=== PATIENT | female | born 1950 | race Caucasian/White ===

== ENCOUNTER 2017-10-18 01:27 | Emergency (ER) | payer OTHER, MEDICARE ==
--- OUTSIDE RECORDS SUMMARY | 2017-10-18 01:30 | XMS REPORT | Clinical Summary ---
:1950 Author Organization [facility] Address [address] [place] [address] Phone Care Team Providers Name Role Phone Unavailable Primary Care Provider Unavailable Allergies Active Allergy Reactions Severity Noted Date Comments Penicillins Rash Low 05/09/2017 Current Medications Prescription Sig. Disp. Refills Start Date End Date Status aspirin 81 MG EC tablet Take 81 mg by Active mouth daily. calcium carbonate Take 1 tablet Active (CALCIUM CARBONATE) 300 by mouth 3 mg ChewIndications: (three) times Hypocalcemia Prevention daily. metoprolol (LOPRESSOR) Take 25 mg by Active 25 MG mouth 2 (two) tabletIndications: times daily. Paroxysmal Supraventricular Tachycardia acetaminophen (TYLENOL) Take 2 tablets 30 tablet 0 05/12/2017 05/07/2018 Active 325 MG tablet (650 mg total) by mouth every 6 (six) hours as needed for up to 360 days. predniSONE (DELTASONE) Take 3 tablets 42 tablet 0 05/12/2017 05/26/2017 20 MG tablet (60 mg total) by mouth daily for 14 days. omeprazole (PRILOSEC) Take 1 capsule 14 capsule 0 05/12/2017 05/26/2017 40 MG capsule (40 mg total) by mouth daily for 14 days. 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 Encounters Date Type Specialty Care Team Description 05/11/2017 Anesthesia Event Dejon Edwards, SPOT WELDER LINE 05/11/2017 Procedure Pass 05/11/2017 Surgery Oziel De Los Santos CATH & PCI P., MD 05/11/2017 Procedure Pass 05/11/2017 Surgery Iban Rawls BIOPSY,TEMPORAL MD Dov ARTERY 05/09/2017 - Hospital Encounter General Internal Imtiaz Roman Cavernous sinus 05/12/2017 Medicine MD Asa thrombosis;Abnormal Winston Arellano stress MD test;Vitreous floaters of right eye;Sinus bradycardia 05/09/2017 Orders Only General Internal Medicine after 10/17/2016 Social History Tobacco Use Types Packs/Day Years Used Date Never Smoker Smokeless Tobacco: Never Used Alcohol Use Drinks/Week oz/Week Comments Yes 2 cans of beer a month Sex Assigned at Date Recorded Not on file Last Filed Vital Signs Vital Sign Reading Time Taken Blood Pressure 111/53 05/12/2017 11:00 AM [employer] Pulse 56 05/12/2017 11:00 AM [employer] Temperature 36 C (96.8 F) 05/12/2017 7:30 AM [employer] Respiratory Rate 16 05/12/2017 11:00 AM [employer] Oxygen Saturation 96% 05/12/2017 11:00 AM [employer] Inhaled Oxygen Concentration - - Weight 89 kg (196 lb 3.4 oz) 05/10/2017 6:00 AM [employer] Height 153.9 cm (5' 0.6") 05/09/2017 1:00 AM [employer] Body Mass Index 37.56 05/10/2017 6:00 AM [employer] Plan of Treatment Not on file Implants Implanted Type Area House Carpenter Device Expiration Model / Identifier Date Serial / Lot Device Clsr Angio-Seal Vip 6fr [id number] - [id number] Cardiovascular N/A: [id number] / Implanted: Qty: 1 on 05/11/2017 by Oziel De [facility] [id number] Procedures Procedure Name Priority Date/Time Associated Diagnosis Comments BIOPSY,TEMPORAL ARTERY 05/11/2017 6:35 PM SINUS HEADACHE AND [employer] VISUAL CHANGES Special Needs REQ: 1600 L CATH & PCI 05/11/2017 3:00 PM [employer] CP after 10/17/2016 Results VASCULAR DIAGRAM -SCAN (05/27/2017 10:50 AM)Only the most recent of2 resultswithin the time period is included.EKG-SCANNED (05/18/2017 8:10 AM) RHYTHM STRIP - SCAN (05/18/2017 8:10 AM)CARDIAC CATH REPORT - SCAN (05/12/2017 9:30 PM)Tissue Exam (05/11/2017 10:34 PM) Component Value Ref Range Case Report Surgical Pathology Report Case: [id number] Authorizing Provider:Iban Rawls MD Collected: 05/11/2017 2234 Ordering Location: [facility] Received: 05/12/2017 1004 SERVICES Pathologist: Radha Gonzalez MD Specimen:Artery, TEMPORAL ARTERY BIOPSY DIAGNOSIS TEMPORAL ARTERY, BIOPSY -TEMPORAL ARTERY WITHOUT SIGNIFICANT INFLAMMATION Signing Pathologist Direct Phone Line: [phone] COMMENT Multiple sections show temporal artery without significant inflammation. No granulomata or giant cells are detected. Luminal narrowing is not seen. Areas of hemorrhage that may be related to the procedure are also identified. The Movat stain shows a continuous internal elastic lamina. Findings are not sufficient for diagnosis of temporal arteritis. Clinical correlation is recommended. CPT Code(s) 25935, 04083 CLINICAL HISTORY Sinus headache and visual changes SPECIMEN SOURCE Temporal artery biopsy GROSS DESCRIPTION The specimen is received in a formalin-filled container labeled with the patient's information and labeled "temporal artery biopsy" and consists of a wilson-red tubular shaped segment of tissue measuring 2.4 cm in length x 0.1 cm in diameter, submitted in A1. CG/ew MICROSCOPIC DESCRIPTION Performed. Specimen Performing Laboratory Tissue - Artery [address] [address] TSH/Free T4 If Indicated (05/11/2017 11:23 AM) Component Value Ref Range TSH 2.27 0.35 - 4.94 uIU/mL Specimen Performing Laboratory Blood - Arm, [address] [address] Troponin I (05/11/2017 11:23 AM)Only the most recent of3 resultswithin the time period is included. Component Value Ref Range Troponin I <0.01 0.00 - 0.03 ng/mL Specimen Performing Laboratory Blood - Arm, [address] [address] Narrative Troponin I (TnI) levels must be interpreted in the context of the presenting symptoms and the clinical findings. Elevated TnI levels indicate myocardial damage, but are not specific for ischemic heart disease. Elevated TnI levels are seen in patients with other cardiac conditions (including myocarditis and congestive heart failure), and slight TnI elevations occur in patients with other conditions, including sepsis, renal failure, acidosis, acute neurological disease, and persistent tachyarrhythmia. ECG 12 lead (05/11/2017 11:06 AM)Only the most recent of2 resultswithin the time period is included. Specimen Performing Laboratory GE MUSE Narrative Ventricular Rate 56 BPM Atrial Rate 56 BPM P-R Interval 206 ms QRS Duration 96 ms Q-T Interval 434 ms QTC Calculation(Bazett) 418 ms P Ewing 30 degrees R Ewing 0 degrees T Ewing 23 degrees Sinus bradycardia Otherwise normal ECG When compared with ECG of 09-MAY-2017 02:31, No significant change was found Confirmed by MD Jaquez Roberto ([id number]) on 05/11/2017 1:22:40 PM Procedure Note Interface, External Ris In - 05/11/2017 1:22 PM [employer] Ventricular Rate 56 BPM Atrial Rate 56 BPM P-R Interval 206 ms QRS Duration 96 ms Q-T Interval 434 ms QTC Calculation(Bazett) 418 ms P Ewing 30 degrees R Ewing 0 degrees T Ewing 23 degrees Sinus bradycardia Otherwise normal ECG When compared with ECG of 09-MAY-2017 02:31, No significant change was found Confirmed by MD Jaquez Roberto ([id number]) on 05/11/2017 1:22:40 PM CBC with platelet count + automated diff (05/11/2017 4:59 AM)Only the most recent of3 resultswithin the time period is included. Component Value Ref Range WBC 7.5 3.5 - 10.5 K/L RBC 4.47 3.93 - 5.22 M/L Hemoglobin 12.7 11.2 - 15.7 GM/DL Hematocrit 39.4 34.1 - 44.9 % MCV 88.1 79.4 - 94.8 fL MCH 28.4 25.6 - 32.2 pg MCHC 32.2 32.2 - 35.5 GM/DL RDW 14.6 (H) 11.7 - 14.4 % Platelets 266 150 - 450 K/CU MM MPV 10.1 9.4 - 12.3 fL nRBC 0 0 - 0 /100 WBC % Neutros 61 % % Lymphs 25 % % Monos 11 % % Eos 2 % % Baso 0 % # Neutros 4.59 1.56 - 6.13 K/L # Lymphs 1.87 1.18 - 3.74 K/L # Monos 0.83 (H) 0.24 - 0.36 K/L # Eos 0.17 0.04 - 0.36 K/L # Baso 0.03 0.01 - 0.08 K/L Immature Granulocytes-Relative 0 0 - 1 % Specimen Performing Laboratory Blood - Arm, Right [address] [address] CBC with platelet count + automated diff (05/11/2017 4:59 AM)Only the most recent of3 resultswithin the time period is included. Specimen Performing Laboratory Blood Narrative The following orders were created for panel order CBC with platelet count + automated diff. Procedure Abnormality Status --------- ------ CBC with platelet count ...[[id number]]AbnormalFinal result Please view results for these tests on the individual orders. Basic Metabolic Panel (05/11/2017 4:59 AM)Only the most recent of3 resultswithin the time period is included. Component Value Ref Range Sodium 140 136 - 145 meq/L Potassium 4.3 3.5 - 5.1 meq/L Chloride 109 (H) 98 - 107 meq/L CO2 26 22 - 29 meq/L BUN 13 7 - 21 mg/dL Creatinine 0.82 0.57 - 1.25 mg/dL Glucose 85 70 - 105 mg/dL Calcium 9.0 8.4 - 10.2 mg/dL EGFR 70Comment: ESTIMATED GFR IS NOT ACCURATE mL/min/1.73 sq m CREATININE CLEARANCE IN PREDICTING GLOMERULAR FILTRATION RATE. ESTIMATED GFR IS NOT APPLICABLE FOR DIALYSIS PATIENTS. Specimen Performing Laboratory Blood - Arm, Right [address] [address] CTA brain (05/10/2017 10:08 AM) Specimen Performing Laboratory GE RIS Narrative FINAL REPORT CTV head with contrast INDICATION: Acute headache, cavernous sinus thrombosis. TECHNIQUE: Axial noncontrast CT images of the head were obtained. Subsequently, axial intravenous contrast enhanced CTV images of the head were obtained. Multiplanar and 3-D volume rendered reconstruction images were generated on a separate workstation for better delineation of the vascular anatomy. This exam was performed according to our departmental dose optimization program which includes automated exposure control, adjustment of the mA and/or kV according to patient size and/or use of iterative reconstruction technique. COMPARISON: MRI brain and MRV head 05/09/2017 FINDINGS: CTV head: Suboptimal contrast bolus timing limits evaluation. With this in mind, no significant cavernous sinus size asymmetry, suspicious filling defect, or secondary findings such as superior ophthalmic vein distention is seen to indicate cavernous sinus thrombosis. The major dural venous sinuses are otherwise patent, without evident thrombosis. There is mild carotid siphon atherosclerosis. The imaged proximal [place] vessels demonstrate no high grade stenosis or major branch occlusion. CT head: Microvascular changes are similar to the prior study and chronic appearing. No hematoma, extra axial collection, or mass effect is evident. Please note that CT is insensitive for early or small infarcts. Generalized volume loss and vascular consultations are noted. There is no hydrocephalus or midline shift. The visualized sinuses, mastoid air cells, and orbits are unremarkable. The calvarium is intact. IMPRESSION: 1. Suboptimal contrast bolus timing limits evaluation. 2. No specific CTV findings of cavernous sinus thrombosis. 3. Unremarkable appearance of the major dural venous sinuses. Signed: Camila Thomas MD Report Verified Date/Time:05/10/2017 11:23:39 Reading Location: [address] Neuro Reading Room Procedure Note Interface, External Ris In - 05/10/2017 10:28 PM [employer] FINAL REPORT CTV head with contrast INDICATION: Acute headache, cavernous sinus thrombosis. TECHNIQUE: Axial noncontrast CT images of the head were obtained. Subsequently, axial intravenous contrast enhanced CTV images of the head were obtained. Multiplanar and 3-D volume rendered reconstruction images were generated on a separate workstation for better delineation of the vascular anatomy. This exam was performed according to our departmental dose optimization program which includes automated exposure control, adjustment of the mA and/or kV according to patient size and/or use of iterative reconstruction technique. COMPARISON: MRI brain and MRV head 05/09/2017 FINDINGS: CTV head: Suboptimal contrast bolus timing limits evaluation. With this in mind, no significant cavernous sinus size asymmetry, suspicious filling defect, or secondary findings such as superior ophthalmic vein distention is seen to indicate cavernous sinus thrombosis. The major dural venous sinuses are otherwise patent, without evident thrombosis. There is mild carotid siphon atherosclerosis. The imaged proximal [place] vessels demonstrate no high grade stenosis or major branch occlusion. CT head: Microvascular changes are similar to the prior study and chronic appearing. No hematoma, extra axial collection, or mass effect is evident. Please note that CT is insensitive for early or small infarcts. Generalized volume loss and vascular consultations are noted. There is no hydrocephalus or midline shift. The visualized sinuses, mastoid air cells, and orbits are unremarkable. The calvarium is intact. IMPRESSION: 1. Suboptimal contrast bolus timing limits evaluation. 2. No specific CTV findings of cavernous sinus thrombosis. 3. Unremarkable appearance of the major dural venous sinuses. Signed: Camila Thomas MD Report Verified Date/Time: 05/10/2017 11:23:39 Reading Location: [address] Neuro Reading Room C-Reactive Protein (05/10/2017 9:12 AM) Component Value Ref Range CRP 0.80 (H) 0.00 - 0.50 mg/dL Specimen Performing Laboratory [address] [address] aPTT (05/10/2017 9:12 AM)Only the most recent of4 resultswithin the time period is included. Component Value Ref Range PTT 98.5 (H) 22.5 - 36.0 seconds Specimen Performing Laboratory Blood [address] [address] Sedimentation rate (05/10/2017 9:12 AM) Component Value Ref Range Sed Rate 19 0 - 40 mm/HR Specimen Performing Laboratory [address] [address] PT/aPTT (05/10/2017 3:15 AM)Only the most recent of2 resultswithin the time period is included. Component Value Ref Range Protime 14.6 11.7 - 14.7 seconds INR 1.2 <=5.9 PTT 83.0 (H) 22.5 - 36.0 seconds Specimen Performing Laboratory Blood [facility] [address] [place] [address] Narrative RECOMMENDED COUMADIN/WARFARIN INR THERAPY RANGES STANDARD DOSE: 2.0 - 3.0 Includes: PROPHYLAXIS for venous thrombosis, systemic embolization; TREATMENT for venous thrombosis and/or pulmonary embolus. HIGH RISK: Target INR is 2.5-3.5 for patients with mechanical heart valves. MR brain without & with IV contrast (05/10/2017 12:35 AM) Specimen Performing Laboratory [facility] Narrative FINAL REPORT MR, MRA, BRAIN, WITHOUT CONTRAST, MR, BRAIN, WITH \\T\\ WITHOUT CONTRAST INDICATION: MRV for suspected cavernous sinus thrombosis TECHNIQUE: Multiplanar, multisequence pre and postcontrast MR images of the brain.Two-dimensional [id number] MR venogram of the brain in the coronal and axial plane was obtained, with three-dimensional reconstructed images. COMPARISON: None FINDINGS: MRI BRAIN: Cerebral parenchyma: No infarct or hemorrhage. Scattered small foci of deep white matter T2 hyperintensity suggesting sequela of chronic microvascular disease. Midline structures: Normally positioned. Cerebellum and brainstem: Small developmental venous anomaly in the right cerebellar hemisphere. Ventricles: Normal volume. Extra-axial spaces: Unremarkable. Calvarium and skull base: Normal signal. Paranasal sinuses and mastoid air cells: Visible chambers are clear. Orbital contents: No acute abnormality. Additional findings: No abnormal postcontrast enhancement. MRV: Major venous sinuses: Patent Internal cerebral veins: Patent Basal veins: Patent Additional Findings: None IMPRESSION: Mild chronic ischemic changes without acute infarct or parenchymal hemorrhage. Unremarkable MR venogram of the brain. Signed: JR Chloe, Belle MONSON Report Verified Date/Time:05/10/2017 00:52:12 Reading Location: [address] Reading Room Procedure Note Interface, External Ris In - 05/10/2017 12:54 AM [employer] FINAL REPORT MR, MRA, BRAIN, WITHOUT CONTRAST, MR, BRAIN, WITH \\T\\ WITHOUT CONTRAST INDICATION: MRV for suspected cavernous sinus thrombosis TECHNIQUE: Multiplanar, multisequence pre and postcontrast MR images of the brain. Two-dimensional [id number] MR venogram of the brain in the coronal and axial plane was obtained, with three-dimensional reconstructed images. COMPARISON: None FINDINGS: MRI BRAIN: Cerebral parenchyma: No infarct or hemorrhage. Scattered small foci of deep white matter T2 hyperintensity suggesting sequela of chronic microvascular disease. Midline structures: Normally positioned. Cerebellum and brainstem: Small developmental venous anomaly in the right cerebellar hemisphere. Ventricles: Normal volume. Extra-axial spaces: Unremarkable. Calvarium and skull base: Normal signal. Paranasal sinuses and mastoid air cells: Visible chambers are clear. Orbital contents: No acute abnormality. Additional findings: No abnormal postcontrast enhancement. MRV: Major venous sinuses: Patent Internal cerebral veins: Patent Basal veins: Patent Additional Findings: None IMPRESSION: Mild chronic ischemic changes without acute infarct or parenchymal hemorrhage. Unremarkable MR venogram of the brain. Signed: JR Corona Robert MD Report Verified Date/Time: 05/10/2017 00:52:12 Reading Location: [address] Reading Room head without IV contrast (05/10/2017 12:35 AM) Specimen Performing Laboratory [facility] Narrative FINAL REPORT MR, MRA, BRAIN, WITHOUT CONTRAST, MR, BRAIN, WITH \\T\\ WITHOUT CONTRAST INDICATION: MRV for suspected cavernous sinus thrombosis TECHNIQUE: Multiplanar, multisequence pre and postcontrast MR images of the brain.Two-dimensional [id number] MR venogram of the brain in the coronal and axial plane was obtained, with three-dimensional reconstructed images. COMPARISON: None FINDINGS: MRI BRAIN: Cerebral parenchyma: No infarct or hemorrhage. Scattered small foci of deep white matter T2 hyperintensity suggesting sequela of chronic microvascular disease. Midline structures: Normally positioned. Cerebellum and brainstem: Small developmental venous anomaly in the right cerebellar hemisphere. Ventricles: Normal volume. Extra-axial spaces: Unremarkable. Calvarium and skull base: Normal signal. Paranasal sinuses and mastoid air cells: Visible chambers are clear. Orbital contents: No acute abnormality. Additional findings: No abnormal postcontrast enhancement. MRV: Major venous sinuses: Patent Internal cerebral veins: Patent Basal veins: Patent Additional Findings: None IMPRESSION: Mild chronic ischemic changes without acute infarct or parenchymal hemorrhage. Unremarkable MR venogram of the brain. Signed: JR Corona Robert MD Report Verified Date/Time:05/10/2017 00:52:12 Reading Location: [address] Reading Room Procedure Note Interface, External Ris In - 05/10/2017 12:54 AM [employer] FINAL REPORT MR, MRA, BRAIN, WITHOUT CONTRAST, MR, BRAIN, WITH \\T\\ WITHOUT CONTRAST INDICATION: MRV for suspected cavernous sinus thrombosis TECHNIQUE: Multiplanar, multisequence pre and postcontrast MR images of the brain. Two-dimensional [id number] MR venogram of the brain in the coronal and axial plane was obtained, with three-dimensional reconstructed images. COMPARISON: None FINDINGS: MRI BRAIN: Cerebral parenchyma: No infarct or hemorrhage. Scattered small foci of deep white matter T2 hyperintensity suggesting sequela of chronic microvascular disease. Midline structures: Normally positioned. Cerebellum and brainstem: Small developmental venous anomaly in the right cerebellar hemisphere. Ventricles: Normal volume. Extra-axial spaces: Unremarkable. Calvarium and skull base: Normal signal. Paranasal sinuses and mastoid air cells: Visible chambers are clear. Orbital contents: No acute abnormality. Additional findings: No abnormal postcontrast enhancement. MRV: Major venous sinuses: Patent Internal cerebral veins: Patent Basal veins: Patent Additional Findings: None IMPRESSION: Mild chronic ischemic changes without acute infarct or parenchymal hemorrhage. Unremarkable MR venogram of the brain. Signed: JR Corona Robert MD Report Verified Date/Time: 05/10/2017 00:52:12 Reading Location: [address] Reading Room Prothrombin time/INR (05/09/2017 1:50 AM) Component Value Ref Range Protime 14.2 11.7 - 14.7 seconds INR 1.1 <=5.9 Specimen Performing Laboratory Blood [facility] [address] [address] Narrative RECOMMENDED COUMADIN/WARFARIN INR THERAPY RANGES STANDARD DOSE: 2.0 - 3.0 Includes: PROPHYLAXIS for venous thrombosis, systemic embolization; TREATMENT for venous thrombosis and/or pulmonary embolus. HIGH RISK: Target INR is 2.5-3.5 for patients with mechanical heart valves. Prior to initiating heparin after 10/17/2016
--- OUTSIDE RECORDS SUMMARY | 2017-10-18 01:30 | XMS REPORT ---
:1950 [facility] Address [address] [place] [address] [address] [place] [address] Care Team Providers Name Role Phone CORBY SANTOYO Unavailable Unavailable Problems This patient has no known problems. Allergies, Adverse Reactions, Alerts This patient has no known allergies or adverse reactions. Medications This patient has no known medications. Results Test Description Test Time Test Comments Text Results Atomic Results Result Comments TISSUE EXAM 2017-05-14 12:19:00 Surgical Pathology Report Case: [id number] Authorizing Provider: Iban Rawls MD Collected: 05/11/2017 2234 Ordering Location: [facility] Received: 05/12/2017 1004 SERVICES Pathologist: Radha Gonzalez MD Specimen: Artery, TEMPORAL ARTERY BIOPSY TEMPORAL ARTERY, BIOPSY- TEMPORAL ARTERY WITHOUT SIGNIFICANT INFLAMMATION Signing Pathologist Direct Phone Line: [phone] signed by Radha Gonzalez MD on 05/14/2017 at 12:19 PMMultiple sections show temporal artery without significant inflammation. No granulomata or giant cells are detected. Luminal narrowing is not seen. Areas of hemorrhage that may be related to the procedure are also identified. The Movat stain shows a continuous internal elastic lamina. Findings are not sufficient for diagnosis of temporal arteritis. Clinical correlation is recommended.[id number], [id number] headache and visual changesTemporal artery biopsyThe specimen is received in a formalin-filled container labeled with the patient's information and labeled "temporal artery biopsy" and consists of a wilson-red tubular shaped segment of tissue measuring 2.4 cm in length x 0.1 cm in diameter, submitted in A1. CG/ewPerformed. TSH/FREE T4 IF INDICATED 2017-05-11 14:41:00 Test Item Value Reference Range Comments THYROID STIMULATING HORMONE (BEAKER) (test fyva=091) 2.27 uIU/mL 0.35-4.94 TROPONIN [id number] 12:21:00 Test Item Value Reference Range Comments TROPONIN I (BEAKER) (test yizd=602) < ng/mL 0.00-0.03 Troponin I (TnI) levels must be interpreted [...] failure, acidosis, acute neurological disease, and persistent tachyarrhythmia.BASIC METABOLIC [id number] 06:27:00 Test Item Value Reference Range Comments SODIUM (BEAKER) (test 140 meq/L 136-145 lejq=390) POTASSIUM (BEAKER) (test 4.3 meq/L 3.5-5.1 rzmf=757) CHLORIDE (BEAKER) (test 109 meq/L 98-107 dbvi=756) CO2 (BEAKER) (test 26 meq/L 22-29 yjii=244) BLOOD UREA NITROGEN 13 mg/dL 7-21 (BEAKER) (test onqb=383) CREATININE (BEAKER) (test 0.82 mg/dL 0.57-1.25 thpg=560) GLUCOSE RANDOM (BEAKER) 85 mg/dL 70-105 (test yltv=175) CALCIUM (BEAKER) (test 9.0 mg/dL 8.4-10.2 vhww=156) EGFR (BEAKER) (test 70 mL/min/1.73 sq m ESTIMATED GFR IS NOT zeou=0902) ACCURATE CREATININE CLEARANCE IN PREDICTING GLOMERULAR FILTRATION RATE. ESTIMATED GFR IS NOT APPLICABLE FOR DIALYSIS PATIENTS. CBC W/PLT COUNT & AUTO [id number] 05:56:00 Test Item Value Reference Range Comments WHITE BLOOD CELL COUNT (BEAKER) (test qlbi=199) 7.5 K/ L 3.5-10.5 RED BLOOD CELL COUNT (BEAKER) (test nxha=206) 4.47 M/ L 3.93-5.22 HEMOGLOBIN (BEAKER) (test ydvg=783) 12.7 GM/DL 11.2-15.7 HEMATOCRIT (BEAKER) (test yewo=741) 39.4 % 34.1-44.9 MEAN CORPUSCULAR VOLUME (BEAKER) (test wsav=700) 88.1 fL 79.4-94.8 MEAN CORPUSCULAR HEMOGLOBIN (BEAKER) (test 28.4 pg 25.6-32.2 luea=759) MEAN CORPUSCULAR HEMOGLOBIN CONC (BEAKER) (test 32.2 GM/DL 32.2-35.5 uvct=822) RED CELL DISTRIBUTION WIDTH (BEAKER) (test 14.6 % 11.7-14.4 yqke=773) PLATELET COUNT (BEAKER) (test pylq=202) 266 K/CU MM 150-450 MEAN PLATELET VOLUME (BEAKER) (test izij=910) 10.1 fL 9.4-12.3 NUCLEATED RED BLOOD CELLS (BEAKER) (test 0 /100 WBC 0-0 lyuc=872) NEUTROPHILS RELATIVE PERCENT (BEAKER) (test 61 % acix=834) LYMPHOCYTES RELATIVE PERCENT (BEAKER) (test 25 % atif=936) MONOCYTES RELATIVE PERCENT (BEAKER) (test 11 % jmnw=257) EOSINOPHILS RELATIVE PERCENT (BEAKER) (test 2 % suwy=858) BASOPHILS RELATIVE PERCENT (BEAKER) (test 0 % wrrm=522) NEUTROPHILS ABSOLUTE COUNT (BEAKER) (test 4.59 K/ L 1.56-6.13 iikk=046) LYMPHOCYTES ABSOLUTE COUNT (BEAKER) (test 1.87 K/ L 1.18-3.74 bgee=380) MONOCYTES ABSOLUTE COUNT (BEAKER) (test 0.83 K/ L 0.24-0.36 rmld=979) EOSINOPHILS ABSOLUTE COUNT (BEAKER) (test 0.17 K/ L 0.04-0.36 rvbh=818) BASOPHILS ABSOLUTE COUNT (BEAKER) (test 0.03 K/ L 0.01-0.08 aogz=376) IMMATURE GRANULOCYTES-RELATIVE PERCENT (BEAKER) 0 % 0-1 (test isre=4121) SEDIMENTATION [id number] 11:51:00 Test Item Value Reference Range Comments SEDIMENTATION RATE, ERYTHROCYTE (BEAKER) (test 19 mm/HR 0-40 wlyy=305) CT, CTANGIO [id number] 11:23:00FINAL REPORT CTV head with contrast INDICATION: Acute [...] brain and MRV head 05/09/2017 FINDINGS: CTV head:Suboptimal contrast bolus timing limits evaluation. With this in mind, no significant cavernoussinus size asymmetry, suspicious filling defect, or secondary findings such as superior ophthalmic vein distention is seen to indicate cavernous sinus thrombosis. The major dural venous sinuses are otherwise patent, without evident thrombosis. There is mild carotid siphon atherosclerosis. The imaged proximal pilot point of Sarah vessels demonstrate no high grade stenosis or major branch occlusion. CT head:Microvascular changes are similar to the prior study [...] major dural venous sinuses. Signed: Camila Thomas MDReport Verified Date/Time: 05/10 11:23:39 Reading Location: [address] Neuro Reading Room C- REACTIVE [id number] 10:01:00 Test Item Value Reference Range Comments C-REACTIVE PROTEIN (BEAKER) (test zbea=478) 0.80 mg/dL 0.00-0.50 [id number] 09:44:00 Test Item Value Reference Range Comments PARTIAL THROMBOPLASTIN TIME (BEAKER) (test 98.5 seconds 22.5-36.0 whgm=497) TROPONIN [id number] 08:37:00 Test Item Value Reference Range Comments TROPONIN I (BEAKER) (test upan=866) < ng/mL 0.00-0.03 Troponin I (TnI) levels must be interpreted [...] failure, acidosis, acute neurological disease, and persistent tachyarrhythmia.BASIC METABOLIC [id number] 04:17:00 Test Item Value Reference Range Comments SODIUM (BEAKER) (test 138 meq/L 136-145 fznm=631) POTASSIUM (BEAKER) (test 4.2 meq/L 3.5-5.1 hqom=045) CHLORIDE (BEAKER) (test 107 meq/L 98-107 jefn=799) CO2 (BEAKER) (test 24 meq/L 22-29 bcgf=555) BLOOD UREA NITROGEN 15 mg/dL 7-21 (BEAKER) (test oxxa=204) CREATININE (BEAKER) (test 0.88 mg/dL 0.57-1.25 xpug=504) GLUCOSE RANDOM (BEAKER) 98 mg/dL 70-105 (test hqex=995) CALCIUM (BEAKER) (test 8.8 mg/dL 8.4-10.2 fwnm=413) EGFR (BEAKER) (test 64 mL/min/1.73 sq m ESTIMATED GFR IS NOT ikra=6726) ACCURATE CREATININE CLEARANCE IN PREDICTING GLOMERULAR FILTRATION RATE. ESTIMATED GFR IS NOT APPLICABLE FOR DIALYSIS PATIENTS. [id number] 03:43:00 Test Item Value Reference Range Comments PROTIME (BEAKER) (test qgjk=273) 14.6 seconds 11.7-14.7 INR (BEAKER) (test fixl=540) 1.2 <=5.9 PARTIAL THROMBOPLASTIN TIME (BEAKER) (test 83.0 seconds 22.5-36.0 nyii=076) RECOMMENDED COUMADIN/WARFARIN INR THERAPY RANGESSTANDARD DOSE: 2.0 - 3.0 Includes: PROPHYLAXIS forvenous thrombosis, systemic embolization; TREATMENT for venous thrombosis and/or pulmonary embolus.HIGH RISK: Target INR is 2.5-3.5 for patients with mechanical heart valves.CBC W/PLT COUNT & AUTO [id number] 03:34:00 Test Item Value Reference Range Comments WHITE BLOOD CELL COUNT (BEAKER) (test nmom=328) 7.9 K/ L 3.5-10.5 RED BLOOD CELL COUNT (BEAKER) (test qzfs=099) 4.29 M/ L 3.93-5.22 HEMOGLOBIN (BEAKER) (test baui=675) 12.3 GM/DL 11.2-15.7 HEMATOCRIT (BEAKER) (test zguv=847) 38.5 % 34.1-44.9 MEAN CORPUSCULAR VOLUME (BEAKER) (test cekh=145) 89.7 fL 79.4-94.8 MEAN CORPUSCULAR HEMOGLOBIN (BEAKER) (test 28.7 pg 25.6-32.2 eovg=510) MEAN CORPUSCULAR HEMOGLOBIN CONC (BEAKER) (test 31.9 GM/DL 32.2-35.5 oxih=540) RED CELL DISTRIBUTION WIDTH (BEAKER) (test 14.6 % 11.7-14.4 euaq=019) PLATELET COUNT (BEAKER) (test bujy=478) 240 K/CU MM 150-450 MEAN PLATELET VOLUME (BEAKER) (test qolr=062) 9.8 fL 9.4-12.3 NUCLEATED RED BLOOD CELLS (BEAKER) (test 0 /100 WBC 0-0 ommd=091) NEUTROPHILS RELATIVE PERCENT (BEAKER) (test 55 % miml=624) LYMPHOCYTES RELATIVE PERCENT (BEAKER) (test 32 % dkxm=470) MONOCYTES RELATIVE PERCENT (BEAKER) (test 10 % gfyw=516) EOSINOPHILS RELATIVE PERCENT (BEAKER) (test 2 % lowa=081) BASOPHILS RELATIVE PERCENT (BEAKER) (test 0 % ijut=899) NEUTROPHILS ABSOLUTE COUNT (BEAKER) (test 4.30 K/ L 1.56-6.13 ihiw=531) LYMPHOCYTES ABSOLUTE COUNT (BEAKER) (test 2.54 K/ L 1.18-3.74 kkkw=945) MONOCYTES ABSOLUTE COUNT (BEAKER) (test 0.79 K/ L 0.24-0.36 omyk=107) EOSINOPHILS ABSOLUTE COUNT (BEAKER) (test 0.17 K/ L 0.04-0.36 vdlb=039) BASOPHILS ABSOLUTE COUNT (BEAKER) (test 0.02 K/ L 0.01-0.08 dvox=260) IMMATURE GRANULOCYTES-RELATIVE PERCENT (BEAKER) 1 % 0-1 (test owss=7647) MR, MRA, BRAIN, WITHOUT [id number] 00:52:00FINAL REPORT MR, MRA, BRAIN, WITHOUT CONTRAST, MR, BRAIN, WITH \\T\\ WITHOUT CONTRAST INDICATION: MRV for suspected cavernous sinus thrombosis TECHNIQUE: Multiplanar , multisequencepre and postcontrast MR images of the brain. Two-dimensional [id number]-og-[id number] MR venogram of the brain in the coronal and axial plane was obtained, with three-dimensional reconstructed images. COMPARISON: None FINDINGS : MRI BRAIN: Cerebral parenchyma: No infarct or hemorrhage. Scattered small foci of deep white matter T2 hyperintensity suggesting sequela of chronic microvascular disease. Midline structures: Normally positioned.Cerebellum and brainstem: Small developmental venous anomaly in the rightcerebellar hemisphere.Ventricles: Normal volume.Extra-axial spaces: Unremarkable. Calvarium and skull base: Normal signal.Paranasal sinuses and mastoid air cells : Visible chambers are clear.Orbital contents: No acute abnormality. Additional findings: No abnormal postcontrast enhancement. MRV:Major venous sinuses: PatentInternal cerebral veins: PatentBasal veins: Patent Additional Findings: None IMPRESSION: Mild chronic ischemic changes without acute infarct or parenchymal hemorrhage. Unremarkable MR venogram of the brain. Signed: JR Corona Robert MDReport Verified Date/Time: 05/10/2017 00:52:12 Reading Location: [address] Reading Room MR, BRAIN, [id number] 00:52 :00FINAL REPORT MR, MRA, BRAIN, WITHOUT CONTRAST, MR, BRAIN, WITH \\T\\ WITHOUT CONTRAST INDICATION: MRV for suspected cavernous sinus thrombosis TECHNIQUE: Multiplanar, multisequencepre and postcontrast MR images of the brain. Two-dimensional swxj-pf-nekfmf MR venogram of the brain in the coronal and axial plane was obtained, with three-dimensional reconstructed images. COMPARISON: None FINDINGS: MRI BRAIN: Cerebral parenchyma: No infarct or hemorrhage. Scattered small foci of deep white matter T2 hyperintensity suggesting sequela of chronic microvascular disease. Midline structures: Normally positioned.Cerebellum and brainstem: Small developmental venous anomaly in the rightcerebellar hemisphere.Ventricles: Normal volume.Extra-axial spaces: Unremarkable. Calvarium and skull base: Normal signal.Paranasal sinuses and mastoid air cells: Visible chambers are clear.Orbital contents: No acute abnormality. Additional findings: No abnormal postcontrast enhancement. MRV: Major venous sinuses: PatentInternal cerebral veins: PatentBasal veins: Patent Additional Findings: None IMPRESSION: Mild chronic ischemic changes without acute infarct or parenchymal hemorrhage. Unremarkable MR venogram of the brain. Signed: JR Corona Robert MDReport Verified Date/Time: 05/10/2017 00:52: 12 Reading Location: [address] Reading Room [id number] 22:46: 00 Test Item Value Reference Range Comments PROTIME (BEAKER) (test hlpp=811) 14.5 seconds 11.7-14.7 INR (BEAKER) (test flwo=348) 1.1 <=5.9 PARTIAL THROMBOPLASTIN TIME (BEAKER) (test 43.9 seconds 22.5-36.0 qpzl=602) RECOMMENDED COUMADIN/WARFARIN INR THERAPY RANGESSTANDARD DOSE: 2.0 - 3.0 Includes: PROPHYLAXIS forvenous thrombosis, systemic embolization; TREATMENT for venous thrombosis and/or pulmonary embolus.HIGH RISK: Target INR is 2.5-3.5 for patients with mechanical heart valves.[id number] 14:41:00 Test Item Value Reference Range Comments PARTIAL THROMBOPLASTIN TIME (BEAKER) (test 29.6 seconds 22.5-36.0 rywj=981) [id number] 08:26:00 Test Item Value Reference Range Comments PARTIAL THROMBOPLASTIN TIME (BEAKER) (test 56.2 seconds 22.5-36.0 recz=749) BASIC METABOLIC [id number] 05:02:00 Test Item Value Reference Range Comments SODIUM (BEAKER) (test 141 meq/L 136-145 xhwl=759) POTASSIUM (BEAKER) (test 4.3 meq/L 3.5-5.1 wluy=223) CHLORIDE (BEAKER) (test 110 meq/L 98-107 gavr=171) CO2 (BEAKER) (test 24 meq/L 22-29 ofde=137) BLOOD UREA NITROGEN 12 mg/dL 7-21 (BEAKER) (test tzex=269) CREATININE (BEAKER) (test 0.84 mg/dL 0.57-1.25 uqig=390) GLUCOSE RANDOM (BEAKER) 89 mg/dL 70-105 (test tiby=240) CALCIUM (BEAKER) (test 8.7 mg/dL 8.4-10.2 ifdt=076) EGFR (BEAKER) (test 68 mL/min/1.73 sq m ESTIMATED GFR IS NOT kaps=3014) ACCURATE CREATININE CLEARANCE IN PREDICTING GLOMERULAR FILTRATION RATE. ESTIMATED GFR IS NOT APPLICABLE FOR DIALYSIS PATIENTS. CBC W/PLT COUNT & AUTO [id number] 04:24:00 Test Item Value Reference Range Comments WHITE BLOOD CELL COUNT (BEAKER) (test jjlm=991) 9.0 K/ L 3.5-10.5 RED BLOOD CELL COUNT (BEAKER) (test vbhs=585) 4.24 M/ L 3.93-5.22 HEMOGLOBIN (BEAKER) (test priw=335) 12.1 GM/DL 11.2-15.7 HEMATOCRIT (BEAKER) (test nfno=447) 38.2 % 34.1-44.9 MEAN CORPUSCULAR VOLUME (BEAKER) (test pxmz=557) 90.1 fL 79.4-94.8 MEAN CORPUSCULAR HEMOGLOBIN (BEAKER) (test 28.5 pg 25.6-32.2 cdpf=933) MEAN CORPUSCULAR HEMOGLOBIN CONC (BEAKER) (test 31.7 GM/DL 32.2-35.5 xcce=181) RED CELL DISTRIBUTION WIDTH (BEAKER) (test 14.6 % 11.7-14.4 pprr=912) PLATELET COUNT (BEAKER) (test wcyl=440) 267 K/CU MM 150-450 MEAN PLATELET VOLUME (BEAKER) (test owyg=307) 9.6 fL 9.4-12.3 NUCLEATED RED BLOOD CELLS (BEAKER) (test 0 /100 WBC 0-0 deqj=070) NEUTROPHILS RELATIVE PERCENT (BEAKER) (test 57 % adby=134) LYMPHOCYTES RELATIVE PERCENT (BEAKER) (test 32 % mcyp=176) MONOCYTES RELATIVE PERCENT (BEAKER) (test 9 % qwxd=231) EOSINOPHILS RELATIVE PERCENT (BEAKER) (test 2 % vcqj=015) BASOPHILS RELATIVE PERCENT (BEAKER) (test 0 % vrfi=682) NEUTROPHILS ABSOLUTE COUNT (BEAKER) (test 5.13 K/ L 1.56-6.13 gccz=550) LYMPHOCYTES ABSOLUTE COUNT (BEAKER) (test 2.86 K/ L 1.18-3.74 rgsl=685) MONOCYTES ABSOLUTE COUNT (BEAKER) (test 0.81 K/ L 0.24-0.36 htxb=326) EOSINOPHILS ABSOLUTE COUNT (BEAKER) (test 0.16 K/ L 0.04-0.36 kdmy=425) BASOPHILS ABSOLUTE COUNT (BEAKER) (test 0.04 K/ L 0.01-0.08 qwqj=155) IMMATURE GRANULOCYTES-RELATIVE PERCENT (BEAKER) 0 % 0-1 (test lgrq=2799) TROPONIN [id number] 03:02:00 Test Item Value Reference Range Comments TROPONIN I (BEAKER) (test mxhh=933) < ng/mL 0.00-0.03 Troponin I (TnI) levels must be interpreted [...] failure, acidosis, acute neurological disease, and persistent tachyarrhythmia.[id number] 02:06:00 Test Item Value Reference Range Comments PARTIAL THROMBOPLASTIN TIME (BEAKER) (test 72.6 seconds 22.5-36.0 dgzy=271) Prior to initiating heparinPROTHROMBIN [id number] 02:04:00 Test Item Value Reference Range Comments PROTIME (BEAKER) (test kriy=383) 14.2 seconds 11.7-14.7 INR (BEAKER) (test azwn=474) 1.1 <=5.9 RECOMMENDED COUMADIN/WARFARIN INR THERAPY RANGESSTANDARD DOSE: 2.0 - 3.0 Includes: PROPHYLAXIS forvenous thrombosis, systemic embolization; TREATMENT for venous thrombosis and/or pulmonary embolus.HIGH RISK: Target INR is 2.5-3.5 for patients with mechanical heart valves.Prior to initiating heparin
[2017-10-18] MEDS ORDERED: ONDANSETRON 4 MG/2 ML VIAL ONE (02:05)
[2017-10-18] MEDS ORDERED: NA CHLORIDE 0.9% 1,000 ML ONE (02:05)
[2017-10-18 03:24] LABS: Absolute Lymphocytes (CBC) 1.9 K/uL (0.7-4.9); Absolute Neutrophil 4.8 K/uL (1.8-8.0); Basophils % 0.5 % (0-1.3); Eosinophils % 1.2 % (0-4.4); Hematocrit 43.1 % (36.0-45.0); Lymphocytes % 24.4 % (15.3-44.8); MCH 28.5 pg (27.0-35.0); MCV 87.6 fL (80-100); MPV 8.6 fL (7.6-11.3); Monocytes % 12.5 % (3.3-12.3); RBC Red Blood Cell Count 4.92 M/uL (3.86-4.86)
--- NOTE | 2017-10-18 05:10 | EDPHYS ---
Physician Documentation [facility] Name: Meryl Murray Age: 67 yrs Sex: Female : 1950 Arrival Date: 10/18/2017 Time: 01:29 Bed 16 Private MD: Darrell Piedra T ED Physician Pedro Magallon HPI: 10/18 02:02 This 67 yrs old Female presents to ER via Ambulatory with complaints of Nose snw Pain, Nausea. 02:02 The patient presents with pain, edema, and erythema. Onset: The symptoms/episode snw began/occurred gradually, 6 day(s) ago, and became worse and became persistent. Associated signs and symptoms: Loss of consciousness: the patient experienced no loss of consciousness, Pertinent positives: nausea. Severity of symptoms: At their worst the symptoms were moderate severe. The patient has not experienced similar symptoms in the past. The patient has been recently seen by a physician: the patient's primary care provider, with similar presenting complaints, and apparently given a diagnosis of nasal abscess, was given a prescription for antibiotics, rifampin and doxycycline, but the patient's symptoms have worsened, but the patient's symptoms have persisted. Historical: - Allergies: 01:42 PENICILLINS; ak1 - Home Meds: 01:42 metoprolol tartrate 25 mg Oral tab 1 tab 2 times per day [Active]; flecainide 100 mg ak1 oral tab 2 tabs every 12 hours [Active]; - PMHx: 01:42 SVT; Hypertension; ak1 - PSHx: 01:42 breast implants; ak1 - Immunization history:: Adult Immunizations unknown. - Social history:: Smoking status: Patient/guardian denies using tobacco. ROS: 02:01 Eyes: Negative for injury, pain, redness, and discharge, Neck: Negative for injury, snw pain, and swelling, Cardiovascular: Negative for chest pain, palpitations, and edema, Respiratory: Negative for shortness of breath, cough, wheezing, and pleuritic chest pain, Abdomen/GI: Negative for abdominal pain, nausea, vomiting, diarrhea, and constipation, Back: Negative for injury and pain, : Negative for injury, bleeding, discharge, and swelling, MS/Extremity: Negative for injury and deformity, Skin: Negative for injury, rash, and discoloration, Neuro: Negative for headache, weakness, numbness, tingling, and seizure. 02:01 Constitutional: Positive for fatigue. 02:01 ENT: Positive for sinus congestion, sinus pain, abscess to each side of bridge of nose. Exam: 01:59 Constitutional: This is a well developed, well nourished patient who is awake, alert, snw and in no acute distress. Eyes: Pupils equal round and reactive to light, extra-ocular motions intact. Lids and lashes normal. Conjunctiva and sclera are non-icteric and not injected. Cornea within normal limits. Periorbital areas with no swelling, redness, or edema. ENT: Nares patent. No nasal discharge, no septal abnormalities noted. Tympanic membranes are normal and external auditory canals are clear. Oropharynx with no redness, swelling, or masses, exudates, or evidence of obstruction, uvula midline. Mucous membranes moist. Neck: Trachea midline, no thyromegaly or masses palpated, and no cervical lymphadenopathy. Supple, full range of motion without nuchal rigidity, or vertebral point tenderness. No Meningismus. Chest/axilla: Normal chest wall appearance and motion. Nontender with no deformity. No lesions are appreciated. Cardiovascular: Regular rate and rhythm with a normal S1 and S2. No gallops, murmurs, or rubs. Normal PMI, no JVD. No pulse deficits. Respiratory: Lungs have equal breath sounds bilaterally, clear to auscultation and percussion. No rales, rhonchi or wheezes noted. No increased work of breathing, no retractions or nasal flaring. Abdomen/GI: Soft, non-tender, with normal bowel sounds. No distension or tympany. No guarding or rebound. No evidence of tenderness throughout. Back: No spinal tenderness. No costovertebral tenderness. Full range of motion. Skin: Warm, dry with normal turgor. Normal color with no rashes, no lesions, and no evidence of cellulitis. MS/ Extremity: Pulses equal, no cyanosis. Neurovascular intact. Full, normal range of motion. Neuro: Awake and alert, GCS 15, oriented to person, place, time, and situation. Cranial nerves II-XII grossly intact. Motor strength 5/5 in all extremities. Sensory grossly intact. Cerebellar exam normal. Normal gait. Psych: Awake, alert, with orientation to person, place and time. Behavior, mood, and affect are within normal limits. 01:59 Head/face: Noted is erythema, that is moderate, that is severe, of the nose, swelling, that is mild, of the medial canthus of bilateral eyes, Sinus tenderness, that is moderate. Vital Signs: 01:42 BP 132 / 83; Pulse 55; Resp 18; Temp 97.6(TE); Pulse Ox 97% on R/A; Weight 79.38 kg ak1 (R); Height 5 ft. 6 in. (167.64 cm) (R); Pain 5/10; 03:31 BP 137 / 58; Pulse 58; Resp 16; Temp 98; Pulse Ox 99% on R/A; Pain 4/10; ak1 01:42 Body Mass Index 28.25 (79.38 kg, 167.64 cm) ak1 MDM: 02:04 Patient medically screened. snw 03:11 Data reviewed: vital signs, nurses notes. Data interpreted: Pulse oximetry: on room air snw is 97 %. Interpretation: normal. Counseling: I had a detailed discussion with the patient and/or guardian regarding: the historical points, exam findings, and any diagnostic results supporting the discharge/admit diagnosis, the presence of at least one elevated blood pressure reading (>120/80) during this emergency department visit, lab results, radiology results. Transition of care: After a detail discussion of the patient's case, care is transferred to Pedro Magallon MD. 05:09 ED course: CT show subcutaneous thickening around nose, no abscess, will dc with rn continuation of abx and close pcp f/u. . 10/18 01:59 Order name: CBC with Diff; Complete Time: 03:48 snw 10/18 01:59 Order name: Blood Culture* snw 10/18 01:59 Order name: CT Facial Bones W/ Con \T\ Mpr snw 10/18 01:59 Order name: CT Head Brain w Cont snw 10/18 01:59 Order name: Chem 7; Complete Time: 03:28 snw Administered Medications: 02:25 Drug: NS 0.9% 1000 ml Route: IV; Rate: 75 ml/hr; Site: left antecubital; ak1 05:22 Follow up: IV Status: Completed infusion; Order to discontinue infusion ak1 02:25 Drug: Zofran 4 mg Route: IVP; Site: left antecubital; ak1 03:14 Follow up: Response: No adverse reaction; Nausea is decreased ak1 Disposition: 05:35 Co-signature as Attending Physician, Pedro Magallon MD. rn Disposition: 10/18/17 05:09 Discharged to Home. Impression: Cellulitis of face. - Condition is Stable. - Discharge Instructions: Cellulitis, Nausea, Adult. - Prescriptions for promethazine 25 mg Oral Tablet - take 1 tablet by ORAL route every 6 hours As needed; 20 tablet. - Medication Reconciliation Form, Thank You Letter, Antibiotic Education, Prescription Opioid Use form. - Follow up: Darrell Piedra; When: 1 - 2 days; Reason: Recheck today's complaints, Continuance of care, Re-evaluation by your physician. Follow up: Emergency Department; When: As needed; Reason: Worsening of condition. - Problem is an ongoing problem. - Symptoms are unchanged. - Notes: Please continue current medications. Increase fluid intake. Signatures: Dispatcher [employer] EDMS Pratibha Valera, LAY OUT HELPER-C LAY OUT HELPER-Csnw Pedro Magallon MD MD rn Krenek, Amber, RN RN ak1
--- NOTE | 2017-10-18 05:10 | ER ---
Nurse's Notes [facility] Name: Meryl Murray Age: 67 yrs Sex: Female : 1950 Arrival Date: 10/18/2017 Time: 01:29 Bed 16 Private MD: Darrell Piedra T Diagnosis: Cellulitis of face Presentation: 10/18 01:38 Presenting complaint: Patient states: pain to bilateral sides of the bridge of her nose ak1 since Wednesday. pt with redness and possible abscess to the nose. pt seen by PCP Dr. Piedra Wednesday given doxycycline 100mg and Rifampin 300mg. Transition of care: patient was not received from another setting of care. Onset of symptoms is unknown. Initial Sepsis Screen: Does the patient meet any 2 criteria? No. Patient's initial sepsis screen is negative. Does the patient have a suspected source of infection? No. Patient's initial sepsis screen is negative. Care prior to arrival: None. 01:38 Method Of Arrival: Ambulatory ak1 01:38 Acuity: HONG 4 ak1 Triage Assessment: 01:42 General: Appears in no apparent distress. Behavior is cooperative, crying. Pain: ak1 Complains of pain in nose. EENT: redness to nose. possible abscess to bridge of nose. pt c/o pain with wearing her glasses. Neuro: No deficits noted. Cardiovascular: No deficits noted. Respiratory: No deficits noted. GI: Reports nausea. : No signs and/or symptoms were reported regarding the genitourinary system. Derm: Skin is red, Abscess located on nose is dime sized. Musculoskeletal: No signs and/or symptoms reported regarding the musculoskeletal system. Historical: - Allergies: 01:42 PENICILLINS; ak1 - Home Meds: 01:42 metoprolol tartrate 25 mg Oral tab 1 tab 2 times per day [Active]; flecainide 100 mg ak1 oral tab 2 tabs every 12 hours [Active]; - PMHx: 01:42 SVT; Hypertension; ak1 - PSHx: 01:42 breast implants; ak1 - Immunization history:: Adult Immunizations unknown. - Social history:: Smoking status: Patient/guardian denies using tobacco. Screenin:47 Abuse screen: Denies threats or abuse. Denies injuries from another. Nutritional ak1 screening: No deficits noted. Tuberculosis screening: No symptoms or risk factors identified. Fall Risk None identified. Assessment: 02:25 Reassessment: Patient appears in no apparent distress at this time. No changes from ak1 previously documented assessment. Patient is alert, oriented x 3, equal unlabored respirations, skin warm/dry/pink. see triage assessment. Vital Signs: 01:42 BP 132 / 83; Pulse 55; Resp 18; Temp 97.6(TE); Pulse Ox 97% on R/A; Weight 79.38 kg ak1 (R); Height 5 ft. 6 in. (167.64 cm) (R); Pain 5/10; 03:31 BP 137 / 58; Pulse 58; Resp 16; Temp 98; Pulse Ox 99% on R/A; Pain 4/10; ak1 01:42 Body Mass Index 28.25 (79.38 kg, 167.64 cm) ak1 ED Course: 01:29 Patient arrived in ED. am2 01:29 Darrell Piedra MD is Private Physician. am2 01:38 Samreen Denney RN is Primary Nurse. ak1 01:40 Triage completed. ak1 01:42 Arm band placed on Patient placed in an exam room, on a stretcher, on pulse oximetry, ak1 Patient notified of wait time. 01:44 [facility]ib[facility]C [facility] snw 01:44 Pedro Magallon MD is Attending Physician. snw 01:47 Patient has correct armband on for positive identification. Bed in low position. Call ak1 light in reach. Side rails up X 1. Adult w/ patient. Pulse ox on. NIBP on. 02:18 Initial lab(s) drawn, by il, sent to lab. First set of blood cultures drawn by il, ak1 Second set of blood cultures drawn by il. 02:26 Inserted saline lock: 20 gauge in left antecubital area, using aseptic technique. Blood ak1 collected. 02:48 Radiology exam delayed due to lab results not completed at this time. (BUN/Creatinine). cw1 03:31 No provider procedures requiring assistance completed. ak1 04:04 CT Facial Bones W/ Con \T\ Mpr In Process Unspecified. EDMS 04:04 CT Head Brain w Cont In Process Unspecified. EDMS 05:09 Darrell Piedra MD is Referral Physician. rn 05:21 IV discontinued, intact, bleeding controlled, No redness/swelling at site. Pressure ak1 dressing applied. Administered Medications: 02:25 Drug: NS 0.9% 1000 ml Route: IV; Rate: 75 ml/hr; Site: left antecubital; ak1 05:22 Follow up: IV Status: Completed infusion; Order to discontinue infusion ak1 02:25 Drug: Zofran 4 mg Route: IVP; Site: left antecubital; ak1 03:14 Follow up: Response: No adverse reaction; Nausea is decreased ak1 Outcome: 05:09 Discharge ordered by MD. rn 05:21 Discharged to home ambulatory, with family. ak1 05:21 Condition: stable 05:21 Discharge instructions given to patient, Instructed on discharge instructions, follow up and referral plans. no drinking with medication, no driving heavy equipment, medication usage, Demonstrated understanding of instructions, follow-up care, medications, Prescriptions given X 1. 05:22 Patient left the ED. ak1 Signatures: Dispatcher [employer] EDMS Pratibha Valera, SHAFT SINKER-C SHAFT SINKER-Csnw Pedro Magallon MD MD rn Woodley, Crystal cw1 Samreen Denney RN RN ak1 Mayi Canales am2
--- NOTE | 2017-10-18 09:05 | RAD REPORT ---
EXAM DESCRIPTION: CT - Head Brain W Cont - 10/18/2017 7:03 am CLINICAL HISTORY: Facial swelling, possible abscess COMPARISON: None. TECHNIQUE: Axial 5 mm thick images of the head were obtained following nonionic IV contrast. All CT scans are performed using dose optimization technique as appropriate and may include automated exposure control or mA/KV adjustment according to patient size. FINDINGS: No intracranial hemorrhage, mass, edema or shift of mid-line structures. No acute infarcti on changes seen. No abnormal extra-axial fluid collections. Ventricles are normal. No abnormal brain parenchymal enhancement seen. Mastoid air cells are clear. Orbits, facial bones and sinuses are separately detailed. No acute bony findings. IMPRESSION: Negative non-contrast CT head examination.
--- NOTE | 2017-10-18 09:08 | RAD REPORT ---
EXAM DESCRIPTION: CT - Facial Bones W Con Mpr - 10/18/2017 7:03 am CLINICAL HISTORY: Facial pain, soft tissue swelling around the nose, possible abscess A preliminary written report was provided at the time of the study, and the report was reviewed prio r to final dictation. COMPARISON: CT head same date TECHNIQUE: During dynamic enhancement of nonionic IV contrast, axial 2 millimeter thick images were obtained. Sagittal and coronal reformatted images were generated and reviewed. FINDINGS: Intracranial portion of the examination is unremarkable. Mastoid air cells are clear. Cond yles of the mandible are normally positioned. No acute mandible finding. Paranasal sinuses are fully aerated except for a trace amount of mucosal thickening in the posterior wall left maxillary sinus. N o globe or orbital content abnormality. No congestion or edema of the postseptal orbital fat. No air or foreign body in the soft tissues overlying the frontal bone, nasal bone and orbits. Minimal edema in the soft tissues around the nose. Nasal septum is midline. No acute or destructive facial bone pro cess. IMPRESSION: Mild edema of the soft tissues around the nasal bone. No air, foreign body or abscess.
== END 2017-10-18 05:22 | disposition home or self-care (01) ==
LOC: ER 01:27
DX: L03.211 Cellulitis of face (principal); I10 Essential (primary) hypertension; Z88.0 Allergy status to penicillin; Z98.82 Breast implant status
CPT/HCPCS: 36415; 70460; 70487; 76377; 80048; 85025; 87040 ×2; 96361; 96374; 99284; J2405; J7030; Q9967

== ENCOUNTER 2020-03-03 11:31 | Emergency (ER) | payer OTHER, MEDICARE ==
--- OUTSIDE RECORDS SUMMARY | 2020-03-03 11:33 | XMS REPORT | Continuity of Care Document ---
:1950 Author Organization [facility] t Address [address] [place] [address] Care Team Providers Name Role Phone John Piedra MD Primary Care Physician CORBY SANTOYO Attending Clinician Unavailable CORBY SANTOYO Admitting Clinician Unavailable Problems Condition Condition Condition Status Onset Resolution Last Treating Co mments Source Name Details Category Date Date Treatment Clinician Date Palpitatio Palpitatio Disease Active 2016-[address] [facility] n 1-21 [facility] - 00:[facility]: [facility] 00 [place] Abnormal Abnormal Disease [facility] test test 00:[facility]: Medical 00 [place] Sinus Sinus Disease Active 2016-[address] [facility] bradycardi bradycardi 1-20 Jennifer kes - a a 00:00: Medical 00 [place] HTN HTN Disease Active 2016-[address] [facility] (hypertens (hypertens 1-20 Jennifer kes - ion) ion) 00:00: Medical 00 [place] Visual Visual Disease Active 2016-[address] [facility] changes changes 1-20 [facility]: [facility] 00 [place] Floaters Floaters Disease Active 2016[facility] 00 [place] Headache Headache Disease [facility] 2016[facility] 00 [place] Cavernous Cavernous Disease Active 2016-[address] [facility] [address] sinus sinus 1-19 [facility] thrombosis thrombosis 00:00: Me dical 00 Center Allergies, Adverse Reactions, Alerts Allergy Allergy Status Severity Reaction(s) Onset Inactive Treating Comm ents Source Name Type Date Date Clinician Penicill Propensi Active Rash 2016-06 [facility] - adverse 00:[facility]: [facility] reaction 00 Center s Social History Social Habit Start Date Stop Date Quantity Comments Source Sex Assigned At [facility] Alcohol Comment 2017-05-09 2017-05-09 2 cans of beer a MARKOS Rogers [place] - 00:00:00 00:00:00 month [facility] Smoking Status Start Date Stop Date Source Never smoker [facility] Medications Ordered Filled Start Stop Current Ordering Indication Dosage Frequency Signature Comments Components Source Medication Medication Date Date Medication? Clinician (SIG) Name Name aspirin 81 2016-06 Yes 81mg QD Take [address] MG EC 07-09 by mouth [facility] - tablet 02:15: daily. [address] calcium 2016-06 Yes prevention 1{tbl} [id number] Take [address] [facility] carbonate 07-09 of a low [id number] tablet by [facility] - (CALCIUM 02:15: amount of 3D mouth 3 M edical CARBONATE) 08 calcium in (three) Center 300 mg Chew the blood times daily. metoprolol 2016-06 Yes paroxysmal 25mg Q.5D Take [address] [facility] (LOPRESSOR) 07-09 supraventri by mouth 2 [facility] - 25 MG 02:15: cular (two) Medical tablet 08 tachycardia times Cente r daily. Procedures This patient has no known procedures. Results Test Description Test Time Test Comments Results Result [facility] e Comments TISSUE EXAM 2017-05-14 Surgical Pathology 12:19:00 Report Case: [id number] Authorizing Provider: Iban Rawls MD Collected: 05/11/2017 2234 Ordering Location: [facility] Received: 05/12/2017 1004 SERVICES Pathologist: Radha Gonzalez MD Specimen: Artery, TEMPORAL ARTERY BIOPSY TEMPORAL ARTERY, BIOPSY- TEMPORAL ARTERY WITHOUT SIGNIFICANT INFLAMMATION Signing Pathologist Direct Phone Line: [phone] [facility] signed by Radha Gonzalez MD on 05/14/2017 at 12:19 PMMultiple sections show temporal artery without significant inflammation. No granulomata or giant cells are detected. Luminal narrowing is not seen. Areas of hemorrhage that may be related to the procedure are also identified. The Movat stain shows a continuous internal elastic lamina. Findings are not sufficient for diagnosis of temporal arteritis. Clinical correlation is recommended.[id number], [id number] headache and visual changesTemporal artery biopsyThe specimen is received in a formalin-filled container labeled with the patient's information and labeled "temporal artery biopsy" and consists of a wilson-red tubular shaped segment of tissue measuring 2.4 cm in length x 0.1 cm in diameter, submitted in A1. CG/ewPerformed. TSH/FREE T4 IF INDICATED 2017-05-11 14:41:00 Test Item Value Reference Range Interpretation Comme nts THYROID STIMULATING HORMONE (BEAKER) (test code = 772) 2.27 uIU/mL 0.35-4.94 TROPONIN [id number] 12:21:00 Test Item Value Reference Range Interpretation Comments TROPONIN I (BEAKER) (test code = 397) < ng/mL 0.00-0.03 Troponin I (TnI) levels [...] acute neurological disease, and persistent tachyarrhythmia.BASIC METABOLIC [id number] 06:27:00 Test Item Value Reference Range Interpretation Comments SODIUM (BEAKER) 140 meq/L 136-145 (test code = 381) POTASSIUM (BEAKER) 4.3 meq/L 3.5-5.1 (test code = 379) CHLORIDE (BEAKER) 109 meq/L 98-107 H (test code = 382) CO2 (BEAKER) (test 26 meq/L 22-29 code = 355) BLOOD UREA NITROGEN 13 mg/dL 7-21 (BEAKER) (test code = 354) CREATININE (BEAKER) 0.82 mg/dL 0.57-1.25 (test code = 358) GLUCOSE RANDOM 85 mg/dL 70-105 (BEAKER) (test code = 652) CALCIUM (BEAKER) 9.0 mg/dL 8.4-10.2 (test code = 697) EGFR (BEAKER) (test 70 mL/min/1.73 ESTIMA LIZ GFR IS code = 1092) sq m NOT ACCURATE CREATININE CLEARANCE IN PREDICTING GLOMERULAR FILTRATION RATE . ESTIMATED GFR I S NOT APPLICABLE FOR DIALYSIS PATIEN TS. CBC W/PLT COUNT & AUTO [id number] 05:56:00 Test Item Value Reference Range Interpretation Comments WHITE BLOOD CELL COUNT (BEAKER) 7.5 K/ L 3.5-10.5 (test code = 775) RED BLOOD CELL COUNT (BEAKER) 4.47 M/ L 3.93-5.22 (test code = 761) HEMOGLOBIN (BEAKER) (test code = 12.7 GM/DL 11.2-15.7 410) HEMATOCRIT (BEAKER) (test code = 39.4 % 34.1-44.9 411) MEAN CORPUSCULAR VOLUME (BEAKER) 88.1 fL 79.4-94.8 (test code = 753) MEAN CORPUSCULAR HEMOGLOBIN 28.4 pg 25.6-32.2 (BEAKER) (test code = 751) MEAN CORPUSCULAR HEMOGLOBIN CONC 32.2 GM/DL 32.2-35.5 (BEAKER) (test code = 752) RED CELL DISTRIBUTION WIDTH 14.6 % 11.7-14.4 H (BEAKER) (test code = 412) PLATELET COUNT (BEAKER) (test 266 K/CU MM 150-450 code = 756) MEAN PLATELET VOLUME (BEAKER) 10.1 fL 9.4-12.3 (test code = 754) NUCLEATED RED BLOOD CELLS 0 /100 WBC 0-0 (BEAKER) (test code = 413) NEUTROPHILS RELATIVE PERCENT 61 % (BEAKER) (test code = 429) LYMPHOCYTES RELATIVE PERCENT 25 % (BEAKER) (test code = 430) MONOCYTES RELATIVE PERCENT 11 % (BEAKER) (test code = 431) EOSINOPHILS RELATIVE PERCENT 2 % (BEAKER) (test code = 432) BASOPHILS RELATIVE PERCENT 0 % (BEAKER) (test code = 437) NEUTROPHILS ABSOLUTE COUNT 4.59 K/ L 1.56-6.13 (BEAKER) (test code = 670) LYMPHOCYTES ABSOLUTE COUNT 1.87 K/ L 1.18-3.74 (BEAKER) (test code = 414) MONOCYTES ABSOLUTE COUNT (BEAKER) 0.83 K/ L 0.24-0.36 H (test code = 415) EOSINOPHILS ABSOLUTE COUNT 0.17 K/ L 0.04-0.36 (BEAKER) (test code = 416) BASOPHILS ABSOLUTE COUNT (BEAKER) 0.03 K/ L 0.01-0.08 (test code = 417) IMMATURE GRANULOCYTES-RELATIVE 0 % 0-1 PERCENT (BEAKER) (test code = 2801) SEDIMENTATION [id number] 11:51:00 Test Item Value Reference Range Interpretation Comments SEDIMENTATION RATE, ERYTHROCYTE 19 mm/HR 0-40 (BEAKER) (test code = 766) CT, CTANGIO [id number] 11:23:00FINAL REPORT CTV head with contrast INDICATION: [...] to our departmental dose optimization program which inc ludes automated exposure control, adjustment of the mA [...] mild carotid siphon atherosclerosis. The imaged proximal [place] of [place] vessels demonstrate no high grade [...] major dural venous sinuses. Signed: Camila Thomas Verified Date/Time: 05/10/2017 11:23:39 Reading Location: [address] Neuro Reading Room C-REACTIVE [id number] 10:01:00 Test Item Value Reference Range Interpretation Comments C-REACTIVE PROTEIN (BEAKER) (test 0.80 mg/dL 0.00-0.50 H code = 676) [id number] 09:44:00 Test Item Value Reference Range Interpretation Comments PARTIAL THROMBOPLASTIN TIME 98.5 seconds 22.5-36.0 H (BEAKER) (test code = 760) TROPONIN [id number] 08:37:00 Test Item Value Reference Range Interpretation Comments TROPONIN I (BEAKER) (test code = 397) < ng/mL 0.00-0.03 Troponin I (TnI) levels [...] acute neurological disease, and persistent tachyarrhythmia.BASIC METABOLIC [id number] 04:17:00 Test Item Value Reference Range Interpretation Comments SODIUM (BEAKER) 138 meq/L 136-145 (test code = 381) POTASSIUM (BEAKER) 4.2 meq/L 3.5-5.1 (test code = 379) CHLORIDE (BEAKER) 107 meq/L 98-107 (test code = 382) CO2 (BEAKER) (test 24 meq/L 22-29 code = 355) BLOOD UREA NITROGEN 15 mg/dL 7-21 (BEAKER) (test code = 354) CREATININE (BEAKER) 0.88 mg/dL 0.57-1.25 (test code = 358) GLUCOSE RANDOM 98 mg/dL 70-105 (BEAKER) (test code = 652) CALCIUM (BEAKER) 8.8 mg/dL 8.4-10.2 (test code = 697) EGFR (BEAKER) (test 64 mL/min/1.73 ESTIMA LIZ GFR IS code = 1092) sq m NOT ACCURATE CREATININE CLEARANCE IN PREDICTING GLOMERULAR FILTRATION RATE . ESTIMATED GFR I S NOT APPLICABLE FOR DIALYSIS PATIEN TS. [id number] 03:43:00 Test Item Value Reference Range Interpretation Comments PROTIME (BEAKER) (test code = 14.6 seconds 11.7-14.7 759) INR (BEAKER) (test code = 370) 1.2 <=5.9 PARTIAL THROMBOPLASTIN TIME 83.0 seconds 22.5-36.0 H (BEAKER) (test code = 760) RECOMMENDED COUMADIN/WARFARIN INR THERAPY RANGESSTANDARD DOSE: 2.0 - 3.0 Includes: PROPHYLAXIS forvenous thrombosis, systemic embolization; TREATMENT for venous thrombosis and/or pulmonary embolus.HIGH RISK: Target INR is 2.5-3.5 for patients with mechanical heart valves.CBC W/PLT COUNT & AUTO DIFFERENTIAL 2017-05-10 03:34:00 Test Item Value Reference Range Interpretation Comments WHITE BLOOD CELL COUNT (BEAKER) 7.9 K/ L 3.5-10.5 (test code = 775) RED BLOOD CELL COUNT (BEAKER) 4.29 M/ L 3.93-5.22 (test code = 761) HEMOGLOBIN (BEAKER) (test code = 12.3 GM/DL 11.2-15.7 410) HEMATOCRIT (BEAKER) (test code = 38.5 % 34.1-44.9 411) MEAN CORPUSCULAR VOLUME (BEAKER) 89.7 fL 79.4-94.8 (test code = 753) MEAN CORPUSCULAR HEMOGLOBIN 28.7 pg 25.6-32.2 (BEAKER) (test code = 751) MEAN CORPUSCULAR HEMOGLOBIN CONC 31.9 GM/DL 32.2-35.5 L (BEAKER) (test code = 752) RED CELL DISTRIBUTION WIDTH 14.6 % 11.7-14.4 H (BEAKER) (test code = 412) PLATELET COUNT (BEAKER) (test 240 K/CU MM 150-450 code = 756) MEAN PLATELET VOLUME (BEAKER) 9.8 fL 9.4-12.3 (test code = 754) NUCLEATED RED BLOOD CELLS 0 /100 WBC 0-0 (BEAKER) (test code = 413) NEUTROPHILS RELATIVE PERCENT 55 % (BEAKER) (test code = 429) LYMPHOCYTES RELATIVE PERCENT 32 % (BEAKER) (test code = 430) MONOCYTES RELATIVE PERCENT 10 % (BEAKER) (test code = 431) EOSINOPHILS RELATIVE PERCENT 2 % (BEAKER) (test code = 432) BASOPHILS RELATIVE PERCENT 0 % (BEAKER) (test code = 437) NEUTROPHILS ABSOLUTE COUNT 4.30 K/ L 1.56-6.13 (BEAKER) (test code = 670) LYMPHOCYTES ABSOLUTE COUNT 2.54 K/ L 1.18-3.74 (BEAKER) (test code = 414) MONOCYTES ABSOLUTE COUNT (BEAKER) 0.79 K/ L 0.24-0.36 H (test code = 415) EOSINOPHILS ABSOLUTE COUNT 0.17 K/ L 0.04-0.36 (BEAKER) (test code = 416) BASOPHILS ABSOLUTE COUNT (BEAKER) 0.02 K/ L 0.01-0.08 (test code = 417) IMMATURE GRANULOCYTES-RELATIVE 1 % 0-1 PERCENT (BEAKER) (test code = 2801) MR, MRA, BRAIN, WITHOUT [id number] 00:52:00FINAL REPORT MR, MRA, BRAIN, WITHOUT CONTRAST, MR, BRAIN, WITH \\T\\ WITHOUT CONTRAST INDICATION: MRV for suspected cavernous sinus thrombosis TECHNIQUE: Multiplanar, multisequencepre and postcontrast MR images of the brain. Two-dimensional ztps-ld-[id number] MR venogram of the brain in the [...] MDReport Verified Date/Time: 05/10/2017 00:52:12 Reading Location: [address] Reading Room MR, BRAIN, [id number] 00:52:00FINAL REPORT MR, MRA, BRAIN, WITHOUT CONTRAST, MR, BRAIN, WITH \\T\\ WITHOUT CONTRAST INDICATION: MRV for suspected cavernous sinus thrombosis TECHNIQUE: Multiplanar, multisequencepre and postcontrast MR images of the brain. Two-dimensional yrip-qh-rxhgjs MR venogram of the brain in the [...] MDReport Verified Date/Time: 05/10/2017 00:52:12 Reading Location: [address] Reading Room [id number] 22:46:00 Test Item Value Reference Range Interpretation Comments PROTIME (BEAKER) (test code = 14.5 seconds 11.7-14.7 759) INR (BEAKER) (test code = 370) 1.1 <=5.9 PARTIAL THROMBOPLASTIN TIME 43.9 seconds 22.5-36.0 H (BEAKER) (test code = 760) RECOMMENDED COUMADIN/WARFARIN INR THERAPY RANGESSTANDARD DOSE: 2.0 - 3.0 Includes: PROPHYLAXIS forvenous thrombosis, systemic embolization; TREATMENT for venous thrombosis and/or pulmonary embolus.HIGH RISK: Target INR is 2.5-3.5 for patients with mechanical heart valves.[id number] 14:41:00 Test Item Value Reference Range Interpretation Comments PARTIAL THROMBOPLASTIN TIME 29.6 seconds 22.5-36.0 (BEAKER) (test code = 760) [id number] 08:26:00 Test Item Value Reference Range Interpretation Comments PARTIAL THROMBOPLASTIN TIME 56.2 seconds 22.5-36.0 H (BEAKER) (test code = 760) BASIC METABOLIC [id number] 05:02:00 Test Item Value Reference Range Interpretation Comments SODIUM (BEAKER) 141 meq/L 136-145 (test code = 381) POTASSIUM (BEAKER) 4.3 meq/L 3.5-5.1 (test code = 379) CHLORIDE (BEAKER) 110 meq/L 98-107 H (test code = 382) CO2 (BEAKER) (test 24 meq/L 22-29 code = 355) BLOOD UREA NITROGEN 12 mg/dL 7-21 (BEAKER) (test code = 354) CREATININE (BEAKER) 0.84 mg/dL 0.57-1.25 (test code = 358) GLUCOSE RANDOM 89 mg/dL 70-105 (BEAKER) (test code = 652) CALCIUM (BEAKER) 8.7 mg/dL 8.4-10.2 (test code = 697) EGFR (BEAKER) (test 68 mL/min/1.73 ESTIMA LIZ GFR IS code = 1092) sq m NOT ACCURATE CREATININE CLEARANCE IN PREDICTING GLOMERULAR FILTRATION RATE . ESTIMATED GFR I S NOT APPLICABLE FOR DIALYSIS PATIEN TS. CBC W/PLT COUNT & AUTO [id number] 04:24:00 Test Item Value Reference Range Interpretation Comments WHITE BLOOD CELL COUNT (BEAKER) 9.0 K/ L 3.5-10.5 (test code = 775) RED BLOOD CELL COUNT (BEAKER) 4.24 M/ L 3.93-5.22 (test code = 761) HEMOGLOBIN (BEAKER) (test code = 12.1 GM/DL 11.2-15.7 410) HEMATOCRIT (BEAKER) (test code = 38.2 % 34.1-44.9 411) MEAN CORPUSCULAR VOLUME (BEAKER) 90.1 fL 79.4-94.8 (test code = 753) MEAN CORPUSCULAR HEMOGLOBIN 28.5 pg 25.6-32.2 (BEAKER) (test code = 751) MEAN CORPUSCULAR HEMOGLOBIN CONC 31.7 GM/DL 32.2-35.5 L (BEAKER) (test code = 752) RED CELL DISTRIBUTION WIDTH 14.6 % 11.7-14.4 H (BEAKER) (test code = 412) PLATELET COUNT (BEAKER) (test 267 K/CU MM 150-450 code = 756) MEAN PLATELET VOLUME (BEAKER) 9.6 fL 9.4-12.3 (test code = 754) NUCLEATED RED BLOOD CELLS 0 /100 WBC 0-0 (BEAKER) (test code = 413) NEUTROPHILS RELATIVE PERCENT 57 % (BEAKER) (test code = 429) LYMPHOCYTES RELATIVE PERCENT 32 % (BEAKER) (test code = 430) MONOCYTES RELATIVE PERCENT 9 % (BEAKER) (test code = 431) EOSINOPHILS RELATIVE PERCENT 2 % (BEAKER) (test code = 432) BASOPHILS RELATIVE PERCENT 0 % (BEAKER) (test code = 437) NEUTROPHILS ABSOLUTE COUNT 5.13 K/ L 1.56-6.13 (BEAKER) (test code = 670) LYMPHOCYTES ABSOLUTE COUNT 2.86 K/ L 1.18-3.74 (BEAKER) (test code = 414) MONOCYTES ABSOLUTE COUNT (BEAKER) 0.81 K/ L 0.24-0.36 H (test code = 415) EOSINOPHILS ABSOLUTE COUNT 0.16 K/ L 0.04-0.36 (BEAKER) (test code = 416) BASOPHILS ABSOLUTE COUNT (BEAKER) 0.04 K/ L 0.01-0.08 (test code = 417) IMMATURE GRANULOCYTES-RELATIVE 0 % 0-1 PERCENT (BEAKER) (test code = 2801) TROPONIN [id number] 03:02:00 Test Item Value Reference Range Interpretation Comments TROPONIN I (BEAKER) (test code = 397) < ng/mL 0.00-0.03 Troponin I (TnI) levels [...] failure, acidosis, acute neurological disease, and persistent tachyarrhythmia.[id number] 02:06:00 Test Item Value Reference Range Interpretation Comments PARTIAL THROMBOPLASTIN TIME 72.6 seconds 22.5-36.0 H (BEAKER) (test code = 760) Prior to initiating heparinPROTHROMBIN TIME/[id number] 02:04:00 Test Item Value Reference Range Interpretation Comments PROTIME (BEAKER) (test code = 14.2 seconds 11.7-14.7 759) INR (BEAKER) (test code = 370) 1.1 <=5.9 RECOMMENDED COUMADIN/WARFARIN INR THERAPY RANGESSTANDARD DOSE: 2.0 - 3.0 Includes: PROPHYLAXIS forvenous thrombosis, systemic embolization; TREATMENT for venous thrombosis and/or pulmonary embolus.HIGH RISK: Target INR is 2.5-3.5 for patients with mechanical heart valves.Prior to initiating heparin
--- OUTSIDE RECORDS SUMMARY | 2020-03-03 11:33 | XMS REPORT | Clinical Summary ---
:1950 Author Organization [facility] Address [address] [place] [id number] Care Team Providers Name Role Phone John Piedra MD Primary Care Provider Allergies Active Allergy Reactions Severity Noted Date Comments Penicillins Rash Low 05/09/2017 Medications Medication Sig Dispensed Refills Start Date End Date Status aspirin 81 MG EC tablet Take 81 mg by 0 Active mouth daily. calcium carbonate Take 1 tablet 0 Active (CALCIUM CARBONATE) 300 by mouth 3 mg ChewIndications: (three) times prevention of a low daily. amount of calcium in the blood metoprolol (LOPRESSOR) 25 Take 25 mg by 0 Active MG tabletIndications: mouth 2 (two) paroxysmal times daily. 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 Last Filed Vital Signs Not on file Plan of Treatment Not on file Implants Implanted Type Area Hat Block Bench Hand Device Shelf Model / Identifier Expiration Serial / Date Lot Device Clsr Angio-Seal Vip 6fr [id number] - [id number] Cardiovascular N/A: ST PEGGY [id number] / Implanted: Qty: 1 on 05/11/2017 by Oziel De Los Santos MD [facility] MED:CARDIAC / SURG [id number] Results Not on fileafter 03/03/2019 Insurance Payer Benefit Plan / Group Subscriber ID Type Phone A ddress MEDICARE MEDICARE A B xxxxxxxxxx Medicare MCR SUPPLEMENT/INDIVIDUAL AARP/[facility] xxxxxxxxxxx [facility] Advance Directives For more information, please contact:[address] [phone] Code Status Date Activated Date Inactivated Comments Full Code 05/09/2017 1:25 AM 05/12/2017 5:40 PM This code status was determined by: Patient
[2020-03-03 12:05] LABS: Absolute Lymphocytes (CBC) 2.2 K/uL (0.7-4.9); Basophils % 0.5 % (0-1.3); Hematocrit 42.4 % (36.0-45.0); Lymphocytes % 23.2 % (15.3-44.8); MPV 7.7 fL (7.6-11.3); RBC Red Blood Cell Count 4.84 M/uL (3.86-4.86)
--- NOTE | 2020-03-03 12:10 | RAD REPORT ---
EXAM DESCRIPTION: RAD - Chest Single View - 03/03/2020 12:05 pm CLINICAL HISTORY: COUGH Chest pain. COMPARISON: Chest Single View dated 05/08/2017; Chest Single View dated 08/06/2016; CHEST PA AND LAT 2 VIEW dated 09/29/2008; CHEST SINGLE VIEW dated 03/15/2003 FINDINGS: Portable technique limits examination quality. The lungs are grossly clear. The heart is upper limit of normal in size. No displaced fractures. IMPRESSION: No acute intrathoracic process suspected.
[2020-03-03 12:27] LABS: ALT/SGPT 17 U/L (12-78); AST/SGOT 18 U/L (15-37); Albumin 3.8 g/dL (3.4-5.0); Alkaline Phosphatase 96 U/L (45-117); BUN Blood Urea Nitrogen 20 mg/dL (7-18); Bicarbonate 26 mmol/L (21-32); Bilirubin Direct 0.1 mg/dL (0-0.2); Bilirubin Total 0.4 mg/dL (0.2-1.0); Glucose Level 92 mg/dL (74-106); Magnesium 2.4 mg/dL (1.8-2.4); NT PRO-BNP 139 pg/mL (<125); Potassium 4.3 mmol/L (3.5-5.1); Protein, Total 7.9 g/dL (6.4-8.2); Sodium Level 140 mmol/L (136-145); Troponin (Emerg Dept Use Only) < 0.02 ng/mL (0.0-0.045)
[2020-03-03 13:21] LABS: Urine Blood NEGATIVE (NEG); Urine Glucose NEGATIVE (NEG); Urine Protein NEGATIVE (NEG); Urine Specific Gravity 1.015 (1.005-1.030); Urine pH 5.5 (5.0-7.0)
--- NOTE | 2020-03-03 13:21 | EDPHYS ---
Physician Documentation [facility] Name: Meryl Murray Age: 69 yrs Sex: Female : 1950 Arrival Date: 03/03/2020 Time: 11:34 Bed 20 Private MD: Darrell Piedra T ED Physician Jose Bello HPI: 03/03 12:18 This 69 yrs old Female presents to ER via Ambulatory with complaints of High dario Blood Pressure. 12:18 The patient has elevated blood pressure and discovered this at home. Onset: The dario symptoms/episode began/occurred 3 day(s) ago. Modifying factors: The symptoms are aggravated by activity, The symptoms are alleviated by remaining still. Associated signs and symptoms: The patient has no apparent associated signs or symptoms. Severity of symptoms: At its worst the blood pressure was mild, moderate, in the emergency department the blood pressure is improved, mildly. The patient has not experienced similar symptoms in the past. Historical: - Allergies: 11:41 PENICILLINS; ss - Home Meds: 11:42 flecainide 50 mg oral tab 1 tab every 12 hours [Active]; metoprolol tartrate 25 mg Oral ss tab 1 tab once daily [Active]; - PMHx: 11:41 SVT; Atrial Fib; ss - PSHx: 11:41 breast implants; ss - Immunization history:: Adult Immunizations up to date. - Social history:: Smoking status: Patient denies any tobacco usage or history of. ROS: 12:18 Constitutional: Negative for fever, chills, and weight loss, Eyes: Negative for injury, dario pain, redness, and discharge, ENT: Negative for injury, pain, and discharge, Neck: Negative for injury, pain, and swelling, Cardiovascular: Negative for chest pain, palpitations, and edema, Respiratory: Negative for shortness of breath, cough, wheezing, and pleuritic chest pain, Abdomen/GI: Negative for abdominal pain, nausea, vomiting, diarrhea, and constipation, Back: Negative for injury and pain, : Negative for injury, bleeding, discharge, and swelling, MS/Extremity: Negative for injury and deformity, Skin: Negative for injury, rash, and discoloration, Psych: Negative for depression, anxiety, suicide ideation, homicidal ideation, and hallucinations, Allergy/Immunology: Negative for hives, rash, and allergies, Endocrine: Negative for neck swelling, polydipsia, polyuria, polyphagia, and marked weight changes, Hematologic/Lymphatic: Negative for swollen nodes, abnormal bleeding, and unusual bruising. 12:18 Neuro: Positive for headache. Exam: 12:18 Constitutional: This is a well developed, well nourished patient who is awake, alert, dario and in no acute distress. Head/Face: Normocephalic, atraumatic. Eyes: Pupils equal round and reactive to light, extra-ocular motions intact. Lids and lashes normal. Conjunctiva and sclera are non-icteric and not injected. Cornea within normal limits. Periorbital areas with no swelling, redness, or edema. ENT: Nares patent. No nasal discharge, no septal abnormalities noted. Tympanic membranes are normal and external auditory canals are clear. Oropharynx with no redness, swelling, or masses, exudates, or evidence of obstruction, uvula midline. Mucous membranes moist. Neck: Trachea midline, no thyromegaly or masses palpated, and no cervical lymphadenopathy. Supple, full range of motion without nuchal rigidity, or vertebral point tenderness. No Meningismus. Chest/axilla: Normal chest wall appearance and motion. Nontender with no deformity. No lesions are appreciated. Cardiovascular: Regular rate and rhythm with a normal S1 and S2. No gallops, murmurs, or rubs. Normal PMI, no JVD. No pulse deficits. Respiratory: Lungs have equal breath sounds bilaterally, clear to auscultation and percussion. No rales, rhonchi or wheezes noted. No increased work of breathing, no retractions or nasal flaring. Abdomen/GI: Soft, non-tender, with normal bowel sounds. No distension or tympany. No guarding or rebound. No evidence of tenderness throughout. Back: No spinal tenderness. No costovertebral tenderness. Full range of motion. Skin: Warm, dry with normal turgor. Normal color with no rashes, no lesions, and no evidence of cellulitis. MS/ Extremity: Pulses equal, no cyanosis. Neurovascular intact. Full, normal range of motion. Neuro: Awake and alert, GCS 15, oriented to person, place, time, and situation. Cranial nerves II-XII grossly intact. Motor strength 5/5 in all extremities. Sensory grossly intact. Cerebellar exam normal. Normal gait. Psych: Awake, alert, with orientation to person, place and time. Behavior, mood, and affect are within normal limits. 12:30 ECG was reviewed by the Attending Physician. [facility] Vital Signs: 11:42 BP 159 / 75; Pulse 53; Resp 16; Temp 97.7(TE); Pulse Ox 97% on R/A; Weight 86.18 kg; ss Height 5 ft. 6 in. (167.64 cm); Pain 0/10; 13:44 BP 147 / 74; Pulse 51; Resp 16; Pulse Ox 99% on R/A; Weight 44.36 kg; Pain 0/10; ls4 13:44 Body Mass Index 15.78 (44.36 kg, 167.64 cm) ls4 [facility] Coma Score: 12:24 Eye Response: spontaneous(4). Verbal Response: oriented(5). Motor Response: obeys [facility] commands(6). Total: 15. MDM: 11:47 Patient medically screened. [facility] 12:20 Data reviewed: vital signs, nurses notes, lab test result(s), EKG, radiologic studies, [facility] plain films. 12:24 Differential diagnosis: cluster headache, glaucoma, Malignant HTN, hypertensive dario headache, hypoglycemia. Data interpreted: monitor tech: rate is 53 beats/min, rhythm is regular. Test interpretation: by ED physician or midlevel provider: ECG, plain radiologic studies. Counseling: I had a detailed discussion with the patient and/or guardian regarding: the historical points, exam findings, and any diagnostic results supporting the discharge/admit diagnosis, the presence of at least one elevated blood pressure reading (>120/80) during this emergency department visit, lab results, radiology results, the need for outpatient follow up, for definitive care, a family practitioner. 03/03 11:37 Order name: Basic Metabolic Panel; Complete Time: 12:46 [facility] 03/03 11:37 Order name: CBC with Diff; Complete Time: 12:46 [facility] 03/03 11:37 Order name: LFT's; Complete Time: 12:46 [facility] 03/03 11:37 Order name: Magnesium; Complete Time: 12:46 [facility] 03/03 11:37 Order name: NT PRO-BNP; Complete Time: 12:46 [facility] 03/03 11:37 Order name: Troponin (emerg Dept Use Only); Complete Time: 12:46 [facility] 03/03 11:37 Order name: XRAY Chest (1 view); Complete Time: 12:46 [facility] 03/03 11:37 Order name: EKG; Complete Time: 11:38 [facility] 03/03 11:37 Order name: Cardiac monitoring; Complete Time: 12:28 [facility] 03/03 11:37 Order name: EKG - Nurse/Tech; Complete Time: 12:28 [facility] 03/03 11:37 Order name: IV Saline Lock; Complete Time: 12:28 [facility] 03/03 11:37 Order name: Labs collected and sent; Complete Time: 12:28 [facility] 03/03 11:37 Order name: O2 Per Protocol; Complete Time: 12:28 [facility] 03/03 13:11 Order name: Urine Dipstick--Ancillary (enter results) 03/03 11:37 Order name: O2 Sat Monitoring; Complete Time: 12:28 [facility] 03/03 11:37 Order name: Urine Dipstick-Ancillary (obtain specimen); Complete Time: 13:06 [facility] EC:30 Rate is 46 beats/min. Rhythm is regular. QRS [place] is Normal. ND interval is normal. QRS dario interval is normal. QT interval is normal. No Q waves. T waves are Normal. No ST changes noted. Clinical impression: Sinus bradycardia. Interpreted by me. Reviewed by me. Administered Medications: No medications were administered Disposition: 03/03/20 13:21 Discharged to Home. Impression: Essential (primary) hypertension, Headache. - Condition is Stable. - Discharge Instructions: General Headache Without Cause, Hypertension, Hypertension, Ebei-ej-Aipd, How to Take Your Blood Pressure, Zdwu-[id number]-Jwcn, General Headache Without Cause, Vedj-bh-Rsty, Managing Your Hypertension. - Medication Reconciliation Form, Thank You Letter, Antibiotic Education, Prescription Opioid Use form. - Follow up: Darrell Piedra; When: 2 - 3 days; Reason: Recheck today's complaints, Continuance of care, Re-evaluation by your physician. Follow up: Kevin Tovar; When: 2 - 3 days; Reason: Recheck today's complaints, Continuance of care, Re-evaluation by your physician. - Problem is new. - Symptoms have improved. Signatures: Dispatcher [employer] EDJose Joshi MD MD cha Smirch, Shelby RN RN ss Priyanka Cardona RN RN ls4 Corrections: (The following items were deleted from the chart) 14:07 13:21 03/03/2020 13:21 Discharged to Home. Impression: Essential (primary) ls4 hypertension; Headache. Condition is Stable. Discharge Instructions: General Headache Without Cause, Hypertension, Hypertension, [id number]-[id number], How to Take Your Blood Pressure, Gfgz-vj-Pzth, General Headache Without Cause, Tlbc-qt-Aoye, Managing Your Hypertension. Forms are Medication Reconciliation Form, Thank You Letter, Antibiotic Education, Prescription Opioid Use. Follow up: Darrell Piedra; When: 2 - 3 days; Reason: Recheck today's complaints, Continuance of care, Re-evaluation by your physician. Follow up: Kevin Tovar; When: 2 - 3 days; Reason: Recheck today's complaints, Continuance of care, Re-evaluation by your physician. Problem is new. Symptoms have improved. dario
--- NOTE | 2020-03-03 13:21 | ER ---
Nurse's Notes [facility] Name: Meryl Murray Age: 69 yrs Sex: Female : 1950 Arrival Date: 03/03/2020 Time: 11:34 Bed 20 Private MD: Darrell Piedra T Diagnosis: Essential (primary) hypertension;Headache Presentation: 03/03 11:43 Chief complaint: Patient states: Here for high blood pressure. Pt reports she does not ss have a hx of HTN, but she checked her blood pressure yesterday which it was 149/70 and today's readings were 170/74 and 180/84. Pt reports that her cheeks felt a little flushed, burning so she believed it may have been because of her BP. Coronavirus screen: Client denies travel out of the [place] in the last 14 days. Ebola Screen: Patient denies exposure to infectious person. Patient denies travel to an Ebola-affected area in the 21 days before illness onset. Initial Sepsis Screen: Does the patient meet any 2 criteria? No. Patient's initial sepsis screen is negative. Does the patient have a suspected source of infection? No. Patient's initial sepsis screen is negative. Risk Assessment: Do you want to hurt yourself or someone else? Patient reports no desire to harm self or others. Onset of symptoms was March 03, 2020. 11:43 Method Of Arrival: Ambulatory ss 11:43 Acuity: HONG 4 ss Triage Assessment: 12:15 General: Appears in no apparent distress. comfortable, Behavior is calm, cooperative. ls4 Historical: - Allergies: 11:41 PENICILLINS; ss - Home Meds: 11:42 flecainide 50 mg oral tab 1 tab every 12 hours [Active]; metoprolol tartrate 25 mg Oral ss tab 1 tab once daily [Active]; - PMHx: 11:41 SVT; Atrial Fib; ss - PSHx: 11:41 breast implants; ss - Immunization history:: Adult Immunizations up to date. - Social history:: Smoking status: Patient denies any tobacco usage or history of. Screenin:05 Abuse screen: Denies threats or abuse. Denies injuries from another. Nutritional ls4 screening: No deficits noted. Tuberculosis screening: No symptoms or risk factors identified. Fall Risk None identified. Assessment: 14:06 General: Appears in no apparent distress. comfortable. Pain: Denies pain. Neuro: No ls4 deficits noted. Cardiovascular: Reports None Capillary refill < 3 seconds JVD is absent Patient's skin is warm and dry. Rhythm is sinus bradycardia. Vital Signs: 11:42 BP 159 / 75; Pulse 53; Resp 16; Temp 97.7(TE); Pulse Ox 97% on R/A; Weight 86.18 kg; ss Height 5 ft. 6 in. (167.64 cm); Pain 0/10; 13:44 BP 147 / 74; Pulse 51; Resp 16; Pulse Ox 99% on R/A; Weight 44.36 kg; Pain 0/10; ls4 13:44 Body Mass Index 15.78 (44.36 kg, 167.64 cm) ls4 [facility] Coma Score: 12:24 Eye Response: spontaneous(4). Verbal Response: oriented(5). Motor Response: obeys dario commands(6). Total: 15. ED Course: 11:34 Patient arrived in ED. mr 11:35 Darrell Piedra MD is Private Physician. mr 11:37 Jose Bello MD is Attending Physician. dario 11:42 Arm band placed on right wrist. ss 11:45 Triage completed. ss 11:55 Initial lab(s) drawn, by ok, sent to lab. EKG done, by ED staff, reviewed by Jose Bello MD. Inserted saline lock: 20 gauge in right antecubital area, using aseptic technique. Blood collected. 12:05 XRAY Chest (1 view) In Process Unspecified. EDMS 12:15 Patient has correct armband on for positive identification. Bed in low position. Call ls4 light in reach. Side rails up X 1. 12:15 desk monitor on. Pulse ox on. NIBP on. Verbal reassurance given. ls4 13:06 Urine collected: clean catch specimen, clear, darin colored. jp3 13:21 Darrell Piedra MD is Referral Physician. dario 13:21 Kevin Tovar MD is Referral Physician. dario 13:44 Priyanka Cardona, RN is Primary Nurse. ls4 13:53 No provider procedures requiring assistance completed. IV discontinued, intact, ls4 bleeding controlled, No redness/swelling at site. Pressure dressing applied. Administered Medications: No medications were administered Outcome: 13:21 Discharge ordered by . dario 13:53 Discharged to home ambulatory. ls4 13:53 Condition: good 13:53 Discharge instructions given to patient, Instructed on discharge instructions, follow up and referral plans. Demonstrated understanding of instructions, follow-up care. 14:07 Patient left the ED. ls4 Signatures: Dispatcher [employer] EDSD Jose Bello MD MD cha Rivera, Kusum mr Nichole Barraza, GABRIELE RN ss Daryn Tripathi jp3 Priyanka Cardona RN RN ls4 Ciara Holley kj1
[2020-03-03 14:13] VITALS: TEMP 97.7
[2020-03-03 14:14] VITALS: BP 147/74; O2SAT 99
== END 2020-03-03 14:07 | disposition home or self-care (01) ==
LOC: ER 11:31
DX: I10 Essential (primary) hypertension (principal); I48.91 Unspecified atrial fibrillation; I47.1 Supraventricular tachycardia; Z98.82 Breast implant status; Z88.0 Allergy status to penicillin
CPT/HCPCS: 36415; 71045; 80048; 80076; 81003; 83735; 83880; 84484; 85025; 93005; 99284

== ENCOUNTER 2020-09-22 20:16 | Inpatient (IN) | payer OTHER, MEDICARE ==
--- OUTSIDE RECORDS SUMMARY | 2020-09-22 20:19 | XMS REPORT | Continuity of Care Document ---
:1950 Author Organization [facility] t Address [address] [place] [address] Care Team Providers Name Role Phone John Piedra MD Primary Care Physician April Attending Clinician CORBY SANTOYO Attending Clinician Unavailable CORBY SANTOYO Admitting Clinician Unavailable Problems Condition Condition Condition Status Onset Resolution Last Treating Co mments Source Name Details Category Date Date Treatment Clinician Date Palpitatio Palpitatio Disease Active 2016-[address] [facility] n 1-21 [facility] 00:[facility]: [facility] 00 [facility] Abnormal Abnormal Disease [facility] test test 00:00: Medical 00 [facility] Sinus Sinus Disease Active 2016-[address] [facility] bradycardi bradycardi 1-20 Jennifer kes - a a 00:00: Medical 00 [facility] HTN HTN Disease Active 2016-[address] [facility] (hypertens (hypertens 1-20 Jennifer kes - ion) ion) 00:00: Medical 00 Center Visual Visual Disease Active 2016-[address] [facility] changes changes 1-20 [facility] 00 [facility] Floaters Floaters Disease Active 2016[facility]: [facility] 00 [facility] Headache Headache Disease [facility] 2016[facility] 00 [facility] Cavernous Cavernous Disease Active 2016-[address] [facility] [address] sinus sinus 1-19 [facility] - thrombosis thrombosis 00:00: [place] dical 00 [facility] Z12.31 - Diagnosis Active 2015-1 2015-06-06 M emoria ENCNTR 07-10 12:41:00 l SCREEN Z12.31 - 00:01: Roberto n MAMMOGRAM ENCNTR 00 FOR MA SCREEN MAMMOGRAM FOR MA Active 05/10/2015 [facility] Rochelle Encounter Problem 2020-03-29 Me anirudha for 23:08:50 l screening [place] mammogram Encounter for for malignant screening neoplasm mammogram of breast for malignant neoplasm of breast 03/29/2020 GONZALEZ Byrd, GONZALEZ Pritchett Allergies, Adverse Reactions, Alerts Allergy Allergy Status Severity Reaction(s) Onset Inactive Treating Comm ents Source Name Type Date Date Clinician Penicill Propensi Active Rash 2016-[address] [facility] [address] ins ty to 07-09 [facility] - adverse 00:00: Medical reaction 00 Center s Social History Social Habit Start Date Stop Date Quantity Comments Source Sex Assigned At [facility] Social History 2018-10-26 2018-10-26 [facility] 04:59:00 04:59:00 Tobacco use and 2017-05-17 2017-05-17 Never used [facility] - exposure 00:00:00 00:00:00 [facility] Alcohol intake 2017-05-17 2017-05-17 Current drinker MARKOS S t [facility] - 00:00:00 00:00:00 of alcohol [facility] (finding) Alcohol Comment 2017-05-09 2017-05-09 2 cans of beer a MARKOS [facility] 00:00:00 00:00:00 [facility] [place] [facility] Smoking Status Start Date Stop Date Source Never smoker [facility] Medications Ordered Filled Start Stop Current Ordering Indication Dosage Frequency Signature Comments Components Source Medication Medication Date Date Medication? Clinician (SIG) Name Name aspirin 81 2016-06 Yes 81mg QD Take [address] MG EC 07-12 by mouth [facility] - tablet 15:40: daily. Medical 02 Center calcium 2016-06 Yes hypocalcemi 1{tbl} Q.[id number] Take [address] [facility] carbonate 1-22 a [id number] tablet by [facility] - (CALCIUM 15:40: prevention 3D mouth 3 Medical CARBONATE) 02 (three) Center 300 mg Chew times daily. metoprolol 2016-06 Yes paroxysmal 25mg Q.5D Take [address] [facility] (LOPRESSOR) 07-12 supraventri by mouth 2 [facility] - 25 MG 15:40: cular (two) Medical tablet 02 tachycardia times Cente r daily. Procedures This patient has no known procedures. Encounters Start End Encounter Admission Attending Care Care Encounter Source Date/Time Date/Time Type Type Clinicians Facility Department ID 2020-03-27 2020-03-27 [id number] 12:43:00 23:59:00 10 2018-10-25 2018-10-25 Outpatient Delmy Chen [facility] [id number] 10:05:00 23:59:00 09 2017-07-28 2017-07-28 Outpatient Delmy Chen [facility] [id number] 08:14:00 23:59:00 08 2017-07-20 2017[facility]07-[id number] 11:01:00 23:59:00 07 2017-06-17 2017-06-17 Outpatient Delmy Chen [facility] [id number] 09:53:00 23:59:00 06 2016-07-15 2016-07-15 Outpatient Delmy Chen [facility] [id number] 13:26:00 23:59:00 05 2015-06-06 2015-06-06 Outpatient Delmy Chen Windy [facility] [id number] 12:30:00 23:59:00 04 2014-05-14 2014-05-14 [id number] 14:18:00 23:59:00 03 Results Test Description Test Time Test Comments Results Result Sourc e Comments TISSUE EXAM 2017-05-14 Surgical Pathology 12:19:00 Report Case: [id number] Authorizing Provider: Iban Rawls MD Collected: 05/11/2017 2234 Ordering Location: [facility] Received: 05/12/2017 1004 SERVICES Pathologist: Radha Gonzalez MD Specimen: Artery, TEMPORAL ARTERY BIOPSY TEMPORAL ARTERY, BIOPSY- TEMPORAL ARTERY WITHOUT SIGNIFICANT INFLAMMATION Signing Pathologist Direct Phone Line: [phone] ally signed by Radha Gonzalez MD on 05/14/2017 at 12:19 PMMultiple sections show temporal artery without significant inflammation. No granulomata or giant cells are detected. Luminal narrowing is not seen. Areas of hemorrhage that may be related to the procedure are also identified. The Movat stain shows a continuous internal elastic lamina. Findings are not sufficient for diagnosis of temporal arteritis. Clinical correlation is recommended.07140, 70131Aikic headache and visual changesTemporal artery biopsyThe specimen [...] code = 772) 2.27 uIU/mL 0.35-4.94 TROPONIN [id number] 12:21:00 Test Item Value Reference Range Interpretation [...] acute neurological disease, and persistent tachyarrhythmia.BASIC METABOLIC [id number] 06:27:00 Test Item Value Reference Range Interpretation [...] PATIEN TS. CBC W/PLT COUNT & AUTO [id number] 05:56:00 Test Item Value Reference Range Interpretation [...] PERCENT (BEAKER) (test code = 2801) SEDIMENTATION [id number] 11:51:00 Test Item Value Reference Range Interpretation Comments SEDIMENTATION RATE, ERYTHROCYTE 19 mm/HR 0-40 (BEAKER) (test code = 766) CT, CTANGIO [id number] 11:23:00FINAL REPORT CTV head with contrast INDICATION: [...] mild carotid siphon atherosclerosis. The imaged proximal [place] band of Sarah vessels demonstrate no high grade [...] sinuses. Signed: Camila Thomas MDReport Verified Date/Time: 05/10/2017 11:23:39 Reading Location: [facility] C0[facility] Neuro Reading Room C-REACTIVE [id number] 10:01:00 Test Item Value Reference Range Interpretation Comments C-REACTIVE PROTEIN (BEAKER) (test 0.80 mg/dL 0.00-0.50 H code = 676) [id number] 09:44:00 Test Item Value Reference Range Interpretation Comments PARTIAL THROMBOPLASTIN TIME 98.5 seconds 22.5-36.0 H (BEAKER) (test code = 760) TROPONIN [id number] 08:37:00 Test Item Value Reference Range Interpretation [...] acute neurological disease, and persistent tachyarrhythmia.BASIC METABOLIC [id number] 04:17:00 Test Item Value Reference Range Interpretation [...] S NOT APPLICABLE FOR DIALYSIS PATIEN TS. [id number] 03:43:00 Test Item Value Reference Range Interpretation [...] code = 2801) MR, MRA, BRAIN, WITHOUT [id number] 00:52:00FINAL REPORT MR, MRA, BRAIN, WITHOUT CONTRAST, MR, BRAIN, WITH \\T\\ WITHOUT CONTRAST INDICATION: MRV for suspected cavernous sinus thrombosis TECHNIQUE: Multiplanar, multisequencepre and postcontrast MR images of the brain. Two-dimensional [id number] MR venogram of the brain in the [...] MDReport Verified Date/Time: 05/10/2017 00:52:12 Reading Location: [address] Reading Room MR, BRAIN, [id number] 00:52:00FINAL REPORT MR, MRA, BRAIN, WITHOUT CONTRAST, MR, BRAIN, WITH \\T\\ WITHOUT CONTRAST INDICATION: MRV for suspected cavernous sinus thrombosis TECHNIQUE: Multiplanar, multisequencepre and postcontrast MR images of the brain. Two-dimensional [id number]-tg-[id number] MR venogram of the brain in the [...] MDReport Verified Date/Time: 05/10/2017 00:52:12 Reading Location: [address] Reading Room [id number] 22:46:00 Test Item Value Reference Range Interpretation [...] is 2.5-3.5 for patients with mechanical heart valves.[id number] 14:41:00 Test Item Value Reference Range Interpretation Comments PARTIAL THROMBOPLASTIN TIME 29.6 seconds 22.5-36.0 (BEAKER) (test code = 760) [id number] 08:26:00 Test Item Value Reference Range Interpretation Comments PARTIAL THROMBOPLASTIN TIME 56.2 seconds 22.5-36.0 H (BEAKER) (test code = 760) BASIC METABOLIC [id number] 05:02:00 Test Item Value Reference Range Interpretation [...] PATIEN TS. CBC W/PLT COUNT & AUTO [id number] 04:24:00 Test Item Value Reference Range Interpretation [...] PERCENT (BEAKER) (test code = 2801) TROPONIN [id number] 03:02:00 Test Item Value Reference Range Interpretation [...] failure, acidosis, acute neurological disease, and persistent tachyarrhythmia.[id number] 02:06:00 Test Item Value Reference Range Interpretation Comments PARTIAL THROMBOPLASTIN TIME 72.6 seconds 22.5-36.0 H (BEAKER) (test code = 760) Prior to initiating heparinPROTHROMBIN TIME/[id number] 02:04:00 Test Item Value Reference Range Interpretation [...]
[2020-09-22 21:11] LABS: Absolute Lymphocytes (CBC) 3.2 K/uL (0.7-4.9); Basophils % 0.4 % (0-1.3); Hematocrit 40.2 % (36.0-45.0); Lymphocytes % 29.6 % (15.3-44.8); MPV 7.7 fL (7.6-11.3); RBC Red Blood Cell Count 4.54 M/uL (3.86-4.86)
[2020-09-22 21:21] LABS: Protime INR 0.9
--- NOTE | 2020-09-22 21:26 | RAD REPORT ---
EXAM DESCRIPTION: RAD - Chest Single View - 09/22/2020 9:07 pm CLINICAL HISTORY: CHEST PAIN Chest pain. COMPARISON: <Comparisons> FINDINGS: Portable technique limits examination quality. The lungs are grossly clear. The heart is normal in size. No displaced fractures. IMPRESSION: No acute intrathoracic process suspected.
[2020-09-22 21:35] LABS: ALT/SGPT 20 U/L (12-78); AST/SGOT 19 U/L (15-37); Albumin 3.5 g/dL (3.4-5.0); Alkaline Phosphatase 101 U/L (45-117); BUN Blood Urea Nitrogen 35 mg/dL (7-18); Bicarbonate 28 mmol/L (21-32); Bilirubin Direct < 0.1 mg/dL (0-0.2); Bilirubin Total 0.2 mg/dL (0.2-1.0); Glucose Level 89 mg/dL (74-106); Magnesium 2.3 mg/dL (1.8-2.4); NT PRO-BNP 101 pg/mL (<125); Potassium 3.9 mmol/L (3.5-5.1); Protein, Total 7.1 g/dL (6.4-8.2); Sodium Level 141 mmol/L (136-145); Troponin (Emerg Dept Use Only) < 0.02 ng/mL (0.0-0.045)
--- NOTE | 2020-09-22 21:55 | EDPHYS ---
Physician Documentation [facility] Name: Meryl Murray Age: 70 yrs Sex: Female : 1950 Arrival Date: 09/22/2020 Time: 20:19 Bed 13 Private MD: Darrell Piedra T ED Physician Scott Nunn HPI: 09/22 20:56 This 70 yrs old Female presents to ER via Ambulatory with complaints of HEART tw4 PROBLEM. 20:56 The patient or guardian reports chest pain that is located primarily in the anterior tw4 chest wall, left. Onset: today. The pain does not radiate. Associated signs and symptoms: The patient has no apparent associated signs or symptoms. The chest pain is described as dull. Duration: The patient or guardian reports a single episode. Modifying factors: The symptoms are alleviated by nothing. the symptoms are aggravated by nothing. Severity of pain: At its worst the pain was moderate in the emergency department the pain is unchanged. Historical: - Allergies: 20:28 PENICILLINS; rr5 - Home Meds: 20:28 metoprolol tartrate 25 mg Oral tab 1 tab once daily [Active]; flecainide 50 mg Oral tab rr5 1 tab every 12 hours [Active]; - PMHx: 20:28 Atrial Fib; Hypertension; SVT; rr5 - PSHx: 20:28 breast implant; rr5 - Immunization history:: Adult Immunizations up to date, Client reports receiving the 2nd dose of the Covid vaccine, Date received: July 2020. - Social history:: Smoking status: unknown Patient uses alcohol, occasionally. Patient/guardian denies using street drugs. ROS: 20:56 Constitutional: Negative for fever, chills, and weight loss, Eyes: Negative for injury, tw4 pain, redness, and discharge, Neck: Negative for injury, pain, and swelling, Respiratory: Negative for shortness of breath, cough, wheezing, and pleuritic chest pain, Abdomen/GI: Negative for abdominal pain, nausea, vomiting, diarrhea, and constipation, Back: Negative for injury and pain, MS/Extremity: Negative for injury and deformity, Skin: Negative for injury, rash, and discoloration, Neuro: Negative for headache, weakness, numbness, tingling, and seizure. 20:56 Cardiovascular: Positive for chest pain, Negative for edema, orthopnea, palpitations, paroxysmal nocturnal dyspnea. Exam: 20:56 Constitutional: This is a well developed, well nourished patient who is awake, alert, tw4 and in no acute distress. Head/Face: Normocephalic, atraumatic. Chest/axilla: Normal chest wall appearance and motion. Nontender with no deformity. No lesions are appreciated. Cardiovascular: Regular rate and rhythm with a normal S1 and S2. No gallops, murmurs, or rubs. Normal PMI, no JVD. No pulse deficits. Respiratory: Lungs have equal breath sounds bilaterally, clear to auscultation and percussion. No rales, rhonchi or wheezes noted. No increased work of breathing, no retractions or nasal flaring. Abdomen/GI: Soft, non-tender, with normal bowel sounds. No distension or tympany. No guarding or rebound. No evidence of tenderness throughout. Back: No spinal tenderness. No costovertebral tenderness. Full range of motion. MS/ Extremity: Pulses equal, no cyanosis. Neurovascular intact. Full, normal range of motion. Neuro: Awake and alert, GCS 15, oriented to person, place, time, and situation. Cranial nerves II-XII grossly intact. Motor strength 5/5 in all extremities. Sensory grossly intact. Cerebellar exam normal. Normal gait. Vital Signs: 20:23 BP 133 / 64; Pulse 54; Resp 18; Temp 97.8; Pulse Ox 99% ; Weight 71.67 kg; Height 5 ft. rr5 6 in. (167.64 cm); Pain 2/10; 21:46 BP 109 / 88; Pulse 52; Resp 18; Pulse Ox 99% ; ca1 22:30 BP 111 / 70; Pulse 50; Resp 16; Pulse Ox 98% ; rr5 23:31 BP 116 / 57; Pulse 51; Resp 19; Pulse Ox 98% ; rr5 20:23 Body Mass Index 25.50 (71.67 kg, 167.64 cm) rr5 MDM: 20:58 Patient medically screened. tw4 23:22 HEART Score: History: Moderately Suspicious (1), ECG: Non specific repolarization tw4 disturbance / LBTB / PM (1), Age: > or = 65 years (2), Risk Factors: 1 or 2 risk factors (1), Troponin: < or = 1 x Normal Limit (0), Total Score = 4. Data reviewed: vital signs, nurses notes. Data interpreted: Pulse oximetry: Interpretation: normal. Counseling: I had a detailed discussion with the patient and/or guardian regarding: the historical points, exam findings, and any diagnostic results supporting the discharge/admit diagnosis. Special discussion: I discussed with the patient/guardian in detail that at this point there is no indication for admission to the hospital. It is understood, however, that if the symptoms persist or worsen the patient needs to return immediately for re-evaluation. 09/22 20:37 Order name: Basic Metabolic Panel; Complete Time: 21:36 09/22 21:36 Interpretation: Normal except: CL 108; BUN 35; GFR 44. 09/22 20:37 Order name: CBC with Diff; Complete Time: 21:23 09/22 20:37 Order name: LFT's; Complete Time: 21:36 09/22 21:36 Interpretation: Normal except: GLOB 3.6; A/G 1.0. 09/22 20:37 Order name: Magnesium; Complete Time: 21:36 09/22 21:36 Interpretation: Within normal limits: MG 2.3. 09/22 20:37 Order name: NT PRO-BNP; Complete Time: 21:36 09/22 21:36 Interpretation: Within normal limits: NT PRO-BNP 101. 09/22 20:37 Order name: PT-INR; Complete Time: 21:36 09/22 21:36 Interpretation: Within normal limits: PT 10.3. 09/22 20:30 Order name: EKG - Nurse/Tech; Complete Time: 20:38 rr5 09/22 20:37 Order name: Troponin (emerg Dept Use Only); Complete Time: 21:36 09/22 21:36 Interpretation: Within normal limits: TROPED < 0.02. 09/22 20:37 Order name: XRAY Chest (1 view); Complete Time: 21:28 09/22 21:28 Interpretation: No acute disease. 09/22 20:37 Order name: EKG; Complete Time: 20:38 09/22 21:46 Order name: COVID-19 : Document "Date of Symptom Onset" if Symptomatic. 09/22 22:59 Order name: SARS-COV-2 RT PCR EDVA 09/22 20:37 Order name: Cardiac monitoring; Complete Time: 20:50 tw4 09/22 20:37 Order name: IV Saline Lock; Complete Time: 20:50 tw4 09/22 20:37 Order name: Labs collected and sent; Complete Time: 20:50 tw4 09/22 20:37 Order name: O2 Per Protocol; Complete Time: 20:50 tw4 09/22 20:37 Order name: O2 Sat Monitoring; Complete Time: 20:50 tw4 Administered Medications: 22:05 Drug: Aspirin Chewable Tablet 324 mg Route: PO; rr5 23:05 Follow up: Response: No adverse reaction rr5 Disposition: 09/22/20 21:55 Hospitalization ordered by Soledad Clark for Observation. Preliminary diagnosis is Angina pectoris, unspecified. - Bed requested for Telemetry/MedSurg (observation). - Status is Observation. rr5 - Condition is Stable. - Problem is new. - Symptoms have improved. Signatures: Dispatcher [employer] EDVA Jimmy Stiles, RN RN em Ricki Scruggs, ASPHALT SPREADER OPERATOR-C ASPHALT SPREADER OPERATOR-Cla1 Savana Corley RN RN Scott Nunn MD MD tw4 Melvin Reddy, RN RN rr5 Corrections: (The following items were deleted from the chart) 22:14 21:47 CORONAVIRUS ordered. [facility] 23:27 21:55 Hospitalization Ordered by Soledad Clark MD for Observation. Preliminary cg diagnosis is Angina pectoris, unspecified. Bed requested for Telemetry/MedSurg (observation). Status is Observation. Condition is Stable. Problem is new. Symptoms have improved. tw4 23:57 23:27 09/22/2020 21:55 Hospitalization Ordered by Soledad Clark MD for Observation. rr5 Preliminary diagnosis is Angina pectoris, unspecified. Bed requested for Telemetry/MedSurg (observation). Status is Observation. Condition is Stable. Problem is new. Symptoms have improved. cg
--- NOTE | 2020-09-22 21:55 | ER ---
Nurse's Notes [facility] Name: Meryl Murray Age: 70 yrs Sex: Female : 1950 Arrival Date: 09/22/2020 Time: 20:19 Bed 13 Private MD: Darrell Piedra T Diagnosis: Angina pectoris, unspecified Presentation: 09/22 20:23 Chief complaint: Patient states: left side chest tightness started last night on and rr5 off, 40 minutes ago i felt it again and going to my neck and face. I am having headache too. Coronavirus screen: Client denies travel out of the [place] in the last 14 days. At this time, the client does not indicate any symptoms associated with coronavirus-19. Ebola Screen: Patient negative for fever greater than or equal to 101.5 degrees Fahrenheit, and additional compatible Ebola Virus Disease symptoms Patient denies exposure to infectious person. Patient denies travel to an Ebola-affected area in the 21 days before illness onset. Initial Sepsis Screen: Does the patient meet any 2 criteria? No. Patient's initial sepsis screen is negative. Does the patient have a suspected source of infection? No. Patient's initial sepsis screen is negative. Risk Assessment: Do you want to hurt yourself or someone else? Patient reports no desire to harm self or others. Onset of symptoms was September 21, 2020. 20:23 Method Of Arrival: Ambulatory rr5 20:23 Acuity: HONG 3 rr5 Historical: - Allergies: 20:28 PENICILLINS; rr5 - Home Meds: 20:28 metoprolol tartrate 25 mg Oral tab 1 tab once daily [Active]; flecainide 50 mg Oral tab rr5 1 tab every 12 hours [Active]; - PMHx: 20:28 Atrial Fib; Hypertension; SVT; rr5 - PSHx: 20:28 breast implant; rr5 - Immunization history:: Adult Immunizations up to date, Client reports receiving the 2nd dose of the Covid vaccine, Date received: July 2020. - Social history:: Smoking status: unknown Patient uses alcohol, occasionally. Patient/guardian denies using street drugs. Screenin:40 Abuse screen: Denies threats or abuse. Denies injuries from another. Nutritional ca1 screening: No deficits noted. Tuberculosis screening: No symptoms or risk factors identified. Fall Risk IV access (20 points). Assessment: 20:40 General: Appears in no apparent distress. comfortable, Behavior is calm, cooperative, ca1 appropriate for age. Pain: Complains of pain in chest Pain does not radiate. Pain currently is 2 out of 10 on a pain scale. Quality of pain is described as tightness Pain began 1 day ago. Is intermittent. Neuro: Level of Consciousness is awake, alert, obeys commands, Oriented to person, place, time, situation. Neuro: Reports dizziness, numbness in face. Cardiovascular: Heart tones S1 S2 present Capillary refill < 3 seconds Patient's skin is warm and dry. Rhythm is sinus bradycardia. Cardiovascular: Reports lightheadedness. Respiratory: Airway is patent Respiratory effort is even, unlabored, Respiratory pattern is regular, symmetrical, Breath sounds are clear bilaterally. GI: Abdomen is flat, non-distended, Bowel sounds present X 4 quads. Abd is soft and non tender X 4 quads. : No signs and/or symptoms were reported regarding the genitourinary system. EENT: No signs and/or symptoms were reported regarding the EENT system. Derm: Skin is intact, is healthy with good turgor, Skin is pink, warm \T\ dry. Musculoskeletal: Circulation, motion, and sensation intact. Capillary refill < 3 seconds. 21:45 Reassessment: Patient appears in no apparent distress at this time. Patient and/or ca1 family updated on plan of care and expected duration. Pain level reassessed. Patient is alert, oriented x 3, equal unlabored respirations, skin warm/dry/pink. 22:30 Reassessment: Patient appears in no apparent distress at this time. Patient is alert, rr5 oriented x 3, equal unlabored respirations, skin warm/dry/pink. awaiting for result and for admission. 23:30 Reassessment: Patient appears in no apparent distress at this time. resting eyes closed rr5 breathing spontaneously at room air. Vital Signs: 20:23 BP 133 / 64; Pulse 54; Resp 18; Temp 97.8; Pulse Ox 99% ; Weight 71.67 kg; Height 5 ft. rr5 6 in. (167.64 cm); Pain 2/10; 21:46 BP 109 / 88; Pulse 52; Resp 18; Pulse Ox 99% ; ca1 22:30 BP 111 / 70; Pulse 50; Resp 16; Pulse Ox 98% ; rr5 23:31 BP 116 / 57; Pulse 51; Resp 19; Pulse Ox 98% ; rr5 20:23 Body Mass Index 25.50 (71.67 kg, 167.64 cm) rr5 ED Course: 20:19 Patient arrived in ED. am4 20:20 Darrell Piedra MD is Private Physician. am4 20:27 Triage completed. rr5 20:29 Arm band placed on right wrist. rr5 20:33 Scott Nunn MD is Attending Physician. tw4 20:37 Belén Marx, GABRIELE is Primary Nurse. ca1 20:40 Patient has correct armband on for positive identification. Bed in low position. Call ca1 light in reach. Side rails up X2. hall monitor on. Pulse ox on. NIBP on. Warm blanket given. 21:08 XRAY Chest (1 view) In Process Unspecified. EDMS 21:55 Soledad Clark MD is Hospitalizing Provider. tw4 22:00 Inserted saline lock: 20 gauge in right antecubital area, using aseptic technique. rr5 ,using aseptic technique. inserted by belén. 23:31 No provider procedures requiring assistance completed. Patient admitted, IV remains in rr5 place. intact, No redness/swelling at site. Administered Medications: 22:05 Drug: Aspirin Chewable Tablet 324 mg Route: PO; rr5 23:05 Follow up: Response: No adverse reaction rr5 Outcome: 21:55 Decision to Hospitalize by Provider. tw4 23:36 Condition: stable rr5 23:41 Admitted to Med/surg accompanied by nurse, via stretcher, room 206, with chart, Report rr5 called to jl 23:41 Instructed on the need for admit. 23:57 Patient left the ED. rr5 Signatures: Dispatcher [employer] EDWI Scott Nunn MD MD tw4 Melvin Reddy RN RN rr5 Belén Marx, GABRIELE RN ca1 Jennifer Ornelas am4
--- NOTE | 2020-09-22 22:00 | P.HP ---
Certification for Inpatient Patient admitted to: Observation With expected LOS: <2 Midnights Patient will require the following post-hospital care: None Practitioner: I am a practitioner with admitting privileges, knowledge of patient current condition, hospital course, and medical plan of care. Services: Services provided to patient in accordance with Admission requirements found in Title 42 Section 412.3 of the Code of Federal Regulations <Ricki Scruggs - Last Filed: 09/22/20 21:56> Patient History Date of Service: 09/22/20 Primary Care Provider: Dr. Contreras Reason for admission: Chest pain History of Present Illness: 70-year-old female with history of atrial fibrillation, SVT presents emergency department for chest pain. Patient reports that she has had intermittent chest pain since last night, pain is described as tightness radiating to left shoulder with some associated shortness of breath. 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 Claire told her that there is a small portion heart this unit it was not getting great blood flow but as she is not experiencing any symptoms at this time you could be monitored, patient not having chest pain. Patient reports heart catheterization 4 years ago with Clean coronary arteries. EKG shows sinus bradycardia, patient reports that her is been running in the 40s to 50s for the last 2-3 years. 1st degree block noted. Chest x-ray without acute findings, labs unremarkable. ED provider wishes to admit patient for chest pain rule out. 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 - Family History Father -: Other (see notes) Notes: colon polyps, cirrhosis, hepatitis Mother -: Heart disease, Diabetes, Stroke, Other (see notes) Notes: asthma, myocardial infarction - Social History Smoking Status: Never smoker Alcohol use: Yes CD- Drugs: No Caffeine use: Yes Place of Residence: Home <KaelRicki - Last Filed: 09/22/20 21:56> Date of Service: 09/22/20 <Soledad Clark - Last Filed: 09/24/20 11:02> Allergies Penicillins Allergy (Severe, Verified 09/24/20 01:23) Unknown PCN Allergy (Severe, Uncoded 09/24/20 01:23) Hives/Rash Home Medications: Aspirin Chewable [Aspirin Chewable*] 81 mg PO DAILY #30 tab.chew 08/07/16 Flecainide [Tambocor*] 50 mg PO BID 09/23/20 Metoprolol Succinate 25 mg PO DAILY 09/23/20 Aspirin [Aspirin EC 81 MG] 81 mg PO DAILY #30 tablet. 09/24/20 Atorvastatin Calcium [Lipitor] 40 mg PO BEDTIME #30 tab 09/24/20 Clopidogrel Bisulfate [Plavix] 75 mg PO DAILY #30 tablet 09/24/20 Review of Systems 10-point ROS is otherwise unremarkable Respiratory: Shortness of Breath Cardiovascular: Chest Pain, Light Headedness, As per HPI <Ricki Scruggs - Last Filed: 09/22/20 21:56> Physical Examination - Physical Exam General: Alert, In no apparent distress HEENT: Atraumatic, PERRLA, Mucous membr. moist/pink Neck: Supple, 2+ carotid pulse no bruit, No LAD Respiratory: Clear to auscultation bilaterally, Normal air movement Cardiovascular: Regular rate/rhythm, Normal S1 S2 Gastrointestinal: Normal bowel sounds, No tenderness Musculoskeletal: No tenderness Integumentary: No rashes Neurological: Normal speech, Normal strength at 5/5 x4 extr, Normal tone, Normal affect Lymphatics: No axilla or inguinal lymphadenopathy - Studies Laboratory Data (last 24 hrs) 09/22/20 20:48: PT 10.3, INR 0.90 09/22/20 20:48: WBC 10.80, Hgb 13.6, Hct 40.2, Plt Count 307 09/22/20 20:48: Sodium 141, Potassium 3.9, BUN 35 H, Creatinine 1.21, Glucose 89, Magnesium 2.3, Total Bilirubin 0.2, AST 19, ALT 20, Alkaline Phosphatase 101 <Ricki Scruggs - Last Filed: 09/22/20 21:56> - Studies Laboratory Data (last 24 hrs) 09/23/20 12:30: Troponin I < 0.02 <Soledad Clark - Last Filed: 09/24/20 11:02> Assessment and Plan - Plan Assessment Chest pain rule out ACS Atrial fibrillation Plan Chest pain rule out ACS: Monitor on telemetry, cardiology consult in place. Continue daily aspirin, patient noted to have sinus bradycardia with rate between 45 and 55, patient reports that she has had a heart rate is low for the last couple of years, patient reports she is on metoprolol and flecainide, patient may need her medications adjusted, will place hold parameters on medications when they restarted. Patient reports that she takes daily aspirin for her atrial fibrillation, will have NPO after midnight in case of intervention. DVT prophylaxis Lovenox 40 mg subcutaneous once daily. Sinus bradycardia with first-degree AV block: Continue as above. Paroxysmal Atrial fibrillation: Continue aspirin, monitor on telemetry. Continue other home medications with hold parameters. Discharge Plan: Home Plan to discharge in: 24 Hours - Advance Directives Does patient have a Living Will: No Does patient have a Durable POA for Healthcare: No - Code Status/Comfort Care Code Status Assessed: Yes (Full code) Critical Care: No Time Spent Managing Pts Care (In Minutes): 55 <Ricki Scruggs - Last Filed: 09/22/20 21:56> - Problems (Diagnosis) (1) Chest pain due to coronary artery disease Current Visit: Yes Status: Acute (2) Paresthesia Onset Date: 08/07/16 Current Visit: No Status: Acute (3) Weakness of left upper extremity Onset Date: 08/07/16 Current Visit: No Status: Acute <Soledad Clark - Last Filed: 09/24/20 11:02> Date of Service: 09/22/20 Agree with plan of care as mentioned above. Patient scheduled for heart catheterization. <Soledad Clark - Last Filed: 09/24/20 11:02>
[2020-09-22] MEDS ORDERED: ASPIRIN 81 MG CHEWABLE TABLET ONE ×2 (22:17→22:20)
[2020-09-23] MEDS ORDERED: ONDANSETRON 4 MG/2 ML VIAL IV PRN (00:20)
[2020-09-23 01:01] VITALS: BMI 26.4
[2020-09-23] MEDS: NA CHLORIDE 0.9% 1,000 ML IV SCH ×3 (02:39→21:31)
[2020-09-23 07:00] LABS: Absolute Lymphocytes (CBC) 2.1 K/uL (0.7-4.9); Basophils % 0.4 % (0-1.3); Hematocrit 38.5 % (36.0-45.0); Lymphocytes % 28.5 % (15.3-44.8); MPV 7.9 fL (7.6-11.3); RBC Red Blood Cell Count 4.37 M/uL (3.86-4.86)
[2020-09-23 07:20] LABS: ALT/SGPT 18 U/L (12-78); AST/SGOT 18 U/L (15-37); Albumin 3.2 g/dL (3.4-5.0); Alkaline Phosphatase 79 U/L (45-117); BUN Blood Urea Nitrogen 29 mg/dL (7-18); Bicarbonate 29 mmol/L (21-32); Bilirubin Total 0.4 mg/dL (0.2-1.0); Glucose Level 85 mg/dL (74-106); HDL Cholesterol 59 mg/dL (40-60); LDL Cholesterol, Calculated 122 (<130); Magnesium 2.4 mg/dL (1.8-2.4); Protein, Total 6.5 g/dL (6.4-8.2); Sodium Level 142 mmol/L (136-145); Troponin I < 0.02 ng/mL (0.0-0.045)
[2020-09-23 07:23] LABS: Urine Appearance CLEAR (Clear); Urine Bilirubin NEGATIVE (Negataive); Urine Blood NEGATIVE (Negative); Urine Color YELLOW (Yellow); Urine Glucose NEGATIVE (Negative); Urine Microscopic Reflex NO UMIC; Urine Protein NEGATIVE (Negative); Urine Specific Gravity 1.025 (1.005-1.030); Urine Urobilinogen 0.2 mg/dL (0.2-1.0); Urine pH 5.5 (5.0-7.0)
--- NOTE | 2020-09-23 08:56 | EKG ---
Test Date: 2020-09-22 Test Time: 20:34:25 [place]: RR MEASUREMENT RESULTS: Intervals: Rate: 52 SC: 214 QRSD: 120 QT: 460 QTc: 427 [place]: P: 52 SC: 214 QRS: -14 T: 62 INTERPRETIVE STATEMENTS: Sinus bradycardia with 1st degree AV block RSR' or QR pattern in V1 suggests right ventricular conduction delay Borderline ECG Compared to ECG 03/03/2020 11:55:09 RSR' in V1 or V2 now present Left-axis deviation no longer present Incomplete right bundle-branch block no longer present Electronically Signed On 09-23-20 08:55:12 CDT by Kevin Tovar
[2020-09-23] MEDS: ASPIRIN EC 81 MG TAB PO SCH (09:00)
[2020-09-23] MEDS: ENOXAPARIN 40 MG/0.4 ML SQ SCH (09:00)
[2020-09-23] MEDS ORDERED: NA CHLORIDE 0.9% 500 ML ONE (13:54)
--- NOTE | 2020-09-23 13:54 | CON ---
Date of Consultation: 09/23/2020 Reason For Admission: Admitted to Dr. Clark on 09/22/2020 with chest pain. Reason For Consultation: Unstable angina and recent positive stress test. History Of Present Illness: Ms. Murray is a 70-year-old. She sees Dr. 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 She denied any PND, orthopnea. Denied any palpitation. Denied any syncope. By the time she came to the emergency room, her troponin was negative, but her symptoms were very co nsistent with unstable angina, recent positive stress test, and the decision was made to do a heart c atheterization on her. Allergies: PENICILLIN. Review of Systems: Negative. Social History: Negative. Family History: Noncontributory. Medications: At home include aspirin, flecainide, and metoprolol. Past Medical History: Atrial fibrillation, hypertension. Physical Examination: Vital Signs: Stable, afebrile. HEENT: Negative. Neck: Supple without any bruit, lymphadenopathy, JVD, or thyromegaly. Chest: Clear to auscultation and percussion. Cardiac: Revealed a regular rhythm and rate. No murmurs, gallops, or rubs. Abdomen: Benign. Extremities: Revealed no clubbing, cyanosis, or edema. Diagnostic Data: EKG shows sinus bradycardia. Chest x-ray is negative. Troponin was negative. Impression And Plan: The patient with history of hypertension, atrial fibrillation, both of those ar e stable. She comes in with classic symptoms for unstable angina. A recent positive stress test. I think I would hold her Lovenox for now. I think she should have a left heart catheterization to def ine her coronary anatomy. The risk and the benefits of the procedure were discussed with the patient and she agreed to proceed. KRYSTYNA/MILTON Voice ID: [id number] Report ID: [id number]
[2020-09-23] MEDS ORDERED: MIDAZOLAM HCL 2 MG/2 ML INJ ONE (14:32)
[2020-09-23] MEDS ORDERED: HEPARIN 5000 UNIT/ML 1 ML VIAL ONE (14:32)
[2020-09-23] MEDS ORDERED: VERAPAMIL HCL 10 MG/4 ML VIAL IV ONE (14:33)
[2020-09-23] MEDS ORDERED: FENTANYL CITR 100 MCG/2 ML ONE (14:33)
[2020-09-23] MEDS ORDERED: ATROPINE SULF 1 MG/10 ML SYR IV ONE (14:33)
[2020-09-23] MEDS ORDERED: ATORVASTATIN 40 MG TAB PO SCH (21:00)
--- NOTE | 2020-09-23 22:16 | OP ---
Date of Procedure: 09/23/2020 Surgeon: CORI BROWN Procedure Performed: Selective coronary angiogram. Indication: Unstable angina. Access: Right radial artery 6-Nigerien closed with TR band. Complications: None. Bleedin mL. Description Of Procedure: After risks, benefits, and alternatives were explained, the patient agreed to procedure and signed informed consent. The patient was brought into the cardiac catheterization laboratory, prepped and draped in usual sterile fashion. We accessed the right radial artery using p BitWine micropuncture kit and placed a 6-Nigerien slender sheath and took a 5-Nigerien [place] 4.0 cathete r into the aortic root, engaged left main, right coronary artery, took standard views, then removed t he catheter and the sheath and placed TR band. Findings: 1.Left main is large and normal. 2.LAD, moderate sized, normal. Diagonal 1 has ostial 30%, otherwise no other disease. 3.Left circumflex is normal. 4.RCA large dominant and normal findings. No significant coronary artery disease. Recommendations: Medical management and risk factor modification. SR/MODL Voice ID: [id number] Report ID: [id number]
[2020-09-24] MEDS ORDERED: ACETAMINOPHEN 500 MG TAB PO PRN (01:19)
[2020-09-24] MEDS: NA CHLORIDE 0.9% 1,000 ML IV SCH (05:13)
[2020-09-24] MEDS: ENOXAPARIN 40 MG/0.4 ML SQ SCH (08:09)
[2020-09-24] MEDS: ASPIRIN EC 81 MG TAB PO SCH (08:09)
--- NOTE | 2020-09-24 08:35 | ECHO ---
HEIGHT: 5 ft 6 in WEIGHT: 163 lb 14.4 oz DATE OF STUDY: 09/23/[address]: Kevin Tovar MD 2-DIMENSIONAL: YES M.MODE: YES DOPPLER: YES COLOR FLOW: YES TDS: PORTABLE: DEFINITY: BUBBLE STUDY: DIAGNOSIS: CHEST PAIN CARDIAC HISTORY: CATHERIZATION: YES SURGERY: NO PROSTHETIC VALVE: NO PACEMAKER: NO MEASUREMENTS (cm) DIASTOLIC (NORMALS) SYSTOLIC (NORMALS) IVSd 1.1 (0.6-1.2) LA Diam 2.2 (1.9-4.0) LVEF 55-60% LVIDd 4.3 (3.5-5.7) LVIDs 2.6 (2.0-3.5) %FS 39% LVPWd 1.1 (0.6-1.2) Ao Diam 2.7 (2.0-3.7) 2 DIMENSIONAL ASSESSMENT: RIGHT ATRIUM: NORMAL LEFT ATRIUM: NORMAL RIGHT VENTRICLE: NORMAL LEFT VENTRICLE: NORMAL TRICUSPID VALVE: NORMAL MITRAL VALVE: MILD MITRAL ANNULAR CALCIFICATION PULMONIC VALVE: NORMAL AORTIC VALVE: NORMAL PERICARDIAL EFFUSION: NONE AORTIC ROOT: NORMAL LEFT VENTRICULAR WALL MOTION: NORMAL DOPPLER/COLOR FLOW: SEE BELOW COMMENTS: NORMAL LEFT VENTRICULAR EJECTION FRACTION 55-60% WITH NORMAL WALL MOTION. MILD DIASTOLIC DYSFUNCTION. TECHNOLOGIST: ABY IRELAND
--- NOTE | 2020-09-24 11:01 | P.PN ---
Subjective Date of Service: 09/23/20 Subjective: No new changes, No C/O voiced, Improving Review of Systems 10-point ROS is otherwise unremarkable Physical Examination - Vital Signs Temperature: 97.6 F Blood Pressure: 135/60 Pulse: 55 Respirations: 16 Pulse Ox (%): 97 - Physical Exam General: Alert, In no apparent distress, Oriented x3 Respiratory: Clear to auscultation bilaterally, Normal air movement Cardiovascular: Regular rate/rhythm, Normal S1 S2, No murmurs Gastrointestinal: Normal bowel sounds, Soft and benign, Non-distended, No tenderness Musculoskeletal: No clubbing, No swelling Neurological: Sensation intact, Cranial nerves 3-12 intact - Studies Laboratory Data (last 24 hrs) 09/23/20 12:30: Troponin I < 0.02 Assessment & Plan - Problems (Diagnosis) (1) Chest pain due to coronary artery disease Current Visit: Yes Status: Acute (2) Paresthesia Onset Date: 08/07/16 Current Visit: No Status: Acute (3) Weakness of left upper extremity Onset Date: 08/07/16 Current Visit: No Status: Acute - Plan 1. Serial troponins and EKG 2. Appreciate Cardiology consultation 3. Cardiac catheterization scheduled for today 4. Anti-platelet therapy, anti coagulation, beta-ivette, statin, and O2 as needed 5. IV morphine for pain 6. Nitro p.r.n. Discharge Plan: Home Plan to discharge in: 48 Hours - Advance Directives Does patient have a Living Will: No Does patient have a Durable POA for Healthcare: No - Code Status/Comfort Care Code Status Assessed: Yes Code Status: Full Code Critical Care: No Time Spent Managing PTS Care (In Minutes): 45
--- NOTE | 2020-09-24 11:04 | P.DS ---
Discharge Date: 09/24/20 Primary Care Provider: Dr. Contreras Disposition: ROUTINE DISCHARGE Discharge Condition: GOOD Reason for Admission: Chest pain - Problems (1) Chest pain due to coronary artery disease Current Visit: Yes Status: Acute (2) Paresthesia Onset Date: 08/07/16 Current Visit: No Status: Acute (3) Weakness of left upper extremity Onset Date: 08/07/16 Current Visit: No Status: Acute Brief History of Present Illness: 70-year-old female with history of atrial fibrillation, SVT presents emergency department for chest pain. Patient reports that she has had intermittent chest pain since last night, pain is described as tightness radiating to left shoulder with some associated shortness of breath. 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 Patient reports heart catheterization 4 years ago with Clean coronary arteries. EKG shows sinus bradycardia, patient reports that her is been running in the 40s to 50s for the last 2-3 years. 1st degree block noted. Chest x-ray without acute findings, labs unremarkable. ED provider wishes to admit patient for chest pain rule out. Hospital Course: Patient has done well during hospital stay. Patient is clinically doing well at this time. Cardiac catheterization showed 20 30% lesion in Coronary artery. Patient will be on medical management. Outpatient follow with Cardiology in 1-2 weeks. Patient follows up with Dr. Claire as well. Vital Signs/Physical Exam: Temp Pulse Resp BP Pulse Ox 97.6 F 55 16 135/60 97 09/24/20 11:01 09/24/20 11:01 09/24/20 11:01 09/24/20 11:01 09/24/20 11:01 General: Alert, In no apparent distress, Oriented x3 Laboratory Data at Discharge: WBC 7.50 K/uL (4.3-10.9) D 09/23/20 06:43 Hgb 13.1 g/dL (12.0-15.0) 09/23/20 06:43 Hct 38.5 % (36.0-45.0) 09/23/20 06:43 Plt Count 267 K/uL (152-406) 09/23/20 06:43 PT 10.3 SECONDS (9.5-12.5) 09/22/20 20:48 INR 0.90 09/22/20 20:48 Sodium 142 mmol/L (136-145) 09/23/20 06:43 Potassium 4.0 mmol/L (3.5-5.1) 09/23/20 06:43 BUN 29 mg/dL (7-18) H 09/23/20 06:43 Creatinine 0.93 mg/dL (0.55-1.3) 09/23/20 06:43 Glucose 85 mg/dL (74-106) 09/23/20 06:43 Magnesium 2.4 mg/dL (1.8-2.4) 09/23/20 06:43 Total Bilirubin 0.4 mg/dL (0.2-1.0) 09/23/20 06:43 AST 18 U/L (15-37) 09/23/20 06:43 ALT 18 U/L (12-78) 09/23/20 06:43 Alkaline Phosphatase 79 U/L (45-117) 09/23/20 06:43 Troponin I < 0.02 ng/mL (0.0-0.045) 09/23/20 12:30 Triglycerides 54 mg/dL (<150) 09/23/20 06:43 Cholesterol 192 mg/dL (<200) 09/23/20 06:43 HDL Cholesterol 59 mg/dL (40-60) 09/23/20 06:43 Cholesterol/HDL Ratio 3.25 09/23/20 06:43 Home Medications: Aspirin Chewable [Aspirin Chewable*] 81 mg PO DAILY #30 tab.chew 08/07/16 Flecainide [Tambocor*] 50 mg PO BID 09/23/20 Metoprolol Succinate 25 mg PO DAILY 09/23/20 Aspirin [Aspirin EC 81 MG] 81 mg PO DAILY #30 tablet. 09/24/20 Atorvastatin Calcium [Lipitor] 40 mg PO BEDTIME #30 tab 09/24/20 Clopidogrel Bisulfate [Plavix] 75 mg PO DAILY #30 tablet 09/24/20 New Medications: Aspirin [Aspirin EC 81 MG] 81 mg PO DAILY #30 tablet. Atorvastatin Calcium [Lipitor] 40 mg PO BEDTIME #30 tab Clopidogrel Bisulfate [Plavix] 75 mg PO DAILY #30 tablet Physician Discharge Instructions: OK TO DC IV AND DC HOME FOLLOW-UP WITH PRIMARY CARE PROVIDER IN 1-2 WEEKS FOLLOW-UP WITH CARDIOLOGY IN 1-2 WEEKS RETURN TO THE ER IF symptoms worsens CALL or TEXT DR. MARTE AT [phone] IF ANY QUESTIONS REGARDING HOSPITAL STAY. PLEASE CALL THE FLOOR AT [phone] IF ANY MEDICATION OR NURSING QUESTIONS. Diet: AHA Activity: Fall precautions Followup: Darrell Piedra MD [Primary Care Provider] - Time spent managing pt's care (in minutes): 55
[2020-09-24 11:29] VITALS: O2SAT 98
[2020-09-24 12:45] VITALS: BP 140/57; TEMP 97.4
== END 2020-09-24 12:56 | disposition home or self-care (01) | DRG 287 ==
LOC: ER 20:16 → ERHOLD 22:00 → 2ND 23:48 → OBSVTOIN 09-24 07:35
PROVIDERS: ADMIT Hospitalist; ATTEND Hospitalist
PROC: 4A023N7 Measurement of Cardiac Sampling and Pressure, Left Heart, Percutaneous Approach (ICD-10-PCS; principal; 2020-09-23)
PROC: B2111ZZ Fluoroscopy of Multiple Coronary Arteries using Low Osmolar Contrast (ICD-10-PCS; 2020-09-23)
DX: I25.110 Atherosclerotic heart disease of native coronary artery with unstable angina pectoris (principal); I10 Essential (primary) hypertension; I48.0 Paroxysmal atrial fibrillation; I44.0 Atrioventricular block, first degree; R00.1 Bradycardia, unspecified; R53.1 Weakness; R20.2 Paresthesia of skin; Z88.0 Allergy status to penicillin; Z79.899 Other long term (current) drug therapy; Z41.1 Encounter for cosmetic surgery; Z79.82 Long term (current) use of aspirin; Z79.02 Long term (current) use of antithrombotics/antiplatelets; Z20.822 Contact with and (suspected) exposure to COVID-19
CPT/HCPCS: 36415; 71045; 80048; 80053; 80061; 80076; 81003; 83735; 83880; 84439; 84443; 84484; 85025; 85610; 93005; 93306; 93454; 99285; C1893; G0378; J1644; J1650; J2250; J3010; J7030; J7040; U0003

== ENCOUNTER 2020-09-25 14:24 | Emergency (ER) | payer OTHER, MEDICARE ==
--- OUTSIDE RECORDS SUMMARY | 2020-09-25 14:26 | XMS REPORT | Continuity of Care Document ---
:1950 Author Organization [facility] t Address [address] [place] [address] Care Team Providers Name Role Phone John Piedra MD Primary Care Physician April Attending Clinician CORBY SANTOYO Attending Clinician Unavailable CORBY SANTOYO Admitting Clinician Unavailable Problems Condition Condition Condition Status Onset Resolution Last Treating Co mments Source Name Details Category Date Date Treatment Clinician Date Palpitatio Palpitatio Disease Active 2016-[address] [facility] n 1-21 [facility]: [facility] 00 [place] Abnormal Abnormal Disease [facility] test test 00:00: Medical 00 [place] Sinus Sinus Disease Active 2016-[address] [facility] bradycardi bradycardi 1-20 Jennifer kes - a a 00:00: Medical 00 [place] HTN HTN Disease Active 2016-[address] [facility] (hypertens (hypertens 1-20 Jennifer kes - ion) ion) 00:00: Medical 00 Center Visual Visual Disease Active 2016-[address] [facility] changes changes 1-20 [facility] 00 [place] Floaters Floaters Disease [facility] 2016[facility] 00 [place] Headache Headache Disease [facility] 00 [place] Cavernous Cavernous Disease Active 2016-[address] [facility] [address] sinus sinus 1-19 [facility] - thrombosis thrombosis 00:00: La dical 00 [place] Z12.31 - Diagnosis Active 2015-1 2015-06-06 M emoria ENCNTR 07-10 12:41:00 l SCREEN Z12.31 - 00:01: Roberto n MAMMOGRAM ENCNTR 00 FOR MA SCREEN MAMMOGRAM FOR MA Active 05/10/2015 [facility] Encounter Problem 2020-03-29 Me anirudha for 23:08:50 l screening [place] mammogram Encounter for for malignant screening neoplasm [...] Date Quantity Comments Source Sex Assigned At [facility] Social History 2018-10-26 2018-10-26 [facility] 04:59:00 04:59:00 Tobacco use and 2017-05-17 2017-05-17 Never used [facility] - exposure 00:00:00 00:00:00 [facility] Alcohol intake 2017-05-17 2017-05-17 Current drinker [facility]OS S [facility] 00:[facility]:00 00:00:00 of alcohol [facility] (finding) Alcohol Comment 2017-05-09 2017-05-09 2 cans of beer a MARKOS [facility] - 00:00:00 00:00:00 [facility] Smoking Status Start Date Stop Date Source Never smoker [facility] Medications Ordered Filled Start Stop Current Ordering Indication Dosage Frequency Signature Comments Components Source Medication Medication Date Date Medication? Clinician (SIG) Name Name aspirin 81 2016-06 Yes 81mg QD Take [address] MG EC 07-12 by mouth [facility] - tablet 15:40: daily. [facility] calcium 2016-06 Yes hypocalcemi 1{tbl} [id number] Take [address] [facility] carbonate 1-22 a [id number] tablet by [facility] - (CALCIUM 15:40: prevention [...] Department ID 2020-03-27 2020-03-[address] [facility] [id number] 12:43:00 23:59:00 10 2018-10-25 2018-10-25 Outpatient Delmy Chen [facility] [id number] 10:05:00 23:59:00 09 2017-07-28 2017-07-28 Outpatient Delmy Chen Windy [facility] [id number] 08:14:00 23:59:00 08 2017-07-20 2017[facility]07[id number] 11:01:00 23:59:00 07 2017-06-17 2017-06-17 Outpatient Delmy Chen [facility] [id number] 09:53:00 23:59:00 06 2016-07-15 2016-07-15 Outpatient Delmy Chen [facility] [id number] 13:26:00 23:59:00 05 2015-06-06 2015-06-06 Outpatient Delmy Chen Windy [facility] [id number] 12:30:00 23:59:00 04 2014-05-14 2014[facility]05-14 [id number] 14:18:00 23:59:00 03 Results Test Description Test Time Test Comments Results Result Sourc e Comments TISSUE EXAM 2017-05-14 Surgical Pathology 12:19:00 Report Case: [id number] Authorizing Provider: Iban Rawls MD Collected: 05/11/2017 2234 Ordering Location: [facility] PERIOPER[facility]IVE Received: 05/12/2017 1004 SERVICES Pathologist: Radha Gonzalez MD Specimen: Artery, TEMPORAL ARTERY BIOPSY TEMPORAL ARTERY, BIOPSY- TEMPORAL ARTERY WITHOUT SIGNIFICANT INFLAMMATION Signing Pathologist Direct Phone Line: [phone] ally signed by Radha Gonzalez MD on [...] diagnosis of temporal arteritis. Clinical correlation is recommended.[id number], [id number] headache and visual changesTemporal artery biopsyThe specimen [...] code = 772) 2.27 uIU/mL 0.35-4.94 TROPONIN [id number] 12:21:00 Test Item Value Reference Range Interpretation [...] acute neurological disease, and persistent tachyarrhythmia.BASIC METABOLIC [id number] 06:27:00 Test Item Value Reference Range Interpretation [...] PATIEN TS. CBC W/PLT COUNT & AUTO [id number] 05:56:00 Test Item Value Reference Range Interpretation [...] PERCENT (BEAKER) (test code = 2801) SEDIMENTATION [id number] 11:51:00 Test Item Value Reference Range Interpretation Comments SEDIMENTATION RATE, ERYTHROCYTE 19 mm/HR 0-40 (BEAKER) (test code = 766) CT, CTANGIO [id number] 11:23:00FINAL REPORT CTV head with contrast INDICATION: [...] mild carotid siphon atherosclerosis. The imaged proximal sleetmute of Sarah vessels demonstrate no high grade [...] MDReport Verified Date/Time: 05/10/2017 11:23:39 Reading Location: [facility] Neuro Reading Room C-REACTIVE [id number] 10:01:00 Test Item Value Reference Range Interpretation Comments C-REACTIVE PROTEIN (BEAKER) (test 0.80 mg/dL 0.00-0.50 H code = 676) [id number] 09:44:00 Test Item Value Reference Range Interpretation Comments PARTIAL THROMBOPLASTIN TIME 98.5 seconds 22.5-36.0 H (BEAKER) (test code = 760) TROPONIN [id number] 08:37:00 Test Item Value Reference Range Interpretation [...] acute neurological disease, and persistent tachyarrhythmia.BASIC METABOLIC [id number] 04:17:00 Test Item Value Reference Range Interpretation [...] S NOT APPLICABLE FOR DIALYSIS PATIEN TS. [id number] 03:43:00 Test Item Value Reference Range Interpretation [...] code = 2801) MR, MRA, BRAIN, WITHOUT [id number] 00:52:00FINAL REPORT MR, MRA, BRAIN, WITHOUT CONTRAST, MR, BRAIN, WITH \\T\\ WITHOUT CONTRAST INDICATION: MRV for suspected cavernous sinus thrombosis TECHNIQUE: Multiplanar, multisequencepre and postcontrast MR images of the brain. Two-dimensional [id number]-mx-[id number] MR venogram of the brain in the [...] MDReport Verified Date/Time: 05/10/2017 00:52:12 Reading Location: [address] Reading Room MR, BRAIN, [id number] 00:52:00FINAL REPORT MR, MRA, BRAIN, WITHOUT CONTRAST, MR, BRAIN, WITH \\T\\ WITHOUT CONTRAST INDICATION: MRV for suspected cavernous sinus thrombosis TECHNIQUE: Multiplanar, multisequencepre and postcontrast MR images of the brain. Two-dimensional vbmo-rh-yxtlom MR venogram of the brain in the [...] MDReport Verified Date/Time: 05/10/2017 00:52:12 Reading Location: [address] Reading Room [id number] 22:46:00 Test Item Value Reference Range Interpretation [...] is 2.5-3.5 for patients with mechanical heart valves.[id number] 14:41:00 Test Item Value Reference Range Interpretation Comments PARTIAL THROMBOPLASTIN TIME 29.6 seconds 22.5-36.0 (BEAKER) (test code = 760) [id number] 08:26:00 Test Item Value Reference Range Interpretation Comments PARTIAL THROMBOPLASTIN TIME 56.2 seconds 22.5-36.0 H (BEAKER) (test code = 760) BASIC METABOLIC [id number] 05:02:00 Test Item Value Reference Range Interpretation [...] PATIEN TS. CBC W/PLT COUNT & AUTO [id number] 04:24:00 Test Item Value Reference Range Interpretation [...] PERCENT (BEAKER) (test code = 2801) TROPONIN [id number] 03:02:00 Test Item Value Reference Range Interpretation [...] failure, acidosis, acute neurological disease, and persistent tachyarrhythmia.[id number] 02:06:00 Test Item Value Reference Range Interpretation Comments PARTIAL THROMBOPLASTIN TIME 72.6 seconds 22.5-36.0 H (BEAKER) (test code = 760) Prior to initiating heparinPROTHROMBIN TIME/[id number] 02:04:00 Test Item Value Reference Range Interpretation [...]
--- NOTE | 2020-09-25 18:40 | ER ---
Nurse's Notes [facility] Name: Meryl Murray Age: 70 yrs Sex: Female : 1950 Arrival Date: 09/25/2020 Time: 14:24 Bed 27 Private MD: Diagnosis: Cardiac catheterization as the cause of abnormal reaction of the patient, or of later complication, without mention of misadventure at the time of the procedure Presentation: 09/25 14:29 Chief complaint: Patient states: Had a heart cath here Wednesday09/23/2020. Cath went ca1 through R wrist. 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 Dressing still on the R wrist from Heart Cath. Coronavirus screen: Client denies travel out of the [place] in the last 14 days. At this time, the client does not indicate any symptoms associated with coronavirus-19. Ebola Screen: Patient negative for fever greater than or equal to 101.5 degrees Fahrenheit, and additional compatible Ebola Virus Disease symptoms Patient denies exposure to infectious person. Patient denies travel to an Ebola-affected area in the 21 days before illness onset. No symptoms or risks identified at this time. Initial Sepsis Screen: Does the patient meet any 2 criteria? No. Patient's initial sepsis screen is negative. Does the patient have a suspected source of infection? No. Patient's initial sepsis screen is negative. Risk Assessment: Do you want to hurt yourself or someone else? Patient reports no desire to harm self or others. Onset of symptoms was September 25, 2020. 14:29 Method Of Arrival: Ambulatory ca1 14:29 Acuity: HONG 3 ca1 Historical: - Allergies: 14:33 PENICILLINS; ca1 - Home Meds: 14:33 flecainide 50 mg Oral tab 1 tab every 12 hours [Active]; metoprolol tartrate 25 mg Oral ca1 tab 1 tab once daily [Active]; - PMHx: 14:33 Atrial Fib; Hypertension; SVT; ca1 - PSHx: 14:33 breast implant; ca1 - Immunization history:: Client reports receiving the 2nd dose of the Covid vaccine, Client reports receiving the 1st dose of the Covid vaccine, Pneumococcal vaccine is up to date, Flu vaccine is up to date. - Social history:: Smoking status: Patient denies any tobacco usage or history of. - Family history:: not pertinent. - Hospitalizations: : The patient was recently seen at [facility]. Screenin:23 Abuse screen: Denies threats or abuse. Denies injuries from another. Nutritional iw screening: No deficits noted. Tuberculosis screening: No symptoms or risk factors identified. Fall Risk None identified. Assessment: 17:22 General: Appears in no apparent distress. Behavior is calm, cooperative. Pain: iw Complains of pain in right wrist. Neuro: Level of Consciousness is awake, alert, obeys commands, Oriented to person, place, time, situation, Moves all extremities. Cardiovascular: Patient's skin is warm and dry. Respiratory: Respiratory effort is even, unlabored, Respiratory pattern is regular. GI: No signs and/or symptoms were reported involving the gastrointestinal system. Derm: blue discoloration to right wrist, similar to bruising. Musculoskeletal: Range of motion: intact in all extremities. Vital Signs: 14:29 BP 148 / 72; Pulse 59; Resp 18 S; Temp 97.8(TE); Pulse Ox 100% on R/A; Weight 71.67 kg ca1 (R); Height 5 ft. 6 in. (167.64 cm) (R); 14:29 Body Mass Index 25.50 (71.67 kg, 167.64 cm) ca1 ED Course: 14:24 Patient arrived in ED. am2 14:33 Triage completed. ca1 14:33 Arm band placed on right wrist. ca1 16:50 Bijal Alvarez RN is Primary Nurse. iw 16:52 Pedro Magallon MD is Attending Physician. rn 17:20 Patient has correct armband on for positive identification. iw 18:38 Extremity Nonvascular Complete In Process Unspecified. EDMS 18:50 No provider procedures requiring assistance completed. Patient did not have IV access iw during this emergency room visit. Administered Medications: No medications were administered Outcome: 18:40 Discharge ordered by . rn 18:50 Discharged to home ambulatory. iw 18:50 Condition: good 18:50 Discharge instructions given to patient, Instructed on discharge instructions, follow up and referral plans. Demonstrated understanding of instructions, follow-up care. 18:51 Patient left the ED. iw Signatures: Dispatcher [employer] EDMS Bijal Alvarez RN RN iw Pedro Magallon MD MD rn Moreno, Amanda am2 Acob, Belén, RN RN ca1
--- NOTE | 2020-09-25 18:41 | EDPHYS ---
Physician Documentation [facility] Name: Meryl Murray Age: 70 yrs Sex: Female : 1950 Arrival Date: 09/25/2020 Time: 14:24 Bed 27 Private MD: ED Physician Pedro Magallon HPI: 09/25 16:59 This 70 yrs old Female presents to ER via Ambulatory with complaints of Wound rn Check. 16:59 Patient presents to ED for recheck of: puncture wound heart cath. The affected area is rn on the right wrist. The patient has not experienced similar symptoms in the past. The patient has been recently seen by a physician:. Reports right wrist heart cath 2 days ago, has been doing ok, today was doing something with hands, felt warm washburn to right hand, noticed bruising to right wrist, minimal soreness. Otherwise no acute changes. . Historical: - Allergies: 14:33 PENICILLINS; ca1 - Home Meds: 14:33 flecainide 50 mg Oral tab 1 tab every 12 hours [Active]; metoprolol tartrate 25 mg Oral ca1 tab 1 tab once daily [Active]; - PMHx: 14:33 Atrial Fib; Hypertension; SVT; ca1 - PSHx: 14:33 breast implant; ca1 - Immunization history:: Client reports receiving the 2nd dose of the Covid vaccine, Client reports receiving the 1st dose of the Covid vaccine, Pneumococcal vaccine is up to date, Flu vaccine is up to date. - Social history:: Smoking status: Patient denies any tobacco usage or history of. - Family history:: not pertinent. - Hospitalizations: : The patient was recently seen at [facility]. ROS: 16:59 Constitutional: Negative for fever, chills, and weight loss, Eyes: Negative for injury, rn pain, redness, and discharge, Cardiovascular: Negative for chest pain, palpitations, and edema, Respiratory: Negative for shortness of breath, cough, wheezing, and pleuritic chest pain, Abdomen/GI: Negative for abdominal pain, nausea, vomiting, diarrhea, and constipation, MS/Extremity: + bruising to right wrist Skin: bruise right wrist Neuro: Negative for headache, weakness, numbness, tingling, and seizure. Exam: 16:59 Constitutional: This is a well developed, well nourished patient who is awake, alert, rn and in no acute distress. Skin: Warm, dry, no cyanosis, single puncture wound right distal wrist, no swelling, 2+ radial pulse. MS/ Extremity: Pulses equal, no cyanosis. Neurovascular intact. Full, normal range of motion. Equal circumference. well perfused right hand. Vital Signs: 14:29 BP 148 / 72; Pulse 59; Resp 18 S; Temp 97.8(TE); Pulse Ox 100% on R/A; Weight 71.67 kg ca1 (R); Height 5 ft. 6 in. (167.64 cm) (R); 14:29 Body Mass Index 25.50 (71.67 kg, 167.64 cm) ca1 MDM: 16:52 Patient medically screened. rn 18:38 Differential diagnosis: hematoma, aneurysm, pseudoaneurysm, occlusion. Data reviewed: rn vital signs, nurses notes, radiologic studies, doppler, and as a result, I will discharge patient. Counseling: I had a detailed discussion with the patient and/or guardian regarding: the historical points, exam findings, and any diagnostic results supporting the discharge/admit diagnosis, radiology results, the need for outpatient follow up, to return to the emergency department if symptoms worsen or persist or if there are any questions or concerns that arise at home. Special discussion: I discussed with the patient/guardian in detail that at this point there is no indication for admission to the hospital. It is understood, however, that if the symptoms persist or worsen the patient needs to return immediately for re-evaluation. Based on the history and exam findings, there is no indication for further emergent testing or inpatient evaluation. I discussed with the patient/guardian the need to see the hand stripper for further evaluation of the symptoms. ED course: Pt without acute findings on ultrasound per verbal report. Good flow, no occlusion, no aneurysm. Has good flow to hand with 2+ radial pulse and normal cap refill of hand. Will dc home after re-dressing site, and recommend ice and elevation along with f/u as planned. Is not taking anticoagulation. . 09/25 17:34 Order name: Extremity Nonvascular Complete EDMS Administered Medications: No medications were administered Disposition: 09/25/20 18:40 Discharged to Home. Impression: Cardiac catheterization as the cause of abnormal reaction of the patient, or of later complication, without mention of misadventure at the time of the procedure. - Condition is Stable. - Discharge Instructions: Jorge Luis, PAMELA for Routine Care of Injuries. - Medication Reconciliation Form, Thank You Letter, Antibiotic Education, Prescription Opioid Use form. - Follow up: Private Physician; When: As needed; Reason: Recheck today's complaints, Re-evaluation by your physician. - Problem is new. - Symptoms have improved. Signatures: Dispatcher [employer] [facility] Bijal Alvarez RN RN iw Pedro Magallon MD MD rn Acob, GABRIELE Melissa RN ca1 Corrections: (The following items were deleted from the chart) 17:34 17:00 Rp Exam [employer]+US.RAD.BRZ ordered. [facility] 18:51 18:40 09/25/2020 18:40 Discharged to Home. Impression: Cardiac catheterization as the iw cause of abnormal reaction of the patient, or of later complication, without mention of misadventure at the time of the procedure. Condition is Stable. Discharge Instructions: RICE for Routine Care of Injuries. Forms are Medication Reconciliation Form, Thank You Letter, Antibiotic Education, Prescription Opioid Use. Follow up: Private Physician; When: As needed; Reason: Recheck today's complaints, Re-evaluation by your physician. Problem is new. Symptoms have improved. rn
--- NOTE | 2020-09-25 19:39 | RAD REPORT ---
EXAM DESCRIPTION: US - Extremity Nonvascular Complete - 09/25/2020 6:39 pm CLINICAL HISTORY: right radial heart cath 2 days ago, eval for hematoma/aneur COMPARISON: No comparisons FINDINGS: Sonographic evaluation of the right upper extremity wrist area performed. Patient had rece nt cardiac catheterization with access through the right upper extremity. No hematoma, mass or pseudoaneurysm identifiable. The radial and ulna veins are compressible with no thrombus identifiable. Radial and ulnar arteries show biphasic waveform pattern. No occlusion or foca l flow restricting lesions seen. IMPRESSION: No vascular abnormality seen in the right wrist region. No hematoma, mass or pseudoaneur ysm.
--- NOTE | 2020-09-25 21:57 | PN ---
Ms. Murray had a heart catheterization done by Dr. Marshall on 09/23/2020. Ms. Murray had come in with enrrique st pain that is consistent with unstable angina. Had had a recent positive stress test, but her hear t catheterization was normal. Her catheterization site is normal without any hematoma. She had good pulses in her right radial and her femoral artery area as well as the dorsalis pedis. She has no co mplaint. Her telemetry remains normal. Her vital signs are stable. Ms. Murray can go home whenever i t is okay with primary care admitting physician. She will go back and see Dr. Claire as an outpatien t in the near future. KRYSTYNA/MILTON Voice ID: [id number] Report ID: [id number]
== END 2020-09-25 18:51 | disposition home or self-care (01) ==
LOC: ER 14:24
DX: T82.897A Other specified complication of cardiac prosthetic devices, implants and grafts, initial encounter (principal); Y84.0 Cardiac catheterization as the cause of abnormal reaction of the patient, or of later complication, without mention of misadventure at the time of the procedure; I10 Essential (primary) hypertension; I47.1 Supraventricular tachycardia; I48.91 Unspecified atrial fibrillation; Z98.82 Breast implant status; Z88.0 Allergy status to penicillin
CPT/HCPCS: 76881; 99283

== ENCOUNTER 2021-01-09 04:14 | Emergency (ER) | payer OTHER, MEDICARE ==
--- OUTSIDE RECORDS SUMMARY | 2021-01-09 04:18 | XMS REPORT | Continuity of Care Document ---
:1950 Author Organization [facility] t Address [address] [place] [address] Care Team Providers Name Role Phone John Piedra MD Primary Care Physician April Attending Clinician CORBY SANTOYO Attending Clinician Unavailable CORBY SANTOYO Admitting Clinician Unavailable Problems Condition Condition Condition Status Onset Resolution Last Treating Co mments Source Name Details Category Date Date Treatment Clinician Date Palpitatio Palpitatio Disease Active 2016-[address] [facility] n 1-21 [facility] 00:[facility]: [facility] 00 [place] Abnormal Abnormal Disease [facility] test test 00:00: Medical 00 [place] Sinus Sinus Disease Active 2016-[address] [facility] [address] bradycardi bradycardi 1-20 Jennifer kes - a a 00:00: Medical 00 [place] HTN HTN Disease Active 2016-[address] [facility] [address] (hypertens (hypertens 1-20 Jennifer kes - ion) ion) 00:00: Medical 00 Center Visual Visual Disease Active 2016-[address] [facility] changes changes 1-20 [facility] 00 [place] Floaters Floaters Disease Active 2016[facility] 00 [place] Headache Headache Disease [facility] 2016[facility] 00 [place] Cavernous Cavernous Disease Active 2016-[address] [facility] [address] sinus sinus 1-19 [facility] - thrombosis thrombosis 00:00: Nd dical 00 [place] Z12.31 - Diagnosis Active 2015-1 2015-06-06 M emoria ENCNTR 07-10 12:41:00 l SCREEN Z12.31 - 00:01: Roberto n MAMMOGRAM ENCNTR 00 FOR MA SCREEN MAMMOGRAM FOR MA Active 05/10/2015 [facility] Encounter Problem 2020-03-29 Me anirudha for 23:08:50 l screening [place] mammogram Encounter for for malignant screening neoplasm [...] Date Quantity Comments Source Sex Assigned At [facility] Social History 2018-10-26 2018-10-26 [facility] 04:59:00 04:59:00 Tobacco use and 2017-05-17 2017-05-17 Never used [facility] - exposure 00:00:00 00:00:00 [facility] Alcohol intake 2017-05-17 2017-05-17 Current drinker MARKOS S t [facility] - 00:00:00 00:00:00 of alcohol [facility] (finding) Alcohol Comment 2017-05-09 2017-05-09 2 cans of beer a MARKOS [facility] - 00:00:00 00:00:00 [facility] Smoking Status Start Date Stop Date Source Never smoker [facility] Medications Ordered Filled Start Stop Current Ordering Indication Dosage Frequency Signature Comments Components Source Medication Medication Date Date Medication? Clinician (SIG) Name Name aspirin 81 2016-06 Yes 81mg QD Take [address] MG EC 07-12 by mouth [facility] - tablet 15:40: daily. [facility] calcium 2016-06 Yes hypocalcemi 1{tbl} [id number] Take [address] [facility] [address] carbonate 1-22 a [id number] tablet by [facility] - (CALCIUM 15:40: prevention [...] Department ID 2020-03-27 2020-03-27 Outpatient Delmy Chen [facility] [id number] 12:43:00 23:59:00 10 2018-10-25 2018-10-[address] [facility] [id number] 10:05:00 23:59:00 09 2017-07-28 2017-07-28 Outpatient Delmy Chen [facility] [id number] 08:14:00 23:59:00 08 2017-07-20 2017-07-20 [id number] 11:01:00 23:59:00 07 2017-06-17 2017-06-[address] [facility] [id number] 09:53:00 23:59:00 06 2016-07-15 2016-07-[address] [facility] [id number] 13:26:00 23:59:00 05 2015-06-06 2015-06-06 Out[address] [facility] [id number] 12:30:00 23:59:00 04 2014-05-14 2014-05-14 [id number] 14:18:00 23:59:00 03 Results Test Description Test Time Test Comments Results Result Sourc e Comments TISSUE EXAM 2017-05-14 Surgical Pathology 12:19:00 Report Case: [id number] Authorizing Provider: Iban Rawls MD Collected: 05/11/2017 2234 Ordering Location: [facility] Received: 05/12/2017 1004 SERVICES Pathologist: Radha Gonzalez MD Specimen: Artery, TEMPORAL ARTERY BIOPSY TEMPORAL ARTERY, BIOPSY- TEMPORAL ARTERY WITHOUT SIGNIFICANT INFLAMMATION Signing Pathologist Direct Phone Line: [phone] ally signed by Radha Gonzalez MD on [...] diagnosis of temporal arteritis. Clinical correlation is recommended.[id number], 65571Tiaeq headache and visual changesTemporal artery biopsyThe specimen [...] code = 772) 2.27 uIU/mL 0.35-4.94 TROPONIN [id number] 12:21:00 Test Item Value Reference Range Interpretation [...] acute neurological disease, and persistent tachyarrhythmia.BASIC METABOLIC [id number] 06:27:00 Test Item Value Reference Range Interpretation [...] PATIEN TS. CBC W/PLT COUNT & AUTO [id number] 05:56:00 Test Item Value Reference Range Interpretation [...] PERCENT (BEAKER) (test code = 2801) SEDIMENTATION [id number] 11:51:00 Test Item Value Reference Range Interpretation Comments SEDIMENTATION RATE, ERYTHROCYTE 19 mm/HR 0-40 (BEAKER) (test code = 766) CT, CTANGIO [id number] 11:23:00FINAL REPORT CTV head with contrast INDICATION: [...] mild carotid siphon atherosclerosis. The imaged proximal [place] vessels demonstrate no high grade [...] 05/10/2017 11:23:39 Reading Location: [facility] C0[facility] Neuro Reading Room C-REACTIVE [id number] 10:01:00 Test Item Value Reference Range Interpretation Comments C-REACTIVE PROTEIN (BEAKER) (test 0.80 mg/dL 0.00-0.50 H code = 676) [id number] 09:44:00 Test Item Value Reference Range Interpretation Comments PARTIAL THROMBOPLASTIN TIME 98.5 seconds 22.5-36.0 H (BEAKER) (test code = 760) TROPONIN [id number] 08:37:00 Test Item Value Reference Range Interpretation [...] acute neurological disease, and persistent tachyarrhythmia.BASIC METABOLIC [id number] 04:17:00 Test Item Value Reference Range Interpretation [...] S NOT APPLICABLE FOR DIALYSIS PATIEN TS. [id number] 03:43:00 Test Item Value Reference Range Interpretation [...] code = 2801) MR, MRA, BRAIN, WITHOUT [id number] 00:52:00FINAL REPORT MR, MRA, BRAIN, WITHOUT CONTRAST, MR, BRAIN, WITH \\T\\ WITHOUT CONTRAST INDICATION: MRV for suspected cavernous sinus thrombosis TECHNIQUE: Multiplanar, multisequencepre and postcontrast MR images of the brain. Two-dimensional urfy-im-qabgcy MR venogram of the brain in the [...] MDReport Verified Date/Time: 05/10/2017 00:52:12 Reading Location: [address] Reading Room MR, BRAIN, [id number] 00:52:00FINAL REPORT MR, MRA, BRAIN, WITHOUT CONTRAST, MR, BRAIN, WITH \\T\\ WITHOUT CONTRAST INDICATION: MRV for suspected cavernous sinus thrombosis TECHNIQUE: Multiplanar, multisequencepre and postcontrast MR images of the brain. Two-dimensional mwug-dk-ekdaqb MR venogram of the brain in the [...] MDReport Verified Date/Time: 05/10/2017 00:52:12 Reading Location: [address] Reading Room [id number] 22:46:00 Test Item Value Reference Range Interpretation [...] is 2.5-3.5 for patients with mechanical heart valves.[id number] 14:41:00 Test Item Value Reference Range Interpretation Comments PARTIAL THROMBOPLASTIN TIME 29.6 seconds 22.5-36.0 (BEAKER) (test code = 760) [id number] 08:26:00 Test Item Value Reference Range Interpretation Comments PARTIAL THROMBOPLASTIN TIME 56.2 seconds 22.5-36.0 H (BEAKER) (test code = 760) BASIC METABOLIC [id number] 05:02:00 Test Item Value Reference Range Interpretation [...] PATIEN TS. CBC W/PLT COUNT & AUTO [id number] 04:24:00 Test Item Value Reference Range Interpretation [...] PERCENT (BEAKER) (test code = 2801) TROPONIN [id number] 03:02:00 Test Item Value Reference Range Interpretation [...] failure, acidosis, acute neurological disease, and persistent tachyarrhythmia.[id number] 02:06:00 Test Item Value Reference Range Interpretation Comments PARTIAL THROMBOPLASTIN TIME 72.6 seconds 22.5-36.0 H (BEAKER) (test code = 760) Prior to initiating heparinPROTHROMBIN TIME/[id number] 02:04:00 Test Item Value Reference Range Interpretation [...]
--- NOTE | 2021-01-09 06:21 | ER ---
Nurse's Notes [facility] Name: Meryl Murray Age: 70 yrs Sex: Female : 1950 Arrival Date: 01/09/2021 Time: 04:18 Bed 20 Private MD: Darrell Piedra T Diagnosis: Acute, minimally displaced, C5 spinous process fracture Presentation: 01/09 04:29 Chief complaint: Patient states: had a bad dream and woke up and ran into wall, reports em neck pain, left elbow and right shoulder, hit head but denies LOC, takes 1 baby aspirin. Coronavirus screen: Client denies travel out of the [place] in the last 14 days. Ebola Screen: Patient negative for fever greater than or equal to 101.5 degrees Fahrenheit, and additional compatible Ebola Virus Disease symptoms Patient denies exposure to infectious person. Patient denies travel to an Ebola-affected area in the 21 days before illness onset. No symptoms or risks identified at this time. Initial Sepsis Screen: Does the patient meet any 2 criteria? No. Patient's initial sepsis screen is negative. Does the patient have a suspected source of infection? No. Patient's initial sepsis screen is negative. Risk Assessment: Do you want to hurt yourself or someone else? Patient reports no desire to harm self or others. Onset of symptoms was January 09, 2021. 04:29 Method Of Arrival: Ambulatory em 04:29 Acuity: HONG 4 em Historical: - Allergies: 04:31 PENICILLINS; em - Home Meds: 04:50 aspirin 81 mg oral tab daily [Active]; flecainide 50 mg Oral tab 1 tab every 12 hours bs2 [Active]; metoprolol tartrate 25 mg Oral tab 1 tab once daily [Active]; - PMHx: 04:31 Atrial Fib; Hypertension; SVT; em - Immunization history:: Adult Immunizations up to date. - Social history:: Smoking status: Patient denies any tobacco usage or history of. - Family history:: not pertinent. - Hospitalizations: : No recent hospitalization is reported. Screenin:47 Abuse screen: Denies threats or abuse. Denies injuries from another. Nutritional bs2 screening: No deficits noted. Tuberculosis screening: No symptoms or risk factors identified. Fall Risk None identified. Assessment: 04:47 General: Appears in no apparent distress. uncomfortable, well groomed, well developed, bs2 well nourished, Behavior is calm, cooperative, appropriate for age. Pain: Complains of pain in right posterior aspect of neck, right lateral aspect of neck and right side of neck. Neuro: No deficits noted. Cardiovascular: No deficits noted. Respiratory: No deficits noted. GI: No deficits noted. : No signs and/or symptoms were reported regarding the genitourinary system. EENT: No signs and/or symptoms were reported regarding the EENT system. Derm: Wound noted left elbow Wound is skin tear. Vital Signs: 04:29 BP 155 / 72; Pulse 54; Resp 18; Temp 97.8; Pulse Ox 99% on R/A; Weight 73.03 kg; Height em 5 ft. 6 in. (167.64 cm); Pain 5/10; 04:29 Body Mass Index 25.99 (73.03 kg, 167.64 cm) em ED Course: 04:18 Patient arrived in ED. es 04:19 Darrell Piedra MD is Private Physician. es 04:31 Triage completed. em 04:31 Arm band placed on. em 04:32 Pedro Magallon MD is Attending Physician. rn 04:42 Jackie Lima RN is Primary Nurse. bs2 04:47 Patient has correct armband on for positive identification. Pulse ox on. NIBP on. bs2 04:47 No provider procedures requiring assistance completed. bs2 05:21 CT Head C Spine In Process Unspecified. EDMS 06:19 Primary Nurse role handed off by Jackie iLma RN mw2 06:41 Jackie Lima RN is Primary Nurse. bs2 06:41 Patient did not have IV access during this emergency room visit. bs2 Administered Medications: No medications were administered Outcome: 06:20 Discharge ordered by . rn 06:41 Discharged to home ambulatory. bs2 06:41 Condition: stable 06:41 Discharge instructions given to patient, Instructed on discharge instructions, follow up and referral plans. Demonstrated understanding of instructions, follow-up care. 06:42 Patient left the ED. bs2 Signatures: Dispatcher [employer] Mackenzie Mahan Edgar RN RN Pedro Magallon MD MD rn [place], MyKena mw2 Lima, Jackie, RN RN bs2
--- NOTE | 2021-01-09 06:21 | EDPHYS ---
Physician Documentation [facility] Name: Meryl Murray Age: 70 yrs Sex: Female : 1950 Arrival Date: 01/09/2021 Time: 04:18 Bed 20 Private MD: Darrell Piedra T ED Physician Pedro Magallon HPI: 01/09 04:47 This 70 yrs old Female presents to ER via Ambulatory with complaints of Neck rn Injury. 04:47 The patient or guardian complains of an injury, pain. The patient or guardian complains rn of pain, that is acute. The symptoms are located diffusely. Onset: The symptoms/episode began/occurred just prior to arrival. Associated signs and symptoms: Pertinent positives: This patient does not have any pertinent positive signs or symptoms associated with neck pain. Pertinent negatives: fever, headache, bladder incontinence, bowel incontinence, nausea, numbness, tingling, vomiting, weakness. The pain does not radiate. Modifying factors: The symptoms are alleviated by remaining still, the symptoms are aggravated by movement. Severity of symptoms: At their worst the symptoms were mild, in the emergency department the symptoms are unchanged. The patient has not experienced similar symptoms in the past. The patient has not recently seen a physician. Reports was having a bad dream, was fighting someone in her dream, thinks got out of bed and jumped at a wall thinking she was fighting in her dream. She struck a wall with forehead and reports neck pain that radiates to her shoulders. No LOC, no vomiting, does not feel like she broke anything.. Historical: - Allergies: 04:31 PENICILLINS; em - Home Meds: 04:50 aspirin 81 mg oral tab daily [Active]; flecainide 50 mg Oral tab 1 tab every 12 hours bs2 [Active]; metoprolol tartrate 25 mg Oral tab 1 tab once daily [Active]; - PMHx: 04:31 Atrial Fib; Hypertension; SVT; em - Immunization history:: Adult Immunizations up to date. - Social history:: Smoking status: Patient denies any tobacco usage or history of. - Family history:: not pertinent. - Hospitalizations: : No recent hospitalization is reported. ROS: 04:47 Constitutional: Negative for fever, chills, and weight loss, Eyes: Negative for rn redness, and discharge, Neck: Negative for injury, pain, and swelling, Cardiovascular: Negative for chest pain, palpitations, and edema, Respiratory: Negative for shortness of breath, cough, wheezing, and pleuritic chest pain, Abdomen/GI: Negative for abdominal pain, nausea, vomiting, diarrhea, and constipation, Back: Negative for injury and pain, MS/Extremity: Negative for injury and deformity, Skin: Small skin tear left elbow Neuro: Negative for weakness, numbness, tingling, and seizure. Exam: 04:47 Constitutional: This is a well developed, well nourished patient who is awake, alert, rn and in no acute distress. Ambulatory to room without distress or assistance required Head/Face: Normocephalic, mild contusion right forehead and right periocular region Eyes: Pupils equal round and reactive to light, extra-ocular motions intact. Neck: No midline cervical tenderness. Mild tenderness both sides lateral neck Cardiovascular: Regular rate and rhythm. No pulse deficits. Respiratory: No increased work of breathing, no retractions or nasal flaring. Skin: Small skin tear to left elbow, no active bleeding MS/ Extremity: Pulses equal, no cyanosis. Neurovascular intact. Full, normal range of motion. Equal circumference. Neuro: Awake and alert, GCS 15, oriented to person, place, time, and situation. Cranial nerves II-XII grossly intact. Motor strength 5/5 in all extremities. Sensory grossly intact. Cerebellar exam normal. Normal gait. Vital Signs: 04:29 BP 155 / 72; Pulse 54; Resp 18; Temp 97.8; Pulse Ox 99% on R/A; Weight 73.03 kg; Height em 5 ft. 6 in. (167.64 cm); Pain 5/10; 04:29 Body Mass Index 25.99 (73.03 kg, 167.64 cm) em MDM: 04:32 Patient medically screened. rn 06:12 Differential diagnosis: C-Spine Fracture cervical strain, fracture, Osteoarthritis rn torticollis, Whiplash Injury. Data reviewed: vital signs, nurses notes, radiologic studies, CT scan, and as a result, I will discharge patient. Counseling: I had a detailed discussion with the patient and/or guardian regarding: the historical points, exam findings, and any diagnostic results supporting the discharge/admit diagnosis, radiology results, the need for outpatient follow up, to return to the emergency department if symptoms worsen or persist or if there are any questions or concerns that arise at home. Response to treatment: There is no appreciated change of the patient's symptoms at this time, and as a result, I will discharge patient. Special discussion: I discussed with the patient/guardian in detail that at this point there is no indication for admission to the hospital. It is understood, however, that if the symptoms persist or worsen the patient needs to return immediately for re-evaluation. Based on the history and exam findings, there is no indication for further emergent testing or inpatient evaluation. I discussed with the patient/guardian the need to see the back specialist for further evaluation of the symptoms. ED course: CT shows spinous process fracture of C5. Is a stable fracture without any signs of spinal cord injury. CT head no acute findings. Will DC home with conservative treatment and spine follow-up. 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
[2021-01-09 06:57] VITALS: BP 155/72; TEMP 97.8; O2SAT 99
--- NOTE | 2021-01-09 11:49 | RAD REPORT ---
EXAM DESCRIPTION: CT - Head C Spine Mpr Wo Con - 01/09/2021 6:43 am COMPARISON: None. CLINICAL HISTORY: Head and neck injury;Pain TECHNIQUE: Axial images were obtained from skull base to vertex without intravenous contrast. Imag es viewed on bone and brain windows. Multiplanar reformats were performed. Automated exposure contr ol was utilized on this examination as a dose lowering technique. FINDINGS: Brain parenchyma, ventricles, dura, meninges, and extra-axial spaces: Mild generalized cer ebral and cerebellar volume loss is present. Moderate hypodensities in the subcortical white matter o f both hemispheres are nonspecific but likely relate to chronic small vessel disease. No acute intrac ranial hemorrhage or abnormal extra-axial fluid collections. Vascular structures: No hyperdense arteries or veins. Calvarium, mastoid air cells, paranasal sinuses and orbits: The calvarium is normal. The mastoid air cells are clear. Visualized paranasal sinuses are unremarkable. Orbital structures are unremarkable. IMPRESSION: 1. No acute intracranial abnormality. 2. Moderate senescent changes. EXAM DESCRIPTION: CT Cervical Spine COMPARISON: None. CLINICAL HISTORY: Head and neck injury;Pain TECHNIQUE: Axial CT images were obtained through the entire cervical spine without contrast. Sagit javier and coronal reconstructions are provided. Automated exposure control was utilized on this examina tion as a dose lowering technique. FINDINGS: Vertebrae: Normal vertebral statures. There is a mildly displaced fracture of the C5 spi nous process. There is 2 mm anterolisthesis C3 on C4. Spinal canal, foramina, and facet joints: Greatest spinal canal stenosis is mild at C4-C5 due to disc osteophyte complex. Greatest foraminal st enoses are severe at bilateral C5, C6 due to uncovertebral and facet hypertrophy. Paraspinous soft-tissues: Normal. Thyroid: Normal. Other Findings: None. IMPRESSION: 1. Acute appearing mildly displaced fracture of the C5 spinous process. 2. Cervical spondylosis. Electronically signed by: Rahul Moreland MD 01/09/2021 5:52 AM CDT Due to temporary technical issues with the PACS/Fluency reporting system, reports are being signed by the in house radiologists without review as a courtesy to insure prompt reporting. The interpreting radiologist is fully responsible for the content of the report.
== END 2021-01-09 06:42 | disposition home or self-care (01) ==
LOC: ER 04:14
DX: S12.400A Unspecified displaced fracture of fifth cervical vertebra, initial encounter for closed fracture (principal); I10 Essential (primary) hypertension; I48.91 Unspecified atrial fibrillation; Z79.82 Long term (current) use of aspirin; Z88.0 Allergy status to penicillin
CPT/HCPCS: 70450; 72125; 99283

== ENCOUNTER 2021-03-22 08:25 | Emergency (ER) | payer OTHER, MEDICARE ==
[2021-03-22 09:07] LABS: Absolute Lymphocytes (CBC) 1.7 K/uL (0.7-4.9); Basophils % 0.4 % (0-1.3); Hematocrit 40.8 % (36.0-45.0); Lymphocytes % 25.2 % (15.3-44.8); MPV 7.3 fL (7.6-11.3); RBC Red Blood Cell Count 4.71 M/uL (3.86-4.86)
[2021-03-22] MEDS ORDERED: NA CHLORIDE 0.9% 1,000 ML ONE ×2 (09:08→10:26)
[2021-03-22 09:11] LABS: Urine Blood Negative (Negative); Urine Glucose Negative (Negative); Urine Protein Negative (Negative)
[2021-03-22 09:24] LABS: ALT/SGPT 18 U/L (12-78); AST/SGOT 16 U/L (15-37); Albumin 3.5 g/dL (3.4-5.0); Alkaline Phosphatase 79 U/L (45-117); BUN Blood Urea Nitrogen 20 mg/dL (7-18); Bicarbonate 28 mmol/L (21-32); Bilirubin Direct < 0.1 mg/dL (0-0.2); Bilirubin Total 0.3 mg/dL (0.2-1.0); Glucose Level 98 mg/dL (74-106); Lipase 124 U/L (73-393); Protein, Total 7.5 g/dL (6.4-8.2); Sodium Level 141 mmol/L (136-145)
[2021-03-22 09:38] LABS: Blood Morphology Comment NOT SEEN (NOT SEEN); Platelet Estimate ADEQ
--- NOTE | 2021-03-22 09:46 | RAD REPORT ---
EXAM DESCRIPTION: CTAbdomen Pelvis W Contrast - 03/22/2021 9:38 am CLINICAL HISTORY: . ABD PAIN COMPARISON: No comparisons TECHNIQUE: Biphasic CT imaging of the abdomen and pelvis was performed with 100 ml non-ionic IV cont rast. All CT scans are performed using dose optimization technique as appropriate and may include automated exposure control or mA/KV adjustment according to patient size. FINDINGS: Lower chest: Partially imaged breast prostheses. Liver: No acute abnormality or suspicious lesions. Biliary: Cholelithiasis. Stomach: No significant focal abnormality. Duodenum: No significant focal abnormality. Pancreas: No significant abnormality. Spleen: No significant abnormality. Adrenal: No suspicious lesions. Kidney/ureter: No hydronephrosis. No renal calculi. Retroperitoneum: No retroperitoneal adenopathy. Vascular: No aneurysm. Bowel: Distal small bowel wall thickening and mesenteric edema. Is does not include terminal ileum.. Normal appendix. Colonic diverticulosis. No evidence of acute diverticulitis . Peritoneum: No ascites or free air. Bladder: Bladder wall thickening. Trace gas is noted within the bladder. Reproductive: No adnexal masses. Bones: No acute fracture. Remote appearing L4 compression fracture. Other: n/a IMPRESSION: Findings consistent with a small bowel enteritis. The differential includes primarily in fectious or inflammatory etiologies. Normal appendix. Bladder wall thickening with trace gas. Correlate with urinalysis to exclude cystitis. Cholelithiasis without CT evidence of acute cholecystitis.
[2021-03-22] MEDS ORDERED: CEFTRIAXONE 1000 MG/VIAL ONE (10:26)
--- NOTE | 2021-03-22 11:25 | ER ---
Nurse's Notes [facility] Name: Meryl Murray Age: 70 yrs Sex: Female : 1950 Arrival Date: 03/22/2021 Time: 08:27 Bed 18 Private MD: Darrell Piedra T Diagnosis: Diarrhea, unspecified;Acute cystitis Presentation: 03/22 08:35 Chief complaint: Diarrhea, lower abdominal cramping, and nausea after eating bad hb chicken 3 days ago. Coronavirus screen: Client presents with at least one sign or symptom that may indicate coronavirus-19. Standard/surgical mask placed on the client. Provider contacted for isolation considerations. Ebola Screen: No symptoms or risks identified at this time. Initial Sepsis Screen: Does the patient meet any 2 criteria? No. Patient's initial sepsis screen is negative. Does the patient have a suspected source of infection? No. Patient's initial sepsis screen is negative. Risk Assessment: Do you want to hurt yourself or someone else? Patient reports no desire to harm self or others. Onset of symptoms was March 19, 2021. 08:35 Method Of Arrival: Ambulatory hb 08:35 Acuity: HONG 3 hb Historical: - Allergies: 08:37 PENICILLINS; hb - Home Meds: 08:37 aspirin 81 mg Oral tab daily [Active]; flecainide 50 mg Oral tab 1 tab every 12 hours hb [Active]; metoprolol tartrate 25 mg Oral tab 1 tab once daily [Active]; - PMHx: 08:37 Atrial Fib; Hypertension; SVT; hb - Immunization history:: Client reports receiving the 2nd dose of the Covid vaccine, Flu vaccine is up to date. - Social history:: Smoking status: Patient denies any tobacco usage or history of. Patient/guardian denies using alcohol, street drugs, The patient lives with family. - Family history:: not pertinent. Screenin:57 Abuse screen: Denies threats or abuse. Nutritional screening: No deficits noted. kh1 Tuberculosis screening: No symptoms or risk factors identified. Fall Risk None identified. No fall in past 12 months (0 pts). No secondary diagnosis (0 pts). IV access (20 points). Ambulatory Aid- None/Bed Rest/Nurse Assist (0 pts). Gait- Normal/Bed Rest/Wheelchair (0 pts) Mental Status- Oriented to own ability (0 pts). Sepsis Screening: . Infection:. Assessment: 08:53 General: Appears in no apparent distress. comfortable, Behavior is cooperative, kh appropriate for age. Pain: Complains of pain in abdomen Pain does not radiate. Pain currently is 8 out of 10 on a pain scale. at worst was 10 out of 10 on a pain scale. level that patient reports is acceptable is 2 out of 10 on a pain scale. Quality of pain is described as crampy, tight Pain began 2-3 days ago. Neuro: No deficits noted. 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 Full function Gait is steady, Speech is normal, Facial symmetry appears normal. GI: No deficits noted. Abdomen is round Last BM was March 22, 2021. Bowel sounds present X 4 quads. Abd is non tender X 4 quads Abdomen is tender to palpation Reports diarrhea, nausea. 09:36 Reassessment: Patient appears in no apparent distress at this time. No changes from [facility] previously documented assessment. Patient and/or family updated on plan of care and expected duration. Pain level reassessed. Patient is alert, oriented x 3, equal unlabored respirations, skin warm/dry/pink. 10:40 Reassessment: Patient appears in no apparent distress at this time. No changes from [facility] previously documented assessment. Patient and/or family updated on plan of care and expected duration. Pain level reassessed. Patient is alert, oriented x 3, equal unlabored respirations, skin warm/dry/pink. Vital Signs: 08:35 BP 136 / 76; Pulse 88; Resp 16; Temp 97.8; Pulse Ox 100% on R/A; Weight 74.84 kg; hb Height 5 ft. 6 in. (167.64 cm); Pain 2/10; 08:56 BP 136 / 76; Pulse 88; Resp 20; Temp 97.8; Pulse Ox 100% on R/A; 1 10:00 BP 126 / 40; Pulse 56; Resp 18; Temp 98.0; Pulse Ox 100% on R/A; 1 08:35 Body Mass Index 26.63 (74.84 kg, 167.64 cm) hb Vitals: 08:56 Cardiac Rhythm Assessment Regular Sinus rhythm. [facility] ED Course: 08:27 Patient arrived in ED. mr 08:27 Darrell Piedra MD is Private Physician. mr 08:31 Soledad Hogue MD is Attending Physician. [facility] 08:37 Triage completed. hb 08:37 Arm band placed on. hb 08:40 Zoë Narvaez is Primary Nurse. kh1 08:53 Basic Metabolic Panel Sent. kh1 08:53 CBC with Diff Sent. kh1 08:53 Hepatic Function Sent. kh1 08:53 Lipase Sent. kh1 09:03 Patient has correct armband on for positive identification. Bed in low position. Call [facility] light in reach. Side rails up X 1. potline monitor on. Pulse ox on. NIBP on. 09:35 Urine Dipstick-Ancillary Sent. kh1 09:35 Manual Differential Sent. kh1 09:35 CBC with Diff Sent. kh1 09:37 CT Abd/Pelvis - IV Contrast Only In Process Unspecified. EDTN 12:08 No provider procedures requiring assistance completed. IV discontinued, intact, [facility] bleeding controlled, No redness/swelling at site. Administered Medications: 08:52 Drug: NS 0.9% 1000 ml Route: IV; Rate: 1 bolus; Site: right antecubital; [facility] 10:05 Drug: Rocephin (cefTRIAXone) 1 grams Route: IV; Rate: calculated rate; Site: right 1 antecubital; 10:19 Drug: NS 0.9% 1000 ml Route: IV; Rate: 1 bolus; Site: right antecubital; [facility] Outcome: 11:24 Discharge ordered by . [facility] 12:08 Discharged to home ambulatory. 1 12:08 Condition: good 12:08 Discharge instructions given to patient, Instructed on discharge instructions, follow up and referral plans. medication usage, Demonstrated understanding of instructions, follow-up care, medications, Prescriptions given X 4. 12:09 Patient left the ED. [facility] Signatures: Dispatcher [employer] [facility] Kusum Wahl Heather, Soledad Maradiaga RN, MD MD arZoë Rhodes [facility]
--- NOTE | 2021-03-22 11:26 | EDPHYS ---
Physician Documentation [facility] Name: Meryl Murray Age: 70 yrs Sex: Female : 1950 Arrival Date: 03/22/2021 Time: 08:27 Bed 18 Private MD: Darrell Piedra T ED Physician Soledad Hogue HPI: 03/22 10:44 This 70 yrs old Female presents to ER via Ambulatory with complaints of ma2 Diarrhea. 10:44 The patient presents to the emergency department with nausea, diarrhea. Onset: The ma2 symptoms/episode began/occurred gradually, 1 week(s) ago. Associated signs and symptoms: Pertinent positives: diarrhea, Pertinent negatives: belching, fever, GI bleeding, nausea. Severity of symptoms: At their worst the symptoms were mild in the emergency department the symptoms have improved. The patient has experienced similar episodes in the past. Historical: - Allergies: 08:37 PENICILLINS; hb - Home Meds: 08:37 aspirin 81 mg Oral tab daily [Active]; flecainide 50 mg Oral tab 1 tab every 12 hours hb [Active]; metoprolol tartrate 25 mg Oral tab 1 tab once daily [Active]; - PMHx: 08:37 Atrial Fib; Hypertension; SVT; hb - Immunization history:: Client reports receiving the 2nd dose of the Covid vaccine, Flu vaccine is up to date. - Social history:: Smoking status: Patient denies any tobacco usage or history of. Patient/guardian denies using alcohol, street drugs, The patient lives with family. - Family history:: not pertinent. ROS: 10:44 Constitutional: Negative for fever, chills, and weight loss. ma2 10:44 All other systems are negative. Exam: 10:44 Constitutional: This is a well developed, well nourished patient who is awake, alert, ma2 and in no acute distress. Head/Face: Normocephalic, atraumatic. Neck: Trachea midline, no thyromegaly or masses palpated, and no cervical lymphadenopathy. Supple, full range of motion without nuchal rigidity, or vertebral point tenderness. No Meningismus. Chest/axilla: Normal chest wall appearance and motion. Nontender with no deformity. No lesions are appreciated. Cardiovascular: Regular rate and rhythm with a normal S1 and S2. No gallops, murmurs, or rubs. Normal PMI, no JVD. No pulse deficits. Respiratory: Lungs have equal breath sounds bilaterally, clear to auscultation and percussion. No rales, rhonchi or wheezes noted. No increased work of breathing, no retractions or nasal flaring. Abdomen/GI: Soft, non-tender, with normal bowel sounds. No distension or tympany. No guarding or rebound. No evidence of tenderness throughout. Skin: Warm, dry with normal turgor. Normal color with no rashes, no lesions, and no evidence of cellulitis. MS/ Extremity: Pulses equal, no cyanosis. Neurovascular intact. Full, normal range of motion. Neuro: Awake and alert, GCS 15, oriented to person, place, time, and situation. Cranial nerves II-XII grossly intact. Motor strength 5/5 in all extremities. Sensory grossly intact. Cerebellar exam normal. Normal gait. Vital Signs: 08:35 BP 136 / 76; Pulse 88; Resp 16; Temp 97.8; Pulse Ox 100% on R/A; Weight 74.84 kg; hb Height 5 ft. 6 in. (167.64 cm); Pain 2/10; 08:56 BP 136 / 76; Pulse 88; Resp 20; Temp 97.8; Pulse Ox 100% on R/A; kh1 10:00 BP 126 / 40; Pulse 56; Resp 18; Temp 98.0; Pulse Ox 100% on R/A; kh1 08:35 Body Mass Index 26.63 (74.84 kg, 167.64 cm) hb MDM: 08:45 Patient medically screened. ma2 10:44 Differential diagnosis: Nonspecific abd pain, gastritis, viral gastroenteritis, ma2 gastroenteritis. Data reviewed: vital signs, nurses notes, EMS record. Counseling: I had a detailed discussion with the patient and/or guardian regarding: the historical points, exam findings, and any diagnostic results supporting the discharge/admit diagnosis, the presence of at least one elevated blood pressure reading (>120/80) during this emergency department visit, the need for outpatient follow up. Response to treatment: the patient's symptoms have markedly improved after treatment. 03/22 08:31 Order name: Basic Metabolic Panel; Complete Time: 09:47 ma2 03/22 08:31 Order name: CBC with Diff; Complete Time: :47 ma2 03/22 08:31 Order name: Hepatic Function; Complete Time: 09:47 ma2 03/22 08:31 Order name: Lipase; Complete Time: 09:47 ma2 03/22 09:10 Order name: Manual Differential; Complete Time: 09:47 EDMS 03/22 09:11 Order name: Urine Dipstick-Ancillary; Complete Time: 09:47 EDMS 03/22 08:31 Order name: IV Saline Lock; Complete Time: 08:53 ma2 03/22 08:31 Order name: Labs collected and sent; Complete Time: 08:53 ma2 03/22 08:31 Order name: Urine Dipstick-Ancillary (obtain specimen); Complete Time: 09:35 ma2 03/22 08:56 Order name: CT Abd/Pelvis - IV Contrast Only; Complete Time: 09:47 ma2 03/22 09:12 Order name: Urine Dipstick-Ancillary EDMS Administered Medications: 08:52 Drug: NS 0.9% 1000 ml Route: IV; Rate: 1 bolus; Site: right antecubital; [facility] 10:05 Drug: Rocephin (cefTRIAXone) 1 grams Route: IV; Rate: calculated rate; Site: right kh1 antecubital; 10:19 Drug: NS 0.9% 1000 ml Route: IV; Rate: 1 bolus; Site: right antecubital; [facility] Disposition Summary: 03/22/21 11:24 Discharge Ordered Location: Home ma2 Condition: Stable ma2 Diagnosis - Diarrhea, unspecified ma2 - Acute cystitis ma2 Followup: ma2 - With: Private Physician - When: Tomorrow - Reason: Continuance of care Discharge Instructions: - Discharge Summary Sheet ma2 - Food Choices to Help Relieve Diarrhea, Adult ma2 - Diarrhea, Adult ma2 - Urinary Tract Infection, Adult, [id number] ma2 Forms: - Medication Reconciliation Form ma2 - Thank You Letter ma2 - Antibiotic Education ma2 - Prescription Opioid Use ma2 Prescriptions: - Flagyl 500 mg Oral Tablet - take 1 tablet by ORAL route every 12 hours for 7 days; 14 tablet; Refills: 0, ma2 Product Selection Permitted - Cipro 500 mg Oral Tablet - take 1 tablet by ORAL route every 12 hours for 7 days; 14 tablet; Refills: 0, ma2 Product Selection Permitted - Diclofenac Sodium 75 mg Oral Tablet Sustained Release - take 1 tablet by ORAL route 2 times per day; 30 tablet; Refills: 0, Product ma2 Selection Permitted - Pepcid 20 mg Oral Tablet - take 1 tablet by ORAL route once daily for 10 days; 10 tablet; Refills: 0, ma2 Product Selection Permitted Signatures: Dispatcher [employer] Lay Spence, GABRIELE RN Soledad Hogue MD MD [facility] Zoë Narvaez [facility]
[2021-03-22 12:26] VITALS: O2SAT 100
[2021-03-22 12:28] VITALS: BP 126/40; TEMP 98
== END 2021-03-22 12:09 | disposition home or self-care (01) ==
LOC: ER 08:25
DX: N30.00 Acute cystitis without hematuria (principal); I10 Essential (primary) hypertension; Z79.82 Long term (current) use of aspirin; Z88.0 Allergy status to penicillin
CPT/HCPCS: 85025; 80048; 36415; 80076; 81003; 83690; 74177; 96374; 99284; Q9967; J7030 ×2

== ENCOUNTER 2021-12-06 21:23 | Emergency (ER) | payer OTHER, MEDICARE ==
--- OUTSIDE RECORDS SUMMARY | 2021-12-06 21:27 | XMS REPORT | Continuity of Care Document ---
:1950 Author Organization [facility] t Address [address] [place] [address] Care Team Providers Name Role Phone FAHED Attending Clinician Unavailable MD ZONIA Attending Clinician Unavailable CORBY SANTOYO Attending Clinician Unavailable FAANNA Admitting Clinician Unavailable MD ZONIA Admitting Clinician Unavailable CORBY SANTOYO Admitting Clinician Unavailable Problems This patient has no known problems. Allergies, Adverse Reactions, Alerts This patient has no known allergies or adverse reactions. Medications This patient has no known medications. Procedures This patient has no known procedures. Encounters Start End Encounter Admission Attending Care Care Encounter Source Date/Time Date/Time Type Type Clinicians Facility Department ID 2021-04-25 2021-04-25 Outpatient ZONIASHANIKA [facility] 021 [id number] [place] 00:00:00 00:00:[address] 2021-04-23 2021-04-23 Outpatient SHANIKA [facility] [id number] [place] 00:00:00 00:00:[address] Results Test Description Test Time Test Comments Results Result Comments Source SARS-CoV-2 (COVID-19) RNA [Presence] in Respiratory sp ecimen by 2021-04-23 18:58:52 BRITTANIE with probe detection Test Item Value Reference Range Interpretation Comme nts SARS-CoV-2 (COVID-19) RNA [Presence] in Respiratory Not detected No t-Detected specimen by BRITTANIE with probe detection (test code = 65685-3) 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 employed 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 (test code = 94079-3) Whether the patient has symptoms related to condition of interest (test code = 95271-8) Patient was hospitalized because of this condition (test code = 65820-1) Whether the patient was admitted to intensive care unit (ICU) for condition of interest (test code = 06298-6) Whether patient resides in a congregate care setting (test code = 63261-7) TISSUE [id number] 12:19:00Surgical Pathology Report Case: [id number] Authorizing Provider: Iban Rawls MD Collected: 05/11/2017 2234 Ordering Location: [facility] Received: 05/12/2017 1004 SERVICES Pathologist: Radha Gonzalez MD Specimen: Artery, TEMPORAL ARTERY BIOPSY TEMPORAL ARTERY, BIOPSY- TEMPORAL ARTERY WITHOUT SIGNIFICANT INFLAMMATION Signing Pathologist Direct Phone Line:[phone] signed by Radha Gonzalez MD on 05/14/2017 at 12:19 PMMultiple sections show temporal artery without significant inflammation. No granulomata or giant cells are detected. Luminal narrowing is not seen. Areas of hemorrhage that may be related to the procedure are also id entified. The Movat stain shows a continuous internal elastic lamina. Findings are not sufficient for diagnosis of temporal arteritis. Clinical correlation is recommended.65505, 22829Hafid headache and visual changesTemporal artery biopsyThe specimen is received in a formalin-filled container labeled with the patient's information and labeled "temporal artery biopsy" and consists of a wilson-red tubular shaped segment of tissue measuring 2.4 cm in length x 0.1 cm in diameter, submitted in A1. CG/ewPerformed.TSH/FREE T4 IF [id number] 14:41:00 Test Item Value Reference Range Interpretation Comments THYROID STIMULATING HORMONE 2.27 uIU/mL 0.35-4.94 (BEAKER) (test code = 772) TROPONIN [id number] 12:21:00 Test Item Value Reference Range Interpretation [...] acute neurological disease, and persistent tachyarrhythmia.BASIC METABOLIC [id number] 06:27:00 Test Item Value Reference Range Interpretation [...] PATIEN TS. CBC W/PLT COUNT & AUTO [id number] 05:56:00 Test Item Value Reference Range Interpretation [...] PERCENT (BEAKER) (test code = 2801) SEDIMENTATION [id number] 11:51:00 Test Item Value Reference Range Interpretation Comments SEDIMENTATION RATE, ERYTHROCYTE 19 mm/HR 0-40 (BEAKER) (test code = 766) CT, CTANGIO [id number] 11:23:00FINAL REPORT CTV head with contrast INDICATION: [...] mild carotid siphon atherosclerosis. The imaged proximal chinik of Sarah vessels demonstrate no high grade [...] MDReport Verified Date/Time: 05/10/2017 11:23:39 Reading Location: [address] Neuro Reading Room C-REACTIVE [id number] 10:01:00 Test Item Value Reference Range Interpretation Comments C-REACTIVE PROTEIN (BEAKER) (test 0.80 mg/dL 0.00-0.50 H code = 676) [id number] 09:44:00 Test Item Value Reference Range Interpretation Comments PARTIAL THROMBOPLASTIN TIME 98.5 seconds 22.5-36.0 H (BEAKER) (test code = 760) TROPONIN [id number] 08:37:00 Test Item Value Reference Range Interpretation [...] acute neurological disease, and persistent tachyarrhythmia.BASIC METABOLIC [id number] 04:17:00 Test Item Value Reference Range Interpretation [...] S NOT APPLICABLE FOR DIALYSIS PATIEN TS. [id number] 03:43:00 Test Item Value Reference Range Interpretation [...] code = 2801) MR, MRA, BRAIN, WITHOUT [id number] 00:52:00FINAL REPORT MR, MRA, BRAIN, WITHOUT CONTRAST, MR, BRAIN, WITH \\T\\ WITHOUT CONTRAST INDICATION: MRV for suspected cavernous sinus thrombosis TECHNIQUE: Multiplanar, multisequencepre and postcontrast MR images of the brain. Two-dimensional ydya-sw-zhxoag MR venogram of the brain in the [...] MDReport Verified Date/Time: 05/10/2017 00:52:12 Reading Location: [address] Reading Room MR, BRAIN, [id number] 00:52:00FINAL REPORT MR, MRA, BRAIN, WITHOUT CONTRAST, MR, BRAIN, WITH \\T\\ WITHOUT CONTRAST INDICATION: MRV for suspected cavernous sinus thrombosis TECHNIQUE: Multiplanar, multisequencepre and postcontrast MR images of the brain. Two-dimensional uclc-gp-xrjznl MR venogram of the brain in the [...] MDReport Verified Date/Time: 05/10/2017 00:52:12 Reading Location: [address] Reading Room [id number] 22:46:00 Test Item Value Reference Range Interpretation [...] is 2.5-3.5 for patients with mechanical heart valves.[id number] 14:41:00 Test Item Value Reference Range Interpretation Comments PARTIAL THROMBOPLASTIN TIME 29.6 seconds 22.5-36.0 (BEAKER) (test code = 760) [id number] 08:26:00 Test Item Value Reference Range Interpretation Comments PARTIAL THROMBOPLASTIN TIME 56.2 seconds 22.5-36.0 H (BEAKER) (test code = 760) BASIC METABOLIC [id number] 05:02:00 Test Item Value Reference Range Interpretation [...] PATIEN TS. CBC W/PLT COUNT & AUTO [id number] 04:24:00 Test Item Value Reference Range Interpretation [...] PERCENT (BEAKER) (test code = 2801) TROPONIN [id number] 03:02:00 Test Item Value Reference Range Interpretation [...] failure, acidosis, acute neurological disease, and persistent tachyarrhythmia.[id number] 02:06:00 Test Item Value Reference Range Interpretation Comments PARTIAL THROMBOPLASTIN TIME 72.6 seconds 22.5-36.0 H (BEAKER) (test code = 760) Prior to initiating heparinPROTHROMBIN TIME/[id number] 02:04:00 Test Item Value Reference Range Interpretation [...]
--- NOTE | 2021-12-06 22:05 | RAD REPORT ---
EXAM DESCRIPTION: RAD - Ankle Left 3 View - 12/06/2021 9:55 pm CLINICAL HISTORY: ankle pain COMPARISON: No comparisons FINDINGS: Mild soft tissue swelling is seen adjacent to the lateral malleolus. Subtle cortical irreg ularity seen at the very distal aspect of the distal fibula may be a slight fracture. Small calcaneal spurs.
--- NOTE | 2021-12-06 22:36 | EDPHYS ---
Physician Documentation [facility] Name: Meryl Murray Age: 71 yrs Sex: Female : 1950 Arrival Date: 12/06/2021 Time: 21:27 Bed 19 Private MD: ED Physician Pedro Magallon HPI: 12/06 21:33 This 71 yrs old Female presents to ER via Wheelchair with complaints of Ankle Injury. jmm 21:33 The patient presents with an injury, pain. Onset: The symptoms/episode began/occurred jmm acutely. This is a 71 year old female with a history of a fib, svt that presents to the ED with complaints of left ankle pain. Patient states she stepped in a hole, twisting her left ankle. Patient states she felt a crack. Denies pain to the foot. Historical: - Allergies: 21:35 PENICILLINS; sm5 - Home Meds: 21:35 aspirin 81 mg Oral tab daily [Active]; sm5 - PMHx: 21:35 Atrial Fib; Hypertension; SVT; sm5 - Immunization history:: Client reports receiving the 2nd dose of the Covid vaccine. - Social history:: Smoking status: Patient denies any tobacco usage or history of. ROS: 21:33 Constitutional: Negative for fever, chills, and weight loss, Cardiovascular: Negative jmm for chest pain, palpitations, and edema, Respiratory: Negative for shortness of breath, cough, wheezing, and pleuritic chest pain, Abdomen/GI: Negative for abdominal pain, nausea, vomiting, diarrhea, and constipation. 21:33 MS/extremity: Positive for injury or acute deformity. 21:33 All other systems are negative. Exam: 21:33 Constitutional: This is a well developed, well nourished patient who is awake, alert, jmm and in no acute distress. Head/Face: atraumatic. Eyes: EOMI, no conjunctival erythema appreciated ENT: Moist Mucus Membranes Neck: Trachea midline, Supple Chest/axilla: Normal chest wall appearance and motion. Cardiovascular: Regular rate and rhythm. No edema appreciated Respiratory: Normal respirations, no respiratory distress appreciated Abdomen/GI: Non distended, soft Back: Normal ROM Skin: General appearance color normal 21:33 Musculoskeletal/extremity: Lateral malleolus tender to palpation, no pain to the base of the fifth metatarsal, compartments are soft, full dorsalis pedis pulse, full range of motion noted to the ankle, neurovascular intact. 21:33 Skin: Appearance: Color: normal in color. 21:33 Neuro: Orientation: is normal, Mentation: is normal, Memory: is normal. 21:33 Psych: Behavior/mood is pleasant, cooperative. Vital Signs: 21:34 BP 105 / 73; Pulse 63; Resp 17; Temp 97(TE); Pulse Ox 98% on R/A; Weight 77.11 kg; 5 Height 5 ft. 6 in. (167.64 cm); Pain 8/10; 22:55 BP 112 / 91; Pulse 53; Resp 17; Pulse Ox 100% on R/A; sm5 21:34 Body Mass Index 27.44 (77.11 kg, 167.64 cm) [facility] MDM: 21:33 Patient medically screened. [facility] 22:34 Data reviewed: vital signs, nurses notes. Counseling: I had a detailed discussion with taylor the patient and/or guardian regarding: the historical points, exam findings, and any diagnostic results supporting the discharge/admit diagnosis, radiology results, the need for outpatient follow up, to return to the emergency department if symptoms worsen or persist or if there are any questions or concerns that arise at home. 12/06 21:35 Order name: Ankle Left 3 View XRAY; Complete Time: 22:19 [facility] 12/06 22:19 Order name: Misc. Order: ortho boot; Complete Time: 22:53 [facility] Administered Medications: No medications were administered Disposition: 12/07 06:05 Co-signature as Attending Physician, Pedro Magallon MD. rn Disposition Summary: 12/06/21 22:34 Discharge Ordered Location: Home [facility] Condition: Stable [facility] Diagnosis - Distal fibular fracture [facility] Followup: [facility] - With: Omar Stover MD - When: 2 - 3 days - Reason: Recheck today's complaints, Continuance of care, Re-evaluation by your physician Discharge Instructions: - Discharge Summary Sheet [facility] - Ankle Fracture [facility] - Ankle Fracture Rehab-SportsMed [facility] Forms: - Medication Reconciliation Form [facility] - Thank You Letter [facility] - Antibiotic Education [facility] - Prescription Opioid Use [facility] Signatures: Dispatcher [employer] EDMS Sudarshan Blackwell PA PA jmm Nieto, Roman, MD MD rn Erich, Florecita, RN RN sm5
--- NOTE | 2021-12-06 22:36 | ER ---
Nurse's Notes [facility] Name: Meryl Murray Age: 71 yrs Sex: Female : 1950 Arrival Date: 12/06/2021 Time: 21:27 Bed 19 Private MD: Diagnosis: Distal fibular fracture Presentation: 12/06 21:34 Chief complaint: Patient states: rolled L ankle when stepping into a hole around sm5 1030am, felt a pop. swelling has increased over time. Coronavirus screen: Vaccine status: Patient reports receiving the 2nd dose of the covid vaccine. Ebola Screen: No symptoms or risks identified at this time. Initial Sepsis Screen: Does the patient meet any 2 criteria? No. Patient's initial sepsis screen is negative. Does the patient have a suspected source of infection? No. Patient's initial sepsis screen is negative. Risk Assessment: Do you want to hurt yourself or someone else? Patient reports no desire to harm self or others. Onset of symptoms was December 06, 2021. 21:34 Method Of Arrival: Wheelchair [facility] 21:34 Acuity: HONG 4 5 Triage Assessment: 21:35 General: Appears in no apparent distress. Behavior is cooperative. Pain: Complains of 5 pain in left ankle. Musculoskeletal: Swelling present in left ankle. Historical: - Allergies: 21:35 PENICILLINS; sm5 - Home Meds: 21:35 aspirin 81 mg Oral tab daily [Active]; sm5 - PMHx: 21:35 Atrial Fib; Hypertension; SVT; sm5 - Immunization history:: Client reports receiving the 2nd dose of the Covid vaccine. - Social history:: Smoking status: Patient denies any tobacco usage or history of. Screenin:36 Abuse screen: Denies threats or abuse. Denies injuries from another. Nutritional 5 screening: No deficits noted. Tuberculosis screening: No symptoms or risk factors identified. Fall Risk None identified. Assessment: 22:00 Reassessment: see triage assessment. 5 22:54 Reassessment: No changes from previously documented assessment. Patient and/or family 5 updated on plan of care and expected duration. Pain level reassessed. Vital Signs: 21:34 BP 105 / 73; Pulse 63; Resp 17; Temp 97(TE); Pulse Ox 98% on R/A; Weight 77.11 kg; sm5 Height 5 ft. 6 in. (167.64 cm); Pain 8/10; 22:55 BP 112 / 91; Pulse 53; Resp 17; Pulse Ox 100% on R/A; sm5 21:34 Body Mass Index 27.44 (77.11 kg, 167.64 cm) [facility] ED Course: 21:27 Patient arrived in ED. [facility] 21:28 Sudarshan Blackwell PA is PHCP. [facility] 21:28 Pedro Magallon MD is Attending Physician. [facility] 21:34 Florecita Jung, RN is Primary Nurse. 5 21:35 Triage completed. sm5 21:35 Arm band placed on right wrist. 5 21:57 Ankle Left 3 View XRAY In Process Unspecified. EDMS 22:34 Omar Stover MD is Referral Physician. [facility] 22:53 No provider procedures requiring assistance completed. Patient did not have IV access 5 during this emergency room visit. Ortho shoe applied to left foot. 22:54 Patient has correct armband on for positive identification. Bed in low position. Call 5 light in reach. Side rails up X2. Administered Medications: No medications were administered Medication: 22:54 VIS not applicable for this client. [facility] Outcome: 22:34 Discharge ordered by . [facility] 22:55 Discharged to home ambulatory. [facility] 22:55 Condition: stable 22:55 Discharge instructions given to patient, Instructed on discharge instructions, follow up and referral plans. Demonstrated understanding of instructions, follow-up care. 22:55 Patient left the ED. [facility] Signatures: Dispatcher [employer] EDSC Sudarshan Blackwell PA PA jmm Alexander, Jessica [facility] Florecita Jung, RN RN [facility]
[2021-12-06 23:26] VITALS: TEMP 97
[2021-12-06 23:28] VITALS: BP 112/91; O2SAT 100
== END 2021-12-06 22:55 | disposition home or self-care (01) ==
LOC: ER 21:23
DX: S82.832A Other fracture of upper and lower end of left fibula, initial encounter for closed fracture (principal); X50.1XXA Overexertion from prolonged static or awkward postures, initial encounter; Y93.89 Activity, other specified; Y92.9 Unspecified place or not applicable; Z88.0 Allergy status to penicillin; I48.91 Unspecified atrial fibrillation; I10 Essential (primary) hypertension
CPT/HCPCS: 99283

== ENCOUNTER 2022-11-08 19:01 | Emergency (ER) | payer OTHER, MEDICARE ==
--- OUTSIDE RECORDS SUMMARY | 2022-11-08 19:06 | XMS REPORT | Continuity of Care Document ---
:1950 Author Organization [facility] t Address [address] [place] [address] [place] [id number] Care Team Providers Name Role Phone Darrell Piedra MD Primary Care Physician [phone] SHANIKA BRAR Attending Clinician Unavailable MD SHANIKA BRAR Attending Clinician Unavailable JAYDA SANTOYO Attending Clinician Unavailable SHANIKA BRAR Admitting Clinician Unavailable MD SHANIKA BRAR Admitting Clinician Unavailable JAYDA SANTOYO Admitting Clinician Unavailable Problems Condition Condition Condition Status Onset Resolution Last Treating Co mments Source Name Details Category Date Date Treatment Clinician Date Palpitatio Palpitatio Disease Active 2016-[address] [facility] 00 [place] Sinus Sinus Disease Active 2016-[address] [facility] bradycardi bradycardi 1-20 Jennifer kes a a 00:00: Medical 00 [place] HTN HTN Disease Active 2016-[address] [facility] (hypertens (hypertens 1-20 Jennifer kes ion) ion) 00:00: Medical 00 [place] Visual Visual Disease Active 2016-[address] [facility] changes changes 1-20 [facility] 00 [place] Floaters Floaters Disease [facility] 2016[facility] 00 [place] Headache Headache Disease [facility] 2016[facility] 00 [place] Abnormal Abnormal Disease [facility] 2016[facility] stress stress [facility]20 [facility] test test 00:00: Medical 00 [place] Cavernous Cavernous Disease Active 2016-[address] [facility] sinus sinus 07-09 [facility] thrombosis thrombosis 00:[facility]: Me d[facility] 00 Center Allergies, Adverse Reactions, Alerts Allergy Allergy Status Severity Reaction(s) Onset Inactive Treating Comm ents Source Name Type Date Date Clinician Yamilet Propensi Active Hives 2020-06 [facility] to 06-[address] adverse 00:00: itching [facility]osp[facility] reaction 00 l s to drug Penicill Propensi Active Rash 2016-[address] [facility] [address] [facility] 07[facility]09 [facility] adverse 00:00: [facility] reaction 00 Center s Social History Social Habit Start Date Stop Date Quantity Comments Source Gender identity [facility] Alcohol intake 2021-04-30 2021-04-30 Current drinker [facility] 00:00:00 00:00:00 of [facility] (finding) History of Social 2021-04-30 2021-04-[address] function 00:00:00 00:00:00 Hospital Alcohol Comment 2021-04-25 2021-04-25 social [facility] 00[facility]00:00 [facility] Tobacco use and 2017-05-09 2017-05-[address] [facility] Jennifer kes exposure 00:00:00 00:00:00 [facility]user [facility] Sex Assigned At [birth year] [facility] 00:[facility] 00:00:00 [facility] Smoking Status Start Date Stop Date Source Never smoked tobacco [facility] Medications Ordered Filled Start Stop Current Ordering Indication Dosage Frequency Signature Comments Components Source Medication Medication Date Date Medication? Clinician (SIG) Name Name metoprolol 2020-06 Yes 25mg QD Take 25 mg M ethodi succinate 1-[address] XL 18:32: daily. Hospita (TOPROL-XL) 01 l 25 mg 24 hr tablet flecainide 2020-06 Yes 100mg Q.5D Take 100 Me thodi (TAMBOCOR) 1-[address] 100 MG 18:32: mouth 2 [facility]ospita tablet 01 (two) l times a day. rivaroxaban 2020-06 Yes 20mg QD Take 1 Meth edenilson (XARELTO) 1-05 tablet (20 st 20 mg 00:00: mg total) Hospita tablet 00 by mouth l daily. colchicine 2020-06 Yes .6mg Q.5D Take 1 Metho di 0.6 mg -[address] tablet 00:00: (0.6 mg Hospita 00 total) by l mouth 2 (two) times a day as needed (Post ablation chest pain). aspirin 81 2016-06 Yes 81mg QD Take [address] MG EC 22 by mouth [facility] tablet 15:40: daily. Medical 02 Center calcium 2016-06 Yes hypocalcemi 1{tbl} Q.[id number] Take [address] carbonate -22 a [id number] tablet by [facility] (CALCIUM 15:40: prevention 3D mouth 3 Medical CARBONATE) 02 (three) Center 300 mg Chew times daily. metoprolol 2016-06 Yes paroxysmal 25mg Q.5D Take [address] (LOPRESSOR) - supraventri by mouth 2 [facility] 25 MG 15:40: cular (two) Medical tablet 02 tachycardia times Cente r daily. Procedures This patient has no known procedures. Plan of Care Planned Activity Planned Date Details Comments Source Future Scheduled 2022-09-23 Hepatitis C screening [facility] Test 13:59:35 (procedure) [code = 827073511] Future Scheduled 2022-09-23 BREAST CANCER [facility] Test 13:59:35 SCREENING [code = BREAST CANCER SCREENING] Future Scheduled 2022-09-23 COLONOSCOPY SCREENING [facility] Test 13:59:35 [code = COLONOSCOPY SCREENING] Future Scheduled 2022-09-23 SHINGLES VACCINES (1 Met [facility] Test 13:59:35 of 2) [code = SHINGLES VACCINES (1 of 2)] Future Scheduled 2022-09-23 65+ PNEUMOCOCCAL Methodi [facility] Test 13:59:35 VACCINE (1 - PCV) [code = 65+ PNEUMOCOCCAL VACCINE (1 - PCV)] Future Scheduled 2022-09-23 COVID-19 VACCINE (3 - [facility] Test 13:59:35 Booster for Pfizer series) [code = COVID-19 VACCINE (3 - Booster for Pfizer series)] Future Scheduled 2022-09-23 INFLUENZA VACCINE Method [facility] Test 13:59:35 [code = INFLUENZA VACCINE] Encounters Start End Encounter Admission Attending Care Care Encounter Source Date/Time Date/Time Type Type Clinicians Facility Department ID 2021-04-25 2021-04-25 Outpatient SHANIKA BRAR [facility] [id number] [place] 00:00:00 00:00:[address] 2021-04-23 2021-04-23 Outpatient SHANIKA BRAR [facility] [id number] [place] 00:00:00 00:00:[address] Results Test Description Test Time Test Comments Results Result Comments Source SARS-CoV-2 (COVID-19) RNA [Presence] in Respiratory sp ecimen by 2021-04-23 18:58:52 BRITTANIE with probe detection Test Item Value Reference Range Interpretation Comme nts SARS-CoV-2 (COVID-19) RNA [Presence] in Respiratory Not detected No t-Detected specimen by BRITTNAIE with probe detection (test code = 03108-9) 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 employed 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 (test code = 38344-5) Whether the patient has symptoms related to condition of interest (test code = 17670-2) Patient was hospitalized because of this condition (test code = 34427-8) Whether the patient was admitted to intensive care unit (ICU) for condition of interest (test code = 22336-1) Whether patient resides in a congregate care setting (test code = 61792-8) [facility] [id number] 12:19:00Surgical Pathology Report Case: [id number] Authorizing Provider: Razia Rawls MD Collected: 05/11/2017 2234 Ordering Location: [facility] PERIOPERATIVE Received: 05/12/2017 1004 SERVICES Pathologist: Radha Gonzalez MD Specimen: Artery, TEMPORAL ARTERY BIOPSY TEMPORAL ARTERY, BIOPSY- TEMPORAL ARTERY WITHOUT SIGNIFICANT INFLAMMATION Signing Pathologist Direct Phone Line: [phone] signed by Radha Gonzalez MD on 05/14/2017 at 12:19 PMMultiple sections show temporal artery without significant inflammation. No granulomata or giant cells are detected. Luminal narrowing is not seen. Areas of hemorrhage that may be related to the procedure are also identified. The Movat stain shows a continuous internal elastic lamina. Findings are not sufficient for diagnosis of temporal arteritis. Clinical correlation is recommended.50756, 48207Ugihc headache and visual changesTemporal artery biopsyThe specimen is received in a formalin- filled container labeled with the patient's information and labeled "temporal artery biopsy" and consists of a wilson-red tubular shaped segment of tissue measuring 2.4 cm in length x 0.1 cm in diameter, submitted in A1. CG/ewPerformed.TSH/FREE T4 IF [id number] 14:41:00 Test Item Value Reference Range Interpretation Comments THYROID STIMULATING HORMONE 2.27 uIU/mL 0.35-4.94 (BEAKER) (test code = 772) TROPONIN [id number] 12:21:00 Test Item Value Reference Range Interpretation [...] acute neurological disease, and persistent tachyarrhythmia.BASIC METABOLIC [id number] 06:27:00 Test Item Value Reference Range Interpretation [...] PATIEN TS. CBC W/PLT COUNT & AUTO [id number] 05:56:00 Test Item Value Reference Range Interpretation [...] PERCENT (BEAKER) (test code = 2801) SEDIMENTATION [id number] 11:51:00 Test Item Value Reference Range Interpretation Comments SEDIMENTATION RATE, ERYTHROCYTE 19 mm/HR 0-40 (GALO) (test code = 766) CT, CTANGIO [id number] 11:23:00FINAL REPORT CTV head with contrast INDICATION: Acute headache, cavernous sinusthrombosis. TECHNIQUE: Axial noncontrast CT images of the head were obtained. Subsequently, axial int ravenous contrast enhanced CTV images of the head were obtained. Multiplanar and 3-D volume renderedreconstruction images were generated on a separate workstation [...] or secondary findings such as superior ophthalmic veindistention is seen to indicate cavernous sinus thrombosis. The major dural venous sinuses are otherwise patent, without evident thrombosis. There is mild carotid siphon atherosclerosis. The imaged proximal northway of Sarah vessels demonstrate no high grade stenosis or major branch occlusion. CT head:Microvascular changes are similar to the prior study and chronic appearing. No hematoma, extra axial collection, or mass effect is evident. Please note that CT is insensitive for early or small infarcts.Generalized volume loss and vascular consultations are noted. [...] MDReport Verified Date/Time: 05/10/2017 11:23:39 Reading Location: [address] Neuro Reading Room C-REACTIVE [id number] 10:01:00 Test Item Value Reference Range Interpretation Comments C-REACTIVE PROTEIN (BEAKER) (test 0.80 mg/dL 0.00-0.50 H code = 676) [id number] 09:44:00 Test Item Value Reference Range Interpretation Comments PARTIAL THROMBOPLASTIN TIME 98.5 seconds 22.5-36.0 H (BEAKER) (test code = 760) TROPONIN [id number] 08:37:00 Test Item Value Reference Range Interpretation [...] acute neurological disease, and persistent tachyarrhythmia.BASIC METABOLIC [id number] 04:17:00 Test Item Value Reference Range Interpretation [...] S NOT APPLICABLE FOR DIALYSIS PATIEN TS. [id number] 03:43:00 Test Item Value Reference Range Interpretation Comments PROTIME (BEAKER) (test code = 14.6 seconds 11.7-14.7 759) INR (BEAKER) (test code = 370) 1.2 <=5.9 PARTIAL THROMBOPLASTIN TIME 83.0 seconds 22.5-36.0 H (BEAKER) (test code = 760) RECOMMENDED COUMADIN/WARFARIN INR THERAPY RANGESSTANDARD DOSE: 2.0 - 3.0 Includes: PROPHYLAXIS for venous thrombosis, systemic embolization; TREATMENT for venous thrombosis and/or pulmonary embolus.HIGH RISK: Target INR is 2.5-3.5 for patients with mechanical heart valves.CBC W/PLT COUNT & AUTO [id number] 03:34:00 Test Item Value Reference Range Interpretation [...] code = 2801) MR, MRA, BRAIN, WITHOUT [id number] 00:52:00FINAL REPORT MR, MRA, BRAIN, WITHOUT CONTRAST, MR, BRAIN, WITH \\T\\ WITHOUT CONTRAST INDICATION: MRV for suspected cavernous sinus thrombosis TECHNIQUE: Multiplanar, multisequence pre and postcontrast MR images of the brain. Two-dimensional ncpq-ju-cdhifu MR venogram of the brain in the coronal and axial plane was obtained, with three-dimensional reconstructed images. COMPARISON: None FINDINGS: MRI BRAIN: Cerebral parenchyma: No infarct or hemorrhage. Scattered small foci of deepwhite matter T2 hyperintensity suggesting sequela of chronic microvascular disease. Midline structures: Normally positioned.Cerebellum and brainstem: Small developmental venous anomaly in the right cerebellar hemisphere.Ventricles: Normal volume.Extra-axial spaces: Unremarkable. Calvarium and [...] JR Corona Robert MDReport Verified Date/Time: 05/10/2017 00:52:12Reading Location: [address] Reading Room MR, BRAIN, [id number] 00:52:00FINAL REPORT MR, MRA, BRAIN, WITHOUT CONTRAST, MR, BRAIN, WITH \\T\\ WITHOUT CONTRAST INDICATION: MRV for suspected cavernous sinus thrombosis TECHNIQUE: Multiplanar, multisequence pre and postcontrast MR images of the brain. Two-dimensional nelo-wz-cqudmf MR venogram of the brain in the coronal and axial plane was obtained, with three-dimensional reconstructed images. COMPARISON: None FINDINGS: MRI BRAIN: Cerebral parenchyma: No infarct or hemorrhage. Scattered small foci of deepwhite matter T2 hyperintensity suggesting sequela of chronic microvascular disease. Midline structures: Normally positioned.Cerebellum and brainstem: Small developmental venous anomaly in the right cerebellar hemisphere.Ventricles: Normal volume.Extra-axial spaces: Unremarkable. Calvarium and [...] JR Corona Robert MDReport Verified Date/Time: 05/10/2017 00:52:12Reading Location: [address] Reading Room [id number] 22:46:00 Test Item Value Reference Range Interpretation Comments PROTIME (BEAKER) (test code = 14.5 seconds 11.7-14.7 759) INR (BEAKER) (test code = 370) 1.1 <=5.9 PARTIAL THROMBOPLASTIN TIME 43.9 seconds 22.5-36.0 H (BEAKER) (test code = 760) RECOMMENDED COUMADIN/WARFARIN INR THERAPY RANGESSTANDARD DOSE: 2.0 - 3.0 Includes: PROPHYLAXIS for venous thrombosis, systemic embolization; TREATMENT for venous thrombosis and/or pulmonary embolus.HIGH RISK: Target INR is 2.5-3.5 for patients with mechanical heart valves.[id number] 14:41:00 Test Item Value Reference Range Interpretation Comments PARTIAL THROMBOPLASTIN TIME 29.6 seconds 22.5-36.0 (BEAKER) (test code = 760) [id number] 08:26:00 Test Item Value Reference Range Interpretation Comments PARTIAL THROMBOPLASTIN TIME 56.2 seconds 22.5-36.0 H (BEAKER) (test code = 760) BASIC METABOLIC [id number] 05:02:00 Test Item Value Reference Range Interpretation [...] PATIEN TS. CBC W/PLT COUNT & AUTO [id number] 04:24:00 Test Item Value Reference Range Interpretation [...] PERCENT (BEAKER) (test code = 2801) TROPONIN [id number] 03:02:00 Test Item Value Reference Range Interpretation [...] failure, acidosis, acute neurological disease, and persistent tachyarrhythmia.[id number] 02:06:00 Test Item Value Reference Range Interpretation Comments PARTIAL THROMBOPLASTIN TIME 72.6 seconds 22.5-36.0 H (BEAKER) (test code = 760) Prior to initiating heparinPROTHROMBIN [id number] 02:04:00 Test Item Value Reference Range Interpretation Comments PROTIME (GALO) (test code = 14.2 seconds 11.7-14.7 759) INR (GALO) (test code = 370) 1.1 <=5.9 RECOMMENDED COUMADIN/WARFARIN INR THERAPY RANGESSTANDARD DOSE: 2.0 - 3.0 Includes: PROPHYLAXIS for venous thrombosis, systemic embolization; TREATMENT for venous thrombosis and/or pulmonary embolus.HIGH RISK: Target INR is 2.5-3.5 for patients with mechanical heart valves.Prior to initiating heparin Notes Date/Time Note Provider Source 2017-05-12 17:23:00-00:[address] [facility] REPORT OF PROCEDURE DENISE CHASE FACILITY: [facility] BILLING #: [id number] ROOM: [place] [id number] MR #: [id number] : 1950 DATE OF PROCEDURE: 05/11/2017 SURGEON: Razia Rawls MD PREOPERATIVE DIAGNOSES 1. Right temporal area headache. 2. Vision disturbance. POSTOPERATIVE DIAGNOSES 1. Right temporal area headache. 2. Vision disturbance. OPERATIONS PERFORMED 1. Doppler ultrasonography to trace temporal art mary. 2. Right side temporal artery biopsy. INDICATIONS: This 66-year-old female was admitted with suspecting diagnosis of cavernous sinus thrombosis because patient's sev ere pain. Her imaging studies however, revealed no evidence of cavernous sinus thrombosis. Nevertheless, patient was recommended to h ave temporal artery biopsy because of her persistent right sided temporal area tenderness and headach es. Patient understood risks and benefits and wished to proceed. PROCEDURE IN DETAIL: Patient was identified in t [facility] area. Correct side was marked. In the operating room, the area was prepped and draped in the usual sterile fashion for ophthalmic plastic surgery. A small area for temporal artery was identified by the use of ultrasonography and tracing was made. During intravenous sedation, local 2% Xylocaine with epinephrine was infiltrated around this tracing. After which, a #15 Bard-Peter linwood de was utilized to create full-thickness skin muscle incision. Dissection was carried down and a 3-cm segment of temporal artery was identified and submitted to histopathology after having both edges marked and removed intact. The wound was closed with 6-0 Vicryl in interrupted fashion as well as running fashion on the outer side. There were no complic ations. Tissue was submitted to pathology. Estimated blood loss was minimal. IAC/ta P P Job#: [id number] Doc#: [id number] FN: [id number] cc: Razia Rawls MD
[2022-11-08] MEDS ORDERED: TETRACAINE HCL 0.5% 4ML OPTH ONE (20:42)
[2022-11-08] MEDS ORDERED: FLUORESCEIN SODIUM 1 MG/WRAP ONE (20:42)
--- NOTE | 2022-11-08 21:21 | EDPHYS ---
Physician Documentation [facility] Name: Meryl Murray Age: 72 yrs Sex: Female : 1950 Arrival Date: 11/08/2022 Time: 19:01 Bed 16 Private MD: ED Physician Anant Kerr HPI: 11/08 21:17 This 72 yrs old Female presents to ER via Ambulatory with complaints of Eye bs3 Pain, Facial Pain. 21:17 72-year-old female no past pertinent medical history presents with pain on the lower bs3 aspect of her eye that started today and is progressed she notes redness right below her eye and some irritation in the corner of her eye she denies fevers chills denies foreign body or anything else happening denies any blurry vision nothing makes it better or worse. Historical: - Allergies: 20:00 PENICILLINS; lg3 - Home Meds: 20:00 aspirin 81 mg Oral tab daily [Active]; lg3 - PMHx: 20:00 Atrial Fib; Hypertension; SVT; lg3 - PSHx: 20:00 cardiac ablasian; lg3 - Immunization history:: Adult Immunizations up to date, Client reports receiving the 2nd dose of the Covid vaccine. - Social history:: Smoking status: Patient denies any tobacco usage or history of. Patient uses alcohol, occasionally. ROS: 21:17 Constitutional: Negative for fever, chills bs3 21:17 All other systems are negative. Exam: 21:17 Constitutional: This is a well developed, well nourished patient who is awake, alert, bs3 and in no acute distress. Head/Face: Normocephalic, atraumatic. Eyes: Pupils equal round and reactive to light, extra-ocular motions intact. Lids and lashes normal. She has significant tenderness right under the nasolacrimal duct on the right eye with swelling and redness it is tender to palpation fluorescein staining is negative ENT: mmm, no posterior phyarngeal erythema Neck: Trachea midline, no thyromegaly, no neck stiffness Chest/axilla: Normal chest wall appearance and motion. Nontender with no deformity. No lesions are appreciated. Cardiovascular: Regular rate and rhythm with a normal S1 and S2. symmetric pulses in upper extremities Neuro: Awake and alert, GCS 15, oriented to person, place, time, and situation. Cranial nerves II-XII grossly intact. Motor strength 5/5 in all extremities. Sensory grossly intact. Psych: Awake, alert, with orientation to person, place and time. Behavior, mood, and affect are within normal limits. Vital Signs: 19:59 BP 152 / 78; Pulse 59; Resp 17 S; Temp 98(O); Pulse Ox 100% on R/A; Weight 77.11 kg lg3 (R); Height 5 ft. 6 in. (R); 19:59 Body Mass Index 27.44 (77.11 kg, 167.64 cm) lg3 MDM: 20:05 Patient medically screened. bs3 21:17 Data reviewed: vital signs, nurses notes. ED course: Patient with likely dacryocystitis bs3 I considered foreign body but evaluated with eversion of her lids and fluorescein staining which was negative she has no blurry vision her pupil is not dilated and her pain is under her eye rather than her eye itself it is not consistent with acute angle glaucoma or temporal arteritis she could have in a very early preseptal cellulitis advised warm soaks antibiotics and baby shampoo. Administered Medications: 21:10 Drug: Tetracaine Ophthalmic Drops 0.5 % 1 drops {Note: administered by elodia Simental MD.} Route: Ophthalmic; Site: right eye; 21:23 Follow up: Response: No adverse reaction [facility] 21:23 Not Given (Physician Discretion): Fluorescein Ophthalmic Strip 1 strip Ophthalmic once [facility] Disposition Summary: 11/08/22 21:20 Discharge Ordered Location: Home bs3 Problem: new bs3 Symptoms: are unchanged bs3 Condition: Stable bs3 Diagnosis - Ocular pain, right eye bs3 Followup: bs3 - With: Private Physician - When: 48 Hours - Reason: Recheck today's complaints Discharge Instructions: - Discharge Summary Sheet bs3 - Dacryocystitis bs3 Forms: - Medication Reconciliation Form bs3 - Thank You Letter bs3 - Antibiotic Education bs3 - Prescription Opioid Use bs3 Prescriptions: - Cephalexin 500 mg Oral Capsule - take 1 capsule by ORAL route every 6 hours for 7 days; 28 capsule; Refills: 0, bs3 Product Selection Permitted Signatures: Cece Corley RN RN 3 aJnnet Syed RN RN 3 Kerr, Anant, MD MD bs3
--- NOTE | 2022-11-08 21:21 | ER ---
Nurse's Notes [facility] Name: Meryl Murray Age: 72 yrs Sex: Female : 1950 Arrival Date: 11/08/2022 Time: 19:01 Bed 16 Private MD: Diagnosis: Ocular pain, right eye Presentation: 11/08 19:59 Chief complaint: Patient states: pain under right eye starting around 1400 today but lg3 now the pain is in my eye and its starting to swell. Coronavirus screen: Client denies travel out of the [place] in the last 14 days. At this time, the client does not indicate any symptoms associated with coronavirus-19. Ebola Screen: No symptoms or risks identified at this time. 19:59 Method Of Arrival: Ambulatory lg3 19:59 Mechanism of Injury: No Mechanism of Injury. The patient denies any loss of vision. lg3 Initial Sepsis Screen: Does the patient meet any 2 criteria? No. Patient's initial sepsis screen is negative. Does the patient have a suspected source of infection? No. Patient's initial sepsis screen is negative. Risk Assessment: Do you want to hurt yourself or someone else? Patient reports no desire to harm self or others. Onset of symptoms was November 08, 2022. 19:59 Acuity: HONG 4 lg3 Triage Assessment: 20:00 General: Appears in no apparent distress. comfortable, Behavior is calm, cooperative. lg3 Pain: Complains of pain in right eye. EENT: No deficits noted. Eyes swelling to right eye . Neuro: No deficits noted. Garcia Agitation-Sedation Scale (RASS): 0 - Alert and Calm Level of Consciousness is awake, alert, obeys commands, Oriented to person, place, time, situation. Cardiovascular: No deficits noted. Denies chest pain, shortness of breath, Capillary refill < 3 seconds Clubbing of nail beds is absent JVD is absent Patient's skin is warm and dry. Respiratory: No deficits noted. Airway is patent Respiratory effort is even, unlabored, Respiratory pattern is regular, symmetrical. GI: No deficits noted. No signs and/or symptoms were reported involving the gastrointestinal system. : No deficits noted. No signs and/or symptoms were reported regarding the genitourinary system. Derm: Skin is intact, is healthy with good turgor, Skin is dry, Skin is normal, Skin temperature is warm swelling and reddening noted to right eye. Musculoskeletal: No deficits noted. No signs and/or symptoms reported regarding the musculoskeletal system. Circulation, motion, and sensation intact. Range of motion: intact in all extremities. Historical: - Allergies: 20:00 PENICILLINS; lg3 - Home Meds: 20:00 aspirin 81 mg Oral tab daily [Active]; lg3 - PMHx: 20:00 Atrial Fib; Hypertension; SVT; lg3 - PSHx: 20:00 cardiac ablasian; lg3 - Immunization history:: Adult Immunizations up to date, Client reports receiving the 2nd dose of the Covid vaccine. - Social history:: Smoking status: Patient denies any tobacco usage or history of. Patient uses alcohol, occasionally. Screenin:15 [facility] ED Fall Risk Assessment (Adult) Score/Fall Risk Level 0 - 2 = Low Risk. Abuse eh3 screen: Denies threats or abuse. Denies injuries from another. Nutritional screening: No deficits noted. Tuberculosis screening: No symptoms or risk factors identified. Assessment: 20:15 General: Appears in no apparent distress. uncomfortable, Behavior is calm, cooperative, eh3 appropriate for age. Pain: Complains of pain in right eye. Neuro: Level of Consciousness is awake, alert, obeys commands, Oriented to person, place, time, situation. Cardiovascular: Capillary refill < 3 seconds Patient's skin is warm and dry. Respiratory: Airway is patent Respiratory effort is even, unlabored, Respiratory pattern is regular, symmetrical. GI: No signs and/or symptoms were reported involving the gastrointestinal system. : No signs and/or symptoms were reported regarding the genitourinary system. EENT: Sclera/Cornea are reddened in outer aspect of conjuctiva of right eye and inner aspect of conjuctiva of right eye Lid(s) swelling of right lower lid. Derm: Skin is pink, warm \T\ dry. Musculoskeletal: No signs and/or symptoms reported regarding the musculoskeletal system. Vital Signs: 19:59 BP 152 / 78; Pulse 59; Resp 17 S; Temp 98(O); Pulse Ox 100% on R/A; Weight 77.11 kg lg3 (R); Height 5 ft. 6 in. (R); 19:59 Body Mass Index 27.44 (77.11 kg, 167.64 cm) lg3 ED Course: 19:03 Patient arrived in ED. mr 20:00 Triage completed. lg3 20:00 Arm band placed on left wrist. lg3 20:05 Anant Kerr MD is Attending Physician. bs3 20:15 Patient has correct armband on for positive identification. eh3 20:34 Jannet Syed, RN is Primary Nurse. eh3 21:25 No provider procedures requiring assistance completed. IV discontinued. eh3 Administered Medications: 21:10 Drug: Tetracaine Ophthalmic Drops 0.5 % 1 drops {Note: administered by elodia Simental MD.} Route: Ophthalmic; Site: right eye; 21:23 Follow up: Response: No adverse reaction eh3 21:23 Not Given (Physician Discretion): Fluorescein Ophthalmic Strip 1 strip Ophthalmic once eh3 Medication: 21:25 VIS not applicable for this client. eh3 Outcome: 21:20 Discharge ordered by MD. bs3 21:32 Discharged to home ambulatory. eh3 21:32 Condition: stable 21:32 Discharge instructions given to patient, Instructed on discharge instructions, follow up and referral plans. medication usage, Demonstrated understanding of instructions, follow-up care, medications, Prescriptions given X 1. 21:33 Patient left the ED. eh3 Signatures: Vish Kusum CorleyCece, RN RN 3 Jannet Syed, GABRIELE RN 3 Anant Kerr MD MD 3
[2022-11-08 22:03] VITALS: BP 152/78; TEMP 98; O2SAT 100
== END 2022-11-08 21:33 | disposition home or self-care (01) ==
LOC: ER 19:01
DX: H57.11 Ocular pain, right eye (principal); I10 Essential (primary) hypertension; I48.91 Unspecified atrial fibrillation; Z88.0 Allergy status to penicillin; Z79.82 Long term (current) use of aspirin

== ENCOUNTER 2022-12-09 13:56 | Emergency (ER) | payer OTHER, MEDICARE ==
--- OUTSIDE RECORDS SUMMARY | 2022-12-09 13:59 | XMS REPORT | Continuity of Care Document ---
:1950 Author Organization [facility] t Address [address] [place] [address] [place] [address] Care Team Providers Name Role Phone Darrell Piedra MD Primary Care Physician [phone] SHANIKA BRAR Attending Clinician Unavailable MD [...] n n 1-21 [facility] 00 [place] HTN HTN Disease Active 2016-[address] [facility] (hypertens (hypertens 1-20 Jennifer kes ion) ion) 00:00: Medical 00 [place] Visual Visual Disease Active 2016-[address] [facility] changes changes 1-20 [facility] 00 [place] Floaters Floaters Disease [facility] 2016[facility] 00 [place] Headache Headache Disease [facility] 2016[facility] 00 [place] Abnormal Abnormal Disease [facility] 2016[facility] stress stress 1-20 [facility] test test 00:00: Medical 00 [place] Sinus Sinus Disease Active 2016-[address] [facility] [address] bradycardi bradycardi 1-20 Jennifer k[facility] a a 00:00: Medical 00 [place] Cavernous Cavernous Disease Active 2016-[address] [facility] sinus sinus 07-09 [facility] thrombosis thrombosis 00:00: Me d[facility] 00 Center Allergies, Adverse Reactions, Alerts Allergy Allergy Status Severity Reaction(s) Onset Inactive Treating Comm ents Source Name Type Date Date Clinician Yamilet Willi Active Hives 2020-06 [facility] ty to 06-[address] adverse 00:00: itching [facility] reaction 00 l s to drug Penicill Propensi Active Rash 2016-[address] [facility] 07[facility]09 [facility] adverse 00:[facility]: Medical reaction 00 Center s Social History Social Habit Start Date Stop Date Quantity Comments Source Gender identity [facility] Alcohol intake 2021-04-30 2021-04-30 Current drinker [facility] 00:00:00 00:00:00 of [facility] (finding) History of Social 2021-04-30 2021-04-[address] function 00:00:00 00:00:00 Hospital Alcohol Comment 2021-04-25 2021-04-25 social [facility] 00:[facility] 00:[facility]:00 [facility] Tobacco use and 2017-05-09 2017-05-[address] [facility] [address] Jennifer kes exposure 00:00:00 00:00:00 tobacco [facility]user [facility] Sex Assigned At [birth year] [facility] 00:[facility] 00:00:00 [facility] Smoking Status Start Date Stop Date Source Never smoked tobacco [facility] Medications Ordered Filled Start Stop [...] tablet 01 (two) l times a day. metoprolol 2020-06 Yes 25mg QD Take 25 [...] Q.5D Take 1 [facility] 0.6 mg 1-[address] tablet 00:00: (0.6 mg [facility]osp[facility] 00 total) by l mouth 2 (two) times a day as needed (Post ablation chest pain). rivaroxaban 2020-06 Yes 20mg QD Take 1 Meth edenilson (XARELTO) 1-05 tablet (20 st 20 mg 00:00: mg total) [facility]osp[facility] tablet 00 by mouth l daily. colchicine 2020-06 Yes .6mg Q.5D Take 1 [facility] di 0.6 mg 1-[address] tablet 00:00: (0.6 mg [facility]osp[facility] 00 total) by l mouth 2 (two) times a day as needed (Post ablation chest pain). aspirin 81 2016-06 Yes 81mg QD Take [address] [facility] EC -22 by mouth [facility] tablet 15:40: daily. Medical 02 Center calcium 2016-06 Yes hypocalcemi 1{tbl} Q.[id number] Take [address] [facility] carbonate 1-22 a [id number] tablet by [facility] (CALCIUM 15:40: prevention 3D mouth 3 Medical CARBONATE) 02 (three) Center 300 mg Chew times daily. metoprolol 2016-06 Yes paroxysmal 25mg Q.5D Take [address] (LOPRESSOR) 1-22 supraventri by mouth 2 [facility] 25 MG 15:40: cular (two) Medical tablet 02 tachycardia times Cente r daily. Procedures This patient has no known procedures. Plan of Care Planned Activity Planned Date Details Comments Source Future Scheduled 2022-12-09 Screening for [facility] Test 12:07:48 malignant neoplasm of colon (procedure) [code = 691148424] Future Scheduled 2022-12-09 Screening for [facility] Test 12:07:48 malignant neoplasm of colon (procedure) [code = 430124472] Future Scheduled 2022-12-09 Screening for [facility] Test 12:07:48 malignant neoplasm of colon (procedure) [code = 609797303] Future Scheduled 2022-12-09 Hepatitis C screening [facility] Test 12:07:48 (procedure) [code = 866272102] Future Scheduled 2022-12-09 BREAST CANCER [facility] Test 12:07:48 SCREENING [code = BREAST CANCER SCREENING] Future Scheduled 2022-12-09 Screening for [facility] Test 12:07:48 malignant neoplasm of colon (procedure) [code = 950120388] Future Scheduled 2022-12-09 Screening for [facility] Test 12:07:48 malignant neoplasm of colon (procedure) [code = 844681342] Future Scheduled 2022-12-09 SHINGLES VACCINES (1 Met [facility] Test 12:07:48 of 2) [code = SHINGLES VACCINES (1 of 2)] Future Scheduled 2022-12-09 65+ PNEUMOCOCCAL [facility] Test 12:07:48 VACCINE (1 - PCV) [code = 65+ PNEUMOCOCCAL VACCINE (1 - PCV)] Future Scheduled 2022-12-09 COVID-19 VACCINE (3 - [facility] Test 12:07:48 Pfizer series) [code = COVID-19 VACCINE (3 - Pfizer series)] Future Scheduled 2022-12-09 INFLUENZA VACCINE [facility] Test 12:07:48 [code = INFLUENZA VACCINE] Future Scheduled 2022-09-23 Hepatitis C screening [facility] Test 13:59:35 (procedure) [code = 861654069] Future Scheduled 2022-09-23 BREAST CANCER [facility] Test 13:59:35 SCREENING [code = BREAST CANCER SCREENING] Future Scheduled 2022-09-23 COLONOSCOPY SCREENING [facility] Test 13:59:35 [code = COLONOSCOPY SCREENING] Future Scheduled 2022-09-23 SHINGLES VACCINES (1 [facility] Test 13:59:35 of 2) [code = SHINGLES VACCINES (1 of 2)] Future Scheduled 2022-09-23 65+ PNEUMOCOCCAL [facility] Test 13:59:35 VACCINE (1 - PCV) [code = 65+ PNEUMOCOCCAL VACCINE (1 - PCV)] Future Scheduled 2022-09-23 COVID-19 VACCINE (3 - [facility] Test 13:59:35 Booster for Pfizer series) [code = COVID-19 VACCINE (3 - Booster for Pfizer series)] Future Scheduled 2022-09-23 [facility]ZA [facility]ACCINE [facility] Test 13:59:35 [code = INFLUENZA VACCINE] Encounters Start End Encounter Admission Attending Care Care Encounter Source Date/Time Date/Time Type Type Clinicians Facility Department ID 2021-04-25 2021-04-25 Outpatient SHANIKA BRAR [facility] 021 [id number] [place] 00:00:00 00:00:[address] 2021-04-23 2021-04-23 Outpatient SHANIKA BRAR [facility] [id number] [place] 00:00:00 00:00:[address] Results Test Description Test Time Test Comments Results Result Comments Source SARS-CoV-2 (COVID-19) RNA [Presence] in Respiratory sp ecimen by 2021-04-23 18:58:52 BRITTANIE with probe detection Test Item Value Reference Range Interpretation Comme nts SARS-CoV-2 (COVID-19) RNA [Presence] in Respiratory Not detected No t-Detected specimen by BRITTANIE with probe detection (test code = 95798-7) 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 employed 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 (test code = 82919-0) Whether the patient has symptoms related to condition of interest (test code = 24869-9) Patient was hospitalized because of this condition (test code = 52431-9) Whether the patient was admitted to intensive care unit (ICU) for condition of interest (test code = 50823-9) Whether patient resides in a congregate care setting (test code = 09585-5) [facility] [id number] 12:19:00Surgical Pathology Report Case: [id number] Authorizing Provider: Razia Rawls MD Collected: 05/11/2017 2234 Ordering Location: [facility] Received: 05/12/2017 1004 SERVICES Pathologist: Radha Gonzalez MD Specimen: Artery, TEMPORAL ARTERY BIOPSY TEMPORAL ARTERY, BIOPSY- TEMPORALARTERY WITHOUT SIGNIFICANT INFLAMMATION Signing Pathologist Direct Phone Line: [phone] signed by Radha Gonzalez MD on 05/14/2017 at 12:19 PMMultiple sections show temporal arterywithout significant inflammation. No granulomata or giant cells are detected. Luminal narrowing is not seen. Areas of hemorrhage that may be related to the procedure are also identified. The Movat stain shows a continuous internal elastic lamina. Findings are not sufficient for diagnosis of temporal arteritis. Clinical correlation is recommended.84414, 07617Qcxax headache and visual changesTemporal artery biopsyThe specimen is received in a formalin- filled container labeled with the patient's information and labeled "temporal artery biopsy" and consists of a wilson-red tubular shaped segment of tissue measuring 2.4 cm in length x 0.1 cm in diameter, submitted in A1. CG/ewPerformed.TSH/FREE T4 IF [id number] 14:41:00 Test Item Value Reference Range Interpretation Comments THYROID STIMULATING HORMONE 2.27 uIU/mL 0.35-4.94 (BEAKER) (test code = 772) TROPONIN [id number] 12:21:00 Test Item Value Reference Range Interpretation [...] acute neurological disease, and persistent tachyarrhythmia.BASIC METABOLIC [id number] 06:27:00 Test Item Value Reference Range Interpretation [...] PATIEN TS. CBC W/PLT COUNT & AUTO [id number] 05:56:00 Test Item Value Reference Range Interpretation [...] PERCENT (BEAKER) (test code = 2801) SEDIMENTATION [id number] 11:51:00 Test Item Value Reference Range Interpretation Comments SEDIMENTATION RATE, ERYTHROCYTE 19 mm/HR 0-40 (BEAKER) (test code = 766) CT, CTANGIO [id number] 11:23:00FINAL REPORT CTV head with contrast INDICATION: [...] mild carotid siphon atherosclerosis. The imaged proximal alturas of Sarah vessels demonstrate no high grade [...] MDReport Verified Date/Time: 05/10/2017 11:23:39 Reading Location: [facility] C013V Neuro Reading Room C-REACTIVE [id number] 10:01:00 Test Item Value Reference Range Interpretation Comments C-REACTIVE PROTEIN (BEAKER) (test 0.80 mg/dL 0.00-0.50 H code = 676) [id number] 09:44:00 Test Item Value Reference Range Interpretation Comments PARTIAL THROMBOPLASTIN TIME 98.5 seconds 22.5-36.0 H (BEAKER) (test code = 760) TROPONIN [id number] 08:37:00 Test Item Value Reference Range Interpretation [...] acute neurological disease, and persistent tachyarrhythmia.BASIC METABOLIC [id number] 04:17:00 Test Item Value Reference Range Interpretation [...] S NOT APPLICABLE FOR DIALYSIS PATIEN TS. [id number] 03:43:00 Test Item Value Reference Range Interpretation [...] mechanical heart valves.CBC W/PLT COUNT & AUTO [id number] 03:34:00 Test Item Value Reference Range Interpretation [...] code = 2801) MR, MRA, BRAIN, WITHOUT [id number] 00:52:00FINAL REPORT MR, MRA, BRAIN, WITHOUT CONTRAST, MR, BRAIN, WITH \\T\\ WITHOUT CONTRAST INDICATION: MRV for suspected cavernous sinus thrombosis TECHNIQUE: Multiplanar, multisequence pre and postcontrast MR images of the brain. Two-dimensional yuoy-lw-viocxi MR venogram of the brain in the [...] Robert MDReport Verified Date/Time: 05/10/2017 00:52:12Reading Location: [address] Reading Room MR, BRAIN, [id number] 00:52:00FINAL REPORT MR, MRA, BRAIN, WITHOUT CONTRAST, MR, BRAIN, WITH \\T\\ WITHOUT CONTRAST INDICATION: MRV for suspected cavernous sinus thrombosis TECHNIQUE: Multiplanar, multisequence pre and postcontrast MR images of the brain. Two-dimensional xmwq-qn-goxroo MR venogram of the brain in the [...] Robert MDReport Verified Date/Time: 05/10/2017 00:52:12Reading Location: [address] Reading Room [id number] 22:46:00 Test Item Value Reference Range Interpretation [...] is 2.5-3.5 for patients with mechanical heart valves.[id number] 14:41:00 Test Item Value Reference Range Interpretation Comments PARTIAL THROMBOPLASTIN TIME 29.6 seconds 22.5-36.0 (BEAKER) (test code = 760) [id number] 08:26:00 Test Item Value Reference Range Interpretation Comments PARTIAL THROMBOPLASTIN TIME 56.2 seconds 22.5-36.0 H (BEAKER) (test code = 760) BASIC METABOLIC [id number] 05:02:00 Test Item Value Reference Range Interpretation [...] PATIEN TS. CBC W/PLT COUNT & AUTO [id number] 04:24:00 Test Item Value Reference Range Interpretation [...] PERCENT (BEAKER) (test code = 2801) TROPONIN [id number] 03:02:00 Test Item Value Reference Range Interpretation [...] failure, acidosis, acute neurological disease, and persistent tachyarrhythmia.[id number] 02:06:00 Test Item Value Reference Range Interpretation Comments PARTIAL THROMBOPLASTIN TIME 72.6 seconds 22.5-36.0 H (BEAKER) (test code = 760) Prior to initiating heparinPROTHROMBIN TIME/[id number] 02:04:00 Test Item Value Reference Range Interpretation [...] Note Provider Source 2017-05-12 17:23:00-00:00 RAZIA RAWLS [facility] REPORT OF PROCEDURE DENISE CHASE FACILITY: [facility] BILLING #: [id number] ROOM: [address] [place] [address] MR #: [id number] : 1950 DATE OF PROCEDURE: 05/11/2017 SURGEON: [...] IN DETAIL: Patient was identified in t holding area. Correct side was marked. In the [...] loss was minimal. IAC/ta P P Job#: [id number] Doc#: [id number] FN: [id number] cc: Razia Rawls MD
[2022-12-09 15:28] LABS: Absolute Lymphocytes (CBC) 2.5 K/uL (0.7-4.9); Hematocrit 38.1 % (36.0-45.0); Lymphocytes % 26.4 % (15.3-44.8); MCV 87.6 fL (80-100); RBC Red Blood Cell Count 4.35 M/uL (3.86-4.86)
[2022-12-09 15:36] LABS: Protime INR 0.9
[2022-12-09 15:45] LABS: Albumin 3.6 g/dL (3.4-5.0); Bilirubin Total 0.2 mg/dL (0.2-1.0); Potassium 3.9 mEq/L (3.5-5.1)
[2022-12-09] MEDS ORDERED: CLINDAMYCIN 900MG/D5W 900 MG/50 ML IVPB IV ONE (15:49)
[2022-12-09] MEDS ORDERED: DIPHENHYDRAMINE 25 MG TAB/CAP ONE (16:04)
--- NOTE | 2022-12-09 16:23 | RAD REPORT ---
EXAM DESCRIPTION: CT - Upper Extremity W/ Cont - 12/09/2022 3:41 pm CLINICAL HISTORY: infection, rule out necrotizing faciitis COMPARISON: No comparisons TECHNIQUE: Thin cut axial angiographic CT imaging of the left upper extremity was performed followin g intravenous administration of 100 mL Isovue- 370. Multiplanar reformats as well as maximum intensit y projection reconstructions were generated and reviewed. All CT scans are performed using dose optimization technique as appropriate and may include automated exposure control or mA/KV adjustment according to patient size. FINDINGS: No suspicious osseous abnormality. Joint alignment is maintained. No effusions. Muscle compartments are unremarkable. Major flexor and extensor tendons at the level of the wrist are unremarkable. Normal opacification and caliber of the visualized axillary, brachial, radial, and ulnar arteries, as well as there proximal branches in the hand. No evidence of aneurysmal dilation or dissection. Subcutaneous swelling along the ventral lateral aspect of the wrist. Adjacent swelling with subcutane ous soft tissue thickening along the ventral aspect of the wrist just opposite the distal radius, bes t appreciated on axial image 102 series 601. No appreciable fluid collections or soft tissue gas. IMPRESSION: No acute abnormalities. No stenosis or occlusion of the major left upper extremity arter ial structures. Nonspecific swelling with subcutaneous soft tissue thickening along the ventral aspect of the wrist j ust opposite the distal radius, best appreciated on axial image 102 series 601. No appreciable fluid collections or soft tissue gas.
--- NOTE | 2022-12-09 16:47 | EDPHYS ---
Physician Documentation [facility] Name: Meryl Murray Age: 72 yrs Sex: Female : 1950 Arrival Date: 12/09/2022 Time: 13:56 Bed 9 Private MD: Darrell Piedra T ED Physician Brian Akbar HPI: 12/09 20:19 This 72 yrs old Female presents to ER via Ambulatory with complaints of Hand Swelling. rt 20:19 Patient presents to the ED with swelling, redness to the left hand that has been rt rapidly progressing. Patient states that she sustained a small abrasion to the dorsum of the left hand overlying the first metacarpal yesterday while she was cutting down branches from a tree. Patient states that at about noon today, she noticed some redness that has been progressively worsening. She reported a tightness but without skin changes to her arm. Denies other acute complaints at this time. Symptoms are aching in nature, not otherwise radiating, no other aggravating or alleviating factors.. 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 - Social history:: Smoking status: Patient denies any tobacco usage or history of. - Family history:: not pertinent. ROS: 20:19 Constitutional: Negative for fever, chills, and weight loss, Cardiovascular: Negative rt for chest pain, palpitations, and edema, Respiratory: Negative for shortness of breath, cough, wheezing, and pleuritic chest pain, Abdomen/GI: Negative for abdominal pain, nausea, vomiting, diarrhea, and constipation, Neuro: Negative for headache, weakness, numbness, tingling, and seizure, Psych: Negative for depression, anxiety, suicide ideation, homicidal ideation, and hallucinations. 20:19 Skin: Positive for cellulitis, erythema. Exam: 20:19 Constitutional: This is a well developed, well nourished patient who is awake, alert, rt and in no acute distress. Head/Face: Normocephalic, atraumatic. Chest/axilla: Normal chest wall appearance and motion. Nontender with no deformity. No lesions are appreciated. Cardiovascular: Regular rate and rhythm with a normal S1 and S2. No gallops, murmurs, or rubs. Normal PMI, no JVD. No pulse deficits. Respiratory: Lungs have equal breath sounds bilaterally, clear to auscultation and percussion. No rales, rhonchi or wheezes noted. No increased work of breathing, no retractions or nasal flaring. Abdomen/GI: Soft, non-tender, with normal bowel sounds. No distension or tympany. No guarding or rebound. No evidence of tenderness throughout. Neuro: Awake and alert, GCS 15, oriented to person, place, time, and situation. Cranial nerves II-XII grossly intact. Motor strength 5/5 in all extremities. Sensory grossly intact. Cerebellar exam normal. Normal gait. Psych: Awake, alert, with orientation to person, place and time. Behavior, mood, and affect are within normal limits. 20:19 ECG was reviewed by the Attending Physician. 20:19 Musculoskeletal/extremity: Abrasion noted just proximal to the left thumb, there is surrounding cellulitis involving most of the hand, up to the wrist. She has full range of motion of the wrist. Pulses, motor, sensation intact, compartments are soft, no crepitus felt. Vital Signs: 14:32 BP 136 / 69; Pulse 63; Resp 18; Temp 97.6; Pulse Ox 99% on R/A; Weight 77.11 kg; Height ph 5 ft. 6 in. ; 14:32 Body Mass Index 27.44 (77.11 kg, 167.64 cm) ph MDM: 14:37 Patient medically screened. rt 20:19 Differential diagnosis: Necrotizing fasciitis, deep space infection, cellulitis. Data rt reviewed: vital signs, nurses notes, lab test result(s), EKG, radiologic studies. Consideration of Admission/Observation Escalation of care including admission/observation considered. Given rapid progression of these swelling and redness, did consider admitting the patient to the hospital. CT scan was obtained that shows no evidence for necrotizing fasciitis. Labs including sodium, WBCs, lactate are all unremarkable. Patient has stable vital signs. She has no clinical indicators for sepsis. I discussed all of these findings with the patient including my concerns given the rapid progression. I believe that at this point, the patient is appropriate for trial of outpatient antibiotics as there are no clear indications for admission to the hospital at this time. There is no abscess requiring I\T\D. I did discuss with the patient that the cellulitis may worsen and if it does for her to come back immediately for a recheck and consideration for admission for IV antibiotics. Patient verbalizes understanding and is comfortable with this plan.. I considered the following discharge prescriptions or medication management in the emergency department Medications were administered in the Emergency Department. See MAR. Independent interpretation of the following test(s) in the Emergency Department CT Scan: My interpretation is No abscess seen on interpretation of the CT scan images. Test considered but Not performed: Ultrasound Symptoms are not consistent with a DVT, duplex ultrasound is not indicated. Care significantly affected by the following chronic conditions: Hypertension. Counseling: I had a detailed discussion with the patient and/or guardian regarding: the historical points, exam findings, and any diagnostic results supporting the discharge/admit diagnosis, lab results, radiology results, the need for outpatient follow up, to return to the emergency department if symptoms worsen or persist or if there are any questions or concerns that arise at home. 12/09 14:48 Order name: Blood Culture Adult (2) rt 12/09 14:48 Order name: CBC with Diff; Complete Time: 15:48 rt 12/09 14:48 Order name: CMP; Complete Time: 15:48 rt 12/09 14:48 Order name: Lactate w/ 2H reflex if indic.; Complete Time: 15:48 rt 12/09 14:48 Order name: Protime (+inr); Complete Time: 15:48 rt 12/09 14:48 Order name: Ptt, Activated; Complete Time: 15:48 rt 12/09 15:00 Order name: Upper Extremity W/ Cont; Complete Time: 16:28 EDMS 12/09 14:48 Order name: EKG - Nurse/Tech; Complete Time: 15:54 rt 12/09 14:48 Order name: IV Saline Lock - Large Bore; Complete Time: 15:18 rt 12/09 14:48 Order name: Labs collected and sent; Complete Time: 15:18 rt 12/09 14:48 Order name: O2 Per Protocol; Complete Time: 15:34 rt 12/09 14:48 Order name: O2 Sat Monitoring; Complete Time: 15:34 rt 12/09 14:48 Order name: Vital Signs; Complete Time: 15:34 rt EC:19 Rate is 61 beats/min. Rhythm is regular, Normal Sinus Rhythm with No ectopy. QRS Triangle rt is Normal. MD interval is normal. QRS interval is normal. QT interval is normal. No Q waves. T waves are Normal. No ST changes noted. Interpreted by me. Administered Medications: 16:07 Drug: Clindamycin IVPB 900 mg Route: IVPB; Infused Over: 30 mins; Site: right ss antecubital; 16:07 Drug: diphenhydrAMINE PO 50 mg Route: PO; 17:09 Follow up: Response: No adverse reaction; Marked relief of symptoms ss 17:09 Drug: Doxycycline PO 100 mg Route: PO; 17:09 Follow up: Response: Medication administered at discharge. Disposition Summary: 12/09/22 16:47 Discharge Ordered Location: Home rt Problem: new rt Symptoms: are unchanged rt Condition: Stable rt Diagnosis - Cellulitis to left upper extremity rt Followup: rt - With: Darrell Piedra MD - When: 2 - 3 days - Reason: Followup: rt - With: Emergency Department - When: - Reason: Worsening of condition Discharge Instructions: - Discharge Summary Sheet rt - Cellulitis, Adult rt Forms: - Medication Reconciliation Form rt - Thank You Letter rt - Antibiotic Education rt - Prescription Opioid Use rt Prescriptions: - Doxycycline Monohydrate 100 mg Oral Tablet - take 1 tablet by ORAL route every 12 hours for 10 days; 20 tablet; Refills: 0, rt Product Selection Permitted Signatures: Dispatcher [employer] Nichole Young RN RN Keri Syed RN RN Brian Akbar MD MD rt Corrections: (The following items were deleted from the chart) 15:00 14:53 CT LEFT HAND WO CONTRAST ordered. EDMS ED
--- NOTE | 2022-12-09 16:47 | ER ---
Nurse's Notes [facility] Name: Meryl Murray Age: 72 yrs Sex: Female : 1950 Arrival Date: 12/09/2022 Time: 13:56 Bed 9 Private MD: Darrell Piedra T Diagnosis: Cellulitis to left upper extremity Presentation: 12/09 14:32 Chief complaint: Patient states: Swelling and itching to L hand, small wound to thumb ph sustained yesterday while working in the yard, states, " I noticed the swelling today around noon and since I've been her it's gotten worse." Swelling noted to dorsal aspect of L hand. Coronavirus screen: Vaccine status: Patient reports receiving the 1st dose of the Covid vaccine. Ebola Screen: No symptoms or risks identified at this time. Initial Sepsis Screen: Does the patient meet any 2 criteria? No. Patient's initial sepsis screen is negative. Does the patient have a suspected source of infection? Yes: Skin breakdown/wound. Risk Assessment: Do you want to hurt yourself or someone else? Patient reports no desire to harm self or others. Onset of symptoms was December 09, 2022. 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 - Social history:: Smoking status: Patient denies any tobacco usage or history of. - Family history:: not pertinent. Screenin:13 [facility] ED Fall Risk Assessment (Adult) History of falling in the last 3 months, ss including since admission No falls in past 3 months (0 pts). Abuse screen: Denies threats or abuse. Denies injuries from another. Nutritional screening: No deficits noted. Tuberculosis screening: Never had TB. Assessment: 15:35 Reassessment: Pt in CT at this time. ss 16:13 General: Appears in no apparent distress. Behavior is calm, cooperative. Pain: ss Complains of pain in left hand Pain currently is 4 out of 10 on a pain scale. Neuro: Level of Consciousness is awake, alert, obeys commands. Respiratory: Airway is patent Respiratory effort is even, unlabored, Respiratory pattern is regular, symmetrical. GI: Patient currently denies abdominal pain, nausea. Derm: redness/ swelling noted to L hand/ wrist. Pt reports she noticed it today. Small abrasion noted at base of thumb Reports itching, since 1200 today. Vital Signs: 14:32 BP 136 / 69; Pulse 63; Resp 18; Temp 97.6; Pulse Ox 99% on R/A; Weight 77.11 kg; Height ph 5 ft. 6 in. ; 14:32 Body Mass Index 27.44 (77.11 kg, 167.64 cm) ph ED Course: 13:59 Patient arrived in ED. mr 13:59 Darrell Piedra MD is Private Physician. mr 14:34 Triage completed. ph 14:35 Arm band placed on. ph 14:36 Brian Akbar MD is Attending Physician. rt 15:00 First set of blood cultures drawn by me. zm 15:15 Inserted saline lock: 20 gauge in right antecubital area, using aseptic technique. zm Blood collected. 15:15 Second set of blood cultures drawn. zm 15:15 Initial lab(s) drawn, by me, sent to lab. zm 15:18 Blood Culture Adult (2) Sent. zm 15:18 CBC with Diff Sent. zm 15:18 CMP Sent. zm 15:18 Lactate w/ 2H reflex if indic. Sent. zm 15:18 Protime (+inr) Sent. zm 15:18 Ptt, Activated Sent. zm 15:34 Nichole Cedeno, RN is Primary Nurse. ss 15:43 Upper Extremity W/ Cont In Process Unspecified. EDMS 16:13 Patient has correct armband on for positive identification. ss 16:45 Darrell Piedra MD is Referral Physician. rt 17:10 No provider procedures requiring assistance completed. IV discontinued, intact, ss bleeding controlled, No redness/swelling at site. Pressure dressing applied. Administered Medications: 16:07 Drug: Clindamycin IVPB 900 mg Route: IVPB; Infused Over: 30 mins; Site: right ss antecubital; 16:07 Drug: diphenhydrAMINE PO 50 mg Route: PO; ss 17:09 Follow up: Response: No adverse reaction; Marked relief of symptoms ss 17:09 Drug: Doxycycline PO 100 mg Route: PO; ss 17:09 Follow up: Response: Medication administered at discharge. ss Medication: 16:13 VIS not applicable for this client. ss Outcome: 16:47 Discharge ordered by MD. rt 17:10 Discharged to home ambulatory. ss 17:10 Condition: good 17:10 Discharge instructions given to patient, Instructed on discharge instructions, follow up and referral plans. medication usage, Demonstrated understanding of instructions, follow-up care, medications, Prescriptions given X 1. 17:12 Patient left the ED. ss Signatures: Dispatcher [employer] NASGA Kusum Wahl Nichole Cedeno RN RN ss Keri Syed RN RN Johnson, Chandni Brian Akbar MD MD rt Corrections: (The following items were deleted from the chart) 15:17 15:00 Inserted saline lock: 20 gauge in right antecubital area, using aseptic technique. Blood collected. 15:17 15:17 Inserted saline lock: 20 gauge in right antecubital area, using aseptic technique. Blood collected.
[2022-12-09] MEDS ORDERED: DOXYCYCLINE 100 MG CAP PO ONE (17:10)
[2022-12-09 17:28] VITALS: BP 136/69; TEMP 97.6; O2SAT 99
--- NOTE | 2022-12-10 17:42 | EKG ---
Test Date: 2022-12-09 Test Time: 15:51:57 Directional Driller: CIARRA MEASUREMENT RESULTS: Intervals: Rate: 61 MO: 200 QRSD: 102 QT: 412 QTc: 414 Faxon: P: 81 MO: 200 QRS: 4 T: 56 INTERPRETIVE STATEMENTS: Normal sinus rhythm Normal ECG Compared to ECG 10/01/2021 18:01:46 Incomplete right bundle-branch block no longer present Electronically Signed On 12-10-22 17:39:37 CDT by Niall Marshall
== END 2022-12-09 17:12 | disposition home or self-care (01) ==
LOC: ER 13:56
DX: L03.114 Cellulitis of left upper limb (principal); I10 Essential (primary) hypertension; I48.91 Unspecified atrial fibrillation; Z88.0 Allergy status to penicillin
CPT/HCPCS: 87040 ×2; 85025; 36415; 85610; 83605; 85730; 80053; 73201; Q9967; 93005

== ENCOUNTER 2023-02-08 09:21 | Emergency (ER) | payer OTHER, MEDICARE ==
--- OUTSIDE RECORDS SUMMARY | 2023-02-08 09:24 | XMS REPORT | Continuity of Care Document ---
:1950 Author Organization [facility] t Address [address] [place] [address] [place] [id number] Care Team Providers Name Role Phone Darrell Piedra MD Primary Care Physician [phone] SHANIKA BRAR Attending Clinician Unavailable MD [...] n n 1-21 [facility] [place] HTN HTN Disease Active 2016-[address] [facility] (hypertens (hypertens 1-20 Jennifer kes ion) ion) 00:00: Medical 00 [place] Visual Visual Disease Active 2016-[address] [facility] changes changes 1-20 [facility] [place] Floaters Floaters Disease [facility] 2016[facility] [place] Headache Headache Disease [facility] 2016[facility] [place] Abnormal Abnormal Disease [facility] 2016[facility] stress stress 1-20 [facility] test test 00:00: [facility] 00 [place] Sinus Sinus Disease Active 2016-[address] [facility] [address] bradycardi bradycardi 1-20 Jennifer kes a a 00:00: Medical 00 [place] Cavernous Cavernous Disease Active 2016-[address] [facility] [address] [...] Stop Date Quantity Comments Source Gender identity [facility] Alcohol intake 2021-04-30 2021-04-30 Current drinker [facility] 00:00:00 00:00:00 of [facility] (finding) History of Social 2021-04-30 2021-04-[address] function 00:00:00 00:00:00 Hospital Alcohol Comment 2021-04-25 2021-04-25 social [facility]00 [facility] Tobacco use and 2017-05-09 2017-05-[address] [facility] [address] Jennifer kes exposure 00:00:00 00:00:00 [facility] Sex Ass[facility] At [birth year] [facility] 00[facility] 00[facility]00[facility]00 [facility] Smoking Status Start Date Stop Date Source Never smoked tobacco [facility] Medications Ordered Filled Start Stop [...] 22 by mouth [facility] tablet 15:40: daily. [address] calcium 2016-06 Yes hypocalcemi 1{tbl} [id number] Take [address] [facility] carbonate 1-22 a [id number] tablet by [facility] (CALCIUM 15:40: prevention 3D [...] Planned Date Details Comments Source Future Scheduled 2023-01-20 Screening for [facility] Test 11:07:18 malignant neoplasm of colon (procedure) [code = 493085409] Future Scheduled 2023-01-20 Screening for [facility] Test 11:07:18 malignant neoplasm of colon (procedure) [code = 594099830] Future Scheduled 2023-01-20 SHINGLES VACCINES (1 [facility] Test 11:07:18 of 2) [code = SHINGLES VACCINES (1 of 2)] Future Scheduled 2023-01-20 65+ PNEUMOCOCCAL [facility] Test 11:07:18 VACCINE (1 - PCV) [code = 65+ PNEUMOCOCCAL VACCINE (1 - PCV)] Future Scheduled 2023-01-20 COVID-19 VACCINE (3 - [facility] Test 11:07:18 Pfizer series) [code = COVID-19 VACCINE (3 - Pfizer series)] Future Scheduled 2023-01-20 INFLUENZA VACCINE [facility] Test 11:07:18 [code = INFLUENZA VACCINE] Future Scheduled 2023-01-20 Screening for [facility] Test 11:07:18 malignant neoplasm of colon (procedure) [code = 473538499] Future Scheduled 2023-01-20 Screening for [facility] Test 11:07:18 malignant neoplasm of colon (procedure) [code = 378703360] Future Scheduled 2023-01-20 Screening for [facility] Test 11:07:18 malignant neoplasm of colon (procedure) [code = 047112224] Future Scheduled 2023-01-20 Hepatitis C screening [facility] Test 11:07:18 (procedure) [code = 688547413] Future Scheduled 2023-01-20 BREAST CANCER [facility] Test 11:07:18 SCREENING [code = BREAST CANCER SCREENING] Future Scheduled 2022-12-09 Screening for [facility] Test 12:07:48 malignant neoplasm of colon (procedure) [code = 898634828] Future Scheduled 2022-12-09 Screening for [facility] Test 12:07:48 malignant neoplasm of colon (procedure) [code = 183696324] Future Scheduled 2022-12-09 Screening for [facility] Test 12:07:48 malignant neoplasm of colon (procedure) [code = 989501055] Future Scheduled 2022-12-09 Hepatitis C screening [facility] Test 12:07:48 (procedure) [code = 700052039] Future Scheduled 2022-12-09 BREAST CANCER [facility] Test 12:07:48 SCREENING [code = BREAST CANCER SCREENING] Future Scheduled 2022-12-09 Screening for [facility] Test 12:07:48 malignant neoplasm of colon (procedure) [code = 309105678] Future Scheduled 2022-12-09 Screening for [facility] Test 12:07:48 malignant neoplasm of colon (procedure) [code = 131079064] Future Scheduled 2022-12-09 SHINGLES VACCINES (1 [facility] Test 12:07:48 of 2) [code = SHINGLES VACCINES (1 of 2)] Future Scheduled 2022-12-09 65+ [facility] 12:07:48 VACCINE (1 - PCV) [code = 65+ PNEUMOCOCCAL VACCINE (1 - PCV)] Future Scheduled 2022-12-09 COVID-19 VACCINE (3 - [facility] Test 12:07:48 Pfizer series) [code = COVID-19 VACCINE (3 - Pfizer series)] Future Scheduled 2022-12-09 INFLUENZA VACCINE [facility] Test 12:07:48 [code = INFLUENZA VACCINE] Future Scheduled 2022-09-23 Hepatitis C screening [facility] Test 13:59:35 (procedure) [code = 084536740] Future Scheduled 2022-09-23 BREAST CANCER [facility] Test 13:59:35 SCREENING [code = BREAST CANCER SCREENING] Future Scheduled 2022-09-23 COLONOSCOPY SCREENING [facility] Test 13:59:35 [code = COLONOSCOPY SCREENING] Future Scheduled 2022-09-23 SHINGLES VACCINES (1 [facility] Test 13:59:35 of 2) [code = SHINGLES VACCINES (1 of 2)] Future Scheduled 2022-09-23 65+ [facility] Test 13:59:35 VACCINE (1 - PCV) [code = 65+ PNEUMOCOCCAL VACCINE (1 - PCV)] Future Scheduled 2022-09-23 COVID-19 VACCINE (3 - [facility] Test 13:59:35 Booster for Pfizer series) [code = COVID-19 VACCINE (3 - Booster for Pfizer series)] Future Scheduled 2022-09-23 [facility]ACCINE [facility] Test 13:59:35 [code = INFLUENZA VACCINE] Encounters Start End Encounter Admission Attending Care Care Encounter Source Date/Time Date/Time Type Type Clinicians Facility Department ID 2021-04-25 2021-04-25 Outpatient SHANIKA BRAR [facility] [id number] [place] 00:00:00 00:00:[address] 2021-04-23 2021-04-23 Outpatient SHANIKA BRAR [facility] [id number] [place] 00:00:00 00:00:[address] Results Test Description Test Time Test Comments Results Result Comments Source SARS-CoV-2 (COVID-19) RNA [Presence] in Respiratory sp ecimen by 2021-04-23 18:58:52 BRITTANIE with probe detection Test Item Value Reference Range Interpretation Comme nts SARS-CoV-2 (COVID-19) RNA [Presence] in Respiratory Not detected No t-Detected specimen by BRITTANIE with probe detection (test code = 54652-8) 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 employed 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 (test code = 99581-8) Whether the patient has symptoms related to condition of interest (test code = 30185-0) Patient was hospitalized because of this condition (test code = 03085-2) Whether the patient was admitted to intensive care unit (ICU) for condition of interest (test code = 71495-2) Whether patient resides in a congregate care setting (test code = 35291-8) [facility] [id number] 12:19:00Surgical Pathology Report Case: [id number] Authorizing Provider: Razia Rawls MD Collected: 05/11/2017 2234 Ordering Location: [facility] Received: 05/12/2017 1004 SERVICES Pathologist: Radha Gonzalez MD Specimen: Artery, TEMPORAL ARTERY BIOPSY TEMPORAL ARTERY, BIOPSY- TEMPORALARTERY WITHOUT SIGNIFICANT INFLAMMATION Signing Pathologist Direct Phone Line: [phone] signed by Radha Gonzalez MD on 05/14/2017 at 12:19 PMMultiple sections show temporal arterywithout significant inflammation. No granulomata or giant cells are detected. Luminal narrowing is not seen. Areas of hemorrhage that may be related to the procedure are also identified. The Movat stain shows a continuous internal elastic lamina. Findings are not sufficient for diagnosis of temporal arteritis. Clinical correlation is recommended.29861, 37189Fzqer headache and visual changesTemporal artery biopsyThe specimen is received in a formalin- filled container labeled with the patient's information and labeled "temporal artery biopsy" and consists of a wilson-red tubular shaped segment of tissue measuring 2.4 cm in length x 0.1 cm in diameter, submitted in A1. CG/ewPerformed.TSH/FREE T4 IF [id number] 14:41:00 Test Item Value Reference Range Interpretation Comments THYROID STIMULATING HORMONE 2.27 uIU/mL 0.35-4.94 (BEAKER) (test code = 772) TROPONIN [id number] 12:21:00 Test Item Value Reference Range Interpretation [...] acute neurological disease, and persistent tachyarrhythmia.BASIC METABOLIC [id number] 06:27:00 Test Item Value Reference Range Interpretation [...] PATIEN TS. CBC W/PLT COUNT & AUTO [id number] 05:56:00 Test Item Value Reference Range Interpretation [...] PERCENT (BEAKER) (test code = 2801) SEDIMENTATION [id number] 11:51:00 Test Item Value Reference Range Interpretation Comments SEDIMENTATION RATE, ERYTHROCYTE 19 mm/HR 0-40 (BEAKER) (test code = 766) CT, CTANGIO [id number] 11:23:00FINAL REPORT CTV head with contrast INDICATION: [...] mild carotid siphon atherosclerosis. The imaged proximal [place] vessels demonstrate no high grade [...] MDReport Verified Date/Time: 05/10/2017 11:23:39 Reading Location: [address] Neuro Reading Room C-REACTIVE [id number] 10:01:00 Test Item Value Reference Range Interpretation Comments C-REACTIVE PROTEIN (BEAKER) (test 0.80 mg/dL 0.00-0.50 H code = 676) [id number] 09:44:00 Test Item Value Reference Range Interpretation Comments PARTIAL THROMBOPLASTIN TIME 98.5 seconds 22.5-36.0 H (BEAKER) (test code = 760) TROPONIN [id number] 08:37:00 Test Item Value Reference Range Interpretation [...] acute neurological disease, and persistent tachyarrhythmia.BASIC METABOLIC [id number] 04:17:00 Test Item Value Reference Range Interpretation [...] S NOT APPLICABLE FOR DIALYSIS PATIEN TS. [id number] 03:43:00 Test Item Value Reference Range Interpretation [...] mechanical heart valves.CBC W/PLT COUNT & AUTO [id number] 03:34:00 Test Item Value Reference Range Interpretation [...] code = 2801) MR, MRA, BRAIN, WITHOUT [id number] 00:52:00FINAL REPORT MR, MRA, BRAIN, WITHOUT CONTRAST, MR, BRAIN, WITH \\T\\ WITHOUT CONTRAST INDICATION: MRV for suspected cavernous sinus thrombosis TECHNIQUE: Multiplanar, multisequence pre and postcontrast MR images of the brain. Two-dimensional nnug-uf-mxsczs MR venogram of the brain in the [...] Robert MDReport Verified Date/Time: 05/10/2017 00:52:12Reading Location: [address] Reading Room MR, BRAIN, [id number] 00:52:00FINAL REPORT MR, MRA, BRAIN, WITHOUT CONTRAST, MR, BRAIN, WITH \\T\\ WITHOUT CONTRAST INDICATION: MRV for suspected cavernous sinus thrombosis TECHNIQUE: Multiplanar, multisequence pre and postcontrast MR images of the brain. Two-dimensional esrm-yg-uyygun MR venogram of the brain in the [...] Robert MDReport Verified Date/Time: 05/10/2017 00:52:12Reading Location: [address] Reading Room [id number] 22:46:00 Test Item Value Reference Range Interpretation [...] is 2.5-3.5 for patients with mechanical heart valves.[id number] 14:41:00 Test Item Value Reference Range Interpretation Comments PARTIAL THROMBOPLASTIN TIME 29.6 seconds 22.5-36.0 (BEAKER) (test code = 760) [id number] 08:26:00 Test Item Value Reference Range Interpretation Comments PARTIAL THROMBOPLASTIN TIME 56.2 seconds 22.5-36.0 H (BEAKER) (test code = 760) BASIC METABOLIC [id number] 05:02:00 Test Item Value Reference Range Interpretation [...] PATIEN TS. CBC W/PLT COUNT & AUTO [id number] 04:24:00 Test Item Value Reference Range Interpretation [...] PERCENT (BEAKER) (test code = 2801) TROPONIN [id number] 03:02:00 Test Item Value Reference Range Interpretation [...] failure, acidosis, acute neurological disease, and persistent tachyarrhythmia.[id number] 02:06:00 Test Item Value Reference Range Interpretation Comments PARTIAL THROMBOPLASTIN TIME 72.6 seconds 22.5-36.0 H (BEAKER) (test code = 760) Prior to initiating heparinPROTHROMBIN TIME/[id number] 02:04:00 Test Item Value Reference Range Interpretation [...] Note Provider Source 2017-05-12 17:23:00-00:00 RAZIA RAWLS [facility] REPORT OF PROCEDURE NAKIA CHASEON Mely FACILITY: [facility] BILLING #: [id number] ROOM: [address] [place] [address] MR #: [id number] : 1950 DATE OF PROCEDURE: 05/11/2017 SURGEON: [...] IN DETAIL: Patient was identified in t he holding area. Correct side was marked. In [...] loss was minimal. IAC/ta P P Job#: [id number] Doc#: [id number] FN: [id number] cc: Razia Rawls MD
--- NOTE | 2023-02-08 10:53 | RAD REPORT ---
EXAM DESCRIPTION: RAD - Foot Left 3 View - 02/08/2023 10:45 am CLINICAL HISTORY: trauma COMPARISON: No comparisons FINDINGS/IMPRESSION: No acute fracture. No malalignment. Remote healed fourth and fifth metatarsal f racture.
--- NOTE | 2023-02-08 10:59 | ER ---
Nurse's Notes [facility] Name: Meryl Murray Age: 72 yrs Sex: Female : 1950 Arrival Date: 02/08/2023 Time: : Bed 4 Private MD: Diagnosis: Fracture of fifth metatarsal bone;Fracture of fourth metatarsal bone Presentation: 02/08 09:29 Chief complaint: Patient states: Kicked metal chair leg 01/23/23. Pain since. Coronavirus pf1 screen: Client denies travel out of the [place] in the last 14 days. At this time, the client does not indicate any symptoms associated with coronavirus-19. Ebola Screen: Patient denies travel to an Ebola-affected area in the 21 days before illness onset. Initial Sepsis Screen: Does the patient meet any 2 criteria? No. Patient's initial sepsis screen is negative. Does the patient have a suspected source of infection? Yes: Bone or joint infection. Risk Assessment: Do you want to hurt yourself or someone else? Patient reports no desire to harm self or others. Onset of symptoms was January 23, 2023. 09:29 Method Of Arrival: Ambulatory pf1 09:29 Acuity: HONG 4 pf1 Triage Assessment: 09:30 General: Appears in no apparent distress. Behavior is cooperative, appropriate for age, bp anxious. Pain: Complains of pain in left foot. EENT: No deficits noted. Neuro: No deficits noted. Cardiovascular: No deficits noted. Respiratory: No deficits noted. GI: No signs and/or symptoms were reported involving the gastrointestinal system. : No signs and/or symptoms were reported regarding the genitourinary system. Derm: No deficits noted. Musculoskeletal: Reports pain in left foot. Injury Description: Bruise sustained to left foot. 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 - Social history:: Smoking status: Patient denies any tobacco usage or history of. Screenin:53 [facility] ED Fall Risk Assessment (Adult) History of falling in the last 3 months, bp including since admission No falls in past 3 months (0 pts). Abuse screen: Denies threats or abuse. Denies injuries from another. Nutritional screening: No deficits noted. Tuberculosis screening: No symptoms or risk factors identified. Assessment: 09:30 General: SEE TRIAGE NOTE. bp 11:11 Reassessment: Patient appears in no apparent distress at this time. No changes from ld1 previously documented assessment. Patient and/or family updated on plan of care and expected duration. Pain level reassessed. Patient is alert, oriented x 3, equal unlabored respirations, skin warm/dry/pink. Patient states symptoms have improved. Vital Signs: 09:29 BP 147 / 73; Pulse 60; Resp 16; Pulse Ox 97% ; Weight 72.12 kg; Height 5 ft. 6 in. ; pf1 Pain 4/10; 11:11 BP 139 / 76; Pulse 61; Resp 18; Pulse Ox 98% on R/A; ld1 09:29 Body Mass Index 25.66 (72.12 kg, 167.64 cm) pf1 09:29 Pain Scale: Adult pf1 ED Course: 09:23 Patient arrived in ED. im 09:26 Arm band placed on. jl7 09:30 Triage completed. pf1 09:32 Mayi Dickerson, MAY is PHCP. aj3 09:32 Jose Bello MD is Attending Physician. aj3 09:38 Chad Fox, GABRIELE is Primary Nurse. bp 09:53 Patient has correct armband on for positive identification. Bed in low position. Call bp light in reach. Side rails up X2. 10:42 Foot Left 3 View XRAY In Process Unspecified. EDMS 10:58 Butch Torres MD is Referral Physician. aj3 11:11 Pulse ox on. NIBP on. Door closed. Noise minimized. ld1 11:11 No provider procedures requiring assistance completed. Patient did not have IV access ld1 during this emergency room visit. Administered Medications: No medications were administered Medication: 11:11 VIS not applicable for this client. ld1 Outcome: 10:58 Discharge ordered by . aj3 11:11 Discharged to home ambulatory. ld1 11:11 Condition: stable 11:11 Discharge instructions given to patient, Instructed on discharge instructions, follow up and referral plans. Demonstrated understanding of instructions, follow-up care. 11:12 Patient left the ED. ld1 Signatures: Dispatcher [employer] EDMS Silke Meza RN RN jl7 Chad Fox, RN RN bp Shavonne Pisano, RN RN ld1 Mayi Dickerson, DIVER ASSISTANT DIVER ASSISTANT aj3 Suki Moncada, RN RN pf1 Afshan Pettit
--- NOTE | 2023-02-08 10:59 | EDPHYS ---
Physician Documentation [facility] Name: Meryl Murray Age: 72 yrs Sex: Female : 1950 Arrival Date: 02/08/2023 Time: : Bed 4 Private MD: ED Physician Jose Bello HPI: 02/08 10:00 This 72 yrs old Female presents to ER via Ambulatory with complaints of Foot Injury - aj3 on 01/23. 10:00 Patient reports hitting her foot against an iron chair and noticed that her left pinky aj3 toe went sideways so she irlanda taped it but is still having pain despite doing conservative treatment. She believes that she may have broken her toe. No other injuries reported.. 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 - Social history:: Smoking status: Patient denies any tobacco usage or history of. ROS: 10:00 Constitutional: Negative for fever, chills, and weight loss, Cardiovascular: Negative aj3 for chest pain, palpitations, and edema, Respiratory: Negative for shortness of breath, cough, wheezing, and pleuritic chest pain, Skin: Negative for injury, rash, and discoloration, Neuro: Negative for syncope, headache, weakness, numbness, tingling, and seizure. 10:00 MS/extremity: Positive for injury or acute deformity, pain, swelling, tenderness, Left fifth digit/lateral foot, Negative for ecchymosis, paresthesias, tingling. Exam: 10:00 Constitutional: This is a well developed, well nourished patient who is awake, alert, aj3 and in no acute distress. Head/Face: Normocephalic, atraumatic. Cardiovascular: Regular rate and rhythm with a normal S1 and S2. No gallops, murmurs, or rubs. Normal PMI, no JVD. No pulse deficits. Respiratory: Lungs have equal breath sounds bilaterally, clear to auscultation and percussion. No rales, rhonchi or wheezes noted. No increased work of breathing, no retractions or nasal flaring. Neuro: Awake and alert, GCS 15, oriented to person, place, time, and situation. Motor strength 5/5 in all extremities. Sensory grossly intact. Normal gait. 10:00 Musculoskeletal/extremity: Exam is negative for Extremities: Left foot with fifth digit erythema/edema/tenderness, tenderness to the left lateral MTP. Vital Signs: 09:29 BP 147 / 73; Pulse 60; Resp 16; Pulse Ox 97% ; Weight 72.12 kg; Height 5 ft. 6 in. ; pf1 Pain 4/10; 11:11 BP 139 / 76; Pulse 61; Resp 18; Pulse Ox 98% on R/A; ld1 09:29 Body Mass Index 25.66 (72.12 kg, 167.64 cm) pf1 09:29 Pain Scale: Adult pf1 MDM: 09:32 Patient medically screened. aj3 10:00 Differential diagnosis: dislocation, closed fracture, contusion, tendonitis. aj3 10:30 Data reviewed: vital signs, nurses notes, radiologic studies, plain films. Independent aj3 interpretation of the following test(s) in the Emergency Department X-Ray: My interpretation is No dislocation noted. Care significantly affected by the following chronic conditions: Hypertension. Counseling: I had a detailed discussion with the patient and/or guardian regarding the historical points, exam findings, and any diagnostic results supporting the discharge/admit diagnosis, radiology results, the need for outpatient follow up, to return to the emergency department if symptoms worsen or persist or if there are any questions or concerns that arise at home. 02/08 09:49 Order name: Foot Left 3 View XRAY; Complete Time: 10:54 aj3 02/08 10:58 Order name: Walking boot; Complete Time: 11:11 aj3 Administered Medications: No medications were administered Disposition Summary: 02/08/23 10:58 Discharge Ordered Location: Home aj3 Problem: new aj3 Symptoms: are unchanged aj3 Condition: Stable aj3 Diagnosis - Fracture of fifth metatarsal bone aj3 - Fracture of fourth metatarsal bone aj3 Followup: aj3 - With: - When: - Reason: Worsening of condition, Recheck today's complaints Discharge Instructions: - Discharge Summary Sheet aj3 - Metatarsal Fracture aj3 Forms: - Medication Reconciliation Form aj3 - Thank You Letter aj3 - Antibiotic Education aj3 - Prescription Opioid Use aj3 - Patient Portal Instructions aj3 - Leadership Thank You Letter aj3 Signatures: Dispatcher [employer] Mayi Friedman, PROCESS DESCRIPTION WRITER PROCESS DESCRIPTION WRITER aj3 Suki Moncada RN RN pf1 Corrections: (The following items were deleted from the chart) 10:58 10:57 Rayray wilson aj3 aj3
[2023-02-08 11:18] VITALS: BP 139/76; O2SAT 98
== END 2023-02-08 11:12 | disposition home or self-care (01) ==
LOC: ER 09:21
DX: S92.342A Displaced fracture of fourth metatarsal bone, left foot, initial encounter for closed fracture (principal); S92.352A Displaced fracture of fifth metatarsal bone, left foot, initial encounter for closed fracture; Z88.0 Allergy status to penicillin
CPT/HCPCS: 99283

== ENCOUNTER 2023-03-28 08:30 | Emergency (ER) | payer OTHER, MEDICARE ==
--- OUTSIDE RECORDS SUMMARY | 2023-03-28 08:42 | XMS REPORT | Continuity of Care Document ---
:1950 Author Organization [facility] t Address [address] [place] [address] [place] [id number] Care Team Providers Name Role Phone Darrell Piedra MD Primary Care Physician [phone] SHANIKA BRAR Attending Clinician Unavailable MD [...] n n 1-21 [facility] 00 [place] Sinus Sinus Disease Active 2016-[address] [facility] bradycardi bradycardi 1-20 Jennifer kes a a 00:00: Medical 00 [place] HTN HTN Disease Active 2016-[address] [facility] [address] (hypertens (hypertens 1-20 Jennifer kes ion) ion) 00:00: Medical 00 [place] Visual Visual Disease Active 2016-[address] [facility] changes changes 1-20 [facility] [place] Floaters Floaters Disease Active 2016[facility] 00 [place] Headache Headache Disease Active 2016[facility] [place] Abnormal Abnormal Disease Active 2016[facility] stress stress [facility]-20 [facility] test test 00:00: [facility] 00 [place] Cavernous Cavernous Disease Active 2016-[address] [facility] sinus sinus 07-09 [facility] thrombosis thrombosis 00:00: Me d[facility] 00 Center Allergies, Adverse Reactions, Alerts Allergy Allergy Status Severity Reaction(s) Onset Inactive Treating Comm ents Source Name Type Date Date Clinician Yamilet Arreolaensi Active Hives 2020-06 [facility] ty to 06-[address] adverse 00:00: itching [facility]osp[facility] reaction 00 l s to drug Penicill Propensi Active Rash 2016-[address] [facility] [address] [facility] 07-09 [facility] adverse 00:00: [facility] reaction 00 Center s Social History Social Habit Start Date Stop Date Quantity Comments Source [facility] History of Social 2021-04-30 2021-04-[address] function 00:00:00 00:00:00 Hospital Alcohol intake 2017-05-17 2017-05-17 [facility] (finding) Tobacco use and 2017-05-09 2017-05-[address] [facility] Jennifer kes exposure 00:00:00 00:00:00 tobacco non-user [facility] Alcohol Comment 2017-05-09 2017-05-09 2 cans of beer [facility]00 [facility] Sex Assigned At [address] [address] Jennifer kes 00:00:00 00:00:00 [facility] Smoking Status Start Date Stop Date Source Never smoked tobacco [facility] Medications Ordered Filled Start Stop Current Ordering Indication Dosage Frequency Signature Comments Components Source Medication Medication Date Date Medication? Clinician (SIG) Name Name flecainide 2020-06 Yes 100mg Q.5D Take 100 Me thodi (TAMBOCOR) 1-[address] 100 MG 18:32: mouth 2 [facility]ospita tablet 01 (two) l times a day. metoprolol 2020-06 Yes 25mg QD Take 25 mg M ethodi succinate 1-[address] XL 18:32: daily. Hospita (TOPROL-XL) 01 l 25 mg 24 hr tablet metoprolol 2020-06 Yes 25mg QD Take 25 [...] 2020-06 Yes 20mg QD Take 1 Meth eednilson (XARELTO) 1-05 tablet (20 st 20 mg [...] [address] MG EC 1-22 by mouth [facility] tablet 15:40: daily. [address] calcium 2016-06 Yes hypocalcemi 1{tbl} Q.[id number] Take [address] carbonate 1-22 a [id number] tablet by [facility] (CALCIUM 15:40: prevention 3D mouth 3 Medical CARBONATE) 02 (three) Center 300 mg Chew times daily. metoprolol 2016-06 Yes paroxysmal 25mg Q.5D Take [address] (LOPRESSOR) 1-22 supraventri by mouth 2 [facility] 25 MG 15:40: cular (two) Medical tablet 02 tachycardia times Cente r daily. aspirin 81 2016-06 Yes 81mg QD Take [address] MG EC 1-22 by mouth [facility] tablet 15:40: daily. [address] calcium 2016-06 Yes hypocalcemi 1{tbl} Q.61497329 Take [address] carbonate 1-22 a [id number] tablet by [facility] (CALCIUM 15:40: prevention 3D [...] Planned Date Details Comments Source Future Scheduled 2023-02-19 Screening for [facility] Test 14:38:47 malignant neoplasm of colon (procedure) [code = 081930506] Future Scheduled 2023-02-19 Screening for [facility] Test 14:38:47 malignant neoplasm of colon (procedure) [code = 484656143] Future Scheduled 2023-02-19 Screening for [facility] Test 14:38:47 malignant neoplasm of colon (procedure) [code = 718950631] Future Scheduled 2023-02-19 Hepatitis C screening [facility] Test 14:38:47 (procedure) [code = 437114332] Future Scheduled 2023-02-19 BREAST CANCER [facility] Test 14:38:47 SCREENING [code = BREAST CANCER SCREENING] Future Scheduled 2023-02-19 Screening for [facility] Test 14:38:47 malignant neoplasm of colon (procedure) [code = 649943841] Future Scheduled 2023-02-19 Screening for [facility] Test 14:38:47 malignant neoplasm of colon (procedure) [code = 327017018] Future Scheduled 2023-02-19 SHINGLES VACCINES (1 Met [facility] Test 14:38:47 of 2) [code = SHINGLES VACCINES (1 of 2)] Future Scheduled 2023-02-19 65+ PNEUMOCOCCAL [facility] Test 14:38:47 VACCINE (1 - PCV) [code = 65+ PNEUMOCOCCAL VACCINE (1 - PCV)] Future Scheduled 2023-02-19 COVID-19 VACCINE (3 - [facility] Test 14:38:47 Pfizer series) [code = COVID-19 VACCINE (3 - Pfizer series)] Future Scheduled 2023-02-19 INFLUENZA VACCINE (#1) [facility] Test 14:38:47 [code = INFLUENZA VACCINE (#1)] Future Scheduled 2023-01-20 Screening for [facility] Test 11:07:18 malignant neoplasm of colon (procedure) [code = 184022244] Future Scheduled 2023-01-20 Screening for [facility] Test 11:07:18 malignant neoplasm of colon (procedure) [code = 199310409] Future Scheduled 2023-01-20 Screening for [facility] Test 11:07:18 malignant neoplasm of colon (procedure) [code = 291549899] Future Scheduled 2023-01-20 Hepatitis C screening [facility] Test 11:07:18 (procedure) [code = 728342382] Future Scheduled 2023-01-20 BREAST CANCER [facility] Test 11:07:18 SCREENING [code = BREAST CANCER SCREENING] Future Scheduled 2023-01-20 Screening for [facility] Test 11:07:18 malignant neoplasm of colon (procedure) [code = 284990915] Future Scheduled 2023-01-20 Screening for [facility] Test 11:07:18 malignant neoplasm of colon (procedure) [code = 510940194] Future Scheduled 2023-01-20 SHINGLES VACCINES (1 Met [facility] Test 11:07:18 of 2) [code = SHINGLES VACCINES (1 of 2)] Future Scheduled 2023-01-20 65+ PNEUMOCOCCAL [facility] Test 11:07:18 VACCINE (1 - PCV) [code = 65+ PNEUMOCOCCAL VACCINE (1 - PCV)] Future Scheduled 2023-01-20 COVID-19 VACCINE (3 - [facility] Test 11:07:18 Pfizer series) [code = COVID-19 VACCINE (3 - Pfizer series)] Future Scheduled 2023-01-20 INFLUENZA VACCINE Method [facility] Test 11:07:18 [code = INFLUENZA VACCINE] Future Scheduled 2022-12-09 Screening for [facility] Test 12:07:48 malignant neoplasm of colon (procedure) [code = 688274760] Future Scheduled 2022-12-09 Screening for [facility] Test 12:07:48 malignant neoplasm of colon (procedure) [code = 844293624] Future Scheduled 2022-12-09 Screening for [facility] Test 12:07:48 malignant neoplasm of colon (procedure) [code = 643199750] Future Scheduled 2022-12-09 Hepatitis C screening [facility] Test 12:07:48 (procedure) [code = 973149062] Future Scheduled 2022-12-09 BREAST CANCER [facility] Test 12:07:48 SCREENING [code = BREAST CANCER SCREENING] Future Scheduled 2022-12-09 Screening for [facility] Test 12:07:48 malignant neoplasm of colon (procedure) [code = 709413518] Future Scheduled 2022-12-09 Screening for [facility] Test 12:07:48 malignant neoplasm of colon (procedure) [code = 569524748] Future Scheduled 2022-12-09 SHINGLES VACCINES (1 Met [facility] Test 12:07:48 of 2) [code = SHINGLES VACCINES (1 of 2)] Future Scheduled 2022-12-09 65+ [facility] 12:07:48 VACCINE (1 - PCV) [code = 65+ PNEUMOCOCCAL VACCINE (1 - PCV)] Future Scheduled 2022-12-09 COVID-19 VACCINE (3 - [facility] Test 12:07:48 Pfizer series) [code = COVID-19 VACCINE (3 - Pfizer series)] Future Scheduled 2022-12-09 INFLUENZA VACCINE Method [facility] Test 12:07:48 [code = INFLUENZA VACCINE] Future Scheduled 2022-09-23 Hepatitis C screening [facility] Test 13:59:35 (procedure) [code = 893114317] Future Scheduled 2022-09-23 BREAST CANCER [facility] Test 13:59:35 SCREENING [code = BREAST CANCER SCREENING] Future Scheduled 2022-09-23 COLONOSCOPY SCREENING [facility] Test 13:59:35 [code = COLONOSCOPY SCREENING] Future Scheduled 2022-09-23 SHINGLES VACCINES (1 Met [facility] Test 13:59:35 of 2) [code = SHINGLES VACCINES (1 of 2)] Future Scheduled 2022-09-23 65+ [facility] Test 13:59:35 VACCINE (1 - PCV) [code = 65+ PNEUMOCOCCAL VACCINE (1 - PCV)] Future Scheduled 2022-09-23 COVID-19 VACCINE (3 - [facility] Test 13:59:35 Booster for Pfizer series) [code = COVID-19 VACCINE (3 - Booster for Pfizer series)] Future Scheduled 2022-09-23 INFLUENZA VACCINE Method [facility] Test 13:59:35 [code = INFLUENZA VACCINE] Encounters Start End Encounter Admission Attending Care Care Encounter Source Date/Time Date/Time Type Type Clinicians Facility Department ID 2021-04-25 2021-04-25 Outpatient SHANIKA BRAR [facility] [id number] [place] 00:00:00 00:00:[address] 2021-04-23 2021-04-23 Outpatient SHANIKA BRAR [facility] [id number] [place] 00:00:00 00:00:[address] Results Test Description Test Time Test Comments Results Result Comments Source SARS-CoV-2 (COVID-19) RNA [Presence] in Respiratory sp ecimen by 2021-04-23 18:58:52 BRITTANIE with probe detection Test Item Value Reference Range Interpretation Comme nts SARS-CoV-2 (COVID-19) RNA [Presence] in Respiratory Not detected No t-Detected specimen by BRITTANIE with probe detection (test code = 06107-7) 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 employed 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 (test code = 00849-2) Whether the patient has symptoms related to condition of interest (test code = 21663-3) Patient was hospitalized because of this condition (test code = 50478-8) Whether the patient was admitted to intensive care unit (ICU) for condition of interest (test code = 09889-0) Whether patient resides in a congregate care setting (test code = 69823-6) BHATTI MARIS [facility] [id number] 12:19:00Surgical Pathology Report Case: [id number] Authorizing Provider: Iban Rawls MD Collected: 05/11/2017 2234 Ordering Location: [facility] PERIOPER[facility] Received: 05/12/2017 1004 SERVICES Pathologist: Radha Gonzalez MD Specimen: Artery, TEMPORAL ARTERY BIOPSY TEMPORAL ARTERY, BIOPSY- TEMPORAL ARTERY WITHOUT SIGNIFICANT INFLAMMATION Signing Pathologist Direct Phone Line: [phone] signed by Radha Gonzalez MD on 05/14/2017 at 12:19 PMMultiple sections show temporal artery without significant inflammation. No granulomata or giant cells are detected. Luminal narrowing is notseen. Areas of hemorrhage that may be related to the procedure are also identified. The Movat stain shows a continuous internal elastic lamina. Findings are not sufficient for diagnosis of temporal arteritis. Clinical correlation is recommended.87483, 28278Sevga headache and visual changesTemporal artery biopsyThe specimen is received in a formalin- filled container labeled with the patient's information and labeled "temporal artery biopsy" and consists of a wilson-red tubular shaped segment of tissue me asuring 2.4 cm in length x 0.1 cm in diameter, submitted in A1. CG/ewPerformed. TSH/FREE T4 IF [id number] 14:41:00 Test Item Value Reference Range Interpretation Comments THYROID STIMULATING HORMONE 2.27 uIU/mL 0.35-4.94 (BEAKER) (test code = 772) TROPONIN [id number] 12:21:00 Test Item Value Reference Range Interpretation [...] acute neurological disease, and persistent tachyarrhythmia.BASIC METABOLIC [id number] 06:27:00 Test Item Value Reference Range Interpretation [...] PATIEN TS. CBC W/PLT COUNT & AUTO [id number] 05:56:00 Test Item Value Reference Range Interpretation [...] PERCENT (BEAKER) (test code = 2801) SEDIMENTATION [id number] 11:51:00 Test Item Value Reference Range Interpretation Comments SEDIMENTATION RATE, ERYTHROCYTE 19 mm/HR 0-40 (BEAKER) (test code = 766) CT, CTANGIO [id number] 11:23:00FINAL REPORT CTV head with contrast INDICATION: [...] mild carotid siphon atherosclerosis. The imaged proximal [place] of Sarah vessels demonstrate no high grade [...] MDReport Verified Date/Time: 05/10/2017 11:23:39 Reading Location: [address] Neuro Reading Room C-REACTIVE [id number] 10:01:00 Test Item Value Reference Range Interpretation Comments C-REACTIVE PROTEIN (GALO) (test 0.80 mg/dL 0.00-0.50 H code = 676) [id number] 09:44:00 Test Item Value Reference Range Interpretation Comments PARTIAL THROMBOPLASTIN TIME 98.5 seconds 22.5-36.0 H (GALO) (test code = 760) TROPONIN [id number] 08:37:00 Test Item Value Reference Range Interpretation [...] acute neurological disease, and persistent tachyarrhythmia.BASIC METABOLIC [id number] 04:17:00 Test Item Value Reference Range Interpretation [...] S NOT APPLICABLE FOR DIALYSIS PATIEN TS. [id number] 03:43:00 Test Item Value Reference Range Interpretation [...] mechanical heart valves.CBC W/PLT COUNT & AUTO [id number] 03:34:00 Test Item Value Reference Range Interpretation [...] code = 2801) MR, MRA, BRAIN, WITHOUT [id number] 00:52:00FINAL REPORT MR, MRA, BRAIN, WITHOUT CONTRAST, MR, BRAIN, WITH \\T\\ WITHOUT CONTRAST INDICATION: MRV for suspected cavernous sinus thrombosis TECHNIQUE: Multiplanar, multisequence pre and postcontrast MR images of the brain. Two-dimensional ykoj-ux-nphgha MR venogram of the brain in the [...] Robert MDReport Verified Date/Time: 05/10/2017 00:52:12Reading Location: [address] Reading Room MR, BRAIN, [id number] 00:52:00FINAL REPORT MR, MRA, BRAIN, WITHOUT CONTRAST, MR, BRAIN, WITH \\T\\ WITHOUT CONTRAST INDICATION: MRV for suspected cavernous sinus thrombosis TECHNIQUE: Multiplanar, multisequence pre and postcontrast MR images of the brain. Two-dimensional jqkm-rw-qdhyul MR venogram of the brain in the [...] Robert MDReport Verified Date/Time: 05/10/2017 00:52:12Reading Location: [address] Reading Room [id number] 22:46:00 Test Item Value Reference Range Interpretation [...] is 2.5-3.5 for patients with mechanical heart valves.[id number] 14:41:00 Test Item Value Reference Range Interpretation Comments PARTIAL THROMBOPLASTIN TIME 29.6 seconds 22.5-36.0 (BEAKER) (test code = 760) [id number] 08:26:00 Test Item Value Reference Range Interpretation Comments PARTIAL THROMBOPLASTIN TIME 56.2 seconds 22.5-36.0 H (BEAKER) (test code = 760) BASIC METABOLIC [id number] 05:02:00 Test Item Value Reference Range Interpretation [...] PATIEN TS. CBC W/PLT COUNT & AUTO [id number] 04:24:00 Test Item Value Reference Range Interpretation [...] PERCENT (BEAKER) (test code = 2801) TROPONIN [id number] 03:02:00 Test Item Value Reference Range Interpretation [...] failure, acidosis, acute neurological disease, and persistent tachyarrhythmia.[id number] 02:06:00 Test Item Value Reference Range Interpretation Comments PARTIAL THROMBOPLASTIN TIME 72.6 seconds 22.5-36.0 H (BEAKER) (test code = 760) Prior to initiating heparinPROTHROMBIN TIME/[id number] 02:04:00 Test Item Value Reference Range Interpretation [...]
[2023-03-28] MEDS ORDERED: MECLIZINE HCL 12.5 MG TAB ONE (08:53)
[2023-03-28] MEDS ORDERED: ONDANSETRON 4 MG/2 ML VIAL ONE (08:53)
[2023-03-28 08:56] LABS: Absolute Lymphocytes (CBC) 1.4 K/uL (0.7-4.9); Hematocrit 40.5 % (36.0-45.0); Lymphocytes % 13.1 % (15.3-44.8); MCV 88.1 fL (80-100); Platelets 314 thou/uL (152-406)
[2023-03-28 09:07] LABS: Protime INR 0.96
[2023-03-28] MEDS ORDERED: NA CHLORIDE 0.9% 1,000 ML ONE (09:09)
[2023-03-28 09:15] LABS: Albumin 3.8 g/dL (3.4-5.0); Bilirubin Direct 0.1 mg/dL (0-0.2); Bilirubin Indirect, Calculated 0.4 mg/dL (0.2-0.8); Bilirubin Total 0.5 mg/dL (0.2-1.0); Magnesium 2.3 mg/dL (1.6-2.4); Potassium 4.1 mEq/L (3.5-5.1); Protein, Total 7.7 g/dL (6.4-8.2); Troponin High Sensitivity 6.7 pg/mL (<58.9)
--- NOTE | 2023-03-28 09:26 | RAD REPORT ---
EXAM DESCRIPTION: RAD - Chest Single View - 03/28/2023 9:19 am CLINICAL HISTORY: CHEST PAIN COMPARISON: <Comparisons> FINDINGS: Lines: None. Lungs: No evidence of edema or pneumonia. Pleural: No significant pleural effusions or pneumothorax. Cardiac: Similar size and configuration. Loop recorder. Mediastinum: Within normal limits. Bones: No acute fractures. Other: None IMPRESSION: No acute cardiopulmonary disease.
--- NOTE | 2023-03-28 09:49 | ER ---
Nurse's Notes [facility] Name: Meryl Murray Age: 72 yrs Sex: Female : 1950 Arrival Date: 03/28/2023 Time: 08:30 Bed 6 Private MD: Darrell Piedra T Diagnosis: Dizziness and giddiness Presentation: 03/28 08:39 Chief complaint: Patient states: Dizziness with N/V/D started at 0530 am. Coronavirus ll1 screen: Vaccine status: Patient reports receiving the 2nd dose of the covid vaccine. Client denies travel out of the [place] in the last 14 days. diarrhea, fatigue, nausea, vomiting. Ebola Screen: Patient denies travel to an Ebola-affected area in the 21 days before illness onset. Initial Sepsis Screen: Does the patient meet any 2 criteria? No. Patient's initial sepsis screen is negative. Does the patient have a suspected source of infection? No. Patient's initial sepsis screen is negative. Risk Assessment: Do you want to hurt yourself or someone else? Patient reports no desire to harm self or others. Onset of symptoms was March 28, 2023. 08:39 Method Of Arrival: Wheelchair ll1 08:39 Acuity: HONG 3 ll1 Triage Assessment: 08:40 General: Appears uncomfortable, Behavior is calm, cooperative, appropriate for age. ll1 Pain: Denies pain. Neuro: Reports dizziness. GI: Reports diarrhea, nausea, vomiting. Historical: - Allergies: 08:38 PENICILLINS; hb - Home Meds: 08:38 aspirin 81 mg Oral tab daily [Active]; hb - PMHx: 08:38 Atrial Fib; Hypertension; SVT; hb - PSHx: 08:38 cardiac ablasian; hb - Immunization history:: Adult Immunizations up to date. - Social history:: Smoking status: Patient denies any tobacco usage or history of. Screenin:38 [facility] ED Fall Risk Assessment (Adult) Score/Fall Risk Level 0 - 2 = Low Risk hb Oriented to surroundings, Maintained a safe environment. Abuse screen: Denies threats or abuse. Denies injuries from another. Nutritional screening: No deficits noted. Tuberculosis screening: No symptoms or risk factors identified. Assessment: 08:40 Reassessment: See triage assessment. ga1 09:38 Reassessment: Patient appears in no apparent distress at this time. Patient and/or nj1 family updated on plan of care and expected duration. Pain level reassessed. Patient is alert, oriented x 3, equal unlabored respirations, skin warm/dry/pink. Patient states feeling better. Patient states symptoms have improved. Vital Signs: 08:39 BP 166 / 87; Pulse 65; Resp 17; Temp 97.2; Pulse Ox 100% ; Weight 68.95 kg; Height 5 ll1 ft. 6 in. ; Pain 0/10; 08:51 BP 172 / 68 Supine; Pulse 58; nj1 08:51 BP 140 / 60 Sitting; Pulse 60; nj1 08:51 BP 123 / 69 Standing; Pulse 72; nj1 09:34 BP 154 / 64; Pulse 55; Resp 16; Pulse Ox 100% ; nj1 08:39 Body Mass Index 24.53 (68.95 kg, 167.64 cm) ll1 08:39 Pain Scale: Adult ll1 ED Course: 08:31 Patient arrived in ED. mr 08:31 Darrell Piedra MD is Private Physician. mr 08:32 [facility]ab[facility] Holley[facility] kb 08:32 Pedro Magallon MD is Attending Physician. kb 08:38 Arm band placed on. hb 08:39 Patient has correct armband on for positive identification. hb 08:40 Triage completed. ll1 08:40 Inserted saline lock: 22 gauge in right antecubital area, using aseptic technique. nj1 Blood collected. 08:45 Kerri Negro, RN is Primary Nurse. nj1 08:45 Provided Education on: call light, fall precautions. nj1 09:21 Chest Single View XRAY In Process Unspecified. EDMS 10:06 No provider procedures requiring assistance completed. IV discontinued, intact, nj1 bleeding controlled. Administered Medications: 08:44 Drug: Meclizine PO 25 mg PO once Route: PO; hb 08:44 Drug: Ondansetron IVP 4 mg IVP once; over 2 minutes Route: IVP; Site: right antecubital;hb 08:59 Drug: NS 0.9% IV 1000 ml IV at 1000 ml once Route: IV; Rate: 1000 ml; Site: right nj1 antecubital; Medication: 10:06 VIS not applicable for this client. nj1 Outcome: 09:48 Discharge ordered by . kb 10:06 Discharged to home ambulatory, nj1 10:06 Condition: stable 10:06 Discharge instructions given to patient, Instructed on discharge instructions, follow up and referral plans. medication usage, Demonstrated understanding of instructions, follow-up care, medications, Prescriptions given X 1, 10:08 Patient left the ED. nj1 Signatures: Dispatcher [employer] EDMS Prabha Holley, DELIVERY DRIVER ASSISTANT-C DELIVERY DRIVER ASSISTANT-Ckb Kusum Wahl, Reg Reg mr Lay Meneses, RN RN Jesus Gonzalez RN RN [facility] Kerri Negro RN RN nj1 Corrections: (The following items were deleted from the chart) 09:39 08:45 GI: njCastro nj
--- NOTE | 2023-03-28 09:49 | EDPHYS ---
Physician Documentation [facility] Name: Meryl Murray Age: 72 yrs Sex: Female : 1950 Arrival Date: 03/28/2023 Time: 08:30 Bed 6 Private MD: Darrell Piedra T ED Physician Pedro Magallon HPI: 03/28 08:39 This 72 yrs old Female presents to ER via Unassigned with complaints of Dizziness, kb Vomiting/Diarrhea. 08:39 The patient presents with dizziness. Onset: The symptoms/episode began/occurred this morning. Context: occurred while the patient was upon waking. Modifying factors: The symptoms are alleviated by nothing, the symptoms are aggravated by changing position. Associated signs and symptoms: Pertinent positives: nausea, vomiting, diarrhea. Severity of symptoms: At their worst the symptoms were moderate in the emergency department the symptoms are unchanged. Patient's baseline: Neuro: alert and fully oriented, Motor: no deficits, Ambulation: walks without assistance, Speech: normal. The patient has experienced similar episodes in the past. The patient has not recently seen a physician. Pt reports dizziness upon waking at 0530. Has had n/v/d since then as well. Historical: - Allergies: 08:38 PENICILLINS; hb - Home Meds: 08:38 aspirin 81 mg Oral tab daily [Active]; hb - PMHx: 08:38 Atrial Fib; Hypertension; SVT; hb - PSHx: 08:38 cardiac ablasian; hb - Immunization history:: Adult Immunizations up to date. - Social history:: Smoking status: Patient denies any tobacco usage or history of. ROS: 08:40 Constitutional: Negative for fever, chills, and weight loss, kb 08:40 Abdomen/GI: Positive for nausea, vomiting, and diarrhea, Negative for abdominal pain, 08:40 Neuro: Positive for dizziness, 08:40 All other systems are negative, Exam: 08:40 Constitutional: This is a well developed, well nourished patient who is awake, alert, kb and in no acute distress. Head/Face: Normocephalic, atraumatic. Eyes: Pupils equal round and reactive to light, extra-ocular motions intact. Lids and lashes normal. Conjunctiva and sclera are non-icteric and not injected. Cornea within normal limits. Periorbital areas with no swelling, redness, or edema. ENT: Moist Mucous membranes Cardiovascular: Regular rate Respiratory: Respirations even and unlabored. No increased work of breathing. Talking in full sentences Abdomen/GI: Soft, non-tender. No distention Skin: Warm, dry with normal turgor. Normal color. MS/ Extremity: Pulses equal, no cyanosis. Neurovascular intact. Full, normal range of motion. Neuro: Awake and alert, GCS 15, oriented to person, place, time, and situation. Moves all extremities. Normal gait. 08:50 ECG was reviewed by the Attending Physician. kb Vital Signs: 08:39 BP 166 / 87; Pulse 65; Resp 17; Temp 97.2; Pulse Ox 100% ; Weight 68.95 kg; Height 5 ll1 ft. 6 in. ; Pain 0/10; 08:51 BP 172 / 68 Supine; Pulse 58; nj1 08:51 BP 140 / 60 Sitting; Pulse 60; nj1 08:51 BP 123 / 69 Standing; Pulse 72; nj1 09:34 BP 154 / 64; Pulse 55; Resp 16; Pulse Ox 100% ; nj1 08:39 Body Mass Index 24.53 (68.95 kg, 167.64 cm) ll1 08:39 Pain Scale: Adult ll1 MDM: 08:32 Patient medically screened. kb 08:40 Data reviewed: vital signs, nurses notes. kb 08:41 Differential diagnosis: cardiac arrhythmia, generalized weakness, hypovolemia, kb idiopathic dizziness, near-syncope, vertigo. 09:47 Counseling: I had a detailed discussion with the patient and/or guardian regarding the kb historical points, exam findings, and any diagnostic results supporting the discharge/admit diagnosis, lab results, radiology results, the need for outpatient follow up, a family practitioner, to return to the emergency department if symptoms worsen or persist or if there are any questions or concerns that arise at home. Response to treatment: the patient's symptoms have resolved after treatment, dizziness resolved. 03/28 08:38 Order name: Basic Metabolic Panel; Complete Time: 09:18 kb 03/28 08:38 Order name: CBC with Diff; Complete Time: 09:18 kb 03/28 08:38 Order name: Hepatic Function; Complete Time: 09:18 kb 03/28 08:38 Order name: Magnesium; Complete Time: 09:18 kb 03/28 08:38 Order name: Protime (+inr); Complete Time: 09:18 kb 03/28 08:38 Order name: Ptt, Activated; Complete Time: 09:18 kb 03/28 08:38 Order name: Troponin High Sensitivity; Complete Time: 09:18 kb 03/28 08:38 Order name: Chest Single View XRAY; Complete Time: 09:28 kb 03/28 08:38 Order name: EKG; Complete Time: 08:39 kb 03/28 08:38 Order name: Cardiac monitoring; Complete Time: 08:59 kb 03/28 08:38 Order name: EKG - Nurse/Tech; Complete Time: 08:55 kb 03/28 08:38 Order name: IV Saline Lock; Complete Time: 08:44 kb 03/28 08:38 Order name: Labs collected and sent; Complete Time: 08:45 kb 03/28 08:38 Order name: NPO; Complete Time: 08:45 kb 03/28 08:38 Order name: O2 Per Protocol; Complete Time: 08:45 kb 03/28 08:38 Order name: O2 Sat Monitoring; Complete Time: 08:44 kb 03/28 08:38 Order name: Orthostatics; Complete Time: 09:00 kb EC:50 Rate is 58 beats/min. Rhythm is regular. QRS [place] is Normal. NV interval is normal at kb 186 msec. QRS interval is normal at 104 msec. QT interval is normal at 433 msec. Administered Medications: 08:44 Drug: Meclizine PO 25 mg PO once Route: PO; hb 08:44 Drug: Ondansetron IVP 4 mg IVP once; over 2 minutes Route: IVP; Site: right antecubital;hb 08:59 Drug: NS 0.9% IV 1000 ml IV at 1000 ml once Route: IV; Rate: 1000 ml; Site: right nj1 antecubital; Disposition: 18:05 Co-signature as Attending Physician, Pedro Magallon MD I reviewed the patient's care rn provided by the Advanced Practice Provider and agree with the diagnosis and treatment plan. Disposition Summary: 03/28/23 09:48 Discharge Ordered Notes: Location: Home kb Condition: Stable kb Diagnosis - Dizziness and giddiness kb Followup: kb - With: Emergency Department - When: As needed - Reason: Worsening of condition Followup: kb - With: Private Physician - When: 2 - 3 days - Reason: Recheck today's complaints, Continuance of care, Re-evaluation by your physician Discharge Instructions: - Discharge Summary Sheet kb - Vertigo, Dtwz-dq-[id number] kb - Dizziness, Yqrc-gt-Dokk kb Forms: - Medication Reconciliation Form kb - Thank You Letter kb - Antibiotic Education kb - Prescription Opioid Use kb - Patient Portal Instructions kb - Leadership Thank You Letter kb Prescriptions: - Meclizine 25 mg Oral Tablet - take 1 tablet ORAL route every 8 hours As needed; 30 tablet; Refills: 0, kb Product Selection Permitted Signatures: Dispatcher [employer] EDMS Prabha Holley, POTTERY DECORATION DESIGNER-C POTTERY DECORATION DESIGNER-Ckb Pedro Magallon MD MD rn Baxter, Heather RN RN Kerri Negro RN RN nj1
[2023-03-28 10:20] VITALS: TEMP 97.2; O2SAT 100
[2023-03-28 10:22] VITALS: BP 154/64
--- NOTE | 2023-03-29 12:18 | EKG ---
Test Date: 2023-03-28 Test Time: 08:46:12 Assistant Store Manager Trainee: FELECIA MEASUREMENT RESULTS: Intervals: Rate: 58 ND: 186 QRSD: 104 QT: 442 QTc: 433 Yantis: P: 77 ND: 186 QRS: 22 T: 50 INTERPRETIVE STATEMENTS: Sinus bradycardia Incomplete right bundle branch block Borderline ECG Compared to ECG 12/09/2022 15:51:57 Incomplete right bundle-branch block now present Sinus rhythm no longer present Electronically Signed On 03-29-23 12:15:03 CDT by Niall Marshall
== END 2023-03-28 10:08 | disposition home or self-care (01) ==
LOC: ER 08:30
DX: R42 Dizziness and giddiness (principal); R11.2 Nausea with vomiting, unspecified; R19.7 Diarrhea, unspecified; I10 Essential (primary) hypertension; I48.91 Unspecified atrial fibrillation; Z79.82 Long term (current) use of aspirin; Z88.0 Allergy status to penicillin
CPT/HCPCS: 93005; 85025; 80048; 36415; 83735; 85610; 80076; 85730; 84484; 71045; 96374; 99284; J8597; J2405; J7030

== ENCOUNTER 2023-04-16 08:14 | Emergency (ER) | payer OTHER, MEDICARE ==
--- OUTSIDE RECORDS SUMMARY | 2023-04-16 08:19 | XMS REPORT | Continuity of Care Document ---
:1950 Author Organization [facility] t Address [address] [place] [address] [place] [id number] Care Team Providers Name Role Phone Darrell Piedra MD Primary Care Physician [phone] SHANIKA BRAR Attending Clinician Unavailable MD [...] n n 1-21 [facility] [place] Sinus Sinus Disease Active 2016-[address] [facility] bradycardi bradycardi 1-20 [facility] a a 00:00: [facility] 00 [place] HTN HTN Disease Active 2016-[address] [facility] (hypertens (hypertens 1-20 Jennifer kes ion) ion) 00:00: Medical 00 [place] Visual Visual Disease Active 2016-[address] [facility] changes changes 1-20 [facility] [place] Floaters Floaters Disease [facility] 2016[facility] [place] Headache Headache Disease [facility] 2016[facility] [place] Abnormal Abnormal Disease [facility] 2016[facility] stress stress [facility]-20 [facility] test test 00:00: [facility] 00 [place] Cavernous Cavernous Disease Active 2016-[address] [facility] [address] [...] [facility] History of Social 2021-04-30 2021-04-[address] [facility] 00:[facility]00 [facility]00[facility]00 Hospital Alcohol intake 2017-05-17 2017-05-17 [facility] (finding[facility] Tobacco use and 2017-05-09 2017-05-[address] [facility] k[facility] exposure 00:00:00 00:00:00 tobacco non-user [facility] Alcohol Comment 2017-05-09 2017-05-09 2 cans of beer [facility]00 [facility] Sex Assigned At [address] [facility] 00:00:00 [facility]00 [facility] Smoking Status Start Date Stop Date Source Never smoked tobacco [facility] Medications Ordered Filled Start Stop [...] 02 Center 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 [facility] 02 [place] calcium 2016-06 Yes hypocalcemi 1{tbl} Q.49278068 Take [address] [facility] [address] carbonate 1-22 a 4790143126 tablet by [facility] (CALCIUM 15:40: prevention 3D [...] 1-22 by mouth [facility] tablet 15:40: daily. [address] calcium 2016-06 Yes hypocalcemi 1{tbl} Q.36193041 Take [address] [facility] [address] carbonate 1-22 a 1066370733 tablet by [facility] (CALCIUM 15:40: prevention 3D [...] Planned Date Details Comments Source Future Scheduled 2023-04-14 Screening for [facility] Test 09:29:18 malignant neoplasm of colon (procedure) [code = 902201177] Future Scheduled 2023-04-14 Screening for [facility] Test 09:29:18 malignant neoplasm of colon (procedure) [code = 509889257] Future Scheduled 2023-04-14 Screening for [facility] Test 09:29:18 malignant neoplasm of colon (procedure) [code = 824423651] Future Scheduled 2023-04-14 Hepatitis C screening [facility] Test 09:29:18 (procedure) [code = 386960809] Future Scheduled 2023-04-14 BREAST CANCER [facility] Test 09:29:18 SCREENING [code = BREAST CANCER SCREENING] Future Scheduled 2023-04-14 [facility] Test 09:29:18 malignant neoplasm of colon (procedure) [code = 954635911] Future Scheduled 2023-04-14 [facility] Test 09:29:18 malignant neoplasm of colon (procedure) [code = 929054100] Future Scheduled 2023-04-14 SHINGLES VACCINES (1 Met [facility] Test 09:29:18 of 2) [code = SHINGLES VACCINES (1 of 2)] Future Scheduled 2023-04-14 65+ [facility]AL [facility] 09:29:18 VACCINE (1 - PCV) [code = 65+ PNEUMOCOCCAL VACCINE (1 - PCV)] Future Scheduled 2023-04-14 COVID-19 VACCINE (3 - [facility] Test 09:29:18 season) [code = COVID-19 VACCINE (3 - season)] Future Scheduled 2023-04-14 INFLUENZA VACCINE (#1) [facility] Test 09:29:18 [code = INFLUENZA VACCINE (#1)] Future Scheduled 2023-02-19 Screening for [facility] Test 14:38:47 malignant neoplasm of colon (procedure) [code = 206127431] Future Scheduled 2023-02-19 Screening for [facility] Test 14:38:47 malignant neoplasm of colon (procedure) [code = 412269445] Future Scheduled 2023-02-19 Screening for [facility] Test 14:38:47 malignant neoplasm of colon (procedure) [code = 651793058] Future Scheduled 2023-02-19 Hepatitis C screening [facility] Test 14:38:47 (procedure) [code = 582175109] Future Scheduled 2023-02-19 BREAST CANCER [facility] Test 14:38:47 SCREENING [code = BREAST CANCER SCREENING] Future Scheduled 2023-02-19 Screening for [facility] Test 14:38:47 malignant neoplasm of colon (procedure) [code = 519977270] Future Scheduled 2023-02-19 Screening for [facility] Test 14:38:47 malignant neoplasm of colon (procedure) [code = 051563242] Future Scheduled 2023-02-19 SHINGLES VACCINES (1 Met [facility] Test 14:38:47 of 2) [code = SHINGLES VACCINES (1 of 2)] Future Scheduled 2023-02-19 65+ PNEUMOCOCCAL [facility] Test 14:38:47 VACCINE (1 - PCV) [code = 65+ PNEUMOCOCCAL VACCINE (1 - PCV)] Future Scheduled 2023-02-19 COVID-19 VACCINE (3 - [facility] Test 14:38:47 Pfizer series) [code = COVID-19 VACCINE (3 - Pfizer series)] Future Scheduled 2023-02-19 INFLUENZA VACCINE (#1) [facility] Test 14:38:47 [code = INFLUENZA VACCINE (#1)] Future Scheduled 2023-01-20 Screening for [facility] Test 11:07:18 malignant neoplasm of colon (procedure) [code = 713071094] Future Scheduled 2023-01-20 Screening for [facility] Test 11:07:18 malignant neoplasm of colon (procedure) [code = 811653619] Future Scheduled 2023-01-20 Screening for [facility] Test 11:07:18 malignant neoplasm of colon (procedure) [code = 920811123] Future Scheduled 2023-01-20 Hepatitis C screening [facility] Test 11:07:18 (procedure) [code = 820849722] Future Scheduled 2023-01-20 BREAST CANCER [facility] Test 11:07:18 SCREENING [code = BREAST CANCER SCREENING] Future Scheduled 2023-01-20 Screening for [facility] Test 11:07:18 malignant neoplasm of colon (procedure) [code = 822556392] Future Scheduled 2023-01-20 Screening for [facility] Test 11:07:18 malignant neoplasm of colon (procedure) [code = 608853309] Future Scheduled 2023-01-20 SHINGLES VACCINES (1 Met [facility] Test 11:07:18 of 2) [code = SHINGLES VACCINES (1 of 2)] Future Scheduled 2023-01-20 65+ PNEUMOCOCCAL [facility] Test 11:07:18 VACCINE (1 - PCV) [code = 65+ PNEUMOCOCCAL VACCINE (1 - PCV)] Future Scheduled 2023-01-20 COVID-19 VACCINE (3 - [facility] Test 11:07:18 Pfizer series) [code = COVID-19 VACCINE (3 - Pfizer series)] Future Scheduled 2023-01-20 INFLUENZA VACCINE [facility] Test 11:07:18 [code = INFLUENZA VACCINE] Future Scheduled 2022-12-09 [facility] Test 12:07:48 malignant neoplasm of colon (procedure) [code = 934227120] Future Scheduled 2022-12-09 Screening for [facility] Test 12:07:48 malignant neoplasm of colon (procedure) [code = 086991249] Future Scheduled 2022-12-09 Screening for [facility] Test 12:07:48 malignant neoplasm of colon (procedure) [code = 914304765] Future Scheduled 2022-12-09 Hepatitis C screening [facility] Test 12:07:48 (procedure) [code = 835846319] Future Scheduled 2022-12-09 BREAST CANCER [facility] Test 12:07:48 SCREENING [code = BREAST CANCER SCREENING] Future Scheduled 2022-12-09 Screening for [facility] Test 12:07:48 malignant neoplasm of colon (procedure) [code = 582558970] Future Scheduled 2022-12-09 Screening for [facility] Test 12:07:48 malignant neoplasm of colon (procedure) [code = 170318425] Future Scheduled 2022-12-09 SHINGLES VACCINES ([address] [facility] Test 12:07:48 of 2) [code = SHINGLES VACCINES (1 of 2)] Future Scheduled 2022-12-09 65+ [facility]AL [facility] Test 12:07:48 VACCINE (1 - PCV) [code = 65+ PNEUMOCOCCAL VACCINE (1 - PCV)] Future Scheduled 2022-12-09 COVID-19 VACCINE (3 - [facility] Test 12:07:48 Pfizer series) [code = COVID-19 VACCINE (3 - Pfizer series)] Future Scheduled 2022-12-09 INFLUENZA VACCINE [facility] Test 12:07:48 [code = INFLUENZA VACCINE] Future Scheduled 2022-09-23 Hepatitis C screening [facility] Test 13:59:35 (procedure) [code = 355547078] Future Scheduled 2022-09-23 BREAST CANCER [facility] Test 13:59:35 SCREENING [code = BREAST CANCER SCREENING] Future Scheduled 2022-09-23 COLONOSCOPY SCREENING [facility] Test 13:59:35 [code = COLONOSCOPY SCREENING] Future Scheduled 2022-09-23 SHINGLES VACCINES ([address] [facility] Test 13:59:35 of 2) [code = SHINGLES VACCINES (1 of 2)] Future Scheduled 2022-09-23 65+ [facility] Test 13:59:35 VACCINE (1 - PCV) [code = 65+ PNEUMOCOCCAL VACCINE (1 - PCV)] Future Scheduled 2022-09-23 COVID-19 VACCINE (3 - [facility] Test 13:59:35 Booster for Pfizer series) [code = COVID-19 VACCINE (3 - Booster for Pfizer series)] Future Scheduled 2022-09-23 [facility]ACCINE [facility] Test 13:59:35 [code = INFLUENZA VACCINE] Encounters Start End Encounter Admission Attending Care Care Encounter Source Date/Time Date/Time Type Type Clinicians Facility Department ID 2021-04-25 2021-04-25 Outpatient SHANIKA BRAR [facility] 021 [id number] [facility] 00:00:00 00:00:[address] 2021-04-23 2021-04-23 Outpatient SHANIKA BRAR [facility] [id number] [facility] 00:00:00 00:00:[address] Results Test Description Test Time Test Comments Results Result Comments Source SARS-CoV-2 (COVID-19) RNA [Presence] in Respiratory sp ecimen by 2021-04-23 18:58:52 BRITTANIE with probe detection Test Item Value Reference Range Interpretation Comme nts SARS-CoV-2 (COVID-19) RNA [Presence] in Respiratory Not detected No t-Detected specimen by BRITTANIE with probe detection (test code = 51022-8) 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 employed 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 (test code = 95775-6) Whether the patient has symptoms related to condition of interest (test code = 69345-3) Patient was hospitalized because of this condition (test code = 76944-8) Whether the patient was admitted to intensive care unit (ICU) for condition of interest (test code = 52651-4) Whether patient resides in a congregate care setting (test code = 88156-2) [facility] [id number] 12:19:00Surgical Pathology Report Case: [id number] Authorizing Provider: Iban Rawls MD Collected: 05/11/2017 2234 Ordering Location: [facility] Received: 05/12/2017 1004 SERVICES Pathologist: Radha Gonzalez MD Specimen: Artery, TEMPORAL ARTERY BIOPSY TEMPORAL ARTERY, BIOPSY- TEMPORAL ARTERY WITHOUT SIGNIFICANT INFLAMMATION Signing Pathologist Direct Phone Line: [phone] signed by Radha Gonzalez MD on 05/14/2017 at 12:19 PMMultiple sections show temporal artery without significant inflammation. No granulomata or giant cells are detected. Luminal narrowing is not seen. Areas of hemorrhage that may be related to the procedure are also identified. The Movat stainshows a continuous internal elastic lamina. Findings are not sufficient for diagnosis of temporal arteritis. Clinical correlation is recommended.09089, 39594Lmmve headache and visual changesTemporal artery biopsyThe specimen is received in a formalin- filled container labeled with the patient's information and labeled "temporal artery biopsy" and consists of a wilson-red tubular shaped segment of tissue m easuring 2.4 cm in length x 0.1 cm in diameter, submitted in A1. CG/ewPerformed. TSH/FREE T4 IF [id number] 14:41:00 Test Item Value Reference Range Interpretation Comments THYROID STIMULATING HORMONE 2.27 uIU/mL 0.35-4.94 (BEAKER) (test code = 772) TROPONIN [id number] 12:21:00 Test Item Value Reference Range Interpretation [...] acute neurological disease, and persistent tachyarrhythmia.BASIC METABOLIC [id number] 06:27:00 Test Item Value Reference Range Interpretation [...] PATIEN TS. CBC W/PLT COUNT & AUTO [id number] 05:56:00 Test Item Value Reference Range Interpretation [...] PERCENT (BEAKER) (test code = 2801) SEDIMENTATION [id number] 11:51:00 Test Item Value Reference Range Interpretation Comments SEDIMENTATION RATE, ERYTHROCYTE 19 mm/HR 0-40 (BEAKER) (test code = 766) CT, CTANGIO [id number] 11:23:00FINAL REPORT CTV head with contrast INDICATION: [...] mild carotid siphon atherosclerosis. The imaged proximal [place] vessels demonstrate no high grade [...] MDReport Verified Date/Time: 05/10/2017 11:23:39 Reading Location: [address] Neuro Reading Room C-REACTIVE [id number] 10:01:00 Test Item Value Reference Range Interpretation Comments C-REACTIVE PROTEIN (BEAKER) (test 0.80 mg/dL 0.00-0.50 H code = 676) [id number] 09:44:00 Test Item Value Reference Range Interpretation Comments PARTIAL THROMBOPLASTIN TIME 98.5 seconds 22.5-36.0 H (BEAKER) (test code = 760) TROPONIN [id number] 08:37:00 Test Item Value Reference Range Interpretation [...] acute neurological disease, and persistent tachyarrhythmia.BASIC METABOLIC [id number] 04:17:00 Test Item Value Reference Range Interpretation [...] S NOT APPLICABLE FOR DIALYSIS PATIEN TS. [id number] 03:43:00 Test Item Value Reference Range Interpretation [...] mechanical heart valves.CBC W/PLT COUNT & AUTO [id number] 03:34:00 Test Item Value Reference Range Interpretation [...] code = 2801) MR, MRA, BRAIN, WITHOUT [id number] 00:52:00FINAL REPORT MR, MRA, BRAIN, WITHOUT CONTRAST, MR, BRAIN, WITH \\T\\ WITHOUT CONTRAST INDICATION: MRV for suspected cavernous sinus thrombosis TECHNIQUE: Multiplanar, multisequence pre and postcontrast MR images of the brain. Two-dimensional nuyn-bk-oiobyn MR venogram of the brain in the [...] Robert MDReport Verified Date/Time: 05/10/2017 00:52:12Reading Location: [address] Reading Room MR, BRAIN, [id number] 00:52:00FINAL REPORT MR, MRA, BRAIN, WITHOUT CONTRAST, MR, BRAIN, WITH \\T\\ WITHOUT CONTRAST INDICATION: MRV for suspected cavernous sinus thrombosis TECHNIQUE: Multiplanar, multisequence pre and postcontrast MR images of the brain. Two-dimensional oolf-sp-ctybto MR venogram of the brain in the [...] Robert MDReport Verified Date/Time: 05/10/2017 00:52:12Reading Location: [address] Reading Room [id number] 22:46:00 Test Item Value Reference Range Interpretation [...] is 2.5-3.5 for patients with mechanical heart valves.[id number] 14:41:00 Test Item Value Reference Range Interpretation Comments PARTIAL THROMBOPLASTIN TIME 29.6 seconds 22.5-36.0 (BEAKER) (test code = 760) [id number] 08:26:00 Test Item Value Reference Range Interpretation Comments PARTIAL THROMBOPLASTIN TIME 56.2 seconds 22.5-36.0 H (BEAKER) (test code = 760) BASIC METABOLIC [id number] 05:02:00 Test Item Value Reference Range Interpretation [...] PATIEN TS. CBC W/PLT COUNT & AUTO [id number] 04:24:00 Test Item Value Reference Range Interpretation [...] PERCENT (BEAKER) (test code = 2801) TROPONIN [id number] 03:02:00 Test Item Value Reference Range Interpretation [...] failure, acidosis, acute neurological disease, and persistent tachyarrhythmia.[id number] 02:06:00 Test Item Value Reference Range Interpretation Comments PARTIAL THROMBOPLASTIN TIME 72.6 seconds 22.5-36.0 H (BEAKER) (test code = 760) Prior to initiating heparinPROTHROMBIN [id number] 02:04:00 Test Item Value Reference Range Interpretation [...]
[2023-04-16 09:36] LABS: Hematocrit 37.4 % (36.0-45.0); Lymphocytes % 24.4 % (15.3-44.8); MCV 88.8 fL (80-100); MPV 6.9 fL (7.6-11.3); Platelets 300 thou/uL (152-406); RBC Red Blood Cell Count 4.21 M/uL (3.86-4.86)
[2023-04-16 09:57] LABS: Albumin 3.5 g/dL (3.4-5.0); Bilirubin Total 0.4 mg/dL (0.2-1.0); Potassium 4.4 mEq/L (3.5-5.1)
--- NOTE | 2023-04-16 10:07 | RAD REPORT ---
EXAM DESCRIPTION: CT - CTFBWCON CLINICAL HISTORY: FORIEGN BODY Pain, swelling, possible foreign body. COMPARISON: Facial Bones W Con Mpr dated 10/18/2017; Head Brain W Cont dated 10/18/2017 TECHNIQUE: Axial 2 mm thick images of the face were obtained with sagittal and coronal reconstructio n images. All CT scans are performed using dose optimization technique as appropriate and may include automated exposure control or mA/KV adjustment according to patient size. FINDINGS: No acute facial bone fracture is seen.The mandible is intact. The globes and orbital contents are grossly unremarkable.The paranasal sinuses and mastoids are clear . No radiopaque foreign body is seen. No pathological post-contrast enhancement evident. IMPRESSION: No radiopaque foreign body visualized.No pathological finding evident.
--- NOTE | 2023-04-16 10:13 | EDPHYS ---
Physician Documentation [facility] Name: Meryl Murray Age: 72 yrs Sex: Female : 1950 Arrival Date: 04/16/2023 Time: 08:14 Bed 6 Private MD: ED Physician Brian Akbar HPI: 04/16 10:26 This 72 yrs old Female presents to ER via Ambulatory with complaints of Facial rt Swelling, Eye Problem - Pressure, Foreign Body In Nose - rock. 10:26 Patient presents to the ED with concerns of a foreign body in the nose. She states that rt she was weed eating, a rock went inside her right nostril she is unclear if it is still there or not. She does report a puffiness, pressure-like sensation about her right eye. Denies other acute complaints at this time, symptoms are mild in severity, no other aggravating or alleviating factors.. 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 - Social history:: Smoking status: Patient denies any tobacco usage or history of. Patient/guardian denies using alcohol. - Family history:: not pertinent. ROS: 10:26 Constitutional: Negative for fever, chills, and weight loss, Cardiovascular: Negative rt for chest pain, palpitations, and edema, Respiratory: Negative for shortness of breath, cough, wheezing, and pleuritic chest pain, Abdomen/GI: Negative for abdominal pain, nausea, vomiting, diarrhea, and constipation, Skin: Negative for injury, rash, and discoloration, Neuro: Negative for headache, weakness, numbness, tingling, and seizure, 10:26 ENT: Positive for Possible foreign body, rhinorrhea, Exam: 10:26 Constitutional: This is a well developed, well nourished patient who is awake, alert, rt and in no acute distress. Head/Face: Normocephalic, atraumatic. Eyes: Pupils equal round and reactive to light, extra-ocular motions intact. Lids and lashes normal. Conjunctiva and sclera are non-icteric and not injected. Cornea within normal limits. Periorbital areas with no swelling, redness, or edema. Chest/axilla: Normal chest wall appearance and motion. Nontender with no deformity. No lesions are appreciated. Cardiovascular: Regular rate and rhythm with a normal S1 and S2. No gallops, murmurs, or rubs. Normal PMI, no JVD. No pulse deficits. Respiratory: Lungs have equal breath sounds bilaterally, clear to auscultation and percussion. No rales, rhonchi or wheezes noted. No increased work of breathing, no retractions or nasal flaring. Abdomen/GI: Soft, non-tender, with normal bowel sounds. No distension or tympany. No guarding or rebound. No evidence of tenderness throughout. Skin: Warm, dry with normal turgor. Normal color with no rashes, no lesions, and no evidence of cellulitis. MS/ Extremity: Pulses equal, no cyanosis. Neurovascular intact. Full, normal range of motion. Neuro: Awake and alert, GCS 15, oriented to person, place, time, and situation. Cranial nerves II-XII grossly intact. Motor strength 5/5 in all extremities. Sensory grossly intact. Cerebellar exam normal. Normal gait. 10:26 ENT: Swollen nasal turbinates on the right, no foreign bodies identified. Vital Signs: 08:42 Pulse 67; Resp 18; Temp 97.6; Pulse Ox 100% on R/A; Weight 70.31 kg; Height 5 ft. 6 in. tm6 ; Pain 2/10; 08:48 BP 122 / 98; tm6 10:12 BP 123 / 52; Pulse 99; Resp 18; Pulse Ox 96% on R/A; Pain 0/10; tm6 08:42 Body Mass Index 25.02 (70.31 kg, 167.64 cm) tm6 08:42 Pain Scale: Adult tm6 10:12 Pain Scale: Adult tm6 MDM: 08:41 Patient medically screened. rt 10:26 Differential diagnosis: Foreign body, allergic rhinitis. Data reviewed: vital signs, rt nurses notes, lab test result(s), radiologic studies. Independent interpretation of the following test(s) in the Emergency Department CT Scan: My interpretation is No foreign body seen on interpretation of CT scan images. Counseling: I had a detailed discussion with the patient and/or guardian regarding the historical points, exam findings, and any diagnostic results supporting the discharge/admit diagnosis, lab results, radiology results, the need for outpatient follow up. 04/16 08:49 Order name: CBC with Diff; Complete Time: 09:58 rt 04/16 08:49 Order name: CMP; Complete Time: 09:58 rt 04/16 08:49 Order name: CT Facial Bones W/ Con \T\ Mpr; Complete Time: 10:07 rt Administered Medications: No medications were administered Disposition Summary: 04/16/23 10:13 Discharge Ordered Notes: Location: Home rt Problem: new rt Symptoms: are unchanged rt Condition: Stable rt Diagnosis - Allergic rhinitis, unspecified rt Followup: rt - With: Private Physician - When: 2 - 3 days - Reason: Discharge Instructions: - Discharge Summary Sheet rt - Allergic Rhinitis, Adult rt Forms: - Medication Reconciliation Form rt - Thank You Letter rt - Antibiotic Education rt - Prescription Opioid Use rt - Patient Portal Instructions rt - Leadership Thank You Letter rt Signatures: Dispatcher [employer] Brian Lake MD MD rt Ananda Luciano RN RN tm6
--- NOTE | 2023-04-16 10:13 | ER ---
Nurse's Notes [facility] Name: Meryl Murray Age: 72 yrs Sex: Female : 1950 Arrival Date: 04/16/2023 Time: 08:14 Bed 6 Private MD: Diagnosis: Allergic rhinitis, unspecified Presentation: 04/16 08:42 Chief complaint: Patient states: on Wednesday, rock possibly went into nose while weed tm6 eating. Right side of face and eye has pressure. Coronavirus screen: Vaccine status: Patient reports being unvaccinated. Client denies travel out of the [place] in the last 14 days. Client indicates they have traveled out of the [place] in the last 14 days. At this time, unable to obtain information related to travel outside the [place] Ebola Screen: Patient negative for fever greater than or equal to 101.5 degrees Fahrenheit, and additional compatible Ebola Virus Disease symptoms Patient denies exposure to infectious person. Patient denies travel to an Ebola-affected area in the 21 days before illness onset. No symptoms or risks identified at this time. Initial Sepsis Screen: Does the patient meet any 2 criteria? No. Patient's initial sepsis screen is negative. Does the patient have a suspected source of infection? No. Patient's initial sepsis screen is negative. Risk Assessment: Do you want to hurt yourself or someone else? Patient reports no desire to harm self or others. Onset of symptoms was April 14, 2023. 08:42 Method Of Arrival: Ambulatory tm6 08:42 Acuity: HONG 3 tm6 Triage Assessment: 08:44 General: Appears uncomfortable, Behavior is calm, cooperative, appropriate for age. tm6 Pain: Complains of pain in face, right eye and nose Quality of pain is described as pressure. EENT: Reports pressure on right side of face and behind eye. Neuro: Level of Consciousness is awake, alert, obeys commands, Oriented to person, place, time, situation, Appropriate for age. Cardiovascular: Capillary refill < 3 seconds Patient's skin is warm and dry. Respiratory: Airway is patent Respiratory effort is even, unlabored, Respiratory pattern is regular, symmetrical. GI: Abdomen is round non-distended. : No deficits noted. No signs and/or symptoms were reported regarding the genitourinary system. Derm: No signs and/or symptoms reported regarding the dermatologic system. Musculoskeletal: No signs and/or symptoms reported regarding the musculoskeletal system. 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 - Social history:: Smoking status: Patient denies any tobacco usage or history of. Patient/guardian denies using alcohol. - Family history:: not pertinent. Screenin:47 [facility] ED Fall Risk Assessment (Adult) History of falling in the last 3 months, tm6 including since admission No falls in past 3 months (0 pts). Abuse screen: Denies threats or abuse. Denies injuries from another. Nutritional screening: No deficits noted. Tuberculosis screening: No symptoms or risk factors identified. Assessment: 08:47 Reassessment: see triage assessment. tm6 Vital Signs: 08:42 Pulse 67; Resp 18; Temp 97.6; Pulse Ox 100% on R/A; Weight 70.31 kg; Height 5 ft. 6 in. tm6 ; Pain 2/10; 08:48 BP 122 / 98; tm6 10:12 BP 123 / 52; Pulse 99; Resp 18; Pulse Ox 96% on R/A; Pain 0/10; tm6 08:42 Body Mass Index 25.02 (70.31 kg, 167.64 cm) tm6 08:42 Pain Scale: Adult tm6 10:12 Pain Scale: Adult tm6 ED Course: 08:18 Patient arrived in ED. im 08:18 Brian Akbar MD is Attending Physician. rt 08:42 Ananda Luciano, GABRIELE is Primary Nurse. tm6 08:44 Triage completed. tm6 08:44 Arm band placed on right wrist. tm6 09:01 Radiology exam delayed due to IV insertion attempt and/or patient not having nj appropriate IV at this time. 09:46 CT Facial Bones W/ Con \T\ Mpr In Process Unspecified. EDMS 09:47 No apparent distress. tm6 09:47 Patient has correct armband on for positive identification. Bed in low position. Call tm6 light in reach. Side rails up X2. Provided Education on:. Client placed on continuous cardiac and pulse oximetry monitoring. NIBP monitoring applied. Door closed. Noise minimized. Warm blanket given. : No provider procedures requiring assistance completed. Inserted saline lock: 20 gauge tm6 in right antecubital area, using aseptic technique. 10:27 IV discontinued, intact, bleeding controlled. tm6 Administered Medications: No medications were administered Medication: : VIS not applicable for this client. tm6 Outcome: 10:13 Discharge ordered by . rt 10: Discharged to home ambulatory, tm6 : Condition: stable 10: Discharge instructions given to patient, Instructed on discharge instructions, follow up and referral plans. : Patient left the ED. tm6 Signatures: Dispatcher [employer] EDMS Broderick Taylor Ryan, MD MD rt Afshan Pettit Tawney, RN RN tm6
[2023-04-16 10:41] VITALS: TEMP 97.6
[2023-04-16 10:44] VITALS: BP 123/52; O2SAT 96
== END 2023-04-16 10:27 | disposition home or self-care (01) ==
LOC: ER 08:14
DX: J30.9 Allergic rhinitis, unspecified (principal); I48.91 Unspecified atrial fibrillation; I10 Essential (primary) hypertension; Z79.01 Long term (current) use of anticoagulants; Z88.0 Allergy status to penicillin
CPT/HCPCS: 85025; 36415; 80053; 70487; 76377; 99283; Q9967

== ENCOUNTER → 2023-09-03 | Emergency (ER) | payer OTHER, MEDICARE ==
[~2023-09-03] MED LIST: DIPHENHYDRAMINE 50 MG/ML VIAL ONE; DOXYCYCLINE 100 MG CAP PO ONE; dexAMETHasone 10 MG/ML VIAL ONE
[2023-09-03 10:12] LABS: Absolute Eosinophils 0.1 K/uL (0-0.5); Absolute Monocytes 0.9 K/uL (0.1-1.3); Absolute Neutrophil 4.7 K/uL (1.8-8.0); Basophils % 0.5 % (0-1.3); Eosinophils % 1.1 % (0-4.4); Hematocrit 38.8 % (36.0-45.0); Lymphocytes % 26.4 % (15.3-44.8); MCH 29.4 pg (27.0-35.0); MCHC 33.4 g/dL (32.0-36.0); MCV 87.8 fL (80-100); Nucleated Red Blood Cells % 0.1 % (0-0); Platelets 309 thou/uL (152-406); RBC Red Blood Cell Count 4.41 M/uL (3.86-4.86); Red Cell Distribution Width 14.3 % (12.1-15.2)
[2023-09-03 10:20] LABS: PT Prothrombin Time 10.5 SECONDS (9.5-12.5); PTT, Activated Partial Thromb 31.3 SECONDS (24.3-36.9); Protime INR 0.95
[2023-09-03 10:26] LABS: Albumin 3.5 g/dL (3.4-5.0); Albumin/Globulin Ratio 1.1 (1.1-1.8); Anion Gap 10.2 mEq/L (5.0-15.0); Bilirubin Total 0.5 mg/dL (0.2-1.0); Globulin 3.1 g/dL (2.3-3.5); Potassium 4.2 mEq/L (3.5-5.1); Protein, Total 6.6 g/dL (6.4-8.2)
--- NOTE | 2023-09-03 11:05 | EDPHYS ---
Physician Documentation [facility] Name: Meryl Murray Age: 73 yrs Sex: Female : 1950 Arrival Date: 09/03/2023 Time: 09:24 Bed 17 Private MD: ED Physician Eugene Blackburn HPI: 09/02 09:46 This 73 yrs old Female presents to ER via Ambulatory with complaints of ec2 Insect Bite, Hand Swelling. 09:46 Patient arrives for evaluation of a puncture wound to the right fourth finger. Patient ec2 reports approximately 1 hour ago she had experienced a sharp puncture to the distal right fourth digit. Reports history of experience with swelling with this. Patient reports some redness now extending. Has not taken any medications. No known allergies. Did not see what possibly bit her, states that there is 1 solitary puncture wound. . Historical: - Allergies: 09:38 PENICILLINS; hb - PMHx: 09:38 Atrial Fib; Hypertension; SVT; hb - PSHx: 09:38 cardiac ablasian; hb - Immunization history:: Adult Immunizations up to date. - Social history:: Smoking status: Patient denies any tobacco usage or history of. ROS: 09:46 Constitutional: as per hpi ec2 Exam: 09:46 Constitutional: GEN: NAD Head: atraumatic Eyes: EOMI Ears: External ears are ec2 normal. CV: regular rate LUNGS: no respiratory distress ABD: non-distended SKIN: n single puncture wound to the distal fourth digit of the right hand. Surrounding swelling noted extending to the dorsal aspect of the hand. No facial swelling noted. MSK: no evidence of trauma NEURO: moves all extremities equally Vital Signs: 09:36 BP 146 / 86; Pulse 66; Resp 16; Temp 98.1(TE); Pulse Ox 99% on R/A; Weight 71.67 kg; hb Height 5 ft. 6 in. ; Pain 9/10; 10:27 BP 145 / 56; Pulse 62; Resp 16; Pulse Ox 98% on R/A; mb9 11:12 BP 128 / 73; Pulse 66; Resp 18; Pulse Ox 100% on R/A; mb9 09:36 Body Mass Index 25.50 (71.67 kg, 167.64 cm) hb 09:36 Pain Scale: Adult hb MDM: 09:39 Patient medically screened. ec2 09:46 Data reviewed: vital signs. ED course: Patient arrives today for evaluation of right ec2 hand swelling after a puncture wound. Examination remarkable for well-appearing nontoxic dividual is in no acute respiratory distress. Does have skin findings noted above. Will obtain lab work, give the patient Decadron and Benadryl as well as doxycycline. Suspect either be or possible spider sting causing patient's symptoms, doubt snake.. 10:28 ED course: Metabolic profile and coagulation profile unremarkable. . ec2 11:04 ED course: On reassessment patient with marked improvement in her swelling. Will ec2 discharge home, started on antibiotics hide follow-up primary care doctor. Return precautions given.. 09/02 09:45 Order name: CBC with Diff; Complete Time: 10:15 ec2 09/02 09:45 Order name: CMP; Complete Time: 10:28 ec2 09/02 09:45 Order name: PT-INR; Complete Time: 10:28 ec2 09/02 09:45 Order name: Ptt, Activated; Complete Time: 10:28 ec2 09/02 09:50 Order name: Ice pack; Complete Time: 10:07 ec2 09/02 10:07 Order name: IV Saline Lock; Complete Time: 10:07 mb9 Administered Medications: 10:00 Drug: Decadron - Dexamethasone IVP 10 mg IVP once Route: IVP; Site: right forearm; mb9 10:28 Follow up: Response: No adverse reaction mb9 10:07 Drug: diphenhydrAMINE IVP 50 mg IVP once Route: IVP; Site: right forearm; mb9 10:28 Follow up: Response: No adverse reaction mb9 10:07 Drug: Doxycycline PO 100 mg PO once Route: PO; mb9 10:28 Follow up: Response: No adverse reaction mb9 Disposition Summary: 09/03/23 11:04 Discharge Ordered Notes: Location: Home ec2 Condition: Stable ec2 Diagnosis - Insect bite (nonvenomous) of right hand ec2 Followup: ec2 - With: Private Physician - When: - Reason: Re-evaluation by your physician Discharge Instructions: - Discharge Summary Sheet ec2 - Insect Bite, Adult, [id number] ec2 Forms: - Medication Reconciliation Form ec2 - Thank You Letter ec2 - Antibiotic Education ec2 - Prescription Opioid Use ec2 - Patient Portal Instructions ec2 - Leadership Thank You Letter ec2 Prescriptions: - Doxycycline Monohydrate 100 mg Oral tablet - take 1 tablet ORAL route every 12 hours for 5 days; 10 tablet; Refills: 0, ec2 Product Selection Permitted Signatures: Dispatcher [employer] Lay Spence RN RN Kusum Cisneros RN RN mb9 Eugene Blackburn MD MD ec2
--- NOTE | 2023-09-03 11:05 | ER ---
Nurse's Notes [facility] Name: Meryl Murray Age: 73 yrs Sex: Female : 1950 Arrival Date: 09/03/2023 Time: 09:24 Bed 17 Private MD: Diagnosis: Insect bite (nonvenomous) of right hand Presentation: 09/02 09:36 Chief complaint: Stung by unknown insect on right 4th finger just [employer], swelling and hb redness noted to right 2nd-5th fingers that extends to top of hand. Coronavirus screen: At this time, the client does not indicate any symptoms associated with coronavirus-19. Ebola Screen: No symptoms or risks identified at this time. Initial Sepsis Screen: Does the patient meet any 2 criteria? No. Patient's initial sepsis screen is negative. Does the patient have a suspected source of infection? No. Patient's initial sepsis screen is negative. Risk Assessment: Do you want to hurt yourself or someone else? Patient reports no desire to harm self or others. Onset of symptoms was September 03, 2023. 09:36 Method Of Arrival: Ambulatory 09:36 Acuity: HONG 4 hb Triage Assessment: 09:38 Bite description: bite sustained to dorsal aspect of middle phalanx of right ring hb finger by unknown insect, animal information:. General: Appears in no apparent distress. Behavior is calm, cooperative. Pain: Pain currently is 9 out of 10 on a pain scale. Neuro: Level of Consciousness is awake, alert, obeys commands, Oriented to person, place, time, situation. Cardiovascular: Patient's skin is warm and dry. Respiratory: Respiratory effort is even, unlabored, Respiratory pattern is regular, symmetrical. Derm: redness and swelling noted to right ring finger that extends to top of hand and 2nd-5th fingers. 10:11 Bite description: animal information: vaccination(s) is current. karma Historical: - Allergies: 09:38 PENICILLINS; hb - PMHx: 09:38 Atrial Fib; Hypertension; SVT; hb - PSHx: 09:38 cardiac ablasian; hb - Immunization history:: Adult Immunizations up to date. - Social history:: Smoking status: Patient denies any tobacco usage or history of. Screenin:09 [facility] ED Fall Risk Assessment (Adult) History of falling in the last 3 months, mb9 including since admission No falls in past 3 months (0 pts) Confusion or Disorientation No (0 pts) Intoxicated or Sedated No (0 pts) Impaired Gait No (0 pts) Mobility Assist Device Used No (0 pt) Altered Elimination No (0 pt) Score/Fall Risk Level 0 - 2 = Low Risk Oriented to surroundings, Maintained a safe environment, Educated pt \T\ family on fall prevention, incl call for assistance when getting out of bed. Abuse screen: Denies threats or abuse. Nutritional screening: No deficits noted. Tuberculosis screening: No symptoms or risk factors identified. Assessment: 10:08 General: Appears in no apparent distress. Behavior is calm, cooperative. Pain: mb9 Complains of pain in right hand Pain does not radiate. Pain currently is 8 out of 10 on a pain scale. Quality of pain is described as throbbing, Pain began Is continuous. Neuro: Garcia Agitation-Sedation Scale (RASS): 0 - Alert and Calm Level of Consciousness is awake, alert, obeys commands, Oriented to person, place, time, situation, Appropriate for age. Cardiovascular: Patient's skin is warm and dry. Respiratory: Airway is patent Respiratory effort is even, unlabored, Respiratory pattern is regular, symmetrical. GI: No signs and/or symptoms were reported involving the gastrointestinal system. : No signs and/or symptoms were reported regarding the genitourinary system. EENT: No signs and/or symptoms were reported regarding the EENT system. Derm: Skin is intact, Skin is normal, insect bit noted to right hand. Erythema and swelling noted. Musculoskeletal: Range of motion: intact in all extremities, Swelling present in right hand. 10:55 Reassessment: Patient and/or family updated on plan of care and expected duration. Pain mb9 level reassessed. Patient is alert, oriented x 3, equal unlabored respirations, skin warm/dry/pink. Patient states feeling better. Patient states symptoms have improved. 11:12 Reassessment: No changes from previously documented assessment. Patient and/or family mb9 updated on plan of care and expected duration. Pain level reassessed. Patient is alert, oriented x 3, equal unlabored respirations, skin warm/dry/pink. Vital Signs: 09:36 BP 146 / 86; Pulse 66; Resp 16; Temp 98.1(TE); Pulse Ox 99% on R/A; Weight 71.67 kg; hb Height 5 ft. 6 in. ; Pain 9/10; 10:27 BP 145 / 56; Pulse 62; Resp 16; Pulse Ox 98% on R/A; mb9 11:12 BP 128 / 73; Pulse 66; Resp 18; Pulse Ox 100% on R/A; mb9 09:36 Body Mass Index 25.50 (71.67 kg, 167.64 cm) hb 09:36 Pain Scale: Adult hb ED Course: 09:26 Patient arrived in ED. mg5 09:26 Eugene Blackburn MD is Attending Physician. ec2 09:38 Triage completed. hb 09:38 Arm band placed on. hb 09:40 Client placed on continuous cardiac and pulse oximetry monitoring. NIBP monitoring hb applied. Pulse ox on. NIBP on. 10:07 Kusum Cisneros, GABRIELE is Primary Nurse. mb9 10:07 Ptt, Activated Sent. mb9 10:07 PT-INR Sent. mb9 10:07 CMP Sent. mb9 10:07 CBC with Diff Sent. mb9 10:07 Inserted saline lock: 20 gauge in right forearm, using aseptic technique. Blood mb9 collected. 10:07 Initial lab(s) drawn, by mt, sent to lab. mb9 10:09 Placed in gown. Bed in low position. Call light in reach. Side rails up X 1. Client mb9 placed on continuous cardiac and pulse oximetry monitoring. NIBP monitoring applied. 10:10 Door closed. Noise minimized. Warm blanket given. mb9 10:10 No provider procedures requiring assistance completed. mb9 10:10 Wound care: ice pack applied. Patient tolerated well. mb9 10:11 Provided Education on: pressing call light. mb9 11:05 IV discontinued, intact, bleeding controlled, No redness/swelling at site. Pressure mb9 dressing applied. Administered Medications: 10:00 Drug: Decadron - Dexamethasone IVP 10 mg IVP once Route: IVP; Site: right forearm; mb9 10:28 Follow up: Response: No adverse reaction mb9 10:07 Drug: diphenhydrAMINE IVP 50 mg IVP once Route: IVP; Site: right forearm; mb9 10:28 Follow up: Response: No adverse reaction mb9 10:07 Drug: Doxycycline PO 100 mg PO once Route: PO; mb9 10:28 Follow up: Response: No adverse reaction mb9 Medication: 10:11 VIS not applicable for this client. mb9 Outcome: 11:04 Discharge ordered by . ec2 11:12 Discharged to home ambulatory, mb9 11:12 Condition: stable 11:12 Discharge instructions given to patient, Instructed on discharge instructions, follow up and referral plans. Demonstrated understanding of instructions, follow-up care, medications, Prescriptions given X 1, 11:16 Patient left the ED. mb9 Signatures: Lay Meneses RN Kusum Massey RN RN mb9 Lizeth Alexis mg5 Eugene Blackburn MD MD ec2
[2023-09-03 11:27] VITALS: BP 128/73; TEMP 98.1; O2SAT 100
== END ==
LOC: ER 09:24
DX: S60.561A Insect bite (nonvenomous) of right hand, initial encounter (principal); Z88.0 Allergy status to penicillin
CPT/HCPCS: 85025; 36415; 85610; 85730; 80053; 96375; 96374; 99285; J1200; J1100

== ENCOUNTER 2023-10-04 06:40 | Emergency (ER) | payer OTHER, MEDICARE ==
[2023-10-04] MEDS ORDERED: TETRACAINE HCL 0.5% 4ML OPTH ONE (07:18)
--- NOTE | 2023-10-04 07:56 | RAD REPORT ---
EXAM DESCRIPTION: CT - Head Brain Wo Cont - 10/04/2023 7:29 am CLINICAL HISTORY: Headache. Eye pain COMPARISON: None TECHNIQUE: Computed axial tomography of the head was obtained. IV contrast was not requested. All CT scans are performed using dose optimization technique as appropriate and may include automated exposure control or mA/KV adjustment according to patient size. FINDINGS: An intracranial bleed is not seen The ventricles are normal in caliber No extra-axial fluid collection is noted. Mild to moderate low-density areas within periventricular, deep and subcortical white matter may repr esent ischemic changes secondary to small vessel disease. Fluid within the sinuses/ mastoids is not seen. IMPRESSION: No acute intracranial abnormality is seen If patient's symptoms persist MRI of the brain would be recommended
--- NOTE | 2023-10-04 08:24 | ER ---
Nurse's Notes [facility] Name: Meryl Murray Age: 73 yrs Sex: Female : 1950 Arrival Date: 10/04/2023 Time: 06:40 Bed 6 Private MD: Darrell Piedra T Diagnosis: Ocular pain, right eye;Headache Presentation: 10/03 06:54 Chief complaint: Patient states: Right eye pain and right sided headache onset this cm10 morning at 0200. Pt states that she saw her eye doctor on Wednesday for a similar issue and had some "something taken out of my eye" and this morning the pain returned. Pt reports having blurred vision to right eye and light sensitivity. Coronavirus screen: Client denies travel out of the [place] in the last 14 days. At this time, the client does not indicate any symptoms associated with coronavirus-19. Ebola Screen: Patient denies travel to an Ebola-affected area in the 21 days before illness onset. No symptoms or risks identified at this time. Initial Sepsis Screen: Does the patient meet any 2 criteria? No. Patient's initial sepsis screen is negative. Does the patient have a suspected source of infection? No. Patient's initial sepsis screen is negative. Risk Assessment: Do you want to hurt yourself or someone else? Patient reports no desire to harm self or others. Onset of symptoms was October 04, 2023. 06:54 Method Of Arrival: Ambulatory cm10 06:54 Acuity: HONG 3 cm10 Triage Assessment: 06:56 General: Appears in no apparent distress. comfortable, Behavior is calm, cooperative. cm10 Pain: Complains of pain in head and right eye Pain does not radiate. Pain currently is 7 out of 10 on a pain scale. Quality of pain is described as throbbing. EENT: Reports blurred vision pain in right eye photophobia. Neuro: No deficits noted. Level of Consciousness is awake, alert, obeys commands, Oriented to person, place, time, situation, Appropriate for age. Respiratory: No deficits noted. Airway is patent Respiratory effort is even, unlabored, Respiratory pattern is regular, symmetrical. Historical: - Allergies: 06:56 PENICILLINS; cm10 - PMHx: 06:56 Atrial Fib; Hypertension; SVT; cm10 - PSHx: 06:56 cardiac ablasian; cm10 - Immunization history:: Adult Immunizations up to date. - Infectious Disease History:: Denies. - Social history:: Smoking status: Patient denies any tobacco usage or history of. - Family history:: not pertinent. - Hospitalizations: : No recent hospitalization is reported. Screenin:[address] [facility] ED Fall Risk Assessment (Adult) History of falling in the last 3 months, ld1 including since admission No falls in past 3 months (0 pts). Abuse screen: Denies threats or abuse. Denies injuries from another. Nutritional screening: No deficits noted. Tuberculosis screening: No symptoms or risk factors identified. Assessment: 07:35 General: Appears in no apparent distress. comfortable, Behavior is calm, cooperative, ld1 appropriate for age. Pain: Complains of pain in right eye and head Pain does not radiate. Pain currently is 8 out of 10 on a pain scale. Quality of pain is described as throbbing, Pain began 1 day ago. Neuro: Level of Consciousness is awake, alert, obeys commands, Oriented to person, place, time, situation. Cardiovascular: Capillary refill < 3 seconds Patient's skin is warm and dry. Respiratory: Airway is patent Respiratory effort is even, unlabored. GI: Abdomen is flat, non-distended. : No signs and/or symptoms were reported regarding the genitourinary system. EENT: No signs and/or symptoms were reported regarding the EENT system. Derm: No signs and/or symptoms reported regarding the dermatologic system. 08:44 Reassessment: Patient and/or family updated on plan of care and expected duration. Pain rs5 level reassessed. Patient is alert, oriented x 3, equal unlabored respirations, skin warm/dry/pink. Patient states feeling better. Patient states symptoms have improved. Vital Signs: 06:54 BP 137 / 67; Pulse 69; Resp 18; Temp 97.7(O); Pulse Ox 100% ; Weight 72.57 kg; Height 5 cm10 ft. 5 in. ; Pain 7/10; 07:35 BP 148 / 101; Pulse 88; Resp 18; Pulse Ox 97% on R/A; ld1 08:44 BP 140 / 88; Pulse 80; Resp 18; Pulse Ox 99% on R/A; rs5 06:54 Body Mass Index 26.63 (72.57 kg, 165.1 cm) cm10 06:54 Pain Scale: Adult cm10 ED Course: 06:45 Patient arrived in ED. gm2 06:45 Darrell Piedra MD is Private Physician. gm2 06:49 Sherwin Lynne MD is Attending Physician. sp3 06:56 Triage completed. cm10 06:57 Arm band placed on Patient placed in an exam room, on a stretcher. cm10 06:59 Pedro Magallon MD is Attending Physician. rn 06:59 Shavonne Pisano RN is Primary Nurse. ld1 07:30 CT Head Brain wo Cont In Process Unspecified. EDMS 07:35 Patient has correct armband on for positive identification. Placed in gown. Bed in low ld1 position. Call light in reach. Side rails up X2. monitoring specialist on. Pulse ox on. NIBP on. Door closed. Noise minimized. Warm blanket given. 07:35 No provider procedures requiring assistance completed. ld1 08:45 IV discontinued, intact, bleeding controlled, No redness/swelling at site. Pressure rs5 dressing applied. Administered Medications: 07:23 Drug: Tetracaine Ophthalmic Drops 0.5 % 1 drops Ophthalmic once Route: Ophthalmic; rs5 Site: right eye; 07:40 Follow up: Response: No adverse reaction; Pain is decreased rs5 Medication: 08:45 VIS not applicable for this client. rs5 Outcome: 08:23 Discharge ordered by . rn 08:45 Discharged to home ambulatory, rs5 08:45 Condition: stable 08:45 Discharge instructions given to patient, family, Instructed on discharge instructions, follow up and referral plans. Demonstrated understanding of instructions, follow-up care, 08:45 Patient left the ED. rs5 Signatures: Dispatcher [employer] EDWI Pedro Magallon MD MD rn Sims, Lauren, RN RN ld1 Sherwin Lynne MD MD sp3 Adrian Lamb RN RN rs5 Kavita Ornelas RN RN 10 Digna Sparks gm2
--- NOTE | 2023-10-04 08:24 | EDPHYS ---
Physician Documentation [facility] Name: Meryl Murray Age: 73 yrs Sex: Female : 1950 Arrival Date: 10/04/2023 Time: 06:40 Bed 6 Private MD: Darrell Piedra T ED Physician Pedro Magallon HPI: 10/03 07:45 This 73 yrs old Female presents to ER via Ambulatory with complaints of Eye Pain, rn Headache. 07:45 The patient is experiencing pain, to the right eye. rn 07:45 Onset: The symptoms/episode began/occurred 6 day(s) ago. Duration: the symptoms are rn intermittent. Aggravated by nothing. Alleviated by nothing. Severity of symptoms: At their worst the symptoms were moderate in the emergency department the symptoms are unchanged. The patient has experienced a previous episode. Patient reports right eye pain and headache that began 6 days ago. Saw her eye doctor, states pressure was normal and exam otherwise normal. There was questionable foreign body which was removed and patient was prescribed drops with antibiotics. Patient reports return of symptoms this morning without any trauma. No blurred vision. No pain in temples. Is right ocular pain with occipital headache on the right side. No focal neurological deficit. No diplopia.. Historical: - Allergies: 06:56 PENICILLINS; cm10 - PMHx: 06:56 Atrial Fib; Hypertension; SVT; cm10 - PSHx: 06:56 cardiac ablasian; cm10 - Immunization history:: Adult Immunizations up to date. - Infectious Disease History:: Denies. - Social history:: Smoking status: Patient denies any tobacco usage or history of. - Family history:: not pertinent. - Hospitalizations: : No recent hospitalization is reported. ROS: 07:45 Constitutional: Negative for fever, chills, and weight loss, Eyes: Positive for right rn eye pain Neck: Negative for injury, pain, and swelling, Cardiovascular: Negative for chest pain, palpitations, and edema, Respiratory: Negative for shortness of breath, cough, wheezing, and pleuritic chest pain, Abdomen/GI: Negative for abdominal pain, nausea, vomiting, diarrhea, and constipation, Neuro: Negative for weakness, numbness, tingling, and seizure, Exam: 07:45 Constitutional: This is a well developed, well nourished patient who is awake, alert, rn and in no acute distress. Head/Face: Normocephalic, atraumatic. Eyes: Pupils equal round and reactive to light, extra-ocular motions intact. Lids and lashes normal. Conjunctiva and sclera are non-icteric and not injected. Cornea within normal limits. Periorbital areas with no swelling, redness, or edema. Neuro: Awake and alert, GCS 15, oriented to person, place, time, and situation. Cranial nerves II-XII grossly intact. Motor strength 5/5 in all extremities. Sensory grossly intact. Cerebellar exam normal. Normal gait. Vital Signs: 06:54 BP 137 / 67; Pulse 69; Resp 18; Temp 97.7(O); Pulse Ox 100% ; Weight 72.57 kg; Height 5 cm10 ft. 5 in. ; Pain 7/10; 07:35 BP 148 / 101; Pulse 88; Resp 18; Pulse Ox 97% on R/A; ld1 08:44 BP 140 / 88; Pulse 80; Resp 18; Pulse Ox 99% on R/A; rs5 06:54 Body Mass Index 26.63 (72.57 kg, 165.1 cm) cm10 06:54 Pain Scale: Adult cm10 MDM: 06:59 Patient medically screened. rn 08:22 Differential diagnosis: Acute glaucoma in right eye. Ocular migraine, intracranial rn lesion, mass. Data reviewed: vital signs, nurses notes, radiologic studies, and as a result, I will discharge patient. Counseling: I had a detailed discussion with the patient and/or guardian regarding the historical points, exam findings, and any diagnostic results supporting the discharge/admit diagnosis, radiology results, the need for outpatient follow up, to return to the emergency department if symptoms worsen or persist or if there are any questions or concerns that arise at home. Special discussion: I discussed with the patient/guardian in detail that at this point there is no indication for admission to the hospital. It is understood, however, that if the symptoms persist or worsen the patient needs to return immediately for re-evaluation. Based on the history and exam findings, there is no indication for further emergent testing or inpatient evaluation. I discussed with the patient/guardian the need to see the neurologist for further evaluation of the symptoms. I discussed with the patient/guardian the need to see the opthamologist for further evaluation of the symptoms. ED course: [place] used to measure intraocular pressure, after tetracaine applied, pressure was 13. CT head without acute findings. Possible ocular migraine. Will discharge with follow-up with neurology on ophthalmology.. 10/03 07:15 Order name: CT Head Brain wo Cont; Complete Time: 07:59 rn Administered Medications: 07:23 Drug: Tetracaine Ophthalmic Drops 0.5 % 1 drops Ophthalmic once Route: Ophthalmic; rs5 Site: right eye; 07:40 Follow up: Response: No adverse reaction; Pain is decreased rs5 Disposition Summary: 10/04/23 08:23 Discharge Ordered Notes: Location: Home rn Problem: new rn Symptoms: have improved rn Condition: Stable rn Diagnosis - Ocular pain, right eye rn - Headache rn Followup: rn - With: Private Physician - When: As needed - Reason: Recheck today's complaints, Re-evaluation by your physician Discharge Instructions: - Discharge Summary Sheet rn - General Headache Without Cause rn Forms: - Medication Reconciliation Form rn - Thank You Letter rn - Antibiotic varnishing unit operator - Prescription Opioid Use rn - Patient Portal Instructions rn - Leadership Thank You Letter rn Signatures: Dispatcher [employer] EDMS Pedro Magallon MD MD rn Sotelo, Ricky, RN RN rs5 Kavita Ornelas RN RN cm10 Corrections: (The following items were deleted from the chart) 07:16 07:16 Head Brain Wo [id number]+CT.RAD.BRZ ordered. EDMS EDMS
[2023-10-04 08:58] VITALS: BP 140/88; TEMP 97.7; O2SAT 99
== END 2023-10-04 08:45 | disposition home or self-care (01) ==
LOC: ER 06:40
DX: H57.11 Ocular pain, right eye (principal); R51.9 Headache, unspecified; I10 Essential (primary) hypertension; I48.91 Unspecified atrial fibrillation; Z88.0 Allergy status to penicillin
CPT/HCPCS: 70450; 99284

== ENCOUNTER 2024-02-04 23:16 | Emergency (ER) | payer OTHER, MEDICARE ==
[2024-02-05] MEDS ORDERED: KETOROLAC 30 MG/ML INJ ONE (00:13)
[2024-02-05] MEDS ORDERED: DIPHENHYDRAMINE 50 MG/ML VIAL ONE (00:13)
[2024-02-05] MEDS ORDERED: METOCLOPRAMIDE 10 MG/2mL INJ ONE (00:14)
[2024-02-05] MEDS ORDERED: NA CHLORIDE 0.9% 1,000 ML ONE (00:14)
[2024-02-05 00:40] LABS: Absolute Eosinophils 0.2 K/uL (0-0.5); Absolute Lymphocytes (CBC) 3.3 K/uL (0.7-4.9); Absolute Monocytes 1.1 K/uL (0.1-1.3); Absolute Neutrophil 4.9 K/uL (1.8-8.0); Basophils % 0.4 % (0-1.3); Eosinophils % 1.9 % (0-4.4); Hematocrit 38.4 % (36.0-45.0); Hemoglobin 12.7 g/dL (12.0-15.0); Lymphocytes % 35.1 % (15.3-44.8); MCH 29.4 pg (27.0-35.0); MCHC 33.1 g/dL (32.0-36.0); MCV 88.8 fL (80-100); MPV 7.3 fL (7.6-11.3); Monocytes % 11.1 % (3.3-12.3); Neutrophils % 51.5 % (41.7-73.7); Nucleated Red Blood Cells % 0.2 % (0-0); Platelets 317 thou/uL (152-406); RBC Red Blood Cell Count 4.33 M/uL (3.86-4.86); Red Cell Distribution Width 14.6 % (12.1-15.2)
[2024-02-05 00:50] LABS: Anion Gap 7.8 mEq/L (5.0-15.0); Potassium 3.8 mEq/L (3.5-5.1); Troponin High Sensitivity 9.1 pg/mL (<58.9)
--- NOTE | 2024-02-05 02:34 | ER ---
Nurse's Notes [facility] Name: Meryl Murray Age: 73 yrs Sex: Female : 1950 Arrival Date: 02/04/2024 Time: 23:16 Bed 4 Private MD: Diagnosis: Headache;Essential (primary) hypertension Presentation: 02/03 23:51 Chief complaint: Patient states: Pt c/o headache, dizziness, and high blood pressure x tl4 1.5 hours. Pt denies CP, SOB, nausea, diaphoresis. Coronavirus screen: At this time, the client does not indicate any symptoms associated with coronavirus-19. Ebola Screen: No symptoms or risks identified at this time. Initial Sepsis Screen: Does the patient meet any 2 criteria? No. Patient's initial sepsis screen is negative. Does the patient have a suspected source of infection? No. Patient's initial sepsis screen is negative. Risk Assessment: Do you want to hurt yourself or someone else? Patient reports no desire to harm self or others. Onset of symptoms was February 04, 2024 at 22:00. 23:51 Method Of Arrival: Ambulatory tl4 23:51 Acuity: HONG 3 tl4 Triage Assessment: 23:54 General: Appears distressed, Behavior is cooperative. Pain: Complains of pain in head. tl4 EENT: No signs and/or symptoms were reported regarding the EENT system. Neuro: Level of Consciousness is awake, alert, obeys commands, Oriented to person, place, time, situation, Reports dizziness, headache. Cardiovascular: Capillary refill < 3 seconds Patient's skin is warm and dry. Respiratory: Airway is patent Respiratory effort is even, unlabored, Respiratory pattern is regular, symmetrical. GI: No signs and/or symptoms were reported involving the gastrointestinal system. : No signs and/or symptoms were reported regarding the genitourinary system. Derm: No signs and/or symptoms reported regarding the dermatologic system. Musculoskeletal: No signs and/or symptoms reported regarding the musculoskeletal system. Historical: - Allergies: 23:49 PENICILLINS; tl4 - Home Meds: 23:49 aspirin 81 mg oral tablet,chewable daily [Active]; tl4 - PMHx: 23:49 Atrial Fib; Hypertension; SVT; tl4 - PSHx: 23:49 cardiac ablation; tl4 - Immunization history:: Adult Immunizations unknown. - Infectious Disease History:: Denies. - Social history:: Smoking status: Patient denies any tobacco usage or history of. Screenin/17 00:25 [facility] ED Fall Risk Assessment (Adult) History of falling in the last 3 months, al5 including since admission No falls in past 3 months (0 pts) Confusion or Disorientation No (0 pts) Intoxicated or Sedated No (0 pts) Impaired Gait No (0 pts) Mobility Assist Device Used No (0 pt) Altered Elimination No (0 pt) Score/Fall Risk Level 0 - 2 = Low Risk Oriented to surroundings, Maintained a safe environment, Hourly rounding (assess needs \T\ fall precautionary measures) done. Abuse screen: Denies threats or abuse. Denies injuries from another. Nutritional screening: No deficits noted. Tuberculosis screening: No symptoms or risk factors identified. Assessment: 00:26 General: Appears in no apparent distress. Behavior is calm, cooperative. Pain: al5 Complains of pain in head. Neuro: Level of Consciousness is awake, alert, obeys commands, Oriented to person, place, time, situation. Cardiovascular: Patient's skin is warm and dry. Cardiovascular: Reports lightheadedness, dizziness, high blood pressure. Respiratory: Airway is patent Respiratory effort is even, unlabored, Respiratory pattern is regular, symmetrical. GI: No signs and/or symptoms were reported involving the gastrointestinal system. : No signs and/or symptoms were reported regarding the genitourinary system. EENT: No signs and/or symptoms were reported regarding the EENT system. Derm: Skin is intact, Skin is pink, warm \T\ dry. normal. Musculoskeletal: No signs and/or symptoms reported regarding the musculoskeletal system. 01:33 Reassessment: Patient appears in no apparent distress at this time. Patient and/or al5 family updated on plan of care and expected duration. Pain level reassessed. Patient is alert, oriented x 3, equal unlabored respirations, skin warm/dry/pink. Patient is alert/active/playful, equal unlabored respirations, skin warm/dry/pink. patient resting comfortably at this time. Patient states feeling better. Patient states symptoms have improved. 02:34 Reassessment: Patient appears in no apparent distress at this time. No changes from tm6 previously documented assessment. Vital Signs: 02/03 23:51 BP 198 / 91; Pulse 60; Resp 16; Temp 98.6(O); Pulse Ox 98% ; Weight 71.67 kg; Height 5 tl4 ft. 6 in. ; Pain 8/10; 02/04 00:10 BP 199 / 70; Pulse 60; Resp 15; Pulse Ox 100% on R/A; al5 00:40 BP 153 / 93; Pulse 66; Resp 14; Pulse Ox 99% on R/A; al5 01:00 BP 118 / 56; Pulse 67; Resp 16; Pulse Ox 97% on R/A; al5 01:10 BP 133 / 90; ec2 01:30 BP 133 / 90; Pulse 64; Resp 15; Pulse Ox 97% on R/A; al5 01:44 BP 126 / 85; Pulse 65; ec2 02:34 BP 137 / 97; Pulse 62; Resp 18; Temp 98.7; Pulse Ox 98% on R/A; Pain 0/10; tm6 02/03 23:51 Body Mass Index 25.50 (71.67 kg, 167.64 cm) tl4 02/03 23:51 Pain Scale: Adult tl4 02:34 Pain Scale: Adult tm6 ED Course: 02/03 23:18 Patient arrived in ED. mr 23:32 Eugene Blackburn MD is Attending Physician. ec2 23:53 Triage completed. tl4 23:55 Arm band placed on right wrist. tl4 02/04 00:00 Mayi Arellano, GABRIELE is Primary Nurse. al5 00:08 Basic Metabolic Panel Sent. al5 00:08 CBC with Diff Sent. al5 00:08 Troponin HS Sent. al5 00:25 Patient has correct armband on for positive identification. Bed in low position. Call al5 light in reach. Side rails up X 1. Provided Education on: processes and procedures, medications. 00:25 No provider procedures requiring assistance completed. Initial lab(s) drawn, by , gwen sent to lab. Inserted saline lock: 20 gauge in right antecubital area, using aseptic technique. Blood collected. Flushed with 10 mL NS. 00:36 CT Head Brain wo Cont In Process Unspecified. EDMS 02:46 IV discontinued, intact, bleeding controlled, No redness/swelling at site. Pressure tm6 dressing applied. Administered Medications: 00:22 Drug: NS 0.9% IV 1000 ml IV at 1 bolus Per protocol; 1000 mL bolus Route: IV; Rate: 1 al5 bolus; Site: right antecubital; 02:30 Follow up: IV Status: Completed infusion; IV Intake: 1000ml tm6 00:22 Drug: Ketorolac IVP 15 mg IVP once Route: IVP; Site: right antecubital; al5 01:37 Follow up: Response: No adverse reaction; Marked relief of symptoms; Blood pressure is al5 lowered 00:22 Drug: metoCLOPramide IVP 10 mg IVP once; over 1 to 2 minutes Route: IVP; Site: right al5 antecubital; 01:37 Follow up: Response: No adverse reaction; Marked relief of symptoms; Blood pressure is al5 lowered 00:22 Drug: diphenhydrAMINE IVP 12.5 mg IVP once Route: IVP; Site: right antecubital; al5 01:36 Follow up: Response: No adverse reaction; Blood pressure is lowered al5 01:36 Follow up: Response: No adverse reaction; Marked relief of symptoms; Blood pressure is al5 lowered Medication: 00:27 VIS not applicable for this client. al5 Intake: 02:30 IV: 1000ml; Total: 1000ml. tm6 Outcome: 02:34 Discharge ordered by . ec2 02:46 Discharged to home ambulatory, with family, tm6 02:46 Condition: stable 02:46 Discharge instructions given to patient, Instructed on discharge instructions, follow up and referral plans. Demonstrated understanding of instructions, follow-up care, 02:46 Patient left the ED. tm6 Signatures: Dispatcher [employer] EDWA Kusum Wahl, Reg Reg Eugene Naik MD MD ec2 Ananda Luciano RN RN tm6 Kodi Damian RN RN tl4 Mayi Arellano RN RN al5 Corrections: (The following items were deleted from the chart) 02/03 23:51 23:49 PSHx: cardiac ablasian; tl4 tl4 02/04 01:36 01:33 Reassessment: Patient appears in no apparent distress at this time. Patient al5 and/or family updated on plan of care and expected duration. Pain level reassessed. Patient is alert, oriented x 3, equal unlabored respirations, skin warm/dry/pink. Patient is alert/active/playful, equal unlabored respirations, skin warm/dry/pink. Patient states feeling better. Patient states symptoms have improved. al5 02:46 02:34 BP 137 / 97; Pulse 62bpm; Resp 12bpm; Pulse Ox 98% RA; tm6 tm6
--- NOTE | 2024-02-05 02:34 | EDPHYS ---
Physician Documentation [facility] Name: Meryl Murray Age: 73 yrs Sex: Female : 1950 Arrival Date: 02/04/2024 Time: 23:16 Bed 4 Private MD: ED Physician Eugene Blackburn HPI: 02/03 23:51 This 73 yrs old Female presents to ER via Unassigned with complaints of High ec2 Blood Pressure, Dizziness. 23:51 Patient arrives today for evaluation of headache as well as high blood pressure. ec2 Patient reports that she has had some elevated blood pressure readings in 1 to be evaluated. Denies any chest pain or difficulty breathing. Patient reports that she had taken an Advil prior to arrival for a headache. Patient reports that she does not take blood pressure medications.. Historical: - Allergies: 23:49 PENICILLINS; tl4 - Home Meds: 23:49 aspirin 81 mg oral tablet,chewable daily [Active]; tl4 - PMHx: 23:49 Atrial Fib; Hypertension; SVT; tl4 - PSHx: 23:49 cardiac ablation; tl4 - Immunization history:: Adult Immunizations unknown. - Infectious Disease History:: Denies. - Social history:: Smoking status: Patient denies any tobacco usage or history of. ROS: 23:51 Constitutional: as per hpi ec2 Exam: 23:51 Constitutional: GEN: NAD Head: atraumatic Eyes: EOMI Ears: External ears are ec2 normal. CV: regular rate LUNGS: no respiratory distress ABD: non-distended SKIN: no evidence of rashes MSK: no evidence of trauma. Neuro: Intact neurologic exam, stable gait. Vital Signs: 23:51 BP 198 / 91; Pulse 60; Resp 16; Temp 98.6(O); Pulse Ox 98% ; Weight 71.67 kg; Height 5 tl4 ft. 6 in. ; Pain 8/10; 02/04 00:10 BP 199 / 70; Pulse 60; Resp 15; Pulse Ox 100% on R/A; al5 00:40 BP 153 / 93; Pulse 66; Resp 14; Pulse Ox 99% on R/A; al5 01:00 BP 118 / 56; Pulse 67; Resp 16; Pulse Ox 97% on R/A; al5 01:10 BP 133 / 90; ec2 01:30 BP 133 / 90; Pulse 64; Resp 15; Pulse Ox 97% on R/A; al5 01:44 BP 126 / 85; Pulse 65; ec2 02:34 BP 137 / 97; Pulse 62; Resp 18; Temp 98.7; Pulse Ox 98% on R/A; Pain 0/10; tm6 02/03 23:51 Body Mass Index 25.50 (71.67 kg, 167.64 cm) tl4 02/03 23:51 Pain Scale: Adult tl4 02:34 Pain Scale: Adult tm6 MDM: 02/03 23:34 Patient medically screened. ec2 23:51 Data reviewed: vital signs. ED course: Patient arrives today for evaluation of headache ec2 and elevated blood pressure. Examination remarkable for neuro intact individuals otherwise in no acute distress with a reassuring examination. Will obtain lab work, treat the patient's headache and reassess. Differential includes intracranial mass, endorgan damage, electrolyte disturbances, anemia, dehydration.. 02/04 00:08 ED course: EKG independently reviewed and interpreted by me, shows normal sinus rhythm, ec2 rate of 59, no acute ST segment elevations, intervals are nonconcerning.. 02:32 ED course: CT scan of the head shows no acute intracranial process. Patient's ec2 hypertension is since resolved after treating her headache. Will discharge home. Return precautions given.. 02/03 23:51 Order name: Basic Metabolic Panel; Complete Time: 00:53 ec2 02/03 23:51 Order name: CBC with Diff; Complete Time: 00:53 ec2 02/03 23:51 Order name: Troponin HS; Complete Time: 00:53 ec2 02/03 23:52 Order name: CT Head Brain wo Cont ec2 02/03 23:51 Order name: EKG; Complete Time: 23:51 ec2 02/03 23:51 Order name: Cardiac monitoring; Complete Time: 00:08 ec2 02/03 23:51 Order name: EKG - Nurse/Tech; Complete Time: 00:08 ec2 02/03 23:51 Order name: IV Saline Lock; Complete Time: 00:08 ec2 02/03 23:51 Order name: Labs collected and sent; Complete Time: 00:08 ec2 02/03 23:51 Order name: O2 Per Protocol; Complete Time: 00:08 ec2 02/03 23:51 Order name: O2 Sat Monitoring; Complete Time: 00:08 ec2 Administered Medications: 00:22 Drug: NS 0.9% IV 1000 ml IV at 1 bolus Per protocol; 1000 mL bolus Route: IV; Rate: 1 al5 bolus; Site: right antecubital; 02:30 Follow up: IV Status: Completed infusion; IV Intake: 1000ml tm6 00:22 Drug: Ketorolac IVP 15 mg IVP once Route: IVP; Site: right antecubital; al5 01:37 Follow up: Response: No adverse reaction; Marked relief of symptoms; Blood pressure is al5 lowered 00:22 Drug: metoCLOPramide IVP 10 mg IVP once; over 1 to 2 minutes Route: IVP; Site: right al5 antecubital; 01:37 Follow up: Response: No adverse reaction; Marked relief of symptoms; Blood pressure is al5 lowered 00:22 Drug: diphenhydrAMINE IVP 12.5 mg IVP once Route: IVP; Site: right antecubital; al5 01:36 Follow up: Response: No adverse reaction; Blood pressure is lowered al5 01:36 Follow up: Response: No adverse reaction; Marked relief of symptoms; Blood pressure is al5 lowered Disposition Summary: 02/05/24 02:34 Discharge Ordered Notes: Location: Home ec2 Condition: Stable ec2 Diagnosis - Headache ec2 - Essential (primary) hypertension ec2 Followup: ec2 - With: Private Physician - When: - Reason: Re-evaluation by your physician Discharge Instructions: - Discharge Summary Sheet ec2 - General Headache Without Cause ec2 Forms: - Medication Reconciliation Form ec2 - Antibiotic Education ec2 - Prescription Opioid Use ec2 - Patient Portal Instructions ec2 - Leadership Thank You Letter ec2 Signatures: Dispatcher [employer] Eugene Fierro MD MD ec2 Kodi Damian RN RN tl4 Mayi Arellano RN RN al5 Ananda Luciano RN tm6 Corrections: (The following items were deleted from the chart) 02/03 23:51 23:49 PSHx: cardiac ablasian; tl4 tl4
[2024-02-05 03:04] VITALS: BP 137/97; TEMP 98.7; O2SAT 98
--- NOTE | 2024-02-05 14:09 | RAD REPORT ---
EXAM DESCRIPTION: CT - Head Brain Wo Cont - 02/05/2024 12:35 am CLINICAL HISTORY: The patient is 73 years old and is Female; Headache. TECHNIQUE: Axial computed tomography images of the head/brain without intravenous contrast. Sagitt al and coronal reformatted images were created and reviewed. This CT exam was performed using one o r more of the following dose reduction techniques: automated exposure control, adjustment of the mA and/or kV according to patient size, and/or use of iterative reconstruction technique. COMPARISON: CT Head 10/04/2023. FINDINGS: BRAIN: Mild bilateral periventricular and deep white matter microangiopathy changes. No extra-axial fluid collection. No intracranial hemorrhage. No transtentorial herniation. No focal mahan-white matter differentiation abnormality. MIDLINE SHIFT: No midline shift. VENTRICLES: Unremarkable No ventriculomegaly. BONES/JOINTS: No fracture of the calvarium or visualized facial bones. SOFT TISSUES: Unremarkable SINUSES: No masses, bony erosion or evidence of acute sinusitis. MASTOID AIR CELLS: Unremarkable as visualized. No mastoid effusion. IMPRESSION: Chronic and senescent changes with no acute intracranial abnormality. Electronically signed by: Sim Gregg MD 02/05/2024 02:29 AM CDT RP Due to temporary technical issues with the PACS/Fluency reporting system, reports are being signed by the in house radiologists without review as a courtesy to insure prompt reporting. The interpreting radiologist is fully responsible for the content of the report.
== END 2024-02-05 02:46 | disposition home or self-care (01) ==
LOC: ER 23:16
DX: R51.9 Headache, unspecified (principal); I10 Essential (primary) hypertension; I48.91 Unspecified atrial fibrillation; Z79.82 Long term (current) use of aspirin
CPT/HCPCS: 96361; 85025; 80048; 36415; 84484; 70450; 96375; 96374; 99284; J2765; J1200; J7030; 93005

== ENCOUNTER 2024-07-24 09:38 | Emergency (ER) | payer OTHER, MEDICARE ==
[2024-07-24] MEDS ORDERED: ACETAMINOPHEN 500 MG TAB ONE (10:05)
[2024-07-24] MEDS ORDERED: methocarbamoL 500 MG TAB ONE (10:06)
[2024-07-24] MEDS ORDERED: IBUPROFEN 400 MG TAB ONE (10:06)
--- NOTE | 2024-07-24 11:19 | RAD REPORT ---
Exam:Knee Right 3 View HISTORY: Right knee pain FINDINGS: No fracture or dislocation seen No significant bone or joint abnormality displayed
--- NOTE | 2024-07-24 11:32 | EDPHYS ---
Physician Documentation [facility] Name: Meryl Murray Age: 73 yrs Sex: Female : 1950 Arrival Date: 07/24/2024 Time: 09:38 Bed DX1 Private MD: ED Physician Eugene Blackburn HPI: 07/24 10:02 This 73 yrs old Female presents to ER via Wheelchair with complaints of Knee ec2 Pain - right. 10:02 Patient arrives today for evaluation of atraumatic right knee pain. Patient reports ec2 that she has been experiencing right knee pain onset for 2 days. No specific falls injuries or trauma. Reports no significant redness or swelling appreciated to the knee.. Historical: - Allergies: 10:00 PENICILLINS; jl7 - Home Meds: 10:00 aspirin 81 mg Oral tablet daily [Active]; jl7 - PMHx: 10:00 Atrial Fib; Hypertension; SVT; jl7 - PSHx: 10:00 Cardiac Ablation; jl7 - Immunization history:: Adult Immunizations unknown. - Infectious Disease History:: Denies. - Social history:: Smoking status: Patient denies any tobacco usage or history of. ROS: 10:02 Constitutional: as per hpi ec2 Exam: 10:02 Constitutional: GEN: NAD Head: atraumatic Eyes: EOMI Ears: External ears are ec2 normal. CV: regular rate LUNGS: no respiratory distress ABD: non-distended SKIN: no evidence of rashes MSK: Right knee with TTP to the patella tendon, no erythema or warmth appreciated to the knee, trace amount of effusion appreciated, no warmth appreciated, no redness. Vital Signs: 09:59 BP 146 / 77; Pulse 64; Resp 17; Temp 97.6; Pulse Ox 100% ; Weight 72.12 kg; Height 5 jl7 ft. 6 in. ; Pain 7/10; 09:59 Body Mass Index 25.66 (72.12 kg, 167.64 cm) jl7 09:59 Pain Scale: Adult jl7 MDM: 09:55 Medical Screening Exam initiated ec2 10:03 Data reviewed: vital signs, nurses notes. ED course: Patient arrives today for right ec2 knee pain. Examination yields MSK findings as above. Will obtain radiograph. Suspect possible arthritis, doubt fracture, doubt dislocation.. 11:30 ED course: Knee x-ray independently reviewed and interpreted by me, shows no bony ec2 fracture. Will discharge home. Return precautions given. Suspect knee sprain. Doubt process such as septic joint, doubt gout.. 07/24 10:01 Order name: Knee Right 3 View XRAY; Complete Time: 11:29 ec2 07/24 10:01 Order name: Olayinka Wrap; Complete Time: 12:05 ec2 Administered Medications: 10:08 Drug: Methocarbamol PO 500 mg PO once Route: PO; jl7 12:05 Follow up: Response: No adverse reaction; Pain is decreased kb3 10:08 Drug: Acetaminophen PO 1000 mg PO once Route: PO; jl7 12:05 Follow up: Response: No adverse reaction; Pain is decreased kb3 10:08 Drug: Ibuprofen PO 400 mg PO once Route: PO; jl7 12:05 Follow up: Response: No adverse reaction; Pain is decreased kb3 Disposition Summary: 07/24/24 11:31 Discharge Ordered Notes: Location: Home ec2 Condition: Stable ec2 Diagnosis - Sprain of unspecified site of right knee ec2 Followup: ec2 - With: Private Physician - When: - Reason: Re-evaluation by your physician Discharge Instructions: - Discharge Summary Sheet ec2 - Knee Sprain, Adult, [id number] ec2 Forms: - Medication Reconciliation Form ec2 - Antibiotic Education ec2 - Prescription Opioid Use ec2 - Patient Portal Instructions ec2 - Leadership Thank You Letter ec2 Prescriptions: - methocarbamol 500 mg Oral tablet - take 1 tablet ORAL route 4 times per day; 15 tablet; Refills: 0, Product ec2 Selection Permitted Signatures: Dispatcher [employer] Silke Cuellar RN RN jl7 Eugene Blackburn MD MD ec2 Noemy Oliva RN kb3
--- NOTE | 2024-07-24 11:32 | ER ---
Nurse's Notes [facility] Name: Meryl Murray Age: 73 yrs Sex: Female : 1950 Arrival Date: 07/24/2024 Time: 09:38 Bed DX1 Private MD: Diagnosis: Sprain of unspecified site of right knee Presentation: 07/24 09:59 Chief complaint: Patient states: Right knee pain x 2 days, denies injury. Coronavirus jl7 screen: At this time, the client does not indicate any symptoms associated with coronavirus-19. Ebola Screen: No symptoms or risks identified at this time. Initial Sepsis Screen: Does the patient meet any 2 criteria? No. Patient's initial sepsis screen is negative. Does the patient have a suspected source of infection? No. Patient's initial sepsis screen is negative. Risk Assessment: Do you want to hurt yourself or someone else? Patient reports no desire to harm self or others. Onset of symptoms was July 22, 2024. 09:59 Method Of Arrival: Wheelchair jl7 09:59 Acuity: HONG 4 jl7 Triage Assessment: 10:00 General: Appears in no apparent distress. uncomfortable, Behavior is calm, cooperative, jl7 appropriate for age. Pain: Complains of pain in medial aspect of right knee and right knee Pain currently is 7 out of 10 on a pain scale. Musculoskeletal: Swelling present in right knee. Historical: - Allergies: 10:00 PENICILLINS; jl7 - Home Meds: 10:00 aspirin 81 mg Oral tablet daily [Active]; jl7 - PMHx: 10:00 Atrial Fib; Hypertension; SVT; jl7 - PSHx: 10:00 Cardiac Ablation; jl7 - Immunization history:: Adult Immunizations unknown. - Infectious Disease History:: Denies. - Social history:: Smoking status: Patient denies any tobacco usage or history of. Screenin:07 [facility] ED Fall Risk Assessment (Adult) History of falling in the last 3 months, kb3 including since admission No falls in past 3 months (0 pts) Confusion or Disorientation No (0 pts) Intoxicated or Sedated No (0 pts) Impaired Gait No (0 pts) Mobility Assist Device Used No (0 pt) Altered Elimination No (0 pt) Score/Fall Risk Level 0 - 2 = Low Risk Oriented to surroundings. Abuse screen: Denies threats or abuse. Denies injuries from another. Nutritional screening: No deficits noted. Tuberculosis screening: No symptoms or risk factors identified. Assessment: 12:07 Reassessment: Patient appears in no apparent distress at this time. No changes from kb3 previously documented assessment. General: Appears in no apparent distress. Behavior is calm, cooperative. Musculoskeletal: Swelling present in right knee Reports pain in right knee and medial aspect of right knee. Vital Signs: 09:59 BP 146 / 77; Pulse 64; Resp 17; Temp 97.6; Pulse Ox 100% ; Weight 72.12 kg; Height 5 jl7 ft. 6 in. ; Pain 7/10; 09:59 Body Mass Index 25.66 (72.12 kg, 167.64 cm) jl7 09:59 Pain Scale: Adult jl7 ED Course: 09:41 Patient arrived in ED. im 09:50 Eugene Blackburn MD is Attending Physician. ec2 10:00 Triage completed. jl7 10:00 Arm band placed on right wrist. jl7 10:33 Knee Right 3 View XRAY In Process Unspecified. EDMS 12:07 Patient has correct armband on for positive identification. Provided Education on: kb3 Discharge instructions. 12:07 No provider procedures requiring assistance completed. Patient did not have IV access kb3 during this emergency room visit. Administered Medications: 10:08 Drug: Methocarbamol PO 500 mg PO once Route: PO; jl7 12:05 Follow up: Response: No adverse reaction; Pain is decreased kb3 10:08 Drug: Acetaminophen PO 1000 mg PO once Route: PO; jl7 12:05 Follow up: Response: No adverse reaction; Pain is decreased kb3 10:08 Drug: Ibuprofen PO 400 mg PO once Route: PO; jl7 12:05 Follow up: Response: No adverse reaction; Pain is decreased kb3 Medication: 12:07 VIS not applicable for this client. kb3 Outcome: 11:31 Discharge ordered by . ec2 12:07 Discharged to home kb3 12:07 Condition: stable 12:07 Discharge instructions given to patient, Instructed on discharge instructions, follow up and referral plans. medication usage, Demonstrated understanding of instructions, follow-up care, medications, Prescriptions given X 1, 12:33 Patient left the ED. aa5 Signatures: Dispatcher MedHoUNM [facility]oval [facility] Medical CenterMaia Barrow RN RN aa5 Silke Meza, RN RN jl7 Noemy Oliva, RN RN kb3 Afshan Pettit Edwin, MD MD ec2
[2024-07-24 12:41] VITALS: BP 146/77; TEMP 97.6; O2SAT 100
== END 2024-07-24 12:33 | disposition home or self-care (01) ==
LOC: ER 09:38
DX: S83.91XA Sprain of unspecified site of right knee, initial encounter (principal); Z79.82 Long term (current) use of aspirin
CPT/HCPCS: 99283

== ENCOUNTER 2024-09-08 06:12 | Day surgery (SDC) | payer OTHER, MEDICARE ==
[2024-09-06 12:44] LABS: Absolute Eosinophils 0.1 K/uL (0-0.5); Absolute Lymphocytes (CBC) 2.4 K/uL (0.7-4.9); Absolute Monocytes 0.8 K/uL (0.1-1.3); Absolute Neutrophil 4.6 K/uL (1.8-8.0); Basophils % 0.4 % (0-1.3); Eosinophils % 1.7 % (0-4.4); Hematocrit 39.2 % (36.0-45.0); Hemoglobin 13.5 g/dL (12.0-15.0); Lymphocytes % 30.6 % (15.3-44.8); MCH 30.1 pg (27.0-35.0); MCHC 34.5 g/dL (32.0-36.0); MCV 87.3 fL (80-100); MPV 7.3 fL (7.6-11.3); Monocytes % 9.9 % (3.3-12.3); Neutrophils % 57.4 % (41.7-73.7); Platelets 306 thou/uL (152-406); RBC Red Blood Cell Count 4.49 M/uL (3.86-4.86); Red Cell Distribution Width 14.5 % (12.1-15.2)
[2024-09-06 12:57] LABS: Anion Gap 6.2 mEq/L (5.0-15.0); Potassium 4.2 mEq/L (3.5-5.1)
[2024-09-08] MEDS: Ringers Lactate 1,000 ML IV ONE (06:50)
[2024-09-08] MEDS ORDERED: KETOROLAC 30 MG/ML INJ ONE (07:17)
[2024-09-08] MEDS ORDERED: propofoL 200 MG/20 ML VIAL IV ONE (07:17)
[2024-09-08] MEDS ORDERED: dexAMETHasone 10 MG/ML VIAL ONE (07:17)
[2024-09-08] MEDS ORDERED: MIDAZOLAM HCL 2 MG/2 ML INJ ONE (07:17)
[2024-09-08] MEDS ORDERED: FENTANYL CITR 100 MCG/2 ML ONE (07:17)
[2024-09-08] MEDS ORDERED: LIDOCAINE 2% MPF 5 ML VIAL ONE (07:17)
[2024-09-08] MEDS ORDERED: ONDANSETRON 4 MG/2 ML VIAL ONE (07:17)
[2024-09-08] MEDS: CEFAZOLIN SODIUM 1 GM/VIAL ONE (08:00)
--- NOTE | 2024-09-08 09:42 | OP ---
Date of Procedure: 09/08/2024 Surgeon: Omar Stover MD Preoperative Diagnoses: Right knee pain with mechanical symptoms, probable meniscal tear or tears. Postoperative Diagnoses: 1. Grade 3 chondromalacia, medial femoral condyle. 2. Tear of the posterior aspect of the medial meniscus. Procedure: Arthroscopic investigation with debridement of medial meniscal tear. Estimated Blood Loss: Less than 10 cc. Complications: No complications. Specimens: No pathology specimens sent. Indications For Operation: Ms. Murray is a 74-year-old female who does not have much arthritic change on x-ray or MRI, but does have mechanical symptoms and a detected medial meniscal tear. Risks, benef its, and alternatives to the procedure have been discussed with her including possible conservative m anagement, injections, or alternative measures. At this time, arthroscopy is elected. Risks, benefi ts, and alternatives of this particular procedure were discussed in detail. She states she understan ds things as presented, and wishes to proceed. Description Of Procedure: The patient was taken to the operating room and placed in supine position. General anesthesia was obtained by Anesthesia staff. Following this, a well-padded tourniquet was placed on the superior right thigh. Right lower extremity was then prepped and draped in usual steri le fashion for procedure. Following this, a standard medial arthroscopy portal was then placed with liberation of scanty synovial fluid. This was followed by placement of inferolateral arthroscopy por javier, which allowed for placement of the trocar atraumatically with 1 pass. The knee was then sequent ially examined, including the suprapatellar pouch, medial and lateral compartments, medial and latera l gutters, as well as the notch and patellofemoral joint. Pertinent findings included significant th inning of the chondral surface of the medial femoral condyle. There was one very small unstable flap . The medial meniscus was visualized and was found to have what appears to be a mostly horizontal, b ut somewhat complex tear. Following this, the standard inferomedial arthroscopy portal was then plac ed using a needle for localization. This allowed for placement of the probe within the knee. This d oes demonstrate that the small flap was unstable. A 3.5 shaver was used to debride this small unstab le flap to a firm hook stable base, and no chondral tissue was removed, that was not absolutely unsta ble. After this, attention was then turned to the medial meniscus. The medial meniscus was then pro bed and debrided until it was firm, hook stable, well contoured base. Following this, the knee was a gain examined in all the above areas with some small amount of fat pad removed to ensure good visuali zation, but otherwise no further pathology seen, which was amenable to arthroscopic intervention. Th is was followed by stapling of the inferior arthroscopy portals and placement of Marcaine through the superomedial portal. This was then stapled. The patient was placed in a well-padded sterile dressi ng, awakened, taken to recovery in good condition. No complications. SE/MODL Voice ID: [id number] Report ID: [id number]
[2024-09-08 10:43] VITALS: BP 133/79; TEMP 97.8; O2SAT 100
--- NOTE | 2024-09-11 12:18 | EKG ---
Test Date: 2024-09-06 Test Time: 12:28:51 Fixing Carpenter: MOISES MEASUREMENT RESULTS: Intervals: Rate: 57 VT: 206 QRSD: 100 QT: 430 QTc: 418 Peterson: P: 93 VT: 206 QRS: 23 T: 63 INTERPRETIVE STATEMENTS: Sinus bradycardia Incomplete right bundle branch block Borderline ECG Compared to ECG 02/05/2024 00:06:13 Incomplete right bundle-branch block now present Electronically Signed On 09-11-24 12:07:34 CDT by Steve Barahona
== END 2024-09-08 10:30 | disposition home or self-care (01) ==
LOC: OR 06:12
PROVIDERS: ATTEND Orthopaedic Surgery
PROC: 0SBC4ZZ Excision of Right Knee Joint, Percutaneous Endoscopic Approach (ICD-10-PCS; principal; 2024-09-08 08:00)
DX: S83.231A Complex tear of medial meniscus, current injury, right knee, initial encounter (principal); M25.561 Pain in right knee; M94.28 Chondromalacia, other site
CPT/HCPCS: 93005; 85025; 80048; 36415; 29881; J2704; J2003; J3010; J1100; J2405; J7120; J0690; J2250